=== PATIENT | female | born 2000 | race African-American/Black ===

== ENCOUNTER 2020-12-23 20:34 | Emergency (ER) | payer SELFPAY ==
--- OUTSIDE RECORDS SUMMARY | 2020-12-23 20:38 | XMS REPORT | Continuity of Care Document ---
:2000 Author Organization [facility] t Address [address] [place] [address] Care Team Providers Name Role Phone Paula Eastman PA-C Attending Clinician Mona Jett MD Attending Clinician Doctor Unassigned, Name Attending Clinician Unavailable Pineda Richardson MD Attending Clinician Susy DUNN Attending Clinician Ultrasound, [facility] Attending Clinician Unavailable 2, Lab Attending Clinician Unavailable Pineda Mathew MA Attending Clinician Unavailable Carmen Philip MD Attending Clinician Geo Jett MD Admitting Clinician Pineda Richardson MD Admitting Clinician Problems This patient has no known problems. Allergies, Adverse Reactions, Alerts This patient has no known allergies or adverse reactions. Medications This patient has no known medications. Procedures This patient has no known procedures. Encounters Start End Encounter Admission Attending Care Care Encounter Source Date/Time Date/Time Type Type Clinicians Facility Department ID 2019-12-23 2019-12-23 TelemedicJACQUES Christian 1.2.840.114 [id number] 07:58:31 13:26:53 ne Visit Paula Luna [id number] [place] 4.2.7.2.686 Professio [phone] [address] 2019-12-21 2019-12-21 Refill Mona Jett [facility] [id number] 00:00:00 00:00:00 Cam Cheryl 350.1.13.10 [place] 4.2.7.2.686 Professio [phone] [address] 2019-12-20 2019-12-20 Refill Mona Jett [facility] [id number] 00:00:00 00:00:00 [place] [id number] [place] 4.2.7.2.686 Professio [phone] [address] 2019-11-29 2019-11-29 Orders Doctor NATHAN 1.2.840.114 [id number] 00:00:00 00:00:00 Only Unassigned, [facility] [id number] [facility] 4.2.7.2.686 [id number] [id number] 2019-11-25 2019-11-26 Hospital Mona Jett [facility] 1.2.840.114 [id number] 05:33:00 21:06:00 Encounter Geo Luna [id number] [place] 4.2.7.2.686 [place] [id number] 2019-11-25 2019-11-25 Orders Doctor NATHAN 1.2.840.114 [id number] 00:00:00 00:00:00 Only Unassigned, [place] 350.1.13.10 [place] [facility] 4.2.7.2.686 [id number] [id number] 2019-11-19 2019-11-19 [facility] [id number] 08:59:42 09:14:42 Paula Luna 350.1.13.10 Visit [place] 4.2.7.2.686 [facility] [phone] [address] 2019-11-18 2019-11-18 Telephone Mona Jett [facility] 1.2.840.114 [id number] 00:00:00 00:00:00 Cam [place] 350.1.13.10 [place] 4.2.7.2.686 [facility] [phone] [address] 2019-11-17 2019-11-17 [facility] Mona Jett [facility] 1.2.840.114 [id number] 13:08:00 16:20:00 Encounter Dylan Alyce Pineda Luna 350.1.13.10 [place] 4.2.7.2.686 [place] [id number] 2019-11-13 2019-11-13 Case Diclemente, [facility] 1.2.840.114 [id number] 00:00:00 00:00:00 Management Markell Luna 350.1.13.10 [place] 4.2.7.2.686 [facility] [phone] [address] 2019-11-12 2019-11-12 Routine Diclemente, [facility] 1.2.840.114 [id number] 08:54:42 10:03:14 Markell Cheryl 350.1.13.10 Visit [place] 4.2.7.2.686 [facility] [phone] [address] 2019-11-12 2019-11-12 Orders Doctor NATHAN 1.2.840.114 [id number] 00:00:00 00:00:00 Only Unassigned, [place] 350.1.13.10 [facility] 4.2.7.2.686 [id number] [id number] 2019-11-05 2019-11-05 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 Ultrasound, [facility] 1.2.840.114 [id number] 16:15:50 16:45:50 Visit Adc [place] 350.1.13.10 [place] 4.2.7.2.686 [facility] [phone] [address] 2019-11-05 2019-11-05 Letter Ultrasound, [facility] 1.2.840.114 [id number] 00:00:00 00:00:00 (Out) Adc [facility] [place] 350.1.13.10 [place] 4.2.7.2.686 [facility] [phone] [address] 2019-10-29 2019-10-29 Routine Mananarlennikos, [facility] [id number] 09:25:23 10:08:15 Paula Cheryl 350.1.13.10 Visit [place] 4.2.7.2.686 [facility] [phone] [address] 2019-10-28 2019-10-29 Hospital Mona Jett [facility] 1.2.840.114 [id number] 22:21:00 00:17:00 Encounter Geo Luna 350.1.13.10 [place] 4.2.7.2.686 [place] [id number] [id number] 2019-10-29 2019-10-29 Letter Jaren [facility] [id number] 00:00:00 00:00:00 (Out) Paula Luna 350.1.13.10 [place] 4.2.7.2.686 [facility] [phone] [address] 2019-10-22 2019-10-22 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 2, Adc Lab [facility] 1.2.840.114 [id number] 14:58:39 15:13:39 Visit Cheryl 350.1.13.10 [place] 4.2.7.2.686 [facility] [phone] [address] 2019-10-22 2019-10-22 [facility]ine [facility] 1.2.840.114 [id number] 13:33:50 14:54:53 Markell Luna 350.1.13.10 Visit [place] 4.2.7.2.686 [facility] [phone] [address] 2019-10-22 2019-10-22 Orders Doctor NATHAN 1.2.840.114 [id number] 00:00:00 00:00:00 Only Unassigned, [place] 350.1.13.10 [place] [facility] 4.2.7.2.686 [id number] 2019-10-20 2019-10-20 Telephone Dicmino, [facility] 1.2.840.114 [id number] 00:00:00 00:00:00 Markell Luna 350.1.13.10 [place] 4.2.7.2.686 [facility] [phone] [address] 2019-10-15 2019-10-15 Patient Priyanka, [facility] 1.2.840.114 [id number] 00:00:00 00:00:00 Secure Msg Nuvia Sung Cheryl 350.1.13.10 [place] 4.2.7.2.686 [facility] [phone] [address] 2019-10-13 2019-10-13 Patient Doctor [facility] 1.2.840.114 [id number] 00:00:00 00:00:00 Secure Msg UnassignedCheryl 350.1.13.10 [place] 4.2.7.2.686 Professio [phone] [address] 2019-10-08 2019-10-08 Routine Vansong, [facility] [id number] 08:26:34 09:18:04 Paula Luna 350.1.13.10 Visit [place] 4.2.7.2.686 [facility] [phone] [address] 2019-10-05 2019-10-05 Patient Doctor [facility] 1.2.840.114 [id number] 00:00:00 00:00:00 Secure Msg UnassCheryl lenz 350.1.13.10 [place] 4.2.7.2.686 [facility] [phone] [address] 2019-09-29 2019-09-29 Hospital Mona Jett [facility] 1.2.840.114 [id number] 18:12:00 20:54:00 Encounter Geo Luna 350.1.13.10 [place] 4.2.7.2.686 [place] [id number] 2019-09-24 2019-09-24 Routine Susy, [facility] 1.2.840.114 [id number] 09:33:48 10:12:13 Markell Luna 350.1.13.10 Visit [place] 4.2.7.2.686 [facility] [phone] [address] 2019-09-24 2019-09-24 Letter Susy, [facility] 1.2.840.114 [id number] 00:00:00 00:00:00 (Out) Markell Luna 350.1.13.10 [place] 4.2.7.2.686 [facility] [phone] [address] 2019-09-23 2019-09-23 Emergency Tamera [facility] [id number] 18:49:51 20:42:00 [facility] 350.1.13.10 [facility] 4.2.7.2.686 [facility] [phone] [address] ([facility]) 2019-08-16 2019-08-16 Patient Doctor [facility] 1.2.840.114 [id number] 00:00:00 00:00:00 Secure Msg Unassigned, Cheryl 350.1.13.10 [place] 4.2.7.2.686 [facility] [phone] [address] 2019-05-14 2019-05-14 [facility] 1.2.840.114 [id number] 10:21:14 23:59:00 Encounter Markell Luna 350.1.13.10 [place] 4.2.7.2.686 [place] [id number] 2019-05-14 2019-05-14 Routine [facility] 1.2.840.114 [id number] 13:04:47 13:54:42 Markell Luna 350.1.13.10 Visit [place] 4.2.7.2.686 [facility] [phone] [address] 2019-05-14 2019-05-14 Letter Susy [facility] 1.2.840.114 [id number] 00:00:00 00:00:00 (Out) Markell Luna 350.1.13.10 [place] 4.2.7.2.686 [facility] [phone] [address] 2019-05-14 2019-05-14 Letter Susy [facility] 1.2.840.114 [id number] 00:00:00 00:00:00 (Out) Markell Luna 350.1.13.10 [place] 4.2.7.2.686 [facility] [phone] [address] Results This patient has no known results.
[2020-12-24 02:26] LABS: Urine Blood Negative (Negative); Urine Glucose Negative (Negative); Urine Protein Negative (Negative); Urine Specific Gravity >=1.030 (1.005-1.030); Urine pH 5.5 (5.0-7.0)
[2020-12-24 02:29] LABS: Absolute Lymphocytes (CBC) 0.6 K/uL (0.7-4.9); Basophils % 0.2 % (0-1.3); Hematocrit 40.1 % (36.0-45.0); Lymphocytes % 5.4 % (15.3-44.8); MPV 8.6 fL (7.6-11.3); RBC Red Blood Cell Count 4.65 M/uL (3.86-4.86)
[2020-12-24] MEDS ORDERED: METOCLOPRAMIDE 10 MG/2mL INJ ONE (02:32)
[2020-12-24] MEDS ORDERED: DIPHENHYDRAMINE 50 MG/ML VIAL ONE (02:32)
[2020-12-24] MEDS ORDERED: FAMOTIDINE 20 MG/2 ML VIAL IV ONE (02:33)
[2020-12-24] MEDS ORDERED: NA CHLORIDE 0.9% 1,000 ML ONE (02:33)
[2020-12-24 02:35] LABS: Urine Specific Gravity/Preg >1.030 (1.005-1.030)
[2020-12-24 03:44] LABS: ALT/SGPT 42 U/L (12-78); AST/SGOT 45 U/L (15-37); Alkaline Phosphatase 83 U/L (45-117); BUN Blood Urea Nitrogen 12 mg/dL (7-18); Bicarbonate 25 mmol/L (21-32); Bilirubin Direct 0.2 mg/dL (0-0.2); Bilirubin Total 0.5 mg/dL (0.2-1.0); Glucose Level 104 mg/dL (74-106); Lipase 127 U/L (73-393); Potassium 3.6 mmol/L (3.5-5.1); Protein, Total 7.7 g/dL (6.4-8.2); Sodium Level 140 mmol/L (136-145); Troponin (Emerg Dept Use Only) < 0.02 ng/mL (0.0-0.045)
[2020-12-24 04:03] LABS: Blood Morphology Comment NOT SEEN (NOT SEEN); Platelet Estimate INCR; White Blood Cell Scan OK (OK)
--- NOTE | 2020-12-24 04:19 | ER ---
Nurse's Notes [facility] Name: Brooklynn Lorenzana Age: 20 yrs Sex: Female : 2000 Arrival Date: 12/23/2020 Time: 20:35 Bed 28 Private MD: Diagnosis: Headache;Gastritis, unspecified, without bleeding Presentation: 12/23 21:54 Chief complaint: Patient states: she has had a headache x 2 days and this evening bb started vomiting with chest tightness. Coronavirus screen: At this time, the client does not indicate any symptoms associated with coronavirus-19. Ebola Screen: No symptoms or risks identified at this time. Initial Sepsis Screen: Does the patient meet any 2 criteria? No. Patient's initial sepsis screen is negative. Does the patient have a suspected source of infection? No. Patient's initial sepsis screen is negative. Risk Assessment: Do you want to hurt yourself or someone else? Patient reports no desire to harm self or others. Onset of symptoms was December 21, 2020. 21:54 Method Of Arrival: Ambulatory bb 21:54 Acuity: KAREN 3 bb Triage Assessment: 21:56 General: Appears in no apparent distress. Behavior is calm, cooperative. Pain: Pain bb currently is 8 out of 10 on a pain scale. Neuro: Level of Consciousness is awake, alert, obeys commands, Oriented to person, place, time, situation. Cardiovascular: Capillary refill < 3 seconds Patient's skin is warm and dry. Respiratory: Respiratory effort is even, unlabored, Respiratory pattern is regular. GI: Reports vomiting. Derm: Skin is dry, Skin is normal, Skin temperature is warm. Musculoskeletal: Circulation, motion, and sensation intact. 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 - Social history:: Smoking status: Patient denies any tobacco usage or history of. Screenin/25 01:33 Abuse screen: Denies threats or abuse. Nutritional screening: No deficits noted. bb Tuberculosis screening: No symptoms or risk factors identified. Fall Risk None identified. Assessment: 01:33 General: Appears in no apparent distress. uncomfortable, Behavior is calm, cooperative. bb Pain: Complains of pain in chest. Neuro: Level of Consciousness is awake, alert, obeys commands, Oriented to person, place, time, situation. Cardiovascular: Capillary refill < 3 seconds Patient's skin is warm and dry. Respiratory: Respiratory effort is even, unlabored, Respiratory pattern is regular. GI: Bowel sounds present X 4 quads. Abd is soft X 4 quads Reports vomiting. Derm: Skin is dry, Skin is normal, Skin temperature is warm. Musculoskeletal: Circulation, motion, and sensation intact. 02:30 Reassessment: Patient and/or family updated on plan of care and expected duration. Pain bb level reassessed. 03:30 Reassessment: Patient and/or family updated on plan of care and expected duration. Pain bb level reassessed. Patient is alert, oriented x 3, equal unlabored respirations, skin warm/dry/pink. pt awaiting diagnostic results. 04:38 Reassessment: Patient is alert, oriented x 3, equal unlabored respirations, skin bb warm/dry/pink. pt verbalized understanding of and agrees to plan of care discharge instructions given pt ambulated with steady gait to exit Patient states feeling better. Vital Signs: 12/23 21:54 BP 119 / 83; Pulse 77; Resp 16 S; Temp 98.4(O); Pulse Ox 100% on R/A; Weight 72.57 kg bb (R); Height 5 ft. 4 in. (162.56 cm) (R); Pain 8/10; 12/24 01:21 BP 116 / 76; Pulse 76; Resp 18; Temp 98.1(O); Pulse Ox 100% on R/A; tt3 03:10 BP 127 / 84; Pulse 92; Resp 18; Pulse Ox 100% on R/A; tt3 04:39 BP 114 / 74; Pulse 93; Resp 16 S; Temp 98.5(O); Pulse Ox 100% on R/A; Pain 2/10; bb 12/23 21:54 Body Mass Index 27.46 (72.57 kg, 162.56 cm) bb ED Course: 12/23 20:35 Patient arrived in ED. bp1 21:55 Triage completed. bb 21:56 Arm band placed on Patient placed in waiting room, Patient notified of wait time. bb 12/24 01:33 Patient has correct armband on for positive identification. Bed in low position. Call bb light in reach. 01:50 Freddie Weller MD is Attending Physician. [facility] 02:00 Initial lab(s) drawn, by me, sent to lab. Missed attempt(s): 20 gauge in right bb antecubital area. Bleeding controlled, band aid applied, catheter tip intact. 02:28 Chest Single View XRAY In Process Unspecified. EDMS 02:53 Inserted saline lock: 22 gauge in left antecubital area, using aseptic technique. bb ,using aseptic technique. by Alexa GRAF. 04:38 No provider procedures requiring assistance completed. IV discontinued, intact, bb bleeding controlled, No redness/swelling at site. Pressure dressing applied. Administered Medications: 02:38 Drug: Benadryl (diphenhydrAMINE) 50 mg Route: IVP; Rate: 25 mg/min; Site: left mw antecubital; 03:40 Follow up: Response: No adverse reaction bb 02:39 Drug: Reglan (metoCLOPramide) 10 mg Route: IVP; Rate: 10 mg/min; Site: left antecubital; 03:40 Follow up: Response: No adverse reaction bb 02:39 Drug: Pepcid (famotidine) 20 mg Route: IVP; Rate: 20 mg/min; Site: left antecubital; 03:40 Follow up: Response: No adverse reaction bb 02:55 Drug: NS 0.9% 1000 ml Route: IV; Rate: 1000 ml; Site: left antecubital; 04:00 Follow up: IV Status: Completed infusion; IV Intake: 1000ml bb Intake: 04:00 IV: 1000ml; Total: 1000ml. bb Outcome: 04:18 Discharge ordered by . [facility] 04:40 Discharged to home ambulatory. bb 04:40 Condition: stable 04:40 Discharge instructions given to patient, Instructed on discharge instructions, follow up and referral plans. medication usage, Demonstrated understanding of instructions, follow-up care, medications, Prescriptions given X 3. 04:41 Patient left the ED. bb Signatures: Dispatcher [employer] EDCA Alexa Evans RN RN mw Ballard, Brenda, RN RN bb [place], Brittany bp1 Holmes, Maurice, MD MD 7 Trim, Neymar tt3
--- NOTE | 2020-12-24 04:19 | EDPHYS ---
Physician Documentation [facility] Name: Brooklynn Lorenzana Age: 20 yrs Sex: Female : 2000 Arrival Date: 12/23/2020 Time: 20:35 Bed 28 Private MD: ED Physician Freddie Weller HPI: 12/24 02:47 This 20 yrs old Female presents to ER via Ambulatory with complaints of Abdominal Pain, mh7 Vomiting, Chest Pain. 02:51 The patient presents to the emergency department with nausea, that is moderate, mh7 vomiting, that is intermittent, described as clear fluid, abdominal pain, of the epigastric area, described as burning, intermittent, and does not radiate. Onset: The symptoms/episode began/occurred yesterday. Possible causes: unknown. The symptoms are aggravated by nothing. The symptoms are alleviated by nothing. Associated signs and symptoms: Pertinent positives: abdominal pain, nausea, vomiting, Migraine headache started 2 days ago, Pertinent negatives: anorexia, belching, constipation, diarrhea, dysuria, fever, flatulence, GI bleeding, hematuria, vaginal discharge. Severity of symptoms: At their worst the symptoms were moderate yesterday, in the emergency department the symptoms have improved moderately. States that she started having migraine headache 2 days ago and took Tylenol and Advil which helped. She started to have nausea, vomiting, and epigastric pain yesterday.. 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 - Social history:: Smoking status: Patient denies any tobacco usage or history of. ROS: 12/24 02:51 Constitutional: Negative for fever, chills, and weight loss, Eyes: Negative for injury, mh7 pain, redness, and discharge, ENT: Negative for injury, pain, and discharge, Neck: Negative for injury, pain, and swelling, Respiratory: Negative for shortness of breath, cough, wheezing, and pleuritic chest pain, Back: Negative for injury and pain, : Negative for injury, bleeding, discharge, and swelling, MS/Extremity: Negative for injury and deformity, Skin: Negative for injury, rash, and discoloration, Psych: Negative for depression, anxiety, suicide ideation, homicidal ideation, and hallucinations, Allergy/Immunology: Negative for hives, rash, and allergies, Endocrine: Negative for neck swelling, polydipsia, polyuria, polyphagia, and marked weight changes, Hematologic/Lymphatic: Negative for swollen nodes, abnormal bleeding, and unusual bruising. Exam: 02:51 Constitutional: This is a well developed, well nourished patient who is awake, alert, mh7 and in no acute distress. Head/Face: Normocephalic, atraumatic. Eyes: Pupils equal round and reactive to light, extra-ocular motions intact. Lids and lashes normal. Conjunctiva and sclera are non-icteric and not injected. Cornea within normal limits. Periorbital areas with no swelling, redness, or edema. Neck: Trachea midline, no thyromegaly or masses palpated, and no cervical lymphadenopathy. Supple, full range of motion without nuchal rigidity, or vertebral point tenderness. No Meningismus. Chest/axilla: Normal chest wall appearance and motion. Nontender with no deformity. No lesions are appreciated. Cardiovascular: Regular rate and rhythm with a normal S1 and S2. No gallops, murmurs, or rubs. Normal PMI, no JVD. No pulse deficits. Respiratory: Lungs have equal breath sounds bilaterally, clear to auscultation and percussion. No rales, rhonchi or wheezes noted. No increased work of breathing, no retractions or nasal flaring. Abdomen/GI: Soft, non-tender, with normal bowel sounds. No distension or tympany. No guarding or rebound. No evidence of tenderness throughout. Back: No spinal tenderness. No costovertebral tenderness. Full range of motion. Skin: Warm, dry with normal turgor. Normal color with no rashes, no lesions, and no evidence of cellulitis. MS/ Extremity: Pulses equal, no cyanosis. Neurovascular intact. Full, normal range of motion. Neuro: Awake and alert, GCS 15, oriented to person, place, time, and situation. Cranial nerves II-XII grossly intact. Motor strength 5/5 in all extremities. Sensory grossly intact. Cerebellar exam normal. Normal gait. Psych: Awake, alert, with orientation to person, place and time. Behavior, mood, and affect are within normal limits. Vital Signs: 12/23 21:54 BP 119 / 83; Pulse 77; Resp 16 S; Temp 98.4(O); Pulse Ox 100% on R/A; Weight 72.57 kg bb (R); Height 5 ft. 4 in. (162.56 cm) (R); Pain 8/10; 12/24 01:21 BP 116 / 76; Pulse 76; Resp 18; Temp 98.1(O); Pulse Ox 100% on R/A; tt3 03:10 BP 127 / 84; Pulse 92; Resp 18; Pulse Ox 100% on R/A; tt3 04:39 BP 114 / 74; Pulse 93; Resp 16 S; Temp 98.5(O); Pulse Ox 100% on R/A; Pain 2/10; bb 12/23 21:54 Body Mass Index 27.46 (72.57 kg, 162.56 cm) MDM: 04:16 Differential diagnosis: Nonspecific abd pain, gastritis, pancreatitis. Differential [facility] diagnosis: Headache. Data reviewed: vital signs. Data reviewed: lab test result(s), CBC, electrolytes, urinalysis, UPT: negative EKG, radiologic studies, plain films. Data interpreted: Pulse oximetry: on room air is 100 %. Interpretation: normal. Counseling: I had a detailed discussion with the patient and/or guardian regarding: the historical points, exam findings, and any diagnostic results supporting the discharge/admit diagnosis, lab results, radiology results, the need for outpatient follow up, to return to the emergency department if symptoms worsen or persist or if there are any questions or concerns that arise at home. Response to treatment: the patient's symptoms have resolved after treatment, the patient's blood pressure is in an acceptable range, mental status has returned to baseline, the patient no longer shows bradycardia, the patient is not short of breath, the patient is not tachycardic, the patient's pain is gone, the patient's temperature has normalized, patient is well hydrated. 04:18 Patient medically screened. [facility] 12/24 02:05 Order name: Basic Metabolic Panel [facility] 12/24 02:05 Order name: CBC with Diff; Complete Time: 04:09 [facility] 12/24 02:05 Order name: Hepatic Function; Complete Time: 04:09 [facility] 12/24 02:05 Order name: Lipase; Complete Time: 04:09 [facility] 12/24 02:06 Order name: Basic Metabolic Panel; Complete Time: 04:09 MS 12/24 02:06 Order name: Troponin (emerg Dept Use Only) [facility] 12/24 02:05 Order name: Chest Single View XRAY [facility] 12/24 02:07 Order name: Troponin (Emerg Dept Use Only); Complete Time: 04:09 EDMS 12/24 02:26 Order name: Urine Dipstick-Ancillary; Complete Time: 03:25 EDMS 12/24 02:27 Order name: Urine --Ancillary (enter results) 3 12/24 02:28 Order name: Urine --Ancillary; Complete Time: 03:25 EDMS 12/24 04:03 Order name: CBC Smear Scan; Complete Time: 04:09 MS 12/24 02:05 Order name: IV Saline Lock; Complete Time: 03:57 [facility] 12/24 02:05 Order name: Labs collected and sent; Complete Time: 03:57 [facility] 12/24 02:05 Order name: Urine Dipstick-Ancillary (obtain specimen); Complete Time: 03:57 7 12/24 02:05 Order name: Urine Test (obtain specimen); Complete Time: 03:57 [facility] 12/24 02:05 Order name: EKG - Nurse/Tech; Complete Time: 03:57 mh7 Administered Medications: 02:38 Drug: Benadryl (diphenhydrAMINE) 50 mg Route: IVP; Rate: 25 mg/min; Site: left mw antecubital; 03:40 Follow up: Response: No adverse reaction bb 02:39 Drug: Reglan (metoCLOPramide) 10 mg Route: IVP; Rate: 10 mg/min; Site: left antecubital;mw 03:40 Follow up: Response: No adverse reaction bb 02:39 Drug: Pepcid (famotidine) 20 mg Route: IVP; Rate: 20 mg/min; Site: left antecubital; mw 03:40 Follow up: Response: No adverse reaction bb 02:55 Drug: NS 0.9% 1000 ml Route: IV; Rate: 1000 ml; Site: left antecubital; bb 04:00 Follow up: IV Status: Completed infusion; IV Intake: 1000ml bb Disposition: 12/24/20 04:18 Discharged to Home. Impression: Headache, Gastritis, unspecified, without bleeding. - Condition is Stable. - Discharge Instructions: Migraine Headache, Gastritis, Adult, [id number]. - Prescriptions for Zofran ODT 4 mg Oral tablet,disintegrating - place 1 tablet by TRANSLINGUAL route every 8 hours As needed; 6 tablet. Pepcid 20 mg Oral Tablet - take 1 tablet by ORAL route every 12 hours for 5 days; 10 tablet. Fioricet 50- 325-40 mg Oral tablet - take 1 tablet by ORAL route every 6 hours As needed; 12 tablet. - Medication Reconciliation Form, Thank You Letter, Antibiotic Education, Prescription Opioid Use form. - Follow up: Private Physician; When: 1 - 2 days; Reason: Worsening of condition, Recheck today's complaints, Continuance of care, Re-evaluation by your physician. - Problem is an acute exacerbation. - Symptoms have improved. Signatures: Dispatcher [employer] EDMS Alexa Evans RN RN mw Ballard, Brenda, RN RN bb Holmes, Maurice, MD MD mh7 Corrections: (The following items were deleted from the chart) 04:41 04:18 12/24/2020 04:18 Discharged to Home. Impression: Headache; Gastritis, bb unspecified, without bleeding. Condition is Stable. Forms are Medication Reconciliation Form, Thank You Letter, Antibiotic Education, Prescription Opioid Use. Follow up: Private Physician; When: 1 - 2 days; Reason: Worsening of condition, Recheck today's complaints, Continuance of care, Re-evaluation by your physician. Problem is an acute exacerbation. Symptoms have improved. mh7
[2020-12-24 04:59] VITALS: O2SAT 100
[2020-12-24 05:03] VITALS: BP 114/74; TEMP 98.5
--- NOTE | 2020-12-24 10:58 | RAD REPORT ---
EXAM DESCRIPTION: Dave Single View12/24/2020 2:28 am CLINICAL HISTORY: Chest pain COMPARISON: none FINDINGS: The lungs appear clear of acute infiltrate. The heart is normal size IMPRESSION: No acute abnormalities displayed
--- NOTE | 2020-12-25 10:51 | EKG ---
Test Date: 2020-12-24 Test Time: 02:18:25 [place] Fitting: TLT MEASUREMENT RESULTS: Intervals: Rate: 82 DE: 142 QRSD: 74 QT: 360 QTc: 420 [place]: P: 64 DE: 142 QRS: 65 T: 49 INTERPRETIVE STATEMENTS: Normal sinus rhythm with sinus arrhythmia Normal ECG No previous ECG available for comparison Electronically Signed On 12-25-20 10:47:02 CDT by Freddie Velasco
== END 2020-12-24 04:41 | disposition home or self-care (01) ==
LOC: ER 20:34
DX: K29.70 Gastritis, unspecified, without bleeding (principal); Z91.010 Allergy to peanuts
CPT/HCPCS: 36415; 71045; 80048; 80076; 81003; 81025; 83690; 84484; 85025; 93005; 96361; 96374; 96375; 99284; J1200; J2765; J7030

== ENCOUNTER 2022-05-20 22:06 | Emergency (ER) | payer OTHER, SELFPAY ==
--- OUTSIDE RECORDS SUMMARY | 2022-05-20 22:11 | XMS REPORT | Continuity of Care Document ---
:2000 Author Organization [facility] t Address [address] [place] [address] Care Team Providers Name Role Phone RITU SIMMONS Primary Care Physician Unavailable PAULA ENAMORADO Attending Clinician Unavailable ABNER NEVAREZ Attending Clinician Unavailable FIOR CYR Attending Clinician Unavailable Fior Cyr MD Attending Clinician Real PTAnastacia Attending Clinician Unavailable Abner Nevarez MD Attending Clinician Jing Britton PT Attending Clinician Unavailable 2, [facility] Attending Clinician Unavailable Doctor Unassigned, [place] Attending Clinician Unavailable Paula Enamorado PA-C Attending Clinician Alyce Richardson MD Attending Clinician Markell Jain MD Attending Clinician Ultrasound, Adc m Attending Clinician Unavailable Nuvia Mathew MA Attending Clinician Unavailable Luis Antonio Philip MD Attending Clinician Fior Cyr MD Admitting Clinician Alyce Richardson MD Admitting Clinician Payers Payer Name Policy Type Policy Number Effective Date Expiration Date Harrison cordova [facility] DALE WONG [id number] 2022 00:00:00 Problems Condition Condition Condition Status Onset Resolution Last Treating Co mments Source Name Details Category Date Date Treatment Clinician Date Supervisio Supervisio Disease Active U nivers n of other n of other 03-28 it y of normal normal 00:00: [place] 00 [facility] Branch Pelvic Pelvic Disease Active Univers cramping cramping 03-28 ity of in in 00:00: [place] antepartum antepartum 00 Me dical period period Branch Acute hip Acute hip Disease Active Uni vers pain, left pain, left 03-28 it y of 00:00: [place] 00 Medical Branch Nausea and Nausea and Disease Active U nivers vomiting vomiting - ity of during during 00:00: [place] 00 [facility] prior to prior to Branch 22 weeks 22 weeks gestation gestation Alpha Alpha Disease Active Overview: Univer s thalassemi thalassemi 9-28 Formattin ity of a silent a silent 00:00: g of this [place] as carrier carrier 00 note Medical might be Branch different from the original. 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 Negative for 13 out of 14 other diseases tested. FOB testing is negative. Migraine Migraine Disease Active Unive rs without without 9-13 ity of aura and aura and 00:00: [place] without without 00 Medical status status Branch migrainosu migrainosu s, not s, not intractabl intractabl e e Maternal Maternal Disease Active Overview: Un robyn varicella, varicella, 8-19 Formattin ity of non-immune non-immune 00:00: g of this [place] 00 note Medical might be Branch different from the original. VZV pp Allergies, Adverse Reactions, Alerts Allergy Allergy Status Severity Reaction(s) Onset Inactive Treating Comm ents Source Name Type Date Date Clinician Peanut Propensi Active Other - See Throat Uni vers ty to comments 12-28 swells up ity o f adverse 00:00: [place] reaction 00 Medical s Branch PEANUT DRUG Active Other-Cmnt Univer s INGREDI 4-29 ity of 00:00: [place] [address] Medical Branch Social History Social Habit Start Date Stop Date Quantity Comments Source ASSERTION 2022-02-07 University of 00:00:00 [place] [facility] History SDMO University o f Alcohol Std [place] Medical Drinks Branch History SDMO University o f Alcohol Binge [place] [facility] al Branch History [facility] University o f Alcohol Comment [place] Med ical Branch Exposure to 2022-04-15 2022-04-25 Not sure University of SARS-CoV-2 00:00:00 15:51:00 [facility] (event) Branch Alcohol intake 2022-03-28 2022-03-28 Lifetime University of 00:00:00 00:00:00 non-drinker [facility] (finding) Branch Tobacco use and 2022-03-28 2022-03-28 Smokeless tobacco Un iversity of exposure 00:00:00 00:00:00 non-user [place] [facility] History SDOH 2019-04-16 2019-04-16 1 University o f Alcohol Frequency 00:00:00 00:00:00 [facility] edical Hi Hat Sex Assigned At [birth year] Universit y of 00:00:00 00:00:00 [facility] Smoking Status Start Date Stop Date Source Never smoked tobacco [facility] Medications Ordered Filled Start Stop Current Ordering Indication Dosage Frequency Signature Comments Components Source Medication Medication Date Date Medication? Clinician (SIG) Name Name proMETHazin Yes [id number] 25mg Insert 1 Univers e 25 mg 8-25 Suppositor ity of suppository 00:00: y into [facility] 00 rectum Medical every 4 Branch (four) hours as needed for N/V unresponsi ve to oral antiemetic s. proMETHazin Yes [id number] 25mg Take 1 Univers e 25 mg 8-25 tablet by ity of tablet 00:00: mouth [place] [address] every 4 Medical (four) Branch hours as needed for Nausea and Vomiting (N/V). metroNIDAZO 2021- Yes [id number] 500mg Take 1 Univers LE (FLAGYL) 7-30 -07 tablet by it y of 500 mg 00:00: 04:59 mouth in [place] tablet 00 :00 the Medical morning Branch and 1 tablet in the evening. Do all this for 7 days. metroNIDAZO 2021-2021- Yes [id number] 500mg Take 1 Univers LE (FLAGYL) 7-30 08-07 tablet by it y of 500 mg 00:00: 04:59 mouth in [place] tablet 00 :00 the Medical morning Branch and 1 tablet in the evening. Do all this for 7 days. azithromyci 2021-0 Yes [id number] 500mg Take 1 Univers n 500 mg 7-29 tablet by ity of tablet 00:00: mouth in [place] 00 the Medical morning. Branch azithromyci 2021-0 Yes [id number] 500mg Take 1 Univers n 500 mg 7-29 tablet by ity of tablet 00:00: mouth in [place] 00 the Medical morning. Branch azithromyci 2021-0 Yes [id number] 500mg Take 1 Univers n 500 mg 7-29 tablet by ity of tablet 00:00: mouth in [place] 00 the Medical morning. Branch azithromyci 2021-0 Yes [id number] 500mg Take 1 Univers n 500 mg 7-29 tablet by ity of tablet 00:00: mouth in [place] 00 the Medical morning. Branch azithromyci 2021-0 Yes [id number] 500mg Take 1 Univers n 500 mg 7-29 tablet by ity of tablet 00:00: mouth in [place] 00 the Medical morning. Branch azithromyci 2021-0 Yes [id number] 500mg Take 1 Univers n 500 mg 7-29 tablet by ity of tablet 00:00: mouth in [place] 00 the Medical morning. Branch azithromyci 2021-0 Yes [id number] 500mg Take 1 Univers n 500 mg 7-29 tablet by ity of tablet 00:00: mouth in [place] 00 the Medical morning. Branch azithromyci 2021-0 Yes [id number] 500mg Take 1 Univers n 500 mg 7-29 tablet by ity of tablet 00:00: mouth in [place] 00 the Medical morning. Branch azithromyci 2021-0 2021- No [id number] 500mg Take 1 Univers n 500 mg 7-29 08-25 tablet by ity o f tablet 00:00: 00:00 mouth in [place] 00 :00 the Medical morning. Branch pyridoxine, 2021-0 Yes [id number] 25mg Take 1 Univers VITAMIN 7-28 tablet by ity of B-6, 00:00: mouth [place] (VITAMIN 00 every 6 Medical B-6) 25 mg (six) Branch tablet hours as needed for Nausea and Vomiting (N/V). doxylamine 2021-0 Yes [id number] 25mg Take 1 U nivers (UNISOM, 7-28 tablet by ity of DOXYLAMINE, [place] 25 mg 00 bedtime as Medica l tablet needed for Branch Nausea and Vomiting (N/V). metoclopram 2021-0 Yes [id number] 10mg Take 1 Univers to HCl 10 7-28 tablet by ity of mg tablet 00:00: mouth [place] 00 every 6 Medical (six) Branch hours as needed for Nausea and Vomiting (N/V). pyridoxine, 2021-0 Yes [id number] 25mg Take 1 Univers VITAMIN 7-28 tablet by ity of B-6, 00:00: mouth [place] (VITAMIN 00 every 6 Medical B-6) 25 mg (six) Branch tablet hours as needed for Nausea and Vomiting (N/V). doxylamine 2021-0 Yes [id number] 25mg Take 1 U nivers (UNISOM, 7-28 tablet by ity of DOXYLAMINE, [place] 25 mg 00 bedtime as Medica l tablet needed for Branch Nausea and Vomiting (N/V). metoclopram 2021-0 Yes [id number] 10mg Take 1 Univers to HCl 10 7-28 tablet by ity of mg tablet 00:00: mouth [place] 00 every 6 Medical (six) Branch hours as needed for Nausea and Vomiting (N/V). pyridoxine, 2021-0 Yes [id number] 25mg Take 1 Univers VITAMIN 7-28 tablet by ity of B-6, 00:00: mouth [place] (VITAMIN 00 every 6 Medical B-6) 25 mg (six) Branch tablet hours as needed for Nausea and Vomiting (N/V). doxylamine 2-0 Yes [id number] 25mg Take 1 U nivers (UNISOM, 7-28 tablet by ity of DOXYLAMINE, [place]: [place] 25 mg 00 bedtime as Medica l tablet needed for Branch Nausea and Vomiting (N/V). metoclopram 2022-0 Yes [id number] 10mg Take 1 Univers to HCl 10 7-28 tablet by ity of mg tablet 00:00: mouth [place] 00 every 6 Medical (six) Branch hours as needed for Nausea and Vomiting (N/V). pyridoxine, 2021-0 Yes [id number] 25mg Take 1 Univers VITAMIN 7-28 tablet by ity of B-6, 00:00: mouth [place] (VITAMIN 00 every 6 Medical B-6) 25 mg (six) Branch tablet hours as needed for Nausea and Vomiting (N/V). doxylamine 2-0 Yes [id number] 25mg Take 1 U nivers (UNISOM, 7-28 tablet by ity of DOXYLAMINE, [place] 25 mg 00 bedtime as Medica l tablet needed for Branch Nausea and Vomiting (N/V). metoclopram 2-0 Yes [id number] 10mg Take 1 Univers to HCl 10 7-28 tablet by ity of mg tablet 00:00: mouth [place] 00 every 6 Medical (six) Branch hours as needed for Nausea and Vomiting (N/V). pyridoxine, 2021-0 Yes [id number] 25mg Take 1 Univers VITAMIN 7-28 tablet by ity of B-6, 00:00: mouth [place] (VITAMIN 00 every 6 Medical B-6) 25 mg (six) Branch tablet hours as needed for Nausea and Vomiting (N/V). doxylamine 2021-0 Yes [id number] 25mg Take 1 U nivers (UNISOM, 7-28 tablet by ity of DOXYLAMINE, [place]: [place] 25 mg 00 bedtime as Medica l tablet needed for Branch Nausea and Vomiting (N/V). metoclopram 2-0 Yes [id number] 10mg Take 1 Univers to HCl 10 7-28 tablet by ity of mg tablet 00:00: mouth [place] 00 every 6 Medical (six) Branch hours as needed for Nausea and Vomiting (N/V). pyridoxine, 2-0 Yes [id number] 25mg Take 1 Univers VITAMIN 7-28 tablet by ity of B-6, 00:00: mouth [place] (VITAMIN 00 every 6 Medical B-6) 25 mg (six) Branch tablet hours as needed for Nausea and Vomiting (N/V). doxylamine 2022-0 Yes [id number] 25mg Take 1 U nivers (UNISOM, 7-28 tablet by ity of DOXYLAMINE, [place]: [place] 25 mg 00 bedtime as Medica l tablet needed for Branch Nausea and Vomiting (N/V). metoclopram 2022-0 Yes [id number] 10mg Take 1 Univers to HCl 10 7-28 tablet by ity of mg tablet 00:00: mouth [place] 00 every 6 Medical (six) Branch hours as needed for Nausea and Vomiting (N/V). pyridoxine, 2-0 Yes [id number] 25mg Take 1 Univers VITAMIN 7-28 tablet by ity of B-6, 00:00: mouth [place] (VITAMIN 00 every 6 Medical B-6) 25 mg (six) Branch tablet hours as needed for Nausea and Vomiting (N/V). doxylamine 2-0 Yes [id number] 25mg Take 1 U nivers (UNISOM, 7-28 tablet by ity of DOXYLAMINE, 00:[place]: [place] 25 mg 00 bedtime as Medica l tablet needed for Branch Nausea and Vomiting (N/V). metoclopram 2-0 Yes [id number] 10mg Take 1 Univers to HCl 10 7-28 tablet by ity of mg tablet 00:00: mouth [place] 00 every 6 Medical (six) Branch hours as needed for Nausea and Vomiting (N/V). pyridoxine, 2-0 Yes [id number] 25mg Take 1 Univers VITAMIN 7-28 tablet by ity of B-6, 00:00: mouth [place] (VITAMIN 00 every 6 Medical B-6) 25 mg (six) Branch tablet hours as needed for Nausea and Vomiting (N/V). doxylamine 2022-0 Yes [id number] 25mg Take 1 U nivers (UNISOM, 7-28 tablet by ity of DOXYLAMINE, 00:[place]: [place] 25 mg 00 bedtime as Medica l tablet needed for Branch Nausea and Vomiting (N/V). metoclopram 2022-0 Yes [id number] 10mg Take 1 Univers to HCl 10 7-28 tablet by ity of mg tablet 00:00: mouth [place] 00 every 6 Medical (six) Branch hours as needed for Nausea and Vomiting (N/V). pyridoxine, 2021-0 Yes [id number] 25mg Take 1 Univers VITAMIN 7-28 tablet by ity of B-6, 00:00: mouth [place] (VITAMIN 00 every 6 Medical B-6) 25 mg (six) Branch tablet hours as needed for Nausea and Vomiting (N/V). doxylamine 2-0 Yes [id number] 25mg Take 1 U nivers (UNISOM, 7-28 tablet by ity of DOXYLAMINE, 00:[place]: [place] 25 mg 00 bedtime as Medica l tablet needed for Branch Nausea and Vomiting (N/V). metoclopram 2-0 Yes [id number] 10mg Take 1 Univers to HCl 10 7-28 tablet by ity of mg tablet 00:00: mouth [place] 00 every 6 Medical (six) Branch hours as needed for Nausea and Vomiting (N/V). pyridoxine, 2021-0 Yes [id number] 25mg Take 1 Univers VITAMIN 7-28 tablet by ity of B-6, 00:00: mouth [place] (VITAMIN 00 every 6 Medical B-6) 25 mg (six) Branch tablet hours as needed for Nausea and Vomiting (N/V). doxylamine 2021-0 Yes [id number] 25mg Take 1 U nivers (UNISOM, 7-28 tablet by ity of DOXYLAMINE, [place]: [place] 25 mg 00 bedtime as Medica l tablet needed for Branch Nausea and Vomiting (N/V). metoclopram 2-0 Yes [id number] 10mg Take 1 Univers to HCl 10 7-28 tablet by ity of mg tablet 00:00: mouth [place] 00 every 6 Medical (six) Branch hours as needed for Nausea and Vomiting (N/V). pyridoxine, 2-0 Yes [id number] 25mg Take 1 Univers VITAMIN 7-28 tablet by ity of B-6, 00:00: mouth [place] (VITAMIN 00 every 6 Medical B-6) 25 mg (six) Branch tablet hours as needed for Nausea and Vomiting (N/V). doxylamine 2022-0 Yes [id number] 25mg Take 1 U nivers (UNISOM, 7-28 tablet by ity of DOXYLAMINE, [place]: [place] 25 mg 00 bedtime as Medica l tablet needed for Branch Nausea and Vomiting (N/V). metoclopram 0 Yes [id number] 10mg Take 1 Univers to HCl 10 7-28 tablet by ity of mg tablet 00:00: mouth [place] 00 every 6 Medical (six) Branch hours as needed for Nausea and Vomiting (N/V). pyridoxine, 0 Yes [id number] 25mg Take 1 Univers VITAMIN 7-28 tablet by ity of B-6, 00:00: mouth [place] (VITAMIN 00 every 6 Medical B-6) 25 mg (six) Branch tablet hours as needed for Nausea and Vomiting (N/V). doxylamine 0 Yes [id number] 25mg Take 1 U nivers (UNISOM, 7-28 tablet by ity of DOXYLAMINE, 00:[place]: [place] 25 mg 00 bedtime as Medica l tablet needed for Branch Nausea and Vomiting (N/V). pyridoxine, Yes [id number] 25mg Take 1 Univers VITAMIN 7-28 tablet by ity of B-6, 00:00: mouth [place] (VITAMIN 00 every 6 Medical B-6) 25 mg (six) Branch tablet hours as needed for Nausea and Vomiting (N/V). doxylamine Yes [id number] 25mg Take 1 U nivers (UNISOM, 7-28 tablet by ity of DOXYLAMINE, 00:[place]: [place] 25 mg 00 bedtime as Medica l tablet needed for Branch Nausea and Vomiting (N/V). metoclopram 2021- No [id number] 10mg Take 1 Univers to HCl 10 7-28 08-25 tablet by ity of mg tablet 00:00: 00:00 mouth [place] 00 :00 every 6 Medical (six) Branch hours as needed for Nausea and Vomiting (N/V). ibuprofen 2020-09- No [id number] 600mg Take 1 Univers 600 mg 2-10 07-28 tablet by ity of tablet 00:00: 00:00 mouth [place] 00 :00 every 6 Medical (six) Branch hours as needed for Pain (scale 4-6) or Temp > 38.5 C. Yes [id number] 1{tbl} Take 1 Univers vitamin 3-27 [id number] tablet by ity o f w/FA tablet 00:00: mouth [place] 00 daily. Medical Branch 2020-0 Yes [id number] 1{tbl} Take 1 Univers vitamin 3-27 [id number] tablet by ity o f w/FA tablet 00:00: mouth [place] 00 daily. Medical Branch 2020-0 Yes [id number] 1{tbl} Take 1 Univers vitamin 3-27 [id number] tablet by ity o f w/FA tablet 00:00: mouth [place] 00 daily. Medical Branch 2020-0 Yes [id number] 1{tbl} Take 1 Univers vitamin 3-27 [id number] tablet by ity o f w/FA tablet 00:00: mouth [place] 00 daily. Medical Hi Hat 2020-0 Yes [id number] 1{tbl} Take 1 Univers vitamin 3-27 [id number] tablet by ity o f w/FA tablet 00:00: mouth [place] 00 daily. Medical Hi Hat 2020-0 Yes [id number] 1{tbl} Take 1 Univers vitamin 3-27 [id number] tablet by ity o f w/FA tablet 00:00: mouth [place] 00 daily. Medical Branch 2020-0 Yes [id number] 1{tbl} Take 1 Univers vitamin 3-27 [id number] tablet by ity o f w/FA tablet 00:00: mouth [place] 00 daily. Medical Hi Hat 2020-0 Yes [id number] 1{tbl} Take 1 Univers vitamin 3-27 [id number] tablet by ity o f w/FA tablet 00:00: mouth [place] 00 daily. Medical Hi Hat 2020-0 Yes [id number] 1{tbl} Take 1 Univers vitamin 3-27 [id number] tablet by ity o f w/FA tablet 00:00: mouth [place] 00 daily. Medical Branch 2020-0 Yes [id number] 1{tbl} Take 1 Univers vitamin 3-27 [id number] tablet by ity o f w/FA tablet 00:00: mouth [place] 00 daily. Medical Hi Hat 2020-0 Yes [id number] 1{tbl} Take 1 Univers vitamin 3-27 [id number] tablet by ity o f w/FA tablet 00:00: mouth [place] 00 daily. Medical Hi Hat 2020-0 Yes [id number] 1{tbl} Take 1 Univers vitamin 3-27 [id number] tablet by ity o f w/FA tablet 00:00: mouth [place] 00 daily. Medical Branch 2019- Yes [id number] 1{tbl} Take 1 Univers vitamin 3-27 [id number] tablet by ity o f w/FA tablet 00:00: mouth [place] 00 daily. Medical Branch docusate 2021- No [id number] 240mg Take 1 Univers calcium 240 11-25 [id number] capsule by ity of mg capsule 00:00: 00:00 mouth once [place] 00 :00 daily as Medical needed for Branch Constipati on. ferrous 2021- No [id number] 325mg Take 1 Univers sulfate 325 11-25 [id number] tablet by ity of mg (65 mg 00:00: 00:00 [place] iron[place] 00 :00 (two) Medical tablet times Branch daily. ibuprofen 2021- No [id number] 600mg Take 1 Univers 600 mg 11-25 [id number] tablet by ity o f tablet 00:00: 00:00 mouth [place] 00 :00 every 6 Medical (six) Branch hours as needed (Pain). Take with food or milk. Immunizations Ordered Filled Immunization Date Status Comments [facility] e Immunization Name Name TDAP (ADACEL) 2019-09-02 Completed University of VACCINE 00:00:00 [facility] TDAP (ADACEL) 2019-09-02 Completed University of VACCINE 00:00:00 [facility] TDAP (ADACEL) 2019-09-02 Completed University of VACCINE 00:00:00 [facility] TDAP (ADACEL) 2019-09-02 Completed University of VACCINE 00:00:00 [facility] TDAP (ADACEL) 2019-09-02 Completed University of VACCINE 00:00:00 [facility] TDAP (ADACEL) 2019-09-02 Completed University of VACCINE 00:00:00 [facility] TDAP (ADACEL) 2019-09-02 Completed University of VACCINE 00:00:00 [facility] TDAP (ADACEL) 2019-09-02 Completed University of VACCINE 00:00:00 [facility] TDAP (ADACEL) 2019-09-02 Completed University of VACCINE 00:00:00 [facility] TDAP (ADACEL) 2019-09-02 Completed University of VACCINE 00:00:00 [facility] TDAP (ADACEL) 2019-09-02 Completed University of VACCINE 00:00:00 [facility] TDAP (ADACEL) 2019-09-02 Completed University of VACCINE 00:00:00 [facility] TDAP (ADACEL) 2019-09-02 Completed University of VACCINE 00:00:00 [facility] Influenza Virus 2019-06-08 Completed Universit y of Vaccine Quad .5 mL 00:00:00 [place] [facility] IM 6+ MO Branch Influenza Virus 2019-06-08 Completed Universit y of Vaccine Quad .5 mL 00:00:00 [facility] 6+ MO Branch Influenza Virus 2019-06-08 Completed Universit y of Vaccine Quad .5 mL 00:00:00 [facility] 6+ MO Branch Influenza Virus 2019-06-08 Completed Universit y of Vaccine Quad .5 mL 00:00:00 [facility] 6+ MO Branch Influenza Virus 2019-06-08 Completed Universit y of Vaccine Quad .5 mL 00:00:00 [facility] 6+ MO Branch Influenza Virus 2019-06-08 Completed Universit y of Vaccine Quad .5 mL 00:00:00 [facility] 6+ MO Branch Influenza Virus 2019-06-08 Completed Universit y of Vaccine Quad .5 mL 00:00:00 [facility] 6+ MO Branch Influenza Virus 2019-06-08 Completed Universit y of Vaccine Quad .5 mL 00:00:00 [facility] 6+ MO Branch Influenza Virus 2019-06-08 Completed Universit y of Vaccine Quad .5 mL 00:00:00 [facility] 6+ MO Branch Influenza Virus 2019-06-08 Completed Universit y of Vaccine Quad .5 mL 00:00:00 [facility] 6+ MO Branch Influenza Virus 2019-06-08 Completed Universit y of Vaccine Quad .5 mL 00:00:00 [place] [facility] 6+ MO Branch Influenza Virus 2019-06-08 Completed Universit y of Vaccine Quad .5 mL 00:00:00 [facility] 6+ MO Branch Influenza Virus 2019-06-08 Completed Universit y of Vaccine Quad .5 mL 00:00:00 [facility] 6+ MO Branch Vital Signs Vital Name Observation Time Observation Value Comments Source Systolic blood 2022-04-25 21:03:00 122 mm[Hg] Univer sity of pressure [facility] Diastolic blood 2022-04-25 21:03:00 86 mm[Hg] Unive rsity of pressure [facility] Heart rate 2022-04-25 21:03:00 92 /min Universi ty of [facility] Body temperature 2022-04-25 21:03:00 36.[address] [facility] Respiratory rate 2022-04-25 21:03:00 18 /min Univ ersity of [facility] Body height 2022-04-25 21:03:00 165.1 [address] [facility] Body weight 2022-04-25 21:03:[address] [facility] BMI 2022-04-25 21:03:00 23.63 kg/m2 Universi ty of [facility] Systolic blood 2022-03-28 19:28:00 106 mm[Hg] Univer sity of [facility] Diastolic blood 2022-03-28 19:28:00 68 mm[Hg] Unive rsity of [facility] Heart rate 2022-03-28 19:28:00 80 /min Universi ty of [facility] Body temperature 2022-03-28 19:28:00 37.39 Nathaly Univ ersity [facility] Respiratory rate 2022-03-28 19:28:00 16 /min Univ ersity of [facility] Body height 2022-03-28 19:28:00 162.[address] [facility] Body weight 2022-03-28 19:28:00 66[address] [facility] BMI 2022-03-28 19:28:00 24.99 kg/m2 Universi ty of [facility] Procedures Procedure Date / Time Performing Clinician Source Performed SCANNED LAB RESULTS 2022-04-05 05:01:00 Doctor Unassigned, No Un i[facility]ity of [place] Name [facility] <14 WEEKS US 2022-03-28 20:25:18 Fior Cyr [facility] URINE DRUG (IMMUNOASSAY) 2022-03-28 20:13:00 [facility] SCREEN PAP SMEAR-LIQUID 2022-03-28 20:13:00 Fior Cyr [facility] POCT TEST 2022-03-28 19:39:00 Fior Cyr [facility] POCT URINALYSIS W/O 2022-03-28 19:39:00 Fior Cyr [facility]TR[facility] 2022-03-28 05:01:00 Doctor Unassigned, No [facility] Encounters Start End Encounter Admission Attending Care Care Encounter Source Date/Time Date/Time Type Type Clinicians Facility Department ID 2022-06-11 2022-06-11 Outpatient R [facility] [id number] Univers 15:00:00 [facility]00[id number] 2022-06-11 Outpatient P [facility] [id number] Univers 15:00:00 15:00:00 [facility] 2022-05-23 2022-05-23 [facility] [id number] Univers 15:30:00 15:30:00 PAULA [id number] [facility] 2022-05-23 2022-05-23 Outpatient R KELSEA [facility] [id number] Univers 15:30:00 15:30:00 PAULA [facility] 2022-05-10 2022-05-10 Outpatient R [facility] [id number] Univers 16:00:00 16:00:00 [id number] [facility] 2022-05-10 2022-05-10 [facility] [id number] Univers 16:00:00 16:00:00 ABNER [facility] 2022-05-01 2022-05-01 Outpatient R ROQUE [facility] [id number] Univers 08:00:00 08:00:00 [facility] [id number] [facility]22-04-30 2022-04-30 Outpatient R ROQUE [facility] [id number] Univers 08:00:00 08:00:00 ABNER [id number] [facility] 2022-04-25 2022-04-25 Outpatient R FIOR CYR [facility] [id number] Univers 15:45:[facility]22-[facility]-25 2022-04-25 Routine Fior Cyr [facility] [id number] Univers 15:45:00 16:42:44 Geo RIVAS [id number] ity of [facility] [id number] [id number] Il dical NAL [address] [facility] 2022-04-25 2022-04-25 [facility] [id number] Univers 08:00:00 08:45:26 ABNER ity [facility] 2022-04-25 2022-04-25 Ancillary Anastacia Noble [facility] [id number] Univers 08:00:00 08:45:26 Visit Abner Nevarez 350.1.13.10 ity of [place] [phone] Il dical NAL 179 [facility] 2022-04-25 2022-04-25 Outpatient R FIOR CYR [facility] [id number] [id number] Univers 07:15:00 07:15:[id number] [facility] 2022-04-23 2022-04-23 Outpatient R [facility] [id number] -[id number] Univers 07:15:00 07:15:00 [id number] ity [facility] 2022-04-18 2022-04-18 Ancillary Anastacia Noble [facility] 1.2.84 0.114 [id number] Univers 08:00:00 13:21:20 Visit Abner Nevarez 350.1.13.10 it[place] of [place] [phone] Il dical NAL 179 [facility] 2022-04-18 2022-04-18 Outpatient R ROQUE [facility] [id number] 6N-[id number] Univers 08:00:00 08:00:00 ABNER [id number] ity [facility] 2022-04-17 2022-04-17 Telephone Fior Cyr [facility] 1.2.840.114 [id number] Univers 00:00:00 00:00:00 Cam ROB 350.1.13.10 i ty of [facility] [place] [phone] Il dical NAL 134 [facility] 2022-04-16 2022-04-16 Outpatient R [facility] [id number] Univers 08:15:00 08:15:[id number] [facility] 2022-04-09 2022-04-09 Ancillary Jing Britton [facility] 1 .2.840.114 [id number] Univers 13:00:00 15:21:44 Visit Abner Nevarez 350.1.13.10 it[place] of [place] [phone] Il dical NAL 179 [facility] 2022-04-05 2022-04-05 [employer] Officer 2, [facility] Lab [facility] 1.2.840.114 [id number] [facility] 09:00:00 09:15:00 Visit Fior Cyr 350.1.13.10 ity of [place] [phone] Il dical NAL 353 [facility] 2022-04-05 2022-04-05 Outpatient R FIOR CYR [facility] [id number] Univers 09:00:00 09:00:[address] [facility] 2022-04-05 2022-04-05 Orders Doctor EVANS 1.2.840.114 [id number] [facility] 00:00:00 00:00:00 Only Unassigned, FANTASMA 350.1.13.10 ity of [place] [facility] 4.2.7.2.686 Alfred[place] as [phone] [address] 2022-03-30 2022-03-30 Case Fior Cyr [facility] 1.2.130.581 [id number] Univers 00:00:00 00:00:00 Management Geo RIVAS 350.1.13.10 it[place] of [place] [phone] Il dical NAL 134 [facility] 2022-03-29 2022-03-29 [employer] Officer 2, [facility] Lab [facility] 1.2.840.114 [id number] Univers 09:15:00 09:30:00 Visit Fior Cyr YESSICATON 350.1.13.10 ity of [place] [phone] Il dical NAL 353 [facility] 2022-03-29 2022-03-29 Outpatient R FIOR CYR [facility] [id number] Univers 09:15:00 09:15:[address] [facility] 2022-03-29 2022-03-29 Case Fior Cyr [facility] 1.2.921.330 [id number] Univers 00:00:00 00:00:00 Management Cam [place] 350.1.13.10 ity of [place] [phone] Il dical NAL 134 [facility] 2022-03-29 2022-03-29 Telephone Fior Cyr [facility] 1.2.840.114 [id number] Univers 00:00:00 00:00:00 Cam [place] 350.1.13.10 i ty of [place] [phone] Il dical NAL 134 [facility] 2022-03-28 2022-03-28 Initial Fior Cyr [facility] 1.2.130.405 [id number] Univers 14:00:00 15:22:58 Cam [place] 350.1.13.10 ity of Visit [place] [phone] Il dical NAL 134 [facility] 2022-03-28 2022-03-28 Outpatient R FIOR CYR [facility] [id number] Univers 14:00:00 15:22:[address] [facility] 2022-03-28 2022-03-28 Orders Doctor EVANS 1.2.840.114 [id number] Univers 00:00:00 00:00:00 Only Unassigned, FANTASMA 350.1.13.10 ity of [place] [facility] 4.2.7.2.686 [place] as [phone] [address] 2019-12-23 2019-12-23 [facility]ici [facility] 1.2.840.114 [id number] 07:58:31 13:26:53 ne Visit Paula Rivas 350.1.13.10 [place] 4.2.7.2.686 [place] [phone] [address] 2019-12-21 2019-12-21 Refill Fior Cyr [facility] 1.2.758.760 [id number] 00:00:00 00:00:00 Cam Rob 350.1.13.10 [place] 4.2.7.2.686 [place] [phone] [address] 2019-12-20 2019-12-20 Refill Fior Cyr [facility] 1.2.396.689 [id number] 00:00:00 00:00:00 Cam Rob 350.1.13.10 [place] 4.2.7.2.686 [place] [phone] [address] 2019-11-29 2019-11-29 Orders Doctor NATHAN 1.2.840.114 [id number] 00:00:00 00:00:00 Only Unassigned, FANTASMA 350.1.13.10 [place] [facility] 4.2.7.2.686 [id number] 009 2019-11-25 2019-11-26 Hospital Fior Cyr [facility] 1.2.840.114 [id number] 05:33:00 21:06:00 Encounter Geo Rivas 350.1.13.10 [place] 4.2.7.2.686 [place] [id number] 083 2019-11-25 2019-11-25 Orders Doctor NATHAN 1.2.840.114 [id number] 00:00:00 00:00:00 Only Unassigned, FANTASMA 350.1.13.10 [place] [facility] 4.2.7.2.686 [id number] [facility] 2019-11-19 2019-11-19 [facility] 1.2.506.464 [id number] 08:59:42 09:14:42 Paula Rivas 350.1.13.10 Visit [place] 4.2.7.2.686 [place] [phone] [address] 2019-11-18 2019-11-18 Telephone Fior Cyr [facility] 1.2.840.114 [id number] 00:00:00 00:00:00 Cam Rob 350.1.13.10 [place] 4.2.7.2.686 [place] [id number] [address] 2019-11-17 2019-11-17 Hospital Fior Cyr [facility] 1.2.840.114 [id number] 13:08:00 16:20:00 Encounter AdAlyce elias Rob 350.1.13.10 [place] 4.2.7.2.686 [place] [id number] 083 2019-11-13 2019-11-13 Case Diclemente, [facility] 1.2.840.114 [id number] 00:00:00 00:00:00 Management Markell Rivas 350.1.13.10 [place] 4.2.7.2.686 [place] [id number] [address] 2019-11-12 2019-11-12 Routine Diclemente, [facility] 1.2.840.114 [id number] 08:54:42 10:03:14 Markell Rivas 350.1.13.10 Visit [place] 4.2.7.2.686 [place] [id number] [address] 2019-11-12 2019-11-12 Orders Doctor NATHAN 1.2.840.114 [id number] 00:00:00 00:00:00 Only Unassigned, [place] 350.1.13.10 [place] [facility] 4.2.7.2.686 [id number] 009 2019-11-05 2019-11-05 [employer] Officer Ultrasound, [facility] 1.2.840.114 [id number] 16:15:50 16:45:50 Visit Adc Mfm [place] 350.1.13.10 [place] 4.2.7.2.686 [place] [phone] [address] 2019-11-05 2019-11-05 Letter Ultrasound, [facility] 1.2.840.114 [id number] 00:00:00 00:00:00 (Out) Adc Mfm [place] 350.1.13.10 [place] 4.2.7.2.686 [place] [phone] [facility] 134 [facility] 2019-10-29 2019-10-29 Routine Kelsea [facility] 1.2.600.184 [id number] 09:25:23 10:08:15 Paula Rivas 350.1.13.10 Visit [place] 4.2.7.2.686 [place] [phone] [facility] 2019-10-28 2019-10-29 Hospital Fior Cyr [facility] 1.2.840.114 [id number] 22:21:00 00:17:00 Encounter Geo Rivas 350.1.13.10 [place] 4.2.7.2.686 [place] [id number] 083 2019-10-29 2019-10-29 Letter Kelsea [facility] 1.2.028.832 [id number] 00:00:00 00:00:00 (Out) Paula Rivas 350.1.13.10 [place] 4.2.7.2.686 [place] [phone] [address] 2019-10-22 2019-10-22 [employer] Officer 2, Adc Lab [facility] 1.2.840.114 [id number] 14:58:39 15:13:39 Visit Rob 350.1.13.10 [place] 4.2.7.2.686 [place] [phone] [address] 2019-10-22 2019-10-22 Routine Susy [facility] 1.2.840.114 [id number] 13:33:50 14:54:53 Markell Rivas 350.1.13.10 Visit [place] 4.2.7.2.686 [place] [id number] [address] 2019-10-22 2019-10-22 Orders Doctor NATHAN 1.2.840.114 [id number] 00:00:00 00:00:00 Only Unassigned, [place]MA 350.1.13.10 [place] [facility] 4.2.7.2.686 [id number] 009 2019-10-20 2019-10-20 Telephone Susy [facility] 1.2.840.114 [id number] 00:00:00 00:00:00 Markell Rivas 350.1.13.10 [place] 4.2.7.2.686 [place] [phone] [address] 2019-10-15 2019-10-15 Patient Priyanka, [facility] 1.2.840.114 [id number] 00:00:00 00:00:00 Secure Msg Nuvia Sung [place] 350.1.13.10 [place] 4.2.7.2.686 [place] [phone] [address] 2019-10-13 2019-10-13 Patient Doctor [facility] 1.2.840.114 [id number] 00:00:00 00:00:00 Secure Msg UnassignedRob 350.1.13.10 [place] 4.2.7.2.686 [place] [phone] [address] 2019-10-08 2019-10-08 Routine Kelsea, [facility] 1.2.012.046 [id number] 08:26:34 09:18:04 Paulalyubov Rivas 350.1.13.10 Visit Gr[place] 4.2.7.2.686 [place] [phone] [address] 2019-10-05 2019-10-05 Patient Doctor [facility] 1.2.840.114 [id number] 00:00:00 00:00:00 Secure Msg UnassignedRob 350.1.13.10 [place] 4.2.7.2.686 [place] [phone] [address] 2019-09-29 2019-09-29 [facility] 1.2.840.114 [id number] 18:12:00 20:54:00 Encounter Geo Rivas 350.1.13.10 [place] 4.2.7.2.686 [place] [id number] 083 2019-09-24 2019-09-24 Routine Susy, [facility] 1.2.840.114 [id number] 09:33:48 10:12:13 Markell Rivas 350.1.13.10 Visit [place] 4.2.7.2.686 [place] [phone] [address] 2019-09-24 2019-09-24 [facility] 1.2.840.114 [id number] 00:00:00 00:00:00 (Out) Markell Rivas 350.1.13.10 [place] 4.2.7.2.686 [place] [id number] [address] 2019-09-23 2019-09-23 Emergency Tamera, [facility] 1.2.389.351 [id number] 18:49:51 20:42:00 [facility] 350.1.13.10 [facility] 4.2.7.2.686 [facility] [phone] [address] ([facility]) 2019-08-16 2019-08-16 Patient Doctor [facility] 1.2.840.114 [id number] 00:00:00 00:00:00 Secure Msg UnassignedRob 350.1.13.10 [place] 4.2.7.2.686 [place] [phone] [address] 2019-05-14 2019-05-14 [facility] 1.2.840.114 [id number] 10:21:14 23:59:00 Encounter Markell Rivas 350.1.13.10 [place] 4.2.7.2.686 [place] [phone] 806 2019-05-14 2019-05-14 Routine [facility] 1.2.840.114 [id number] 13:04:47 13:54:42 Markell Rivas 350.1.13.10 Visit [place] 4.2.7.2.686 [place] [phone] [address] 2019-05-14 2019-05-14 [facility] 1.2.840.114 [id number] 00:00:00 00:00:00 (Out) Markell Rivas 350.1.13.10 [place] 4.2.7.2.686 [place] [phone] [address] 2019-05-14 2019-05-14 Letter [facility] 1.2.840.114 [id number] 00:00:00 00:00:00 (Out) Markell Rivas 350.1.13.10 [place] 4.2.7.2.686 [place] [phone] [facility] 134 Building Results Test Description Test Time Test Comments Results Result Comments Source POCT TEST 2022-03-28 19:39:00 Test Item Value Reference Range Interpretation Comme nts POCT PREG (test code = 1605) Positive On board controls acceptable with C Line (test code = 3574) Yes POCT PREG LOT # (test code = 3575) POCT PREG TEST DATE (test code = 3576) [facility] SPECIFIC [id number] 19:39:00 Test Item Value Reference Range Interpretation Comments POCT PH U (test code = 3254) n/a 5-8 POCT U LEUK EST (test code = 3263) n/a Negative - Negative POCT U NIT (test code = 3262) n/a Negative - Negative POCT U PROT (test code = 3259) trace Negative - Negative POCT U GLU (test code = 3256) normal Negative - Negative POCT U KETONE (test code = 3258) n/a Negative - Negative POCT U BLD (test code = 3257) n/a Negative - Negative [facility]
[2022-05-20 22:52] LABS: Urine Blood Negative (Negative); Urine Glucose Negative (Negative); Urine Protein Negative (Negative)
--- NOTE | 2022-05-20 23:55 | RAD REPORT ---
EXAM DESCRIPTION: US - OB Limited - 05/20/2022 11:25 pm CLINICAL HISTORY: with abdominal pain COMPARISON: None FINDINGS: Limited examination was performed. Single live intrauterine in cephalic presentation Cervix 3.9 centimeters. Amniotic fluid normal. Anterior placenta. No subchorionic/retroplacental bleed. Tip of the placenta lies 1 centimeter from t he cervix. Cardiac activity 155 beats per minute. The right and left adnexae are unremarkable BPD 3.6 centimeter 17 weeks 1 day HC 13.8 centimeter 17 weeks 1 day AC 11.5 centimeters 17 weeks 1 day FL 2.2 centimeter 16 weeks 5 days IMPRESSION: Single live intrauterine in cephalic presentation The estimated gestational age 17 weeks 0 days FRANCIE 10/28/2022 Low lying placenta
--- NOTE | 2022-05-20 23:59 | EDPHYS ---
Physician Documentation [facility] Name: Brooklynn Lorenzana Age: 21 yrs Sex: Female : 2000 Arrival Date: 05/20/2022 Time: 22:22 Bed DIS4 Private MD: ED Physician Jaquan Mckeon HPI: 05/20 23:44 This 21 yrs old Black Female presents to ER via Ambulatory with complaints of Abdominal kb Cramping. 23:44 The patient presents to the emergency department with abdominal pain. The estimated kb gestational age is 16 weeks. course: care: private OB physician, Dr. Jett, Leakage of Fluid: none appreciated, Ultrasound: the patient had an ultrasound, which was normal, Risk/complications: no obvious risks or complications are appreciated. Previous pregnancies: in previous pregnancies patient has had. Associated signs and symptoms: Pertinent positives: abdominal pain, Pertinent negatives: vaginal bleeding, vaginal discharge. The patient has not experienced similar symptoms in the past. The patient has not recently seen a physician. 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 - Social history:: Smoking status: Patient denies any tobacco usage or history of. ROS: 23:41 Constitutional: Negative for fever, chills, and weight loss. kb 23:41 Abdomen/GI: Positive for abdominal pain, abdominal cramps. 23:41 All other systems are negative. Exam: 23:41 Constitutional: This is a well developed, well nourished patient who is awake, alert, kb and in no acute distress. Head/Face: Normocephalic, atraumatic. ENT: Moist Mucous membranes Cardiovascular: Regular rate and rhythm with a normal S1 and S2. No gallops, murmurs, or rubs. No pulse deficits. Respiratory: Respirations even and unlabored. No increased work of breathing. Talking in full sentences Skin: Warm, dry with normal turgor. Normal color. MS/ Extremity: Pulses equal, no cyanosis. Neurovascular intact. Full, normal range of motion. Neuro: Awake and alert, GCS 15, oriented to person, place, time, and situation. Moves all extremities. Normal gait. Psych: Awake, alert, with orientation to person, place and time. Behavior, mood, and affect are within normal limits. 23:41 Abdomen/GI: Inspection: abdomen appears normal, Bowel sounds: normal, Palpation: soft, in all quadrants, mild abdominal tenderness, in the right lower quadrant and left lower quadrant. Vital Signs: 23:10 BP 97 / 60; Pulse 80; Resp 18 S; Temp 98.3(O); Pulse Ox 98% on R/A; Weight 64.41 kg as6 (R); Height 5 ft. 4 in. (162.56 cm); 05/21 00:14 BP 104 / 67; Pulse 76; Resp 16 S; Pulse Ox 97% on R/A; as6 05/20 23:10 Body Mass Index 24.37 (64.41 kg, 162.56 cm) as6 MDM: 05/20 22:34 Patient medically screened. kb 23:44 Data reviewed: vital signs, nurses notes. Data interpreted: Pulse oximetry: on room air kb is 98 %. Interpretation: normal. Counseling: I had a detailed discussion with the patient and/or guardian regarding: the historical points, exam findings, and any diagnostic results supporting the discharge/admit diagnosis, radiology results, the need for outpatient follow up, an OB/Gyne specialist, to return to the emergency department if symptoms worsen or persist or if there are any questions or concerns that arise at home. 05/20 22:51 Order name: Urine --Ancillary (enter results) kb 05/20 22:52 Order name: Urine Dipstick-Ancillary; Complete Time: 22:52 EDMS 05/20 23:27 Order name: OB Limited; Complete Time: 23:58 EDMS Administered Medications: No medications were administered Disposition: 05/21 03:23 Co-signature as Attending Physician, Jaquan HENDRIX was immediately available onsite ms3 in the emergency department for consultation in the care of the patient. Disposition Summary: 05/20/22 23:58 Discharge Ordered Location: Home kb Condition: Stable kb Diagnosis - Lower abdominal pain, unspecified kb - 17 weeks gestation of kb Followup: kb - With: Emergency Department - When: As needed - Reason: Worsening of condition Followup: kb - With: Private Physician - When: 2 - 3 days - Reason: Recheck today's complaints, Continuance of care, Re-evaluation by your physician Discharge Instructions: - Discharge Summary Sheet kb - Abdominal Pain During , Uwvw-ti-Lgxj kb - Second Trimester of , Gykb-xv-Wbjm kb Forms: - Medication Reconciliation Form kb - Thank You Letter kb - Antibiotic Education kb - Prescription Opioid Use kb Signatures: Dispatcher [employer] EDSonia Chavez, JAYDEN-C JAYDEN-Jaquan Pitts DO DO ms3 Blake Bearden, RN RN as6 Corrections: (The following items were deleted from the chart) 05/20 23:27 22:46 OB Complete+US.TRI ordered. [facility]
--- NOTE | 2022-05-20 23:59 | ER ---
Nurse's Notes [facility] Name: Brooklynn Lorenzana Age: 21 yrs Sex: Female : 2000 Arrival Date: 05/20/2022 Time: 22:22 Bed DIS4 Private MD: Diagnosis: Lower abdominal pain, unspecified;17 weeks gestation of Presentation: 05/20 23:10 Chief complaint: Patient states: suprapubic pain that started yesterday. Coronavirus as6 screen: At this time, the client does not indicate any symptoms associated with coronavirus-19. Ebola Screen: No symptoms or risks identified at this time. Initial Sepsis Screen: Does the patient meet any 2 criteria? No. Patient's initial sepsis screen is negative. Does the patient have a suspected source of infection? No. Patient's initial sepsis screen is negative. Risk Assessment: Do you want to hurt yourself or someone else? Patient reports no desire to harm self or others. Onset of symptoms was May 19, 2022. 23:10 Method Of Arrival: Ambulatory as6 23:10 Acuity: KAREN 4 as6 Triage Assessment: 05/21 00:13 General: Appears in no apparent distress. Behavior is calm, cooperative. Pain: as6 Complains of pain in left lower quadrant and right lower quadrant. Neuro: Level of Consciousness is awake, alert. Respiratory: Respiratory effort is even, unlabored. 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 - Social history:: Smoking status: Patient denies any tobacco usage or history of. Screenin/20 00:13 Abuse screen: Denies threats or abuse. Denies injuries from another. Nutritional as6 screening: No deficits noted. Tuberculosis screening: No symptoms or risk factors identified. Fall Risk None identified. Vital Signs: 05/20 23:10 BP 97 / 60; Pulse 80; Resp 18 S; Temp 98.3(O); Pulse Ox 98% on R/A; Weight 64.41 kg as6 (R); Height 5 ft. 4 in. (162.56 cm); 05/21 00:14 BP 104 / 67; Pulse 76; Resp 16 S; Pulse Ox 97% on R/A; as6 05/20 23:10 Body Mass Index 24.37 (64.41 kg, 162.56 cm) as6 ED Course: 05/20 22:22 Patient arrived in ED. ja2 22:24 Jaquan Mckeon DO is Attending Physician. ms3 22:24 Sonia Eastman FNP-C is [facility]. kb 22:53 Blake Bearden, LESIA is Primary Nurse. as6 23:13 Triage completed. as6 23:14 Arm band placed on. as6 23:27 OB Limited In Process Unspecified. EDMS 05/21 00:14 Patient has correct armband on for positive identification. as6 00:14 No provider procedures requiring assistance completed. Patient did not have IV access as6 during this emergency room visit. Administered Medications: No medications were administered Medication: 00:14 VIS not applicable for this client. as6 Outcome: 05/20 23:58 Discharge ordered by . kb 05/21 00:14 Discharged to home ambulatory. as6 Condition: stable Discharge instructions given to patient, Instructed on discharge instructions, follow up and referral plans. Demonstrated understanding of instructions, follow-up care. 00:15 Patient left the ED. as6 Signatures: Dispatcher [employer] EDWA Sonia Eastman FNP-C FNP-Jaquan Pitts DO DO ms3 Nuvia Palmer ja2 Blake Bearden, LESIA RN as6
[2022-05-22 08:57] VITALS: TEMP 98.3
[2022-05-22 08:59] VITALS: BP 104/67; O2SAT 97
== END 2022-05-21 00:15 | disposition home or self-care (01) ==
LOC: ER 22:06
DX: O26.892 Other specified pregnancy related conditions, second trimester (principal); Z3A.17 17 weeks gestation of pregnancy
CPT/HCPCS: 76815; 81003; 81025; 99283

== ENCOUNTER 2023-04-14 17:54 | Emergency (ER) | payer OTHER ==
--- OUTSIDE RECORDS SUMMARY | 2023-04-14 18:11 | XMS REPORT | Continuity of Care Document ---
:2000 Author Organization [facility] t Address [address] [facility] [address] [place] [address] Care Team Providers Name Role Phone RITU SIMMONS Primary Care Physician Unavailable FIOR CYR Attending Clinician Unavailable SABRINA ARRINGTON Attending Clinician Unavailable Sabrina Arrington DO Attending Clinician Firo Cyr MD Attending Clinician Doctor Unassigned, [place] Attending Clinician Unavailable Karmen Enamorado PA-C Attending Clinician 2, [facility] Attending Clinician Unavailable KARMEN ENAMORADO Attending Clinician Unavailable ROSELINE QUIÑONEZ Attending Clinician Unavailable ROSELINE QUIÑONEZ Attending Clinician Unavailable Margarita Flores Attending Clinician CARLY ESTRADA Attending Clinician Unavailable Carly Estrada MD Attending Clinician JASMIN WILD Attending Clinician Unavailable Ultrasound, [facility] Attending Clinician Unavailable Jasmin Wild MD Attending Clinician [phone] Nurse, [facility] Attending Clinician Unavailable Roslyn Burciaga RN Attending Clinician Unavailable ABNER NEVAREZ Attending Clinician Unavailable Real PT, Anastacia Delgado Attending Clinician Unavailable Abner Nevarez MD Attending Clinician Driss Zuniga PT, Jing Attending Clinician Unavailable UYEN FOSS Attending Clinician Unavailable Uyen Schmitz Attending Clinician JOSHUA REY Attending Clinician Unavailable Joshua Rey DO Attending Clinician CEE MACARIO Attending Clinician Unavailable Cee Macario NP Attending Clinician Dylan DUNN, Alyce Sung Attending Clinician Susy DUNN, Giovanni Attending Clinician GIOVANNI JAIN Attending Clinician Unavailable GIOVANNI JAIN Attending Clinician Unavailable Enoch DUNN, Vikas Velasquez Attending Clinician Nuvia Mathew MA Attending Clinician Unavailable Luis Antonio Philip MD Attending Clinician DIANE ALICIA Attending Clinician Unavailable Aicha GRAF, Claire Carpenter Attending Clinician Unavailable FIOR CYR Admitting Clinician Unavailable ALYCE RICHARDSON Admitting Clinician Unavailable Fior Cyr MD Admitting Clinician ROSELINE QUIÑONEZ Admitting Clinician Unavailable CARLY ESTRADA Admitting Clinician Unavailable UYEN FOSS Admitting Clinician Unavailable Alyce Richardson MD Admitting Clinician CEE MACARIO Admitting Clinician Unavailable Payers Payer Name Policy Type Policy Number Effective Date Expiration Date S tasha [facility] [id number] 2022 00:00:00 [facility] [id number] 2018 00:00:00 [facility] Problems Condition Condition Condition Status Onset Resolution Last Treating Co mments Source Name Details Category Date Date Treatment Clinician Date Oligohydra Oligohydra Disease Active U nivers mnios in mnios in 2-14 ity of third third 00:00: [place] trimester, trimester, 00 Me dical single or single or Bran ch unspecifie unspecifie d fetus d fetus Encounter Encounter Disease Active Uni vers for tubal for tubal 1-17 ity of ligation ligation 00:00: [place] 00 Medical Branch Back pain Back pain Disease Active 2021-09 Uni vers affecting affecting 1-25 [place] [address] [facility] trimester trimester Bran ch COVID-19 COVID-19 Disease Active 2021-09 Unive rs affecting affecting 1-25 [place] second [place] second [address] [facility] trimester trimester Bran ch 16 weeks 16 weeks Disease Active Unive rs gestation gestation 9-21 ity of of of 00:00: [place] [facility] Normal Normal Disease Active Univers 7-28 ity of in third in third 00:00: [place] trimester trimester [facility] Pelvic Pelvic Disease Active Univers cramping cramping 7-28 ity of in in 00:00: [place] antepartum antepartum 00 Me dical period period Branch Acute hip Acute hip Disease Active Uni vers pain, left pain, left 7-28 it y of 00:00: [place] 00 [facility] Branch Nausea and Nausea and Disease Active U nivers vomiting vomiting 7-28 ity of during during 00:00: [place] 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 Horizon testing - [...] PEANUT DRUG Active Other-Cmnt Univer s INGREDI 12-28 ity of 00:00: [place] 00 Medical Branch Social History Social Habit Start Date Stop Date Quantity Comments Source ASSERTION 2022-02-07 University of 00:00:00 [place] [facility] History [facility] University o f Alcohol Std [place] [facility] Drinks Branch History [facility] University o f Alcohol Binge [place] [facility] al Branch History [facility] University o f Alcohol Comment [place] Med ical Branch Exposure to 2023-01-12 2023-01-22 Not sure [facility] SARS-CoV-2 00:00:00 00:02:00 [place] Medical (event) Branch Alcohol intake 2023-01-21 2023-01-21 Lifetime University of 00:00:00 00:00:00 non-drinker [place] Medical (finding) Branch Tobacco use and 2022-03-28 2022-03-28 Smokeless tobacco Un iversity of exposure 00:00:00 00:00:00 non-user [place] [facility] Branch History SDOH 2019-04-16 2019-04-16 1 University o f Alcohol Frequency 00:00:00 00:00:00 [facility] edical Branch Sex Assigned At [birth year] Universit y of 00:00:00 00:00:00 [place] [facility] [place] Smoking Status Start Date Stop Date Source Never smoked tobacco [facility] Medications Ordered Filled Start Stop Current Ordering Indication Dosage Frequency Signature Comments Components Source Medication Medication Date Date Medication? Clinician (SIG) Name Name ketorolac 2022- No 30mg 30 mg, Unive rs (TORADOL) 01-22 Slow IV ity of injection 04:45: 03:39 Push, [place] 30 mg 00 :00 ONCE, 1 Medical dose, On Branch Fri01/21/23 at 2345, Routine NaCl 0.9% 2022- No 1000mL at 999 Uni vers (NS) bolus 01-22 mL/hr, ity of infusion 04:45: 05:12 1,000 mL, [place] as 1,000 mL 00 :00 IV Medical Infusion, Branch ONCE, 1 dose, On Fri01/21/23 at 2345, HAM[place] diphenhydrA 2022- No 25mg 25 mg, Uni vers MINE 01-22 Slow IV ity of (BENADRYL) 04:00: 03:41 Push, [place] injection 00 :00 ONCE, 1 Medical 25 mg dose, On Branch Fri01/21/23 at 2300, STAT metoclopram 2022- No 10mg 10 mg, Uni vers to HCl 01-22 Slow IV ity of (REGLAN) 04:00: 03:39 Push, [place] injection 00 :00 ONCE, 1 Medical 10 mg dose, On Branch Fri01/21/23 at 2300, HAMIDA 0 Yes [id number] 1{tbl} Take 1 U nivers vitamin 2-16 tablet by ity of w/FA tablet 00:00: mouth in [place] 00 the Medical morning. Branch docusate 0 Yes [id number] 200mg Take 2 Un robyn 100 mg 2-16 capsules ity of capsule 00:00: by mouth [place] 00 once daily Medical as needed Branch for Constipati on. ferrous 2022-0 Yes [id number] 325mg Take 1 Uni vers sulfate 325 2-16 tablet by ity of mg (65 mg 00:00: mouth in [place] iron) 00 the Medical tablet morning Branch and 1 tablet in the evening. ibuprofen 0 Yes [id number] 600mg Take 1 U nivers 600 mg 2-16 tablet by ity of tablet 00:00: mouth [place] 00 every 6 Medical (six) Branch hours as needed (Pain). Take with food or milk. 2022-0 Yes [id number] 1{tbl} Take 1 U nivers vitamin 2-16 tablet by ity of w/FA tablet 00:00: mouth in [place] 00 the Medical morning. Branch docusate 2022-0 Yes [id number] 200mg Take 2 Un robyn 100 mg 2-16 capsules ity of capsule 00:00: by mouth [place] 00 once daily Medical as needed Branch for Constipati on. ferrous 2022-0 Yes [id number] 325mg Take 1 Uni vers sulfate 325 2-16 tablet by ity of mg (65 mg 00:00: mouth [place] iron) 00 the Medical tablet morning Branch and 1 tablet in the evening. ibuprofen 2022-0 Yes [id number] 600mg Take 1 U nivers 600 mg 2-16 tablet by ity of tablet 00:00: mouth [place] 00 every 6 Medical (six) Branch hours as needed (Pain). Take with food or milk. 2022-0 Yes [id number] 1{tbl} Take 1 U nivers vitamin 2-16 tablet by ity of w/FA tablet 00:00: mouth in [place] 00 the Medical morning. Branch docusate 2022-0 Yes [id number] 200mg Take 2 Un robyn 100 mg 2-16 capsules ity of capsule 00:00: by mouth [place] 00 once daily Medical as needed Branch for Constipati on. ferrous 2022-0 Yes [id number] 325mg Take 1 Uni vers sulfate 325 2-16 tablet by ity of mg (65 mg 00:00: mouth [place] iron) 00 the Medical tablet morning Branch and 1 tablet in the evening. ibuprofen 2022-0 Yes [id number] 600mg Take 1 U nivers 600 mg 2-16 tablet by ity of tablet 00:00: mouth [place] 00 every 6 Medical (six) Branch hours as needed (Pain). Take with food or milk. 2022-0 Yes [id number] 1{tbl} Take 1 U nivers vitamin 2-16 tablet by ity of w/FA tablet 00:00: mouth in [place] 00 the Medical morning. Branch docusate 2022-0 Yes [id number] 200mg Take 2 Un robyn 100 mg 2-16 capsules ity of capsule 00:00: by mouth [place] 00 once daily Medical as needed Branch for Constipati on. ferrous 2022-0 Yes [id number] 325mg Take 1 Uni vers sulfate 325 2-16 tablet by ity of mg (65 mg 00:00: mouth [place] iron) 00 the Medical tablet morning Branch and 1 tablet in the evening. ibuprofen 2022-0 Yes [id number] 600mg Take 1 U nivers 600 mg 2-16 tablet by ity of tablet 00:00: mouth [place] 00 every 6 Medical (six) Branch hours as needed (Pain). Take with food or milk. 2022-0 Yes [id number] 1{tbl} Take 1 U nivers vitamin 2-16 tablet by ity of w/FA tablet 00:00: mouth in [place] 00 the Medical morning. Branch docusate 2022-0 Yes [id number] 200mg Take 2 Un robyn 100 mg 2-16 capsules ity of capsule 00:00: by mouth [place] 00 once daily Medical as needed Branch for Constipati on. ferrous 2022-0 Yes [id number] 325mg Take 1 Uni vers sulfate 325 2-16 tablet by ity of mg (65 mg 00:00: mouth [place] iron) 00 the Medical tablet morning Branch and 1 tablet in the evening. ibuprofen 2022-0 Yes [id number] 600mg Take 1 U nivers 600 mg 2-16 tablet by ity of tablet 00:00: mouth [place] 00 every 6 Medical (six) Branch hours as needed (Pain). Take with food or milk. 2022-0 Yes [id number] 1{tbl} Take 1 U nivers vitamin 2-16 tablet by ity of w/FA tablet 00:00: mouth in [place] 00 the Medical morning. Branch docusate 2022-0 Yes [id number] 200mg Take 2 Un robyn 100 mg 2-16 capsules ity of capsule 00:00: by mouth [place] 00 once daily Medical as needed Branch for Constipati on. ferrous 2022-0 Yes [id number] 325mg Take 1 Uni vers sulfate 325 2-16 tablet by ity of mg (65 mg 00:00: mouth [place] iron) 00 the Medical tablet morning Branch and 1 tablet in the evening. ibuprofen 2022-0 Yes [id number] 600mg Take 1 U nivers 600 mg 2-16 tablet by ity of tablet 00:00: mouth [place] 00 every 6 Medical (six) Branch hours as needed (Pain). Take with food or milk. rho(D) 2022-0 Yes 300ug 300 mcg, Univer s immune 2-15 Intramuscu ity of globulin 11:56: lar, ONCE, [place] as (RHOGAM) 53 For 1 Medical syringe 300 dose, Branch mcg Conditiona l, Routine witch Cecilia 2022-0 Yes Topical, Un robyn (TUCKS) 50 2-15 Q4HPRN, ity of % topical 11:56: [place] pad 44 on Fri Medical 10/16/22 at Branch 0556, Until Discontinu ed, Routine, rectal/hem orrhoidal pain HYDROcodone 2022-0 Yes 1{tbl} 1 tablet, Univers -acetaminop 2-15 Oral, ity of hen (NORCO 11:56: Q6HPRN, [place] 5) 5-325 mg 44 Starting Medi deep tablet 1 on Fri Branch tablet 10/16/22 at 0556, Until Discontinu ed, Routine, Pain (scale 7-10) ibuprofen 0 Yes 600mg 600 mg, Univ ers (IBU) 2-15 Oral, ity of tablet 600 11:56: Q6HPRN, [place] mg 44 Starting Medical on Fri Branch 10/16/22 at 0556, Until Discontinu ed, Routine, Pain (scale 4-6) acetaminoph 2022-0 Yes 650mg 650 mg, Un robyn en 2-15 Oral, ity of (TYLENOL) 11:56: Q6HPRN, [place] tablet 650 44 Starting Medic al mg on Fri Branch 10/16/22 at 0556, Until Discontinu ed, Routine, Pain (scale 1-3) diphenhydrA 0 Yes 25mg 25 mg, Univ ers MINE 2-15 Oral, ity of (BENADRYL) 11:56: Q6HPRN, [place] tablet 25 43 Starting Medica l mg on Fri Branch 10/16/22 at 0556, Until Discontinu ed, Routine, Sleep, Itching ondansetron 2022-0 Yes 4mg 4 mg, Slow Univers (ZOFRAN 2-15 IV Push, ity of (PF)) 11:56: Q8HPRN, [place] injection 4 43 Starting Medi deep mg on Wed Branch 10/16/22 at 0556, Until Discontinu ed, Routine, Nausea and Vomiting (N/V) simethicone Yes 160mg 160 mg, Un robyn (GAS RELIEF 2-15 Oral, ity of (SIMETHICON 11:56: PC+HSPRN, [place] E)) 43 Starting Medical chewable on Fri Branch tablet 160 10/16/22 at mg 0556, Until Discontinu ed, Routine, Gas docusate Yes 200mg 200 mg, Unive rs (COLACE) 2-15 Oral, ity of capsule 200 11:56: QDAILYPRN, [place] mg 43 Starting Medical on Fri Branch 10/16/22 at 0556, Until Discontinu ed, Routine, Constipati on magnesium Yes 30mL 30 mL, Univer s hydroxide 2-15 Oral, ity of (MILK OF 11:56: QDAILYPRN, [place] as MAGNESIA) 43 Starting Medica l 400 mg/5 mL on Fri Branch suspension 10/16/22 at 30 mL 0556, Until Discontinu ed, Routine, Constipati on benzocaine- Yes Topical, Un robyn menthol 2-15 PRN, ity of (DERMOPLAST 11:56: Starting [place] ) 20-0.5 % 43 on Fri Medical topical 10/16/22 at Branch spray 0556, Until Discontinu ed, Routine, Perineum discomfort oxytocin 2022- No 300mL/h 300 mL/hr, Univers (PITOCIN) 10-16-15 IV ity of 30 units in 11:46: 11:56 Infusion, [place] NS 500 mL 59 :51 SEE-INSTRU Medi deep IV infusion CTIONS, Branc h Starting on Fri10/16/[address] at 300 mL/hr for 1 hr then 150 mL/hr for 1 hr. & nbsp; For post delivery uterotonic
oxytocin 2022- No 2mU/min at 2-40 Un robyn (PITOCIN) 10-16 02-15 mL/hr, IV ity of 30 units in 01:35: 11:56 Infusion, [place] NS 500 mL 53 :51 TITRATE, Medica l IV infusion Starting Bran ch on Fri10/15/22 at 1935, Until Fri10/16/22 at 0556, HAMIDA FENTanyl PF 2022- No 50ug 50 mcg, Un robyn (SUBLIMAZE 10-16 02-15 Slow IV ity o f (PF)) 00:36: 11:56 Push, [place] injection 49 :51 Q1HPRN, Medical 50 mcg Starting Branch on Fri10/15/22 at 1836, Until Fri10/16/22 at 0556, Routine, contractio n pain without an epidural and SVE < 8 cm and Cat I strip lactated 2022- No 500mL at 999 Unive rs ringers IV 10-16 02-15 mL/hr, 500 it y of infusion 00:34: 11:56 mL, IV [place] 500 mL 19 :51 Infusion, Medical PRN - SEE Branch INSTRUCTIO NS, Starting on Fri10/15/22 at 1834, Until Fri10/16/22 at 0556, Routine D5W-LR IV 2022- No 1000mL at 1-125 U nivers infusion 10-16 02-15 mL/hr, IV ity o f 1,000 mL 00:34: 11:56 Infusion, [place] as 19 :51 TITRATE, Medical Starting Branch on Fri10/15/22 at 1834, Until Fri10/16/22 at 0556, Routine Nitrofurant 2022-0 Yes [id number] 100mg Take 1 Univers oin&Nit. 1-11 capsule by ity o f Macrocryst 00:00: mouth in [place] as 100 mg 00 the Medical capsule morning Branch and 1 capsule in the evening. Nitrofurant 2022-0 Yes [id number] 100mg Take 1 Univers oin&Nit. 1-11 capsule by ity o f Macrocryst 00:00: mouth in [place] as 100 mg 00 the Medical capsule morning Branch and 1 capsule in the evening. Nitrofurant 3-0 Yes [id number] 100mg Take 1 Univers oin&Nit. 1-11 capsule by ity o f Macrocryst 00:00: mouth in [place] as 100 mg 00 the Medical capsule morning Branch and 1 capsule in the evening. Nitrofurant 2022-0 Yes [id number] 100mg Take 1 Univers oin&Nit. 1-11 capsule by ity o f Macrocryst 00:00: mouth in [place] as 100 mg 00 the Medical capsule morning Branch and 1 capsule in the evening. Nitrofurant 2022-0 Yes [id number] 100mg Take 1 Univers oin&Nit. 1-11 capsule by ity o f Macrocryst 00:00: mouth in [place] as 100 mg 00 the Medical capsule morning Branch and 1 capsule in the evening. Nitrofurant 2022-0 Yes [id number] 100mg Take 1 Univers oin&Nit. 1-11 capsule by ity o f Macrocryst 00:00: mouth in [place] as 100 mg 00 the Medical capsule morning Branch and 1 capsule in the evening. Nitrofurant 2022-0 Yes [id number] 100mg Take 1 Univers oin&Nit. 1-11 capsule by ity o f Macrocryst 00:00: mouth in [place] as 100 mg 00 the Medical capsule morning Branch and 1 capsule in the evening. Nitrofurant 2022-0 Yes [id number] 100mg Take 1 Univers oin&Nit. 1-11 capsule by ity o f Macrocryst 00:00: mouth in [place] as 100 mg 00 the Medical capsule morning Branch and 1 capsule in the evening. Nitrofurant 2022-0 Yes [id number] 100mg Take 1 Univers oin&Nit. 1-11 capsule by ity o f Macrocryst 00:00: mouth in [place] as 100 mg 00 the Medical capsule morning Branch and 1 capsule in the evening. Nitrofurant 2022-0 2022- No [id number] 100mg Take 1 Univers oin&Nit. 1-11 02-16 capsule by ity of Macrocryst 00:00: 00:00 mouth in [place] 100 mg 00 :00 the Medical capsule morning Branch and 1 capsule in the evening. ferrous 2021-09 Yes [id number] 325mg Take 1 Un robyn sulfate 2-08 tablet by ity of (IRON, 00:00: mouth in [place] FERROUS 00 the Medical SULFATE,) morning. Branch 325 mg (65 mg iron) tablet ferrous 2021-09 Yes [id number] 325mg Take 1 Un robyn sulfate 2-08 tablet by ity of (IRON, 00:00: mouth in [place] FERROUS 00 the Medical SULFATE,) morning. Branch 325 mg (65 mg iron) tablet ferrous 2021-09 Yes [id number] 325mg Take 1 Un robyn sulfate 2-08 tablet by ity of (IRON, 00:00: mouth in [place] FERROUS 00 the Medical SULFATE,) morning. Branch 325 mg (65 mg iron) tablet ferrous 2021-09 Yes [id number] 325mg Take 1 Un robyn sulfate 2-08 tablet by ity of (IRON, 00:00: mouth in [place] FERROUS 00 the Medical SULFATE,) morning. Branch 325 mg (65 mg iron) tablet ferrous 2021-09 Yes [id number] 325mg Take 1 Un robyn sulfate 2-08 tablet by ity of (IRON, 00:00: mouth in [place] FERROUS 00 the Medical SULFATE,) morning. Branch 325 mg (65 mg iron) tablet ferrous 2021-09 Yes [id number] 325mg Take 1 Un robyn sulfate 2-08 tablet by ity of (IRON, 00:00: mouth in [place] FERROUS 00 the Medical SULFATE,) morning. Branch 325 mg (65 mg iron) tablet ferrous 2021-09 Yes [id number] 325mg Take 1 Un robyn sulfate 2-08 tablet by ity of (IRON, 00:00: mouth in [place] FERROUS 00 the Medical SULFATE,) morning. Branch 325 mg (65 mg iron) tablet ferrous 2021-09 Yes [id number] 325mg Take 1 Un robyn sulfate 2-08 tablet by ity of (IRON, 00:00: mouth in [place] FERROUS 00 the Medical SULFATE,) morning. Branch 325 mg (65 mg iron) tablet ferrous 2021-09 Yes [id number] 325mg Take 1 Un robyn sulfate 2-08 tablet by ity of (IRON, 00:00: mouth in [place] FERROUS 00 the Medical SULFATE,) morning. Branch 325 mg (65 mg iron) tablet ferrous 2021-09 Yes [id number] 325mg Take 1 Un robyn sulfate 2-08 tablet by ity of (IRON, 00:00: mouth in [place] FERROUS 00 the Medical SULFATE,) morning. Branch 325 mg (65 mg iron) tablet ferrous 2021-09 Yes [id number] 325mg Take 1 Un robyn sulfate 2-08 tablet by ity of (IRON, 00:00: mouth in [place] FERROUS 00 the Medical SULFATE,) morning. Branch 325 mg (65 mg iron) tablet ferrous 2021-09 Yes [id number] 325mg Take 1 Un robyn sulfate 2-08 tablet by ity of (IRON, 00:00: mouth in [place] FERROUS 00 the Medical SULFATE,) morning. Branch 325 mg (65 mg iron) tablet ferrous 2021-09 Yes [id number] 325mg Take 1 Un robyn sulfate 2-08 tablet by ity of (IRON, 00:00: mouth in [place] FERROUS 00 the Medical SULFATE,) morning. Branch 325 mg (65 mg iron) tablet ferrous 2021-09 Yes [id number] 325mg Take 1 Un robyn sulfate 2-08 tablet by ity of (IRON, 00:00: mouth in [place] FERROUS 00 the Medical SULFATE,) morning. Branch 325 mg (65 mg iron) tablet ferrous 2021-09 Yes [id number] 325mg Take 1 Un robyn sulfate 2-08 tablet by ity of (IRON, 00:00: mouth in [place] FERROUS 00 the Medical SULFATE,) morning. Branch 325 mg (65 mg iron) tablet ferrous 2021-09 Yes [id number] 325mg Take 1 Un robyn sulfate 2-08 tablet by ity of (IRON, 00:00: mouth in [place] FERROUS 00 the Medical SULFATE,) morning. Branch 325 mg (65 mg iron) tablet ferrous 2021-09 Yes [id number] 325mg Take 1 Un robyn sulfate 2-08 tablet by ity of (IRON, 00:00: mouth in [place] FERROUS 00 the Medical SULFATE,) morning. Branch 325 mg (65 mg iron) tablet ferrous 2021-09 Yes [id number] 325mg Take 1 Un robyn sulfate 2-08 tablet by ity of (IRON, 00:00: mouth in [place] FERROUS 00 the Medical SULFATE,) morning. Branch 325 mg (65 mg iron) tablet ferrous 2021-09- No [id number] 325mg Take 1 U nivers sulfate 2-08 -16 tablet by ity of (IRON, 00:00: 00:00 mouth in [place] FERROUS 00 :00 the Medical SULFATE,) morning. Branch 325 mg (65 mg iron) tablet acetaminoph 2021-09 No 975mg 975 mg, U nivers en 09-18 Oral, ity of (TYLENOL) 00:00: 23:05 ONCE, 1 [place] tablet 975 00 :00 dose, On Medic al mg Luz Branch 07/18/22 at 1800, HAMIDA iopamidol 2021-09- No [id number] 75mL 75 mL, U nivers (ISOVUE 09-17 Intravenou ity o f 370-500 mL) 22:31: 22:45 s, ONCE, 1 [place] injection 00 :00 dose, On Medica l 75 mL Luz Branch 07/18/22 at 1645, Routine metroNIDAZO 2021- No 500mg 500 mg, U nivers LE (FLAGYL) 05-22 Oral, ity of tablet 500 14:15: 12:59 Q12H, 14 [place] mg 00 :00 doses, Medical First dose Branch (after last reorder) on Fri05/22/22 at 0915, Last dose on Fri05/28/22 at 2000, Routine
Reason for Anti-Infec tive: Documented Infection< br>Documen ismael Infection Site: Other
O ther site: Vaginal
Duration of Therapy: 7 days metroNIDAZO 2021- No 500mg 500 mg, U nivers LE (FLAGYL) 05-22 Oral, ity of tablet 500 02:30: 02:07 ONCE, 1 [place] mg 00 :00 dose, On Medical Tue Branch 05/21/22 at 2130, Routine
Reason for Anti-Infec tive: Documented Infection< br>Documen ismael Infection Site: Other
O ther site: Vaginal
Duration of Therapy: Other (see Comments) clotrimazol Yes 1{appli 1 Uni vers e 05-22 cator} Applicator ity of (CLOTRIMAZO 02:00: , Vaginal, [place] LE-7) 1 % 00 QHS, First Medi deep vaginal dose on Branch cream 1 Tue Applicator 05/21/22 at 2100, Until Discontinu ed, Routine acetaminoph 2021- No 650mg 650 mg, U nivers en 05-22 Oral, ity of (TYLENOL) 01:15: 00:43 ONCE, 1 [place] tablet 650 00 :00 dose, On Medic al mg Tue Branch 05/21/22 at 2015, Routine clotrimazol 2021- No [id number] 1{appli Insert 1 Univers e 1 % 05-22 cator} Applicator ity o f vaginal 00:00: 04:59 into [place] cream 00 :00 vagina at Medical bedtime Branch for 6 days. metroNIDAZO 2021- No [id number] 500mg Take 1 Univers LE 500 mg 05-22 tablet by ity of tablet 00:00: 04:59 mouth [place] 00 :00 every 12 Medical (twelve) Branch hours for 6 days. clotrimazol 2021- No [id number] 1{appli Insert 1 Univers e 1 % 05-22 cator} Applicator ity o f vaginal 00:00: 04:59 into [place] cream 00 :00 vagina at Medical bedtime Branch for 6 days. metroNIDAZO 2021- No [id number] 500mg Take 1 Univers LE 500 mg 05-22 tablet by ity of tablet 00:00: 04:59 mouth [place] 00 :00 every 12 Medical (twelve) Branch hours for 6 days. clotrimazol 2021- No [id number] 1{appli Insert 1 Univers e 1 % 05-22 cator} Applicator ity o f vaginal 00:00: 04:59 into [place] cream 00 :00 vagina at [facility] bedtime Branch for 6 days. metroNIDAZO 2021- No [id number] 500mg Take 1 Univers LE 500 mg 05-22 tablet by ity of tablet 00:00: 04:59 mouth [place] 00 :00 every 12 Medical (twelve) Branch hours for 6 days. proMETHazin Yes [id number] 25mg Insert 1 Univers e 25 mg 8-25 Suppositor ity of suppository 00:00: y into [place] 00 rectum Medical every 4 Branch (four) hours as needed for N/V unresponsi ve to oral antiemetic s. proMETHazin Yes [id number] 25mg Take 1 Univers e 25 mg 8-25 tablet by ity of tablet 00:00: mouth [place] 00 every 4 Medical (four) Branch hours as needed for Nausea and Vomiting (N/V). proMETHazin Yes [id number] 25mg Insert 1 Univers e 25 mg 8-25 Suppositor ity of suppository 00:00: y [place] 00 rectum Medical every 4 Branch (four) hours as needed for N/V unresponsi ve to oral antiemetic s. proMETHazin 2021-0 Yes [id number] 25mg Take 1 Univers e 25 mg 8-25 tablet by ity of tablet 00:00: mouth every 4 Medical (four) Branch hours as needed for Nausea and Vomiting (N/V). proMETHazin 2021-0 Yes [id number] 25mg Insert 1 Univers e 25 mg 8-25 Suppositor ity of suppository 00:00: [facility] Medical every 4 Branch (four) hours as needed for N/V unresponsi ve to oral antiemetic s. proMETHazin 2021-0 Yes [id number] 25mg Take 1 [facility] 25 mg 8-25 tablet by ity of tablet 00:00: mouth every 4 Medical (four) Branch hours as needed for Nausea and Vomiting (N/V). proMETHazin 2021-0 Yes [id number] 25mg Insert 1 [facility] 25 mg 8-25 Suppositor ity of suppository 00:00: y into [facility] rectum Medical every 4 Branch (four) hours as needed for N/V unresponsi ve to oral antiemetic s. proMETHazin 2021-0 Yes [id number] 25mg Take 1 [facility] 25 mg 8-25 tablet by ity of tablet 00:00: mouth every 4 Medical (four) Branch hours as needed for Nausea and Vomiting (N/V). proMETHazin 2021-0 Yes [id number] 25mg Insert 1 [facility] 25 mg 8-25 Suppositor ity of suppository 00:00: y into [facility] rectum Medical every 4 Branch (four) hours as needed for N/V unresponsi ve to oral antiemetic s. proMETHazin 2021-0 Yes [id number] 25mg Take 1 [facility] 25 mg 8-25 tablet by ity of tablet 00:00: mouth every 4 Medical (four) Branch hours as needed for Nausea and Vomiting (N/V). proMETHazin 2021-0 Yes [id number] 25mg Insert 1 [facility] 25 mg 8-25 Suppositor ity of suppository 00:00: y into [facility] 00 rectum Medical every 4 Branch (four) hours as needed for N/V unresponsi ve to oral antiemetic s. proMETHazin 2021-0 Yes [id number] 25mg Take 1 [facility] 25 mg 8-25 tablet by ity of tablet 00:00: mouth [place] 00 every 4 Medical (four) Branch hours as needed for Nausea and Vomiting (N/V). proMETHazin 2021-0 Yes [id number] 25mg Insert 1 [facility] 25 mg 8-25 Suppositor [facility]y of suppository 00:00: [place] rectum Medical every 4 Branch (four) hours as needed for N/V unresponsi ve to oral antiemetic s. proMETHazin 2021-0 Yes [id number] 25mg Take 1 [facility] 25 mg 8-25 tablet by ity of tablet 00:00: mouth [place] 00 every 4 Medical (four) Branch hours as needed for Nausea and Vomiting (N/V). proMETHazin 2021-0 Yes [id number] 25mg Insert 1 [facility] 25 mg 8-25 Suppositor ity of suppository 00:00: y into [facility] s 00 rectum Medical every 4 Branch (four) hours as needed for N/V unresponsi ve to oral antiemetic s. proMETHazin 2021-0 Yes [id number] 25mg Take 1 [facility] 25 mg 8-25 tablet by ity of tablet 00:00: mouth [place] 00 every 4 Medical (four) Branch hours as needed for Nausea and Vomiting (N/V). proMETHazin 2021-0 Yes [id number] 25mg Insert 1 [facility] 25 mg 8-25 Suppositor [facility]y of suppository 00:00: [place] 00 rectum Medical every 4 Branch (four) hours as needed for N/V unresponsi ve to oral antiemetic s. proMETHazin 2021-0 Yes [id number] 25mg Take 1 [facility] 25 mg 8-25 tablet by ity of tablet 00:00: mouth [place] 00 every 4 Medical (four) Branch hours as needed for Nausea and Vomiting (N/V). proMETHazin 2021-0 Yes [id number] 25mg Insert 1 [facility] 25 mg 8-25 Suppositor [facility]y of suppository 00:00: [place] 00 rectum Medical every 4 Branch (four) hours as needed for N/V unresponsi ve to oral antiemetic s. proMETHazin 2021-0 Yes [id number] 25mg Take 1 [facility] 25 mg 8-25 tablet by ity of tablet 00:00: mouth [place] 00 every 4 Medical (four) Branch hours as needed for Nausea and Vomiting (N/V). proMETHazin 2021-0 Yes [id number] 25mg Insert 1 [facility] 25 mg 8-25 Suppositor ity of suppository 00:00: y into [facility] 00 rectum Medical every 4 Branch (four) hours as needed for N/V unresponsi ve to oral antiemetic s. proMETHazin 2021-0 Yes [id number] 25mg Take 1 [facility] 25 mg 8-25 tablet by ity of tablet 00:00: mouth [place] 00 every 4 Medical (four) Branch hours as needed for Nausea and Vomiting (N/V). proMETHazin 2021-0 Yes [id number] 25mg Insert 1 [facility] 25 mg 8-25 Suppositor ity of suppository 00:00: y into [facility] s 00 rectum Medical every 4 Branch (four) hours as needed for N/V unresponsi ve to oral antiemetic s. proMETHazin 2021-0 Yes [id number] 25mg Take 1 [facility] e 25 mg 8-25 tablet by ity of tablet 00:00: mouth [place] 00 every 4 Medical (four) Branch hours as needed for Nausea and Vomiting (N/V). proMETHazin 2021-0 Yes [id number] 25mg Insert 1 [facility] 25 mg 8-25 Suppositor ity of suppository 00:00: y into [facility] 00 rectum Medical every 4 Branch (four) hours as needed for N/V unresponsi ve to oral antiemetic s. proMETHazin 2021-0 Yes [id number] 25mg Take 1 [facility] 25 mg 8-25 tablet by ity of tablet 00:00: mouth [place] 00 every 4 Medical (four) Branch hours as needed for Nausea and Vomiting (N/V). proMETHazin 2021-0 Yes [id number] 25mg Insert 1 [facility] 25 mg 8-25 Suppositor ity of suppository 00:00: y into [facility] 00 rectum Medical every 4 Branch (four) hours as needed for N/V unresponsi ve to oral antiemetic s. proMETHazin Yes [id number] 25mg Take 1 [facility] 25 mg 8-25 tablet by ity of tablet 00:00: mouth [place] every 4 Medical (four) Branch hours as needed for Nausea and Vomiting (N/V). proMETHazin Yes [id number] 25mg Insert 1 [facility] 25 mg 8-25 Suppositor ity of suppository 00:00: y into [facility] 00 rectum Medical every 4 Branch (four) hours as needed for N/V unresponsi ve to oral antiemetic s. proMETHazin Yes [id number] 25mg Take 1 [facility] 25 mg 8-25 tablet by ity of tablet 00:00: mouth [place] every 4 Medical (four) Branch hours as needed for Nausea and Vomiting (N/V). proMETHazin Yes [id number] 25mg Insert 1 [facility] 25 mg 8-25 Suppositor ity of suppository 00:00: y into [place] [address] rectum Medical every 4 Branch (four) hours as needed for N/V unresponsi ve to oral antiemetic s. proMETHazin Yes [id number] 25mg Take 1 [facility] 25 mg 8-25 tablet by ity of tablet 00:00: mouth [place] every 4 Medical (four) Branch hours as needed for Nausea and Vomiting (N/V). proMETHazin Yes [id number] 25mg Insert 1 [facility] 25 mg 8-25 Suppositor ity of suppository 00:00: y into [facility] rectum Medical every 4 Branch (four) hours as needed for N/V unresponsi ve to oral antiemetic s. proMETHazin 0 Yes [id number] 25mg Take 1 [facility] 25 mg 8-25 tablet by ity of tablet 00:00: mouth [place] every 4 Medical (four) Branch hours as needed for Nausea and Vomiting (N/V). proMETHazin 0 Yes [id number] 25mg Insert 1 [facility] 25 mg 8-25 Suppositor ity of suppository 00:00: y into [facility] 00 rectum Medical every 4 Branch (four) hours as needed for N/V unresponsi ve to oral antiemetic s. proMETHazin Yes [id number] 25mg Take 1 [facility] e 25 mg 8-25 tablet by ity of tablet 00:00: mouth [place] 00 every 4 Medical (four) Branch hours as needed for Nausea and Vomiting (N/V). proMETHazin 0 Yes [id number] 25mg Insert 1 [facility] 25 mg 8-25 Suppositor ity of suppository 00:00: y into [facility] 00 rectum Medical every 4 Branch (four) hours as needed for N/V unresponsi ve to oral antiemetic s. proMETHazin 0 Yes [id number] 25mg Take 1 [facility] 25 mg 8-25 tablet by ity of tablet 00:00: mouth [place] 00 every 4 Medical (four) Branch hours as needed for Nausea and Vomiting (N/V). proMETHazin 0 Yes [id number] 25mg Insert 1 [facility] 25 mg 8-25 Suppositor ity of suppository 00:00: y into [facility] s 00 rectum Medical every 4 Branch (four) hours as needed for N/V unresponsi ve to oral antiemetic s. proMETHazin 0 Yes [id number] 25mg Take 1 [facility] 25 mg 8-25 tablet by ity of tablet 00:00: mouth [place] 00 every 4 Medical (four) Branch hours as needed for Nausea and Vomiting (N/V). proMETHazin 0 Yes [id number] 25mg Insert 1 [facility] 25 mg 8-25 Suppositor ity of suppository 00:00: y into [facility] 00 rectum Medical every 4 Branch (four) hours as needed for N/V unresponsi ve to oral antiemetic s. proMETHazin 0 Yes [id number] 25mg Take 1 [facility] 25 mg 8-25 tablet by ity of tablet 00:00: mouth [place] 00 every 4 Medical (four) Branch hours as needed for Nausea and Vomiting (N/V). proMETHazin 2021-0 Yes [id number] 25mg Insert 1 [facility] 25 mg 8-25 Suppositor ity of suppository 00:00: y [place] 00 rectum Medical every 4 Branch (four) hours as needed for N/V unresponsi ve to oral antiemetic s. proMETHazin 2021-0 Yes [id number] 25mg Take 1 [facility] 25 mg 8-25 tablet by ity of tablet 00:00: mouth [place] 00 every 4 Medical (four) Branch hours as needed for Nausea and Vomiting (N/V). proMETHazin 2021-0 Yes [id number] 25mg Insert 1 [facility] 25 mg 8-25 Suppositor ity of suppository 00:00: y [place] 00 rectum Medical every 4 Branch (four) hours as needed for N/V unresponsi ve to oral antiemetic s. proMETHazin 2021-0 Yes [id number] 25mg Take 1 [facility] 25 mg 8-25 tablet by ity of tablet 00:00: mouth [place] 00 every 4 Medical (four) Branch hours as needed for Nausea and Vomiting (N/V). proMETHazin 2021-0 Yes [id number] 25mg Insert 1 [facility] 25 mg 8-25 Suppositor ity of suppository 00:00: y into [facility] 00 rectum Medical every 4 Branch (four) hours as needed for N/V unresponsi ve to oral antiemetic s. proMETHazin 2021-0 Yes [id number] 25mg Take 1 [facility] 25 mg 8-25 tablet by ity of tablet 00:00: mouth [place] 00 every 4 Medical (four) Branch hours as needed for Nausea and Vomiting (N/V). proMETHazin 2021-0 Yes [id number] 25mg Insert 1 [facility] 25 mg 8-25 Suppositor ity of suppository 00:00: y into [facility] 00 rectum Medical every 4 Branch (four) hours as needed for N/V unresponsi ve to oral antiemetic s. proMETHazin 2021-0 Yes [id number] 25mg Take 1 [facility] 25 mg 8-25 tablet by ity of tablet 00:00: mouth [place] 00 every 4 Medical (four) Branch hours as needed for Nausea and Vomiting (N/V). proMETHazin 2021-0 Yes [id number] 25mg Insert 1 [facility] 25 mg 8-25 Suppositor ity of suppository 00:00: y into [place] 00 rectum Medical every 4 Branch (four) hours as needed for N/V unresponsi ve to oral antiemetic s. proMETHazin 2021-0 Yes [id number] 25mg Take 1 [facility] 25 mg 8-25 tablet by ity of tablet 00:00: mouth [place] 00 every 4 Medical (four) Branch hours as needed for Nausea and Vomiting (N/V). proMETHazin 2021-0 Yes [id number] 25mg Insert 1 [facility] 25 mg 8-25 Suppositor ity of suppository 00:00: y into [place] 00 rectum Medical every 4 Branch (four) hours as needed for N/V unresponsi ve to oral antiemetic s. proMETHazin 2021-0 Yes [id number] 25mg Take 1 [facility] 25 mg 8-25 tablet by ity of tablet 00:00: mouth [place] 00 every 4 Medical (four) Branch hours as needed for Nausea and Vomiting (N/V). proMETHazin 2021-0 Yes [id number] 25mg Insert 1 [facility] 25 mg 8-25 Suppositor ity of suppository 00:00: y into [place] 00 rectum Medical every 4 Branch (four) hours as needed for N/V unresponsi ve to oral antiemetic s. proMETHazin 2021-0 Yes [id number] 25mg Take 1 [facility] 25 mg 8-25 tablet by ity of tablet 00:00: mouth [place] 00 every 4 Medical (four) Branch hours as needed for Nausea and Vomiting (N/V). proMETHazin 2021-0 Yes [id number] 25mg Insert 1 [facility] 25 mg 8-25 Suppositor ity of suppository 00:00: y into [place] 00 rectum Medical every 4 Branch (four) hours as needed for N/V unresponsi ve to oral antiemetic s. proMETHazin 2021-0 Yes [id number] 25mg Take 1 [facility] 25 mg 8-25 tablet by ity of tablet 00:00: mouth [place] 00 every 4 Medical (four) Branch hours as needed for Nausea and Vomiting (N/V). proMETHazin 2021-0 Yes [id number] 25mg Insert 1 [facility] 25 mg 8-25 Suppositor ity of suppository 00:00: y into [place] 00 rectum Medical every 4 Branch (four) hours as needed for N/V unresponsi ve to oral antiemetic s. proMETHazin 2021-0 Yes [id number] 25mg Take 1 [facility] 25 mg 8-25 tablet by ity of tablet 00:00: mouth [place] 00 every 4 Medical (four) Branch hours as needed for Nausea and Vomiting (N/V). proMETHazin 2021-0 Yes [id number] 25mg Insert 1 [facility] 25 mg 8-25 Suppositor ity of suppository 00:00: y into [place] 00 rectum Medical every 4 Branch (four) hours as needed for N/V unresponsi ve to oral antiemetic s. proMETHazin 2021-0 Yes [id number] 25mg Take 1 [facility] 25 mg 8-25 tablet by ity of tablet 00:00: mouth [place] 00 every 4 Medical (four) Branch hours as needed for Nausea and Vomiting (N/V). proMETHazin 2021-0 Yes [id number] 25mg Insert 1 [facility] 25 mg 8-25 Suppositor ity of suppository 00:00: y into [facility] 00 rectum Medical every 4 Branch (four) hours as needed for N/V unresponsi ve to oral antiemetic s. proMETHazin 2021-0 Yes [id number] 25mg Take 1 [facility] e 25 mg 8-25 tablet by ity of tablet 00:00: mouth [place] 00 every 4 Medical (four) Branch hours as needed for Nausea and Vomiting (N/V). proMETHazin 2021-0 Yes [id number] 25mg Insert 1 [facility] 25 mg 8-25 Suppositor ity of suppository 00:00: y into [facility] 00 rectum Medical every 4 Branch (four) hours as needed for N/V unresponsi ve to oral antiemetic s. proMETHazin 2021-0 Yes [id number] 25mg Take 1 [facility] e 25 mg 8-25 tablet by ity of tablet 00:00: mouth [place] 00 every 4 Medical (four) Branch hours as needed for Nausea and Vomiting (N/V). proMETHazin 2021-0 Yes [id number] 25mg Insert 1 [facility] 25 mg 8-25 Suppositor ity of suppository 00:00: y into [place] 00 rectum Medical every 4 Branch (four) hours as needed for N/V unresponsi ve to oral antiemetic s. proMETHazin 2021-0 Yes [id number] 25mg Take 1 [facility] 25 mg 8-25 tablet by ity of tablet 00:00: mouth [place] 00 every 4 Medical (four) Branch hours as needed for Nausea and Vomiting (N/V). proMETHazin Yes [id number] 25mg Insert 1 [facility] e 25 mg 8-25 Suppositor ity of suppository 00:00: y into [place] 00 rectum Medical every 4 Branch (four) hours as needed for N/V unresponsi ve to oral antiemetic s. proMETHazin Yes [id number] 25mg Take 1 [facility] e 25 mg 8-25 tablet by ity of tablet 00:00: mouth [place] 00 every 4 Medical (four) Branch hours as needed for Nausea and Vomiting (N/V). proMETHazin Yes [id number] 25mg Insert 1 [facility] 25 mg 8-25 Suppositor ity of suppository 00:00: y into [place] 00 rectum Medical every 4 Branch (four) hours as needed for N/V unresponsi ve to oral antiemetic s. proMETHazin Yes [id number] 25mg Take 1 [facility] e 25 mg 8-25 tablet by ity of tablet 00:00: mouth [place] 00 every 4 Medical (four) Branch hours as needed for Nausea and Vomiting (N/V). proMETHazin 2022- No [id number] 25mg Insert 1 [facility] e 25 mg 8-25 02-16 Suppositor ity o f suppository 00:00: 00:00 y into [place] as 00 :00 rectum Medical every 4 Branch (four) hours as needed for N/V unresponsi ve to oral antiemetic s. proMETHazin 2022- No [id number] 25mg Take 1 [facility] e 25 mg 8-25 02-16 tablet by ity of tablet 00:00: 00:00 mouth [place] 00 :00 every 4 Medical (four) Branch hours as needed for Nausea and Vomiting (N/V). metroNIDAZO 2021- No [id number] 500mg Take 1 Univers LE (FLAGYL) 7-30 04-07 tablet by it y of 500 mg 00:00: 04:59 mouth in [place] tablet 00 :00 the Medical morning Branch and 1 tablet in the evening. Do all this for 7 days. metroNIDAZO 2021- No [id number] 500mg Take 1 [facility] LE (FLAGYL) 7-30 08-07 tablet by it y of 500 mg 00:00: 04:59 mouth in [place] tablet 00 :00 the Medical morning Branch and 1 tablet in the evening. Do all this for 7 days. azithromyci 2-0 Yes [id number] 500mg Take 1 [facility] n 500 mg 7-29 tablet by ity of tablet 00:00: mouth in [place] 00 the Medical morning. Branch azithromyci 2-0 Yes [id number] 500mg Take 1 [facility] n 500 mg 7-29 tablet by ity of tablet 00:00: mouth in [place] 00 the Medical morning. Branch azithromyci 2-0 Yes [id number] 500mg Take 1 [facility] n 500 mg 7-29 tablet by ity of tablet 00:00: mouth in [place] 00 the Medical morning. Branch azithromyci 2-0 Yes [id number] 500mg Take 1 [facility] n 500 mg 7-29 tablet by ity of tablet 00:00: mouth in [place] 00 the Medical morning. Branch azithromyci 2021-0 Yes [id number] 500mg Take 1 [facility] n 500 mg 7-29 tablet by ity of tablet 00:00: mouth in [place] 00 the Medical morning. Branch azithromyci 2021-0 Yes [id number] 500mg Take 1 [facility] n 500 mg 7-29 tablet by ity of tablet 00:00: mouth in [place] 00 the Medical morning. Branch azithromyci 2-0 Yes [id number] 500mg Take 1 [facility] n 500 mg 7-29 tablet by ity of tablet 00:00: mouth in [place] 00 the Medical morning. Branch azithromyci 2021-0 Yes [id number] 500mg Take 1 [facility] n 500 mg 7-29 tablet by ity of tablet 00:00: mouth in [place] 00 the Medical morning. Branch azithromyci 2021-0 2022- No [id number] 500mg Take 1 Univers n 500 mg 7-29 08-25 tablet by ity o f tablet 00:00: 00:00 mouth in [place] 00 :00 the Medical morning. Branch pyridoxine, 2021-0 Yes [id number] 25mg Take 1 Univers VITAMIN 7-28 tablet by ity of B-6, 00:00: mouth [place] (VITAMIN 00 every 6 Medical B-6) 25 mg (six) Branch tablet hours as needed for Nausea and Vomiting (N/V). doxylamine 2-0 Yes [id number] 25mg Take 1 U nivers (UNISOM, 7-28 tablet by ity of DOXYLAMINE, 00:00: mouth at [place] ) 25 mg 00 bedtime as Medica l tablet needed for Branch Nausea and Vomiting (N/V). pyridoxine, 2021-0 Yes [id number] 25mg Take 1 Univers VITAMIN 7-28 tablet by ity of B-6, 00:00: mouth [place] (VITAMIN 00 every 6 Medical B-6) 25 mg (six) Branch tablet hours as needed for Nausea and Vomiting (N/V). doxylamine 2021-0 Yes [id number] 25mg Take 1 U nivers (UNISOM, 7-28 tablet by ity of DOXYLAMINE, 00:00: mouth [place] ) 25 mg 00 bedtime as Medica l tablet needed for Branch Nausea and Vomiting (N/V). pyridoxine, 2021-0 Yes [id number] 25mg Take 1 Univers VITAMIN 7-28 tablet by ity of B-6, 00:00: mouth [place] (VITAMIN 00 every 6 Medical B-6) 25 mg (six) Branch tablet hours as needed for Nausea and Vomiting (N/V). doxylamine 2021-0 Yes [id number] 25mg Take 1 U nivers (UNISOM, 7-28 tablet by ity of DOXYLAMINE, 00:00: mouth at [place] ) 25 mg 00 bedtime as Medica l tablet needed for Branch Nausea and Vomiting (N/V). pyridoxine, 2021-0 Yes [id number] 25mg Take 1 Univers VITAMIN 7-28 tablet by ity of B-6, 00:00: mouth [place] (VITAMIN 00 every 6 Medical B-6) 25 mg (six) Branch tablet hours as needed for Nausea and Vomiting (N/V). doxylamine 2022-0 Yes [id number] 25mg Take 1 U nivers (UNISOM, 7-28 tablet by ity of DOXYLAMINE, 00:00: mouth at [place] ) 25 mg 00 bedtime as Medica l tablet needed for Branch Nausea and Vomiting (N/V). pyridoxine, 2021-0 Yes [id number] 25mg Take 1 Univers VITAMIN 7-28 tablet by ity of B-6, 00:00: mouth [place] (VITAMIN 00 every 6 Medical B-6) 25 mg (six) Branch tablet hours as needed for Nausea and Vomiting (N/V). doxylamine 2021-0 Yes [id number] 25mg Take 1 U nivers (UNISOM, 7-28 tablet by ity of DOXYLAMINE, 00:00: mouth at [place] ) 25 mg 00 bedtime as Medica l tablet needed for Branch Nausea and Vomiting (N/V). pyridoxine, 2021-0 Yes [id number] 25mg Take 1 Univers VITAMIN 7-28 tablet by ity of B-6, 00:00: mouth [place] (VITAMIN 00 every 6 Medical B-6) 25 mg (six) Branch tablet hours as needed for Nausea and Vomiting (N/V). doxylamine 2021-0 Yes [id number] 25mg Take 1 U nivers (UNISOM, 7-28 tablet by ity of DOXYLAMINE, 00:00: mouth [place] ) 25 mg 00 bedtime as Medica l tablet needed for Branch Nausea and Vomiting (N/V). pyridoxine, 2021-0 Yes [id number] 25mg Take 1 Univers VITAMIN 7-28 tablet by ity of B-6, 00:00: mouth [place] (VITAMIN 00 every 6 Medical B-6) 25 mg (six) Branch tablet hours as needed for Nausea and Vomiting (N/V). doxylamine 2021-0 Yes [id number] 25mg Take 1 U nivers (UNISOM, 7-28 tablet by ity of DOXYLAMINE, 00:00: mouth at [place] ) 25 mg 00 bedtime as Medica l tablet needed for Branch Nausea and Vomiting (N/V). pyridoxine, 2021-0 Yes [id number] 25mg Take 1 Univers VITAMIN 7-28 tablet by ity of B-6, 00:00: mouth [place] (VITAMIN 00 every 6 Medical B-6) 25 mg (six) Branch tablet hours as needed for Nausea and Vomiting (N/V). doxylamine 2021-0 Yes [id number] 25mg Take 1 U nivers (UNISOM, 7-28 tablet by ity of DOXYLAMINE, 00:00: mouth at [place] ) 25 mg 00 bedtime as Medica l tablet needed for Branch Nausea and Vomiting (N/V). pyridoxine, 0 Yes [id number] 25mg Take 1 Univers VITAMIN 7-28 tablet by ity of B-6, 00:00: mouth [place] (VITAMIN 00 every 6 Medical B-6) 25 mg (six) Branch tablet hours as needed for Nausea and Vomiting (N/V). doxylamine 0 Yes [id number] 25mg Take 1 U nivers (UNISOM, 7-28 tablet by ity of DOXYLAMINE, 00:00: mouth at [place] ) 25 mg 00 bedtime as Medica l tablet needed for Branch Nausea and Vomiting (N/V). pyridoxine, 0 Yes [id number] 25mg Take 1 Univers VITAMIN 7-28 tablet by ity of B-6, 00:00: mouth [place] (VITAMIN 00 every 6 Medical B-6) 25 mg (six) Branch tablet hours as needed for Nausea and Vomiting (N/V). doxylamine 0 Yes [id number] 25mg Take 1 U nivers (UNISOM, 7-28 tablet by ity of DOXYLAMINE, 00:00: mouth at [place] ) 25 mg 00 bedtime as Medica l tablet needed for Branch Nausea and Vomiting (N/V). pyridoxine, 0 Yes [id number] 25mg Take 1 Univers VITAMIN 7-28 tablet by ity of B-6, 00:00: mouth [place] (VITAMIN 00 every 6 Medical B-6) 25 mg (six) Branch tablet hours as needed for Nausea and Vomiting (N/V). doxylamine 0 Yes [id number] 25mg Take 1 U nivers (UNISOM, 7-28 tablet by ity of DOXYLAMINE, 00:00: mouth [place] ) 25 mg 00 bedtime as Medica l tablet needed for Branch Nausea and Vomiting (N/V). pyridoxine, 0 Yes [id number] 25mg Take 1 Univers VITAMIN 7-28 tablet by ity of B-6, 00:00: mouth [place] (VITAMIN 00 every 6 Medical B-6) 25 mg (six) Branch tablet hours as needed for Nausea and Vomiting (N/V). doxylamine 2022-0 Yes [id number] 25mg Take 1 U nivers (UNISOM, 7-28 tablet by ity of DOXYLAMINE, 00:00: mouth [place] ) 25 mg 00 bedtime as Medica l tablet needed for Branch Nausea and Vomiting (N/V). pyridoxine, 2021-0 Yes [id number] 25mg Take 1 Univers VITAMIN 7-28 tablet by ity of B-6, 00:00: mouth [place] (VITAMIN 00 every 6 Medical B-6) 25 mg (six) Branch tablet hours as needed for Nausea and Vomiting (N/V). doxylamine 2021-0 Yes [id number] 25mg Take 1 U nivers (UNISOM, 7-28 tablet by ity of DOXYLAMINE, 00:00: mouth [place] ) 25 mg 00 bedtime as Medica l tablet needed for Branch Nausea and Vomiting (N/V). pyridoxine, 2021-0 Yes [id number] 25mg Take 1 Univers VITAMIN 7-28 tablet by ity of B-6, 00:00: mouth [place] (VITAMIN 00 every 6 Medical B-6) 25 mg (six) Branch tablet hours as needed for Nausea and Vomiting (N/V). doxylamine 2021-0 Yes [id number] 25mg Take 1 U nivers (UNISOM, 7-28 tablet by ity of DOXYLAMINE, 00:00: mouth [place] ) 25 mg 00 bedtime as Medica l tablet needed for Branch Nausea and Vomiting (N/V). pyridoxine, 2021-0 Yes [id number] 25mg Take 1 Univers VITAMIN 7-28 tablet by ity of B-6, 00:00: mouth [place] (VITAMIN 00 every 6 Medical B-6) 25 mg (six) Branch tablet hours as needed for Nausea and Vomiting (N/V). doxylamine 2-0 Yes [id number] 25mg Take 1 U nivers (UNISOM, 7-28 tablet by ity of DOXYLAMINE, 00:00: mouth at [place] ) 25 mg 00 bedtime as Medica l tablet needed for Branch Nausea and Vomiting (N/V). pyridoxine, 2-0 Yes [id number] 25mg Take 1 Univers VITAMIN 7-28 tablet by ity of B-6, 00:00: mouth [place] (VITAMIN 00 every 6 Medical B-6) 25 mg (six) Branch tablet hours as needed for Nausea and Vomiting (N/V). doxylamine 2021-0 Yes [id number] 25mg Take 1 U nivers (UNISOM, 7-28 tablet by ity of DOXYLAMINE, 00:00: mouth at [place] ) 25 mg 00 bedtime as Medica l tablet needed for Branch Nausea and Vomiting (N/V). pyridoxine, 2021-0 Yes [id number] 25mg Take 1 Univers VITAMIN 7-28 tablet by ity of B-6, 00:00: mouth [place] (VITAMIN 00 every 6 Medical B-6) 25 mg (six) Branch tablet hours as needed for Nausea and Vomiting (N/V). doxylamine 2021-0 Yes [id number] 25mg Take 1 U nivers (UNISOM, 7-28 tablet by ity of DOXYLAMINE, 00:00: mouth [place] ) 25 mg 00 bedtime as Medica l tablet needed for Branch Nausea and Vomiting (N/V). pyridoxine, 2021-0 Yes [id number] 25mg Take 1 Univers VITAMIN 7-28 tablet by ity of B-6, 00:00: mouth [place] (VITAMIN 00 every 6 Medical B-6) 25 mg (six) Branch tablet hours as needed for Nausea and Vomiting (N/V). doxylamine 2021-0 Yes [id number] 25mg Take 1 U nivers (UNISOM, 7-28 tablet by ity of DOXYLAMINE, 00:00: mouth [place] ) 25 mg 00 bedtime as Medica l tablet needed for Branch Nausea and Vomiting (N/V). pyridoxine, 2021-0 Yes [id number] 25mg Take 1 Univers VITAMIN 7-28 tablet by ity of B-6, 00:00: mouth [place] (VITAMIN 00 every 6 Medical B-6) 25 mg (six) Branch tablet hours as needed for Nausea and Vomiting (N/V). doxylamine 2021-0 Yes [id number] 25mg Take 1 [facility] (UNISOM, 7-28 tablet by [facility] DOXYLAMINE, 00:00: [facility] [place] 25 mg 00 bedtime as Medica l tablet needed for Branch Nausea and Vomiting (N/V). pyridoxine, 2021-0 Yes [id number] 25mg Take 1 [facility] VITAMIN 7-28 tablet by [facility] of B-6, 00:00: mouth [place] (VITAMIN 00 every 6 Medical B-6) 25 mg (six) Branch tablet hours as needed for Nausea and Vomiting (N/V). doxylamine 2021-0 Yes [id number] 25mg Take 1 [facility] (UNISOM, 7-28 tablet by [facility] of DOXYLAMINE, 00:00: [facility] [place] ) 25 mg 00 bedtime as Medica [facility] tablet needed for Branch Nausea and Vomiting (N/V). pyridoxine, 2021-0 Yes [id number] 25mg Take 1 [facility] VITAMIN 7-28 tablet by [facility] of B-6, 00:00: mouth [place] (VITAMIN 00 every 6 Medical B-6) 25 mg (six) Branch tablet hours as needed for Nausea and Vomiting (N/V). doxylamine 2021-0 Yes [id number] 25mg Take 1 [facility] (UNISOM, 7-28 tablet by [facility] of DOXYLAMINE, 00:00: [facility] [place] ) 25 mg 00 bedtime as Medica l tablet needed for Branch Nausea and Vomiting (N/V). pyridoxine, 2021-0 Yes [id number] 25mg Take 1 [facility] VITAMIN 7-28 tablet by [facility] of B-6, 00:00: mouth [place] (VITAMIN 00 every 6 Medical B-6) 25 mg (six) Branch tablet hours as needed for Nausea and Vomiting (N/V). doxylamine 2021-0 Yes [id number] 25mg Take 1 [facility] (UNISOM, 7-28 tablet by [facility] of DOXYLAMINE, 00:00: [facility] [place] ) 25 mg 00 bedtime as Medica l tablet needed for Branch Nausea and Vomiting (N/V). pyridoxine, 2021-0 Yes [id number] 25mg Take 1 [facility] VITAMIN 7-28 tablet by [facility] of B-6, 00:00: mouth [place] (VITAMIN 00 every 6 Medical B-6) 25 mg (six) Branch tablet hours as needed for Nausea and Vomiting (N/V). doxylamine 2021-0 Yes [id number] 25mg Take 1 [facility] (UNISOM, 7-28 tablet by [facility] of DOXYLAMINE, 00:00: [facility] [place] ) 25 mg 00 bedtime as Medica l tablet needed for Branch Nausea and Vomiting (N/V). pyridoxine, 2021-0 Yes [id number] 25mg Take 1 [facility] VITAMIN 7-28 tablet by [facility] of B-6, 00:00: mouth [place] (VITAMIN 00 every 6 Medical B-6) 25 mg (six) Branch tablet hours as needed for Nausea and Vomiting (N/V). doxylamine 2021-0 Yes [id number] 25mg Take 1 [facility] (UNISOM, 7-28 tablet by [facility] of DOXYLAMINE, 00:00: [facility] [place] ) 25 mg 00 bedtime as Medica l tablet needed for Branch Nausea and Vomiting (N/V). pyridoxine, 2021-0 Yes [id number] 25mg Take 1 [facility] VITAMIN 7-28 tablet by [facility] of B-6, 00:00: mouth [place] (VITAMIN 00 every 6 Medical B-6) 25 mg (six) Branch tablet hours as needed for Nausea and Vomiting (N/V). doxylamine 2021-0 Yes [id number] 25mg Take 1 [facility] (UNISOM, 7-28 tablet by [facility] of DOXYLAMINE, 00:00: [facility] [place] ) 25 mg 00 bedtime as Medica l tablet needed for Branch Nausea and Vomiting (N/V). pyridoxine, 2021-0 Yes [id number] 25mg Take 1 [facility] VITAMIN 7-28 tablet by [facility] of B-6, 00:00: mouth [place] (VITAMIN 00 every 6 Medical B-6) 25 mg (six) Branch tablet hours as needed for Nausea and Vomiting (N/V). doxylamine 2021-0 Yes [id number] 25mg Take 1 [facility] (UNISOM, 7-28 tablet by [facility] of DOXYLAMINE, 00:00: mouth [place] ) 25 mg 00 bedtime as Medica l tablet needed for Branch Nausea and Vomiting (N/V). pyridoxine, 2021-0 Yes [id number] 25mg Take 1 [facility] VITAMIN 7-28 tablet by [facility] of B-6, 00:00: mouth [place] (VITAMIN 00 every 6 Medical B-6) 25 mg (six) Branch tablet hours as needed for Nausea and Vomiting (N/V). doxylamine 2021-0 Yes [id number] 25mg Take 1 [facility] (UNISOM, 7-28 tablet by [facility] of DOXYLAMINE, 00:00: mouth [place] ) 25 mg 00 bedtime as Medica l tablet needed for Branch Nausea and Vomiting (N/V). pyridoxine, 2021-0 Yes [id number] 25mg Take 1 [facility] VITAMIN 7-28 tablet by [facility] of B-6, 00:00: mouth [place] (VITAMIN 00 every 6 Medical B-6) 25 mg (six) Branch tablet hours as needed for Nausea and Vomiting (N/V). doxylamine 2021-0 Yes [id number] 25mg Take 1 [facility] (UNISOM, 7-28 tablet by [facility] of DOXYLAMINE, 00:00: mouth [place] ) 25 mg 00 bedtime as Medica l tablet needed for Branch Nausea and Vomiting (N/V). pyridoxine, 2021-0 Yes [id number] 25mg Take 1 [facility] VITAMIN 7-28 tablet by [facility] of B-6, 00:00: mouth [place] (VITAMIN 00 every 6 Medical B-6) 25 mg (six) Branch tablet hours as needed for Nausea and Vomiting (N/V). doxylamine 2021-0 Yes [id number] 25mg Take 1 [facility] (UNISOM, 7-28 tablet by [facility] of DOXYLAMINE, 00:00: mouth [place] ) 25 mg 00 bedtime as Medica l tablet needed for Branch Nausea and Vomiting (N/V). pyridoxine, 2021-0 Yes [id number] 25mg Take 1 [facility] VITAMIN 7-28 tablet by [facility] of B-6, 00:00: mouth [place] (VITAMIN 00 every 6 Medical B-6) 25 mg (six) Branch tablet hours as needed for Nausea and Vomiting (N/V). doxylamine 2021-0 Yes [id number] 25mg Take 1 [facility] (UNISOM, 7-28 tablet by [facility] of DOXYLAMINE, 00:00: [facility] [place] ) 25 mg 00 bedtime as Medica l tablet needed for Branch Nausea and Vomiting (N/V). pyridoxine, 2021-0 Yes [id number] 25mg Take 1 [facility] VITAMIN 7-28 tablet by [facility] of B-6, 00:00: mouth [place] (VITAMIN 00 every 6 Medical B-6) 25 mg (six) Branch tablet hours as needed for Nausea and Vomiting (N/V). doxylamine 2021-0 Yes [id number] 25mg Take 1 [facility] (UNISOM, 7-28 tablet by [facility] of DOXYLAMINE, 00:00: [facility] [place] ) 25 mg 00 bedtime as Medica l tablet needed for Branch Nausea and Vomiting (N/V). pyridoxine, 2021-0 Yes [id number] 25mg Take 1 [facility] VITAMIN 7-28 tablet by [facility] of B-6, 00:00: mouth [place] (VITAMIN 00 every 6 Medical B-6) 25 mg (six) Branch tablet hours as needed for Nausea and Vomiting (N/V). doxylamine 2021-0 Yes [id number] 25mg Take 1 [facility] (UNISOM, 7-28 tablet by [facility] of DOXYLAMINE, 00:00: [facility] [place] ) 25 mg 00 bedtime as Medica l tablet needed for Branch Nausea and Vomiting (N/V). pyridoxine, 2021-0 Yes [id number] 25mg Take 1 [facility] VITAMIN 7-28 tablet by [facility] of B-6, 00:00: mouth [place] (VITAMIN 00 every 6 Medical B-6) 25 mg (six) Branch tablet hours as needed for Nausea and Vomiting (N/V). doxylamine 2021-0 Yes [id number] 25mg Take 1 [facility] (UNISOM, 7-28 tablet by [facility] of DOXYLAMINE, 00:00: [facility] [place] ) 25 mg 00 bedtime as Medica l tablet needed for Branch Nausea and Vomiting (N/V). pyridoxine, 2-0 Yes [id number] 25mg Take 1 [facility] VITAMIN 7-28 tablet by [facility] of B-6, 00:00: mouth [place] (VITAMIN 00 every 6 Medical B-6) 25 mg (six) Branch tablet hours as needed for Nausea and Vomiting (N/V). doxylamine 2-0 Yes [id number] 25mg Take 1 [facility] (UNISOM, 7-28 tablet by [facility] of DOXYLAMINE, 00:00: mouth [place] ) 25 mg 00 bedtime as Medica l tablet needed for Branch Nausea and Vomiting (N/V). pyridoxine, 2021-0 Yes [id number] 25mg Take 1 [facility] VITAMIN 7-28 tablet by [facility] of B-6, 00:00: mouth [place] (VITAMIN 00 every 6 Medical B-6) 25 mg (six) Branch tablet hours as needed for Nausea and Vomiting (N/V). doxylamine 2021-0 Yes [id number] 25mg Take 1 [facility] (UNISOM, 7-28 tablet by [facility] of DOXYLAMINE, 00:00: mouth [place] ) 25 mg 00 bedtime as Medica l tablet needed for Branch Nausea and Vomiting (N/V). pyridoxine, 2021-0 Yes [id number] 25mg Take 1 [facility] VITAMIN 7-28 tablet by [facility] of B-6, 00:00: mouth [place] (VITAMIN 00 every 6 Medical B-6) 25 mg (six) Branch tablet hours as needed for Nausea and Vomiting (N/V). doxylamine 2021-0 Yes [id number] 25mg Take 1 [facility] (UNISOM, 7-28 tablet by [facility] of DOXYLAMINE, 00:00: mouth [place] ) 25 mg 00 bedtime as Medica l tablet needed for Branch Nausea and Vomiting (N/V). metoclopram 2021-0 Yes [id number] 10mg Take 1 [facility] to HCl 10 7-28 tablet by [facility] of mg tablet 00:00: mouth [place] 00 every 6 Medical (six) Branch hours as needed for Nausea and Vomiting (N/V). pyridoxine, 2021-0 Yes [id number] 25mg Take 1 [facility] VITAMIN 7-28 tablet by [facility] of B-6, 00:00: mouth [place] (VITAMIN 00 every 6 Medical B-6) 25 mg (six) Branch tablet hours as needed for Nausea and Vomiting (N/V). doxylamine 2-0 Yes [id number] 25mg Take 1 [facility] (UNISOM, 7-28 tablet by [facility] of DOXYLAMINE, 00:00: mouth [place] ) 25 mg 00 bedtime as Medica l tablet needed for Branch Nausea and Vomiting (N/V). metoclopram 2022-0 Yes [id number] 10mg Take 1 [facility] to HCl 10 7-28 tablet by [facility] of mg tablet 00:00: mouth [place] 00 every 6 Medical (six) Branch hours as needed for Nausea and Vomiting (N/V). pyridoxine, 2-0 Yes [id number] 25mg Take 1 [facility] VITAMIN 7-28 tablet by [facility] of B-6, 00:00: mouth [place] (VITAMIN 00 every 6 Medical B-6) 25 mg (six) Branch tablet hours as needed for Nausea and Vomiting (N/V). doxylamine 2022-0 Yes [id number] 25mg Take 1 [facility] (UNISOM, 7-28 tablet by [facility] of DOXYLAMINE, 00:00: [facility] [place] ) 25 mg 00 bedtime as Medica l tablet needed for Branch Nausea and Vomiting (N/V). metoclopram 2-0 Yes [id number] 10mg Take 1 [facility] to HCl 10 7-28 tablet by [facility] of mg tablet 00:00: mouth [place] 00 every 6 Medical (six) Branch hours as needed for Nausea and Vomiting (N/V). pyridoxine, 2021-0 Yes [id number] 25mg Take 1 [facility] VITAMIN 7-28 tablet by [facility] of B-6, 00:00: mouth [place] (VITAMIN 00 every 6 Medical B-6) 25 mg (six) Branch tablet hours as needed for Nausea and Vomiting (N/V). doxylamine 2-0 Yes [id number] 25mg Take 1 [facility] (UNISOM, 7-28 tablet by [facility] of DOXYLAMINE, 00:00: mouth [place] ) 25 mg 00 bedtime as Medica l tablet needed for Branch Nausea and Vomiting (N/V). metoclopram 2-0 Yes [id number] 10mg Take 1 [facility] to HCl 10 7-28 tablet by [facility] of mg tablet 00:00: mouth [place] 00 every 6 Medical (six) Branch hours as needed for Nausea and Vomiting (N/V). pyridoxine, 2022-0 Yes [id number] 25mg Take 1 [facility] VITAMIN 7-28 tablet by [facility] of B-6, 00:00: mouth [place] (VITAMIN 00 every 6 Medical B-6) 25 mg (six) Branch tablet hours as needed for Nausea and Vomiting (N/V). doxylamine 2022-0 Yes [id number] 25mg Take 1 [facility] (UNISOM, 7-28 tablet by [facility] of DOXYLAMINE, 00:00: mouth [place] ) 25 mg 00 bedtime as Medica l tablet needed for Branch Nausea and Vomiting (N/V). metoclopram 2022-0 Yes [id number] 10mg Take 1 [facility] to HCl 10 7-28 tablet by [facility] of mg tablet 00:00: mouth [place] 00 every 6 Medical (six) Branch hours as needed for Nausea and Vomiting (N/V). pyridoxine, 2-0 Yes [id number] 25mg Take 1 [facility] VITAMIN 7-28 tablet by [facility] of B-6, 00:00: mouth [place] (VITAMIN 00 every 6 Medical B-6) 25 mg (six) Branch tablet hours as needed for Nausea and Vomiting (N/V). doxylamine 2022-0 Yes [id number] 25mg Take 1 [facility] (UNISOM, 7-28 tablet by [facility] of DOXYLAMINE, 00:00: mouth [place] ) 25 mg 00 bedtime as Medica l tablet needed for Branch Nausea and Vomiting (N/V). metoclopram 2022-0 Yes [id number] 10mg Take 1 [facility] to HCl 10 7-28 tablet by [facility] of mg tablet 00:00: mouth [place] 00 every 6 Medical (six) Branch hours as needed for Nausea and Vomiting (N/V). pyridoxine, 2022-0 Yes [id number] 25mg Take 1 [facility] VITAMIN 7-28 tablet by [facility] of B-6, 00:00: mouth [place] (VITAMIN 00 every 6 Medical B-6) 25 mg (six) Branch tablet hours as needed for Nausea and Vomiting (N/V). doxylamine 2022-0 Yes [id number] 25mg Take 1 [facility] (UNISOM, 7-28 tablet by [facility] of DOXYLAMINE, 00:00: mouth [place] ) 25 mg 00 bedtime as Medica l tablet needed for Branch Nausea and Vomiting (N/V). metoclopram 2022-0 Yes [id number] 10mg Take 1 [facility] to HCl 10 7-28 tablet by [facility] of mg tablet 00:00: mouth [place] 00 every 6 Medical (six) Branch hours as needed for Nausea and Vomiting (N/V). pyridoxine, 2021-0 Yes [id number] 25mg Take 1 [facility] VITAMIN 7-28 tablet by [facility] of B-6, 00:00: mouth [place] (VITAMIN 00 every 6 Medical B-6) 25 mg (six) Branch tablet hours as needed for Nausea and Vomiting (N/V). doxylamine 2021-0 Yes [id number] 25mg Take 1 [facility] (UNISOM, 7-28 tablet by [facility] of DOXYLAMINE, 00:00: mouth [place] ) 25 mg 00 bedtime as Medica l tablet needed for Branch Nausea and Vomiting (N/V). metoclopram 2-0 Yes [id number] 10mg Take 1 [facility] to HCl 10 7-28 tablet by [facility] of mg tablet 00:00: mouth [place] 00 every 6 Medical (six) Branch hours as needed for Nausea and Vomiting (N/V). pyridoxine, 2021-0 Yes [id number] 25mg Take 1 [facility] VITAMIN 7-28 tablet by [facility] of B-6, 00:00: mouth [place] (VITAMIN 00 every 6 Medical B-6) 25 mg (six) Branch tablet hours as needed for Nausea and Vomiting (N/V). doxylamine 2021-0 Yes [id number] 25mg Take 1 [facility] (UNISOM, 7-28 tablet by [facility] of DOXYLAMINE, 00:00: mouth [place] ) 25 mg 00 bedtime as Medica l tablet needed for Branch Nausea and Vomiting (N/V). metoclopram 2-0 Yes [id number] 10mg Take 1 [facility] to HCl 10 7-28 tablet by [facility] of mg tablet 00:00: mouth [place] 00 every 6 Medical (six) Branch hours as needed for Nausea and Vomiting (N/V). pyridoxine, 2-0 Yes [id number] 25mg Take 1 [facility] VITAMIN 7-28 tablet by [facility] of B-6, 00:00: mouth [place] (VITAMIN 00 every 6 Medical B-6) 25 mg (six) Branch tablet hours as needed for Nausea and Vomiting (N/V). doxylamine 2022-0 Yes [id number] 25mg Take 1 [facility] (UNISOM, 7-28 tablet by [facility] of DOXYLAMINE, 00:00: mouth [place] ) 25 mg 00 bedtime as Medica l tablet needed for Branch Nausea and Vomiting (N/V). metoclopram 2021-0 Yes [id number] 10mg Take 1 [facility] to HCl 10 7-28 tablet by [facility] of mg tablet 00:00: mouth [place] 00 every 6 Medical (six) Branch hours as needed for Nausea and Vomiting (N/V). pyridoxine, 0 Yes [id number] 25mg Take 1 [facility] VITAMIN 7-28 tablet by [facility] of B-6, 00:00: mouth [place] (VITAMIN 00 every 6 Medical B-6) 25 mg (six) Branch tablet hours as needed for Nausea and Vomiting (N/V). doxylamine 2021-0 Yes [id number] 25mg Take 1 [facility] (UNISOM, 7-28 tablet by [facility] of DOXYLAMINE, 00:00: mouth [place] ) 25 mg 00 bedtime as Medica l tablet needed for Branch Nausea and Vomiting (N/V). metoclopram 0 Yes [id number] 10mg Take 1 [facility] to HCl 10 7-28 tablet by [facility] of mg tablet 00:00: mouth [place] 00 every 6 Medical (six) Branch hours as needed for Nausea and Vomiting (N/V). pyridoxine, 2021-0 Yes [id number] 25mg Take 1 [facility] VITAMIN 7-28 tablet by [facility] of B-6, 00:00: mouth [place] (VITAMIN 00 every 6 Medical B-6) 25 mg (six) Branch tablet hours as needed for Nausea and Vomiting (N/V). doxylamine 2021-0 Yes [id number] 25mg Take 1 [facility] (UNISOM, 7-28 tablet by [facility] of DOXYLAMINE, 00:00: mouth [place] ) 25 mg 00 bedtime as Medica l tablet needed for Branch Nausea and Vomiting (N/V). pyridoxine, 2021-0 Yes [id number] 25mg Take 1 [facility] VITAMIN 7-28 tablet by [facility] of B-6, 00:00: mouth [place] (VITAMIN 00 every 6 Medical B-6) 25 mg (six) Branch tablet hours as needed for Nausea and Vomiting (N/V). doxylamine Yes [id number] 25mg Take 1 [facility] (UNISOM, - tablet by [facility] of DOXYLAMINE, 00:00: mouth [place] ) 25 mg 00 bedtime as Medica l tablet needed for Branch Nausea and Vomiting (N/V). pyridoxine, 2022- No [id number] 25mg Take 1 [facility] VITAMIN 03-28 02-16 tablet by [facility] of B-6, 00:00: 00:00 mouth [place] (VITAMIN 00 :00 every 6 Medical B-6) 25 mg (six) Branch tablet hours as needed for Nausea and Vomiting (N/V). doxylamine 2022- No [id number] 25mg Take 1 [facility] (UNISOM, 03-28- tablet by ity o f DOXYLAMINE, 00:00: 00:00 [facility] [place] ) 25 mg 00 :00 bedtime as Medica l tablet needed for Branch Nausea and Vomiting (N/V). metoclopram 2021- No [id number] 10mg Take 1 [facility] to HCl 10 03-28 08-25 tablet by [facility] of mg tablet 00:00: 00:00 mouth [place] 00 :00 every 6 Medical (six) Branch hours as needed for Nausea and Vomiting (N/V). ibuprofen 2020-09- No [id number] 600mg Take 1 [facility] 600 mg 2-10 - tablet by [facility] of tablet 00:00: 00:00 mouth [place] 00 :00 every 6 Medical (six) Branch hours as needed for Pain (scale 4-6) or Temp > 38.5 C. Yes [id number] 1{tbl} Take 1 [facility] vitamin 3-27 [id number] tablet by it[facility] o f w/FA tablet 00:00: mouth [place] 00 daily. Medical Branch Yes [id number] 1{tbl} Take 1 [facility] vitamin 3-27 [id number] tablet by [facility] o f w/FA tablet 00:00: mouth [place] 00 daily. Medical Branch Yes [id number] 1{tbl} Take 1 [facility] vitamin 3-27 [id number] tablet by [facility] o f w/FA tablet 00:00: mouth [place] 00 daily. Medical Branch 2020-0 Yes [id number] 1{tbl} Take 1 [facility] vitamin 3-27 [id number] tablet by [facility] o f w/FA tablet 00:00: mouth [place] 00 daily. Medical Branch 2020-0 Yes [id number] 1{tbl} Take 1 [facility] vitamin 3-27 [id number] tablet by [facility] o f w/FA tablet 00:00: mouth [place] 00 daily. Medical Branch 2020-0 Yes [id number] 1{tbl} Take 1 [facility] vitamin 3-27 [id number] tablet by [facility]y o f w/FA tablet 00:00: mouth [place] 00 daily. Medical Branch 2020-0 Yes [id number] 1{tbl} Take 1 [facility] vitamin 3-27 [id number] tablet by ity o f w/FA tablet 00:00: mouth [place] 00 daily. Medical [place] 2020-0 Yes [id number] 1{tbl} Take 1 [facility] vitamin 3-27 [id number] tablet by ity o f w/FA tablet 00:00: mouth [place] 00 daily. Medical [place] 2020-0 Yes [id number] 1{tbl} Take 1 [facility] vitamin 3-27 [id number] tablet by ity o f w/FA tablet 00:00: mouth [place] 00 daily. Medical Branch 2020-0 Yes [id number] 1{tbl} Take 1 [facility] vitamin 3-27 [id number] tablet by ity o f w/FA tablet 00:00: mouth [place] 00 daily. Medical [place] 2020-0 Yes [id number] 1{tbl} Take 1 [facility] vitamin 3-27 [id number] tablet by [facility]y o f w/FA tablet 00:00: mouth [place] 00 daily. Medical Branch 2020-0 Yes [id number] 1{tbl} Take 1 [facility] vitamin 3-27 [id number] tablet by ity o f w/FA tablet 00:00: mouth [place] 00 daily. Medical Branch 2020-0 Yes [id number] 1{tbl} Take 1 [facility] vitamin 3-27 [id number] tablet by ity o f w/FA tablet 00:00: mouth [place] 00 daily. [facility] 2020-0 Yes [id number] 1{tbl} Take 1 [facility] vitamin 3-27 [id number] tablet by ity o f w/FA tablet 00:00: mouth [place] 00 daily. Medical [place] 2020-0 Yes [id number] 1{tbl} Take 1 [facility] vitamin 3-27 [id number] tablet by ity o f w/FA tablet 00:00: mouth [place] 00 daily. Medical [place] 2020-0 Yes [id number] 1{tbl} Take 1 [facility] vitamin 3-27 [id number] tablet by ity o f w/FA tablet 00:00: mouth [place] 00 daily. Medical Branch 2020-0 Yes [id number] 1{tbl} Take 1 [facility] vitamin 3-27 [id number] tablet by ity o f w/FA tablet 00:00: mouth [place] 00 daily. Medical Branch 2020-0 Yes [id number] 1{tbl} Take 1 [facility] vitamin 3-27 [id number] tablet by [facility]y o f w/FA tablet 00:00: mouth [place] 00 daily. Medical Branch 2020-0 Yes [id number] 1{tbl} Take 1 [facility] vitamin 3-27 [id number] tablet by ity o f w/FA tablet 00:00: mouth [place] 00 daily. Medical [place] 2020-0 Yes [id number] 1{tbl} Take 1 [facility] vitamin 3-27 [id number] tablet by ity o f w/FA tablet 00:00: mouth [place] 00 daily. Medical Branch 2020-0 Yes [id number] 1{tbl} Take 1 [facility] vitamin 3-27 [id number] tablet by [facility]y o f w/FA tablet 00:00: mouth [place] 00 daily. Medical [place] 2020-0 Yes [id number] 1{tbl} Take 1 [facility] vitamin 3-27 [id number] tablet by ity o f w/FA tablet 00:00: mouth [place] 00 daily. Medical [place] 2020-0 Yes [id number] 1{tbl} Take 1 [facility] vitamin 3-27 [id number] tablet by ity o f w/FA tablet 00:00: mouth [place] 00 daily. Medical Branch 2020-0 Yes [id number] 1{tbl} Take 1 [facility] vitamin 3-27 [id number] tablet by [facility]y o f w/FA tablet 00:00: mouth [place] 00 daily. Medical [facility] 2020-0 Yes [id number] 1{tbl} Take 1 [facility] vitamin 3-27 [id number] tablet by ity o f w/FA tablet 00:00: mouth [place] 00 daily. [facility] 2020-0 Yes [id number] 1{tbl} Take 1 [facility] vitamin 3-27 [id number] tablet by ity o f w/FA tablet 00:00: mouth [place] 00 daily. Medical Branch 2020-0 Yes [id number] 1{tbl} Take 1 [facility] vitamin 3-27 [id number] tablet by ity o f w/FA tablet 00:00: mouth [place] 00 daily. Medical [facility] 2020-0 Yes [id number] 1{tbl} Take 1 [facility] vitamin 3-27 [id number] tablet by ity o f w/FA tablet 00:00: mouth [place] 00 daily. Medical [facility] 2020-0 Yes [id number] 1{tbl} Take 1 [facility] vitamin 3-27 [id number] tablet by ity o f w/FA tablet 00:00: mouth [place] 00 daily. Medical [facility] 2020-0 Yes [id number] 1{tbl} Take 1 [facility] vitamin 3-27 [id number] tablet by ity o f w/FA tablet 00:00: mouth [place] 00 daily. Medical Branch 2020-0 Yes [id number] 1{tbl} Take 1 [facility] vitamin 3-27 [id number] tablet by ity o f w/FA tablet 00:00: mouth [place] 00 daily. Medical Branch 2020-0 Yes [id number] 1{tbl} Take 1 [facility] vitamin 3-27 [id number] tablet by [facility]y o f w/FA tablet 00:00: mouth [place] 00 daily. Medical Branch 2020-0 Yes [id number] 1{tbl} Take 1 [facility] vitamin 3-27 [id number] tablet by ity o f w/FA tablet 00:00: mouth [place] 00 daily. Medical [place] 2020-0 Yes [id number] 1{tbl} Take 1 [facility] vitamin 3-27 [id number] tablet by ity o f w/FA tablet 00:00: mouth [place] 00 daily. Medical Branch 2020-0 Yes [id number] 1{tbl} Take 1 [facility] vitamin 3-27 [id number] tablet by ity o f w/FA tablet 00:00: mouth [place] 00 daily. Medical [facility] 2020-0 Yes [id number] 1{tbl} Take 1 [facility] vitamin 3-27 [id number] tablet by ity o f w/FA tablet 00:00: mouth [place] 00 daily. [facility] 2020-0 Yes [id number] 1{tbl} Take 1 [facility] vitamin 3-27 [id number] tablet by ity o f w/FA tablet 00:00: mouth [place] 00 daily. Medical [facility] 2020-0 Yes [id number] 1{tbl} Take 1 [facility] vitamin 3-27 [id number] tablet by ity o f w/FA tablet 00:00: mouth [place] 00 daily. Medical [place] 2020-0 Yes [id number] 1{tbl} Take 1 [facility] vitamin 3-27 [id number] tablet by ity o f w/FA tablet 00:00: mouth [place] 00 daily. Medical [place] 2020-0 Yes [id number] 1{tbl} Take 1 [facility] vitamin 3-27 [id number] tablet by ity o f w/FA tablet 00:00: mouth [place] 00 daily. Medical [facility] 2020-0 Yes [id number] 1{tbl} Take 1 [facility] vitamin 3-27 [id number] tablet by ity o f w/FA tablet 00:00: mouth [place] 00 daily. [facility] 2020-0 Yes [id number] 1{tbl} Take 1 [facility] vitamin 3-27 [id number] tablet by ity o f w/FA tablet 00:00: mouth [place] 00 daily. [facility] 2020-0 Yes [id number] 1{tbl} Take 1 [facility] vitamin 3-27 [id number] tablet by ity o f w/FA tablet 00:00: mouth [place] 00 daily. Medical [place] 2020-0 Yes [id number] 1{tbl} Take 1 [facility] vitamin 3-27 [id number] tablet by ity o f w/FA tablet 00:00: mouth [place] 00 daily. [facility] 2020-0 Yes [id number] 1{tbl} Take 1 [facility] vitamin 3-27 [id number] tablet by ity o f w/FA tablet 00:00: mouth [place] 00 daily. Medical [place] 2020-0 Yes [id number] 1{tbl} Take 1 [facility] vitamin 3-27 [id number] tablet by ity o f w/FA tablet 00:00: mouth [place] 00 daily. Medical [place] 2020-0 Yes [id number] 1{tbl} Take 1 [facility] vitamin 3-27 [id number] tablet by ity o f w/FA tablet 00:00: mouth [place] 00 daily. [facility] 2020-0 Yes [id number] 1{tbl} Take 1 [facility] vitamin 3-27 [id number] tablet by ity o f w/FA tablet 00:00: mouth [place] 00 daily. [facility] 2020-0 2023- No [id number] 1{tbl} Take 1 [facility] vitamin 3-27 02-16 [id number] tablet by [facility] of w/FA tablet 00:00: 00:[place] :[place] daily. [facility] docusate 2021- No [id number] 240mg Take 1 [facility] calcium 240 11-25 [id number] capsule by [facility]y of mg capsule 00:00: 00:00 mouth once [place] 00 :00 daily as Medical needed for Branch Constipati on. ferrous 2021- No [id number] 325mg Take 1 [facility] sulfate 325 11-25 [id number] tablet by [facility]y of mg (65 mg 00:00: 00:00 [place] iron[place] 00 :00 (two) Medical tablet times Branch daily. ibuprofen 2021- No [id number] 600mg Take 1 [facility] 600 mg 11-25 [id number] tablet by ity o f tablet 00:00: 00:00 mouth [place] 00 :00 every 6 Medical (six) Branch hours as needed (Pain). Take with food or milk. Immunizations Ordered Filled Immunization Date Status Comments [facility] e Immunization Name Name TDAP (ADACEL) 2019-09-02 Completed [facility] VACCINE 00:00:00 [facility] TDAP (ADACEL) 2019-09-02 Completed [facility] VACCINE 00:00:00 [facility] TDAP (ADACEL) 2019-09-02 Completed [facility] VACCINE 00:00:00 [facility] TDAP (ADACEL) 2019-09-02 Completed [facility] VACCINE 00:00:00 [facility] TDAP (ADACEL) 2019-09-02 Completed [facility] VACCINE 00:00:00 [facility] TDAP (ADACEL) 2019-09-02 Completed [facility] VACCINE 00:00:00 [facility] TDAP (ADACEL) 2019-09-02 Completed [facility] VACCINE 00:00:00 [facility] TDAP (ADACEL) 2019-09-02 Completed [facility] VACCINE 00:00:00 [facility] TDAP (ADACEL) 2019-09-02 Completed [facility] VACCINE 00:00:00 [facility] TDAP (ADACEL) 2019-09-02 Completed [facility] VACCINE 00:00:00 [facility] TDAP (ADACEL) 2019-09-02 Completed [facility] VACCINE 00:00:00 [facility] TDAP (ADACEL) 2019-09-02 Completed [facility] VACCINE 00:00:00 [place] [facility] TDAP (ADACEL) 2019-09-02 Completed [facility] VACCINE 00:00:00 [facility] TDAP (ADACEL) 2019-09-02 Completed [facility] VACCINE 00:00:00 [facility] TDAP (ADACEL) 2019-09-02 Completed [facility] VACCINE 00:00:00 [facility] TDAP (ADACEL) 2019-09-02 Completed [facility] VACCINE 00:00:00 [facility] TDAP (ADACEL) 2019-09-02 Completed [facility] VACCINE 00:00:00 [facility] TDAP (ADACEL) 2019-09-02 Completed [facility] VACCINE 00:00:00 [facility] TDAP (ADACEL) 2019-09-02 Completed [facility] VACCINE 00:00:00 [facility] TDAP (ADACEL) 2019-09-02 Completed [facility] of VACCINE 00:00:00 [facility] TDAP (ADACEL) 2019-09-02 Completed [facility] of VACCINE 00:00:00 [facility] TDAP (ADACEL) 2019-09-02 Completed [facility] of VACCINE 00:00:00 [facility] TDAP (ADACEL) 2019-09-02 Completed [facility] of VACCINE 00:00:00 [facility] TDAP (ADACEL) 2019-09-02 Completed [facility] VACCINE 00:00:00 [facility] TDAP (ADACEL) 2019-09-02 Completed [facility] VACCINE 00:00:00 [facility] TDAP (ADACEL) 2019-09-02 Completed [facility] VACCINE 00:00:00 [facility] TDAP (ADACEL) 2019-09-02 Completed [facility] VACCINE 00:00:00 [facility] TDAP (ADACEL) 2019-09-02 Completed [facility] VACCINE 00:00:00 [facility] TDAP (ADACEL) 2019-09-02 Completed [facility] VACCINE 00:00:00 [facility] TDAP (ADACEL) 2019-09-02 Completed [facility] VACCINE 00:00:00 [facility] TDAP (ADACEL) 2019-09-02 Completed [facility] VACCINE 00:00:00 [facility] TDAP (ADACEL) 2019-09-02 Completed [facility] VACCINE 00:00:00 [facility] TDAP (ADACEL) 2019-09-02 Completed [facility] VACCINE 00:00:00 [facility] TDAP (ADACEL) 2019-09-02 Completed [facility] VACCINE 00:00:00 [facility] TDAP (ADACEL) 2019-09-02 Completed [facility] of VACCINE 00:00:00 [facility] TDAP (ADACEL) 2019-09-02 Completed [facility] of VACCINE 00:00:00 [facility] TDAP (ADACEL) 2019-09-02 Completed [facility] of VACCINE 00:00:00 [facility] TDAP (ADACEL) 2019-09-02 Completed [facility] VACCINE 00:00:00 [facility] TDAP (ADACEL) 2019-09-02 Completed [facility] of VACCINE 00:00:00 [facility] TDAP (ADACEL) 2019-09-02 Completed [facility] of VACCINE 00:00:00 [facility] TDAP (ADACEL) 2019-09-02 Completed [facility] VACCINE 00:00:00 [facility] TDAP (ADACEL) 2019-09-02 Completed [facility] of VACCINE 00:00:00 [facility] TDAP (ADACEL) 2019-09-02 Completed [facility] of VACCINE 00:00:00 [facility] TDAP (ADACEL) 2019-09-02 Completed [facility] of VACCINE 00:00:00 [facility] TDAP (ADACEL) 2019-09-02 Completed [facility] of VACCINE 00:00:00 [facility] TDAP (ADACEL) 2019-09-02 Completed [facility] of VACCINE 00:00:00 [facility] TDAP (ADACEL) 2019-09-02 Completed [facility] VACCINE 00:00:00 [facility] TDAP (ADACEL) 2019-09-02 Completed [facility] VACCINE 00:00:00 [facility] TDAP (ADACEL) 2019-09-02 Completed [facility] VACCINE 00:00:00 [facility] TDAP (ADACEL) 2019-09-02 Completed [facility] VACCINE 00:00:00 [facility] TDAP (ADACEL) 2019-09-02 Completed [facility] VACCINE 00:00:00 [facility] TDAP (ADACEL) 2019-09-02 Completed [facility] VACCINE 00:00:00 [facility] TDAP (ADACEL) 2019-09-02 Completed [facility] of VACCINE 00:00:00 [facility] TDAP (ADACEL) 2019-09-02 Completed [facility] VACCINE 00:00:00 [facility] Influenza Virus 2019-06-08 Completed [facility]it [facility] .5 mL 00:00:00 [facility] Influenza Virus 2019-06-08 Completed [facility] .5 mL 00:00:00 [facility] Influenza Virus 2019-06-08 Completed [facility] .5 mL 00:00:00 [facility] Influenza Virus 2019-06-08 Completed [facility] .5 mL 00:00:00 [facility] Influenza Virus 2019-06-08 Completed [facility] .5 mL 00:00:00 [facility] Influenza Virus 2019-06-08 Completed [facility] .5 mL 00:00:00 [facility] Influenza Virus 2019-06-08 Completed [facility] .5 mL 00:00:00 [facility] Influenza Virus 2019-06-08 Completed [facility] .5 mL 00:00:00 [facility] Influenza Virus 2019-06-08 Completed [facility] .5 mL 00:00:00 [facility] Influenza Virus 2019-06-08 Completed [facility] .5 mL 00:00:00 [facility] Influenza Virus 2019-06-08 Completed [facility] .5 mL 00:00:00 [facility] Influenza Virus 2019-06-08 Completed [facility] .5 mL 00:00:00 [facility] Influenza Virus 2019-06-08 Completed [facility] .5 mL 00:00:00 [facility] Influenza Virus 2019-06-08 Completed [facility] .5 mL 00:00:00 [facility] Influenza Virus 2019-06-08 Completed [facility] .5 mL 00:00:00 [facility] Influenza Virus 2019-06-08 Completed [facility] .5 mL 00:00:00 [facility] Influenza Virus 2019-06-08 Completed [facility] .5 mL 00:00:00 [facility] Influenza Virus 2019-06-08 Completed [facility] .5 mL 00:00:00 [facility] Influenza Virus 2019-06-08 Completed [facility] .5 mL 00:00:00 [facility] Influenza Virus 2019-06-08 Completed [facility] .5 mL 00:00:00 [facility] Influenza Virus 2019-06-08 Completed [facility] .5 mL 00:00:00 [facility] Influenza Virus 2019-06-08 Completed [facility] .5 mL 00:00:00 [facility] Influenza Virus 2019-06-08 Completed [facility] .5 mL 00:00:00 [facility] Influenza Virus 2019-06-08 Completed [facility] .5 mL 00:00:00 [facility] Influenza Virus 2019-06-08 Completed [facility] .5 mL 00:00:00 [facility] Influenza Virus 2019-06-08 Completed [facility] .5 mL 00:00:00 [facility] Influenza Virus 2019-06-08 Completed [facility] .5 mL 00:00:00 [facility] Influenza Virus 2019-06-08 Completed [facility] .5 mL 00:00:00 [facility] Influenza Virus 2019-06-08 Completed [facility] .5 mL 00:00:00 [facility] Influenza Virus 2019-06-08 Completed [facility] .5 mL 00:00:00 [facility] Influenza Virus 2019-06-08 Completed [facility] .5 mL 00:00:00 [facility] Influenza Virus 2019-06-08 Completed [facility] .5 mL 00:00:00 [facility] Influenza Virus 2019-06-08 Completed [facility] .5 mL 00:00:00 [facility] Influenza Virus 2019-06-08 Completed [facility] .5 mL 00:00:00 [facility] Influenza Virus 2019-06-08 Completed [facility] .5 mL 00:00:00 [facility] Influenza Virus 2019-06-08 Completed [facility] .5 mL 00:00:00 [facility] Influenza Virus 2019-06-08 Completed [facility] .5 mL 00:00:00 [facility] Influenza Virus 2019-06-08 Completed [facility] .5 mL 00:00:00 [facility] Influenza Virus 2019-06-08 Completed [facility] .5 mL 00:00:00 [facility] Influenza Virus 2019-06-08 Completed [facility] .5 mL 00:00:00 [facility] Influenza Virus 2019-06-08 Completed [facility] .5 mL 00:00:00 [facility] Influenza Virus 2019-06-08 Completed [facility] .5 mL 00:00:00 [facility] Influenza Virus 2019-06-08 Completed [facility] .5 mL 00:00:00 [facility] Influenza Virus 2019-06-08 Completed [facility] .5 mL 00:00:00 [facility] Influenza Virus 2019-06-08 Completed [facility] .5 mL 00:00:00 [facility] Influenza Virus 2019-06-08 Completed [facility] .5 mL 00:00:00 [facility] Influenza Virus 2019-06-08 Completed [facility] .5 mL 00:00:00 [facility] Influenza Virus 2019-06-08 Completed [facility] .5 mL 00:00:00 [facility] Influenza Virus 2019-06-08 Completed [facility] .5 mL 00:00:00 [facility] Influenza Virus 2019-06-08 Completed [facility] .5 mL 00:00:00 [facility] Influenza Virus 2019-06-08 Completed [facility] .5 mL 00:00:00 [facility] Influenza Virus 2019-06-08 Completed [facility] .5 mL 00:00:00 [facility] Influenza Virus 2019-06-08 Completed [facility] y of [facility] .5 mL 00:00:00 [facility] Influenza Virus 2019-06-08 Completed [facility]it y of [facility] .5 mL 00:00:00 [facility] Vital Signs Vital Name Observation Time Observation Value Comments Source Systolic blood 2023-01-22 05:16:00 106 mm[Hg] Univer sity of pressure [facility] Diastolic blood 2023-01-22 05:16:00 64 mm[Hg] Unive rsity of pressure [facility] Heart rate 2023-01-22 05:16:00 90 /min Universi ty of [facility] Respiratory rate 2023-01-22 05:16:00 15 /min Univ ersity of [facility] Oxygen saturation in 2023-01-22 05:16:00 98 /min [facility] Arterial blood by [facility] Pulse oximetry [place] Body temperature 2023-01-22 02:45:00 37.72 Nathaly [facility] ersity of [facility] Systolic blood 2022-11-18 21:34:00 108 mm[Hg] Univer sity of pressure [facility] Diastolic blood 2022-11-18 21:34:00 73 mm[Hg] Unive rsity of pressure [facility] Heart rate 2022-11-18 21:34:00 68 /min [facility]i ty of [facility] Body temperature 2022-11-18 21:34:00 36.67 Nathaly [facility] ersity of [facility] Respiratory rate 2022-11-18 21:34:00 18 /min Univ ersity of [facility] Body height 2022-11-18 21:34:00 162.6 cm Universi ty of [facility] Body weight 2022-11-18 21:34:00 65.953 kg [facility] [place] BMI 2022-11-18 21:34:00 24.96 kg/m2 [facility] ty of [facility] Systolic blood 2022-10-17 14:30:00 111 mm[Hg] Univer sity of pressure [facility] Diastolic blood 2022-10-17 14:30:00 68 mm[Hg] Unive rsity of pressure [facility] Heart rate 2022-10-17 14:30:00 71 /min [facility]i ty of [facility] Body temperature 2022-10-17 14:30:00 36.67 Nathaly Univ ersity of [facility] Respiratory rate 2022-10-17 14:30:00 17 /min Univ ersity of [facility] Oxygen saturation in 2022-10-17 10:53:00 100 /min [facility] of Arterial blood by [facility] Pulse oximetry Branch Systolic blood 2022-10-15 22:10:00 104 mm[Hg] Univer sity of pressure [facility] Diastolic blood 2022-10-15 22:10:00 66 mm[Hg] Unive rsity of pressure [facility] Heart rate 2022-10-15 22:10:00 83 /min [facility]i ty [facility] Body temperature 2022-10-15 22:10:00 36.72 Nathaly Univ ersity of [facility] Respiratory rate 2022-10-15 22:10:00 18 /min Univ ersity of [facility] Body weight 2022-10-15 22:10:00 70.308 kg [facility]i ty of [facility] BMI 2022-10-15 22:10:00 26.61 kg/m2 [facility] Heart rate 2022-10-14 20:00:00 91 /min [facility]i ty of [facility] Oxygen saturation in 2022-10-14 20:00:00 98 /min [facility] of Arterial blood by [facility] Pulse oximetry Branch Systolic blood 2022-10-14 19:35:00 108 mm[Hg] Univer sity of pressure [facility] Diastolic blood 2022-10-14 19:35:00 73 mm[Hg] Unive rsity of pressure [facility] Body temperature 2022-10-14 19:35:00 37.06 Nathaly Univ ersity of [facility] Respiratory rate 2022-10-14 19:35:00 16 /min Univ ersity of [facility] Body weight 2022-10-14 19:18:00 69.673 kg [facility]i ty of [facility] BMI 2022-10-14 19:18:00 26.37 kg/m2 [facility] Systolic blood 2022-10-08 20:03:00 103 mm[Hg] Univer sity of pressure [facility] Diastolic blood 2022-10-08 20:03:00 67 mm[Hg] Unive rsity of pressure [facility] Heart rate 2022-10-08 20:03:00 66 /min [facility]i ty of [facility] Body temperature 2022-10-08 20:03:00 36.89 Nathaly Univ ersity of [facility] Body height 2022-10-08 20:03:00 162.6 cm [facility]i ty of [facility] Body weight 2022-10-08 20:03:00 68.584 kg [facility]i ty of [facility] BMI 2022-10-08 20:03:00 25.95 kg/m2 [facility] Body temperature 2022-10-01 17:53:00 36.83 Nathaly Univ ersity of [facility] Respiratory rate 2022-10-01 17:53:00 18 /min Univ ersity of [facility] Body height 2022-10-01 17:53:00 162.6 cm [facility] Body weight 2022-10-01 17:53:00 68.584 kg [facility] ty of [facility] BMI 2022-10-01 17:53:00 25.95 kg/m2 [facility] Systolic blood 2022-10-01 17:53:00 98 mm[Hg] Univer sity of pressure [facility] Diastolic blood 2022-10-01 17:53:00 68 mm[Hg] Unive rsity of pressure [facility] Heart rate 2022-10-01 17:53:00 94 /min [facility] ty [facility] Systolic blood 2022-09-17 22:09:00 96 mm[Hg] Univer sity of pressure [facility] Diastolic blood 2022-09-17 22:09:00 66 mm[Hg] Unive rsity of pressure [facility] Heart rate 2022-09-17 22:09:00 102 /min [facility] Body temperature 2022-09-17 22:09:00 36.83 Nathaly Univ ersity of [facility] Body height 2022-09-17 22:09:00 162.6 cm [facility] Body weight 2022-09-17 22:09:00 68.493 kg [facility] BMI 2022-09-17 22:09:00 25.92 kg/m2 [facility] Heart rate 2022-09-11 01:30:00 93 /min [facility] ty [facility] Oxygen saturation in 2022-09-11 01:30:00 100 /min University of Arterial blood by [facility] deep Pulse oximetry Branch Systolic blood 2022-09-10 22:16:00 102 mm[Hg] Univer sity of pressure [facility] Diastolic blood 2022-09-10 22:16:00 64 mm[Hg] Unive rsity of pressure [facility] Body temperature 2022-09-10 22:16:00 37 Nathaly Univ ersity of [facility] Respiratory rate 2022-09-10 22:16:00 18 /min Univ ersity of [facility] Body height 2022-09-10 22:16:00 162.6 cm [facility] ty [facility] Body weight 2022-09-10 22:16:00 67.586 kg [facility] BMI 2022-09-10 22:16:00 25.58 kg/m2 [facility] Systolic blood 2022-09-09 23:14:00 117 mm[Hg] Univer sity of pressure [facility] Diastolic blood 2022-09-09 23:14:00 74 mm[Hg] Unive rsity of pressure [facility] Heart rate 2022-09-09 23:14:00 89 /min [facility] ty [facility] Body temperature 2022-09-09 23:14:00 36.78 Nathaly Univ ersity of [facility] Respiratory rate 2022-09-09 23:14:00 18 /min Univ ersity of [facility] Body height 2022-09-09 23:14:00 165.1 cm [facility] ty [facility] Body weight 2022-09-09 23:14:00 67.586 kg [facility] ty of [facility] BMI 2022-09-09 23:14:00 24.79 kg/m2 [facility] ty of [facility] Oxygen saturation in 2022-09-09 23:14:00 100 /min University of Arterial blood by [facility] Pulse oximetry Branch Systolic blood 2022-09-02 22:10:00 83 mm[Hg] Univer sity of pressure [facility] Diastolic blood 2022-09-02 22:10:00 45 mm[Hg] Unive rsity of pressure [facility] Heart rate 2022-09-02 22:10:00 73 /min [facility] ty [facility] Body temperature 2022-09-02 22:10:00 36.78 Nathaly Univ ersity of [facility] Body height 2022-09-02 22:10:00 165.1 cm [facility] Body weight 2022-09-02 22:10:00 68.266 kg [facility] BMI 2022-09-02 22:10:00 25.04 kg/m2 [facility] Systolic blood 2022-08-19 21:12:00 109 mm[Hg] Univer sity of pressure [facility] Diastolic blood 2022-08-19 21:12:00 67 mm[Hg] Unive rsity of pressure [facility] Heart rate 2022-08-19 21:12:00 78 /min [facility] Body temperature 2022-08-19 21:12:00 36.67 Nathaly Univ ersity of [facility] Body height 2022-08-19 21:12:00 165.1 cm [facility] Body weight 2022-08-19 21:12:00 68.04 kg [facility] BMI 2022-08-19 21:12:00 24.96 kg/m2 [facility] Systolic blood 2022-08-08 20:44:00 95 mm[Hg] Univer sity of pressure [facility] Diastolic blood 2022-08-08 20:44:00 63 mm[Hg] Unive rsity of pressure [facility] Heart rate 2022-08-08 20:44:00 85 /min [facility]i ty of [facility] Body temperature 2022-08-08 20:44:00 36.78 Nathaly Univ ersity of [facility] Respiratory rate 2022-08-08 20:44:00 18 /min Univ ersity of [facility] Body height 2022-08-08 20:44:00 165.1 cm [facility] ty [facility] Body weight 2022-08-08 20:44:00 66.679 kg [facility] ty [facility] BMI 2022-08-08 20:44:00 24.46 kg/m2 [facility] ty [facility] Heart rate 2022-07-27 00:45:00 112 /min [facility] ty [facility] Oxygen saturation in 2022-07-27 00:45:00 99 /min [facility] Arterial blood by [facility] deep Pulse oximetry [facility] Systolic blood 2022-07-27 00:15:00 100 mm[Hg] Univer sity of pressure [facility] Diastolic blood 2022-07-27 00:15:00 63 mm[Hg] Unive rsity of pressure [facility] Body temperature 2022-07-27 00:15:00 37.28 Nathaly Univ ersity of [facility] Respiratory rate 2022-07-27 00:15:00 18 /min Univ ersity of [facility] Body height 2022-07-27 00:15:00 165.1 cm [facility] ty [facility] Body weight 2022-07-27 00:15:00 66.497 kg [facility] BMI 2022-07-27 00:15:00 24.40 kg/m2 [facility] Systolic blood 2022-07-22 16:59:00 111 mm[Hg] Univer sity of pressure [facility] Diastolic blood 2022-07-22 16:59:00 73 mm[Hg] Unive rsity of pressure [facility] Heart rate 2022-07-22 16:59:00 76 /min [facility] ty [facility] Body temperature 2022-07-22 16:59:00 36.78 Nathaly Univ [facility]ity of [facility] Body height 2022-07-22 16:59:00 165.1 cm [facility] Body weight 2022-07-22 16:59:00 66.134 kg [facility] BMI 2022-07-22 16:59:00 24.26 kg/m2 [facility] Systolic blood 2022-07-18 23:00:00 100 mm[Hg] Univer sity of pressure [facility] Diastolic blood 2022-07-18 23:00:00 70 mm[Hg] Unive rsity of pressure [facility] Heart rate 2022-07-18 23:00:00 82 /min [facility] ty [facility] Respiratory rate 2022-07-18 23:00:00 20 /min Univ ersity of [facility] Oxygen saturation in 2022-07-18 23:00:00 100 /min [facility] of Arterial blood by [facility] Pulse oximetry Branch Body temperature 2022-07-18 20:14:00 36.83 Nathaly Univ ersity of [facility] Body weight 2022-07-18 20:14:00 65.772 kg [facility] ty [facility] BMI 2022-07-18 20:14:00 24.13 kg/m2 [facility] ty of [facility] Systolic blood 2022-07-18 19:44:00 105 mm[Hg] Univer sity of pressure [facility] Diastolic blood 2022-07-18 19:44:00 69 mm[Hg] Unive rsity of pressure [facility] Heart rate 2022-07-18 19:44:00 96 /min [facility]i ty of [facility] Body temperature 2022-07-18 19:44:00 37 Nathaly Univ ersity of [facility] Body height 2022-07-18 19:44:00 165.1 cm [facility] ty of [facility] Body weight 2022-07-18 19:44:00 65.953 kg [facility] ty [facility] BMI 2022-07-18 19:44:00 24.20 kg/m2 [facility] Systolic blood 2022-07-10 20:47:00 106 mm[Hg] Univer sity of pressure [facility] Diastolic blood 2022-07-10 20:47:00 68 mm[Hg] Unive rsity of pressure [facility] Heart rate 2022-07-10 20:47:00 89 /min [facility]i ty of [facility] Body temperature 2022-07-10 20:47:00 36.83 Nathaly Univ ersity of [facility] Respiratory rate 2022-07-10 20:47:00 16 /min Univ ersity of [facility] Body height 2022-07-10 20:47:00 165.1 cm [facility] [place] Body weight 2022-07-10 20:47:00 67.132 kg Universi ty of [facility] BMI 2022-07-10 20:47:00 24.63 kg/m2 [facility] ty of [facility] Systolic blood 2022-06-20 20:55:00 105 mm[Hg] Univer sity of pressure [facility] Diastolic blood 2022-06-20 20:55:00 70 mm[Hg] Unive rsity of pressure [facility] Heart rate 2022-06-20 20:55:00 83 /min [facility] ty [facility] Body temperature 2022-06-20 20:55:00 36.78 Nathaly Univ [facility]ity [facility] Respiratory rate 2022-06-20 20:55:00 17 /min Univ ersity of [facility] Body height 2022-06-20 20:55:00 165.1 cm [facility] Body weight 2022-06-20 20:55:00 65.409 kg [facility] BMI 2022-06-20 20:55:00 24.00 kg/m2 [facility] Systolic blood 2022-05-23 20:37:00 109 mm[Hg] Univer sity of pressure [facility] Diastolic blood 2022-05-23 20:37:00 71 mm[Hg] Unive rsity of pressure [facility] Heart rate 2022-05-23 20:37:00 96 /min [facility] Body temperature 2022-05-23 20:37:00 36.94 Nathaly Univ [facility] Respiratory rate 2022-05-23 20:37:00 18 /min Univ ersity of [facility] Body height 2022-05-23 20:37:00 165.1 cm [facility] Body weight 2022-05-23 20:37:00 62.596 kg [facility] BMI 2022-05-23 20:37:00 22.96 kg/m2 [facility] Systolic blood 2022-05-22 12:32:00 99 mm[Hg] Univer sity of pressure [facility] Diastolic blood 2022-05-22 12:32:00 54 mm[Hg] Unive rsity of pressure [facility] Heart rate 2022-05-22 12:32:00 66 /min [facility] Body temperature 2022-05-22 12:32:00 36.89 Nathaly [facility] Branch Respiratory rate 2022-05-22 12:32:00 16 /min [facility] [place] [facility] [place] Oxygen saturation in 2022-05-22 12:32:00 100 /min University of Arterial blood by [facility] Pulse oximetry Branch Body weight 2022-05-21 23:11:00 64.184 kg [facility] [place] [facility] BMI 2022-05-21 23:11:00 23.55 kg/m2 [facility] [place] [facility] Systolic blood 2022-04-25 21:03:00 122 mm[Hg] [facility] [place] [facility] Diastolic blood 2022-04-25 21:03:00 86 mm[Hg] [facility] [place] [facility] Heart rate 2022-04-25 21:03:00 92 /min [facility] [place] [facility] Body temperature 2022-04-25 21:03:00 36.78 Nathaly [facility] [place] [facility] Respiratory rate 2022-04-25 21:03:00 18 /min [facility] [place] [facility] Body height 2022-04-25 21:03:00 165.1 cm [facility] [place] [facility] Body weight 2022-04-25 21:03:00 64.411 kg [facility] [place] [facility] BMI 2022-04-25 21:03:00 23.63 kg/m2 [facility] [place] [facility] Systolic blood 2022-03-28 19:28:00 106 mm[Hg] [facility] [place] [facility] Diastolic blood 2022-03-28 19:28:00 68 mm[Hg] [facility] [place] [facility] Heart rate 2022-03-28 19:28:00 80 /min [facility] [place] [facility] Body temperature 2022-03-28 19:28:00 37.39 Nathaly [facility] [place] [facility] Respiratory rate 2022-03-28 19:28:00 16 /min [facility] [place] [facility] Body height 2022-03-28 19:28:00 162.6 cm [facility] [place] [facility] Body weight 2022-03-28 19:28:00 66.044 kg [facility] [place] [facility] BMI 2022-03-28 19:28:00 24.99 kg/m2 [facility] [place] [facility] Procedures Procedure Date / Time Performing Clinician Source Performed NOTICE OF PRIVACY 2023-01-22 02:43:35 Doctor Unassigned, No [facility] PRACTICES Name Medical Branch CONSENT/REFUSAL FOR 2023-01-22 02:42:40 Doctor Unassigned, No [facility] Name Medical Branch [facility] PATIENT FINANCIAL 2022-11-18 21:01:15 Doctor Unassigned, No [facility] POLICY Name Medical [place] CBC WITH DIFF 2022-10-17 10:52:00 Fior Cyr [facility] CBC WITH DIFF 2022-10-16 02:10:00 [facility] 2022-10-16 02:10:00 Fior Cyr [facility] ANTIGEN Medical Branch HB ABO GROUPING 2022-10-16 02:10:00 [facility] IMMUNE GLOBULIN 2022-10-16 02:10:[address] [facility] ADC OR [place] ONLY - 2022-10-16 02:10:00 Fior Cyr [facility] RPR Medical Branch HIV 1/2 AG-AB WITH 2022-10-16 02:10:00 Fior Cyr [facility] REFLEX Medical Branch ASSIGNMENT OF BENEFITS 2022-10-16 00:33:04 Doctor Unassigned, No [facility] CONSENT/REFUSAL FOR 2022-10-16 00:28:53 Doctor Unassigned, No [facility] Medical Branch POCT URINALYSIS W/O 2022-10-15 00:00:00 Fior Cyr [facility] SPECIFIC GRAVITY Medical Branch ASSIGNMENT OF BENEFITS 2022-10-14 19:13:07 Doctor Unassigned, No [facility] CONSENT/REFUSAL FOR 2022-10-14 19:11:55 Doctor Unassigned, No [facility] Medical Branch POCT URINALYSIS W/O 2022-10-08 00:00:00 Fior Cyr [facility] SPECIFIC GRAVITY Medical Branch POCT URINALYSIS W/O 2022-10-01 17:54:00 Karmen Enamorado [facility] SPECIFIC GRAVITY Medical Branch DSU PRE-OP 2022-10-01 06:01:00 Doctor Unassigned, No [facility] STERILIZATION CONSENT 2022-09-18 06:01:00 Doctor Unassigned, No [facility] FORM Name [facility] POCT URINALYSIS W/O 2022-09-17 00:00:00 Fior Cyr [facility] SPECIFIC GRAVITY Medical [place] CONSENT/REFUSAL FOR 2022-09-10 21:47:45 Doctor Unassigned, No [facility] Name [facility] ADC CLC OR LCC ONLY - 2022-09-10 00:07:00 Fior Cyr [facility] WET PREP [facility] Branch URINALYSIS 2022-09-09 23:40:00 Fior Cyr [place] o [facility] EXTRA TUBE URINE CULTURE 2022-09-09 23:40:00 Fior Cyr [facility] ASSIGNMENT OF BENEFITS 2022-09-09 22:44:23 Doctor Unassigned, No [facility] CONSENT/REFUSAL FOR 2022-09-09 22:43:30 Doctor Unassigned, No [facility] POCT URINALYSIS W/O 2022-09-02 00:00:00 Karmen Enamorado [facility] SPECIFIC [facility] POCT URINALYSIS W/O 2022-08-19 00:00:00 Fior Cyr [facility] SPECIFIC [facility] Branch POCT URINALYSIS W/O 2022-08-08 00:00:00 Karmen Enamorado [facility] SPECIFIC [facility] RAPID INFLUENZA A/B 2022-07-26 22:22:00 Margarita Malone [facility] COVID-19 (ID NOW RAPID 2022-07-26 22:22:00 Margarita Malone [facility] TESTING) [facility] COMP. METABOLIC PANEL 2022-07-26 22:21:00 Margarita Malone [facility] ([id number]) [facility] Branch CBC WITH DIFF 2022-07-26 22:21:00 Margarita Malone [facility] URINALYSIS 2022-07-26 22:21:00 Margarita Malone [facility] CONSENT/REFUSAL FOR 2022-07-26 21:35:06 Doctor Unassigned, No [facility] Name Medical Branch POCT URINALYSIS W/O 2022-07-22 00:00:00 Karmen Enamorado [facility] SPECIFIC [facility] CT CHEST PULMONARY 2022-07-18 22:31:11 Carly Estrada [facility] ANGIOGRAM Medical Branch LIPASE 2022-07-18 20:43:00 Carly Estrada [facility] TROPONIN I 2022-07-18 20:43:00 Carly Estrada [facility] COMP. METABOLIC PANEL 2022-07-18 20:43:00 Carly Estrada [facility] ([id number]) Medical Branch CBC WITH DIFF 2022-07-18 20:43:00 Carly Estrada [facility] PROTHROMBIN TIME / INR 2022-07-18 20:43:00 [facility] ACTIVATED PARTIAL 2022-07-18 20:43:00 [facility] THRMPLAS MARIIA [facility] N-TERMINAL PRO-BNP 2022-07-18 20:43:00 Carly Estrada [facility] CONSENT/REFUSAL FOR 2022-07-18 20:02:59 Doctor Unassigned, No Un [facility] DIAGNOSIS AND TREATMENT Name Medical Branch POCT URINALYSIS W/O 2022-07-10 21:16:00 Fior Cyr [facility] Hospital POCT URINALYSIS W/O 2022-06-20 00:00:00 Fior Cyr [facility] SPECIFIC [facility] POCT URINALYSIS W/O 2022-05-23 00:00:00 Fior Cyr [facility] SPECIFIC [facility] Branch URINALYSIS 2022-05-22 00:56:00 Ger [facility] COMP. METABOLIC PANEL 2022-05-22 00:44:00 [id number] CBC WITH DIFF 2022-05-22 00:44:00 Cyr [facility] ADC CLC OR LCC ONLY - 2022-05-22 00:44:00 Fior Cyr [facility] WET [facility] CONSENT/REFUSAL FOR 2022-05-21 23:08:02 Doctor Unassigned, No [facility] [place] [facility] SCANNED LAB RESULTS 2022-04-05 05:01:00 Doctor Unassigned, No [facility] <14 WEEKS US 2022-03-28 20:25:18 Fior Cyr [facility] URINE DRUG (IMMUNOASSAY) 2022-03-28 20:13:00 Fior Cyr [facility] DRUG [facility] SCREEN PAP SMEAR-LIQUID 2022-03-28 20:13:00 Fior Cyr [facility] POCT TEST 2022-03-28 19:39:00 Fior Cyr [facility] POCT URINALYSIS W/O 2022-03-28 19:39:00 Fior Cyr [facility] SPECIFIC [facility] ULTRASOUND 2022-03-28 05:01:00 Doctor Unassigned, No [facility] Encounters Start End Encounter Admission Attending Care Care Encounter Source Date/Time Date/Time Type Type Clinicians Facility Department ID 2022-11-19 Outpatient R FIOR CYR [facility] FUNDRAISER [id number] Univers 16:45:[facility] 2022-09-09 Outpatient X [facility] [id number] Univers 19:21:37 [facility] 2022-07-18 Outpatient P [facility] [id number] Univers 14:01:30 [facility] 2022-05-22 Outpatient X [facility] [id number] Univers 09:36:40 [facility] 2021-06-28 Outpatient P [facility] [id number] Univers 15:03:31 [facility] 2021-06-28 Outpatient P [facility] [id number] Univers 11:34:55 [facility] 2021-06-28 Outpatient P [facility] [id number] Univers 11:34:32 [facility] 2023-01-21 2023-01-22 Emergency X JACQUES ARRINGTON ERT [id number] Univers 22:51:00 00:23:[address] [facility] 2023-01-21 2023-01-22 Emergency Saúl [facility] 1.2.840.114 [id number] Univers 22:51:00 00:23:00 Sabrina RIVAS 350.1.13.10 it[place] [id number] [facility] 084 [place] 2022-11-19 2022-11-19 Prep For Fior Cyr [facility] 1.2.840.114 [id number] Univers 00:00:00 00:00:00 Surgery Cam ROB 350.1.13.10 i [place] [id number] Nj dical NAL 134 [facility] 2022-11-19 2022-11-19 Prep For Fior Cyr [facility] 1.2.840.114 [id number] Univers 00:00:00 00:00:00 Surgery Geo RIVAS 350.1.13.10 i [place] [id number] Nj dical NAL 134 [facility] 2022-11-18 2022-11-18 Outpatient R FIOR CYR [facility] [id number] Univers 15:30:00 16:48:02 ity of [facility] 2022-11-18 2022-11-18 Routine Fior Cyr [facility] 1.2.915.384 [id number] Univers 15:30:00 16:48:02 Geo RIVAS 350.1.13.10 ity [place] [id number] Nj dical NAL [address] [place] [address] 2022-11-18 2022-11-18 Orders Doctor NATHAN 1.2.840.114 [id number] Univers 00:00:00 00:00:00 Only Unassigned, FANTASMA 350.1.13.10 ity of [place] [facility] 4.2.7.2.686 Alfredito as [id number] [facility] 009 Branch 2022-10-15 2022-10-17 Inpatient P FIOR CYR [facility] SANTO [id number] Univers 18:27:00 11:35:00 ity of [facility] 2022-10-15 2022-10-17 Hospital Fior Cyr [facility] 1.2.840.114 [id number] Univers 18:27:00 11:35:00 Encounter Cam [place] 350.1.13.10 ity of [place] [facility].2.7.2.686 [id number] [address] 2022-10-15 2022-10-15 Outpatient R FIOR CYR [facility] [id number] Univers 15:15:00 16:30:48 ity of [facility] 2022-10-15 2022-10-15 Routine Fior Cyr [facility] 1.2.625.584 [id number] Univers 15:15:00 16:30:48 Cam [place] 350.1.13.10 ity of Visit [place] 4.2.7.2.686 [place] PROF[place] [id number] Nj dical NAL [address] [place] [address] 2022-10-14 2022-10-14 Outpatient X FIOR CYR [facility] SANTO [id number] Univers 13:20:00 14:30:00 ity of [facility] 2022-10-14 2022-10-14 Emergency Fior Cyr [facility] 1.2.840.114 [id number] Univers 13:20:00 14:30:00 Cam [place] 350.1.13.10 i ty of [place] 4.2.7.2.686 [facility] [id number] [address] 2022-10-14 2022-10-14 Telephone Fior Cyr [facility] 1.2.840.114 [id number] Univers 00:00:00 00:00:00 Cam [place] 350.1.13.10 i ty of [facility] 4.2.7.2.[place] [id number] Nj dical NAL [address] [place] [address] 2022-10-08 2022-10-08 Routine Mikenikos Karmen [facility] 1.2.840.11 [id number] Univers 14:15:00 14:40:31 Fior Cyr Geo [place] 350.1.13.10 ity of Visit [place] [id number] Nj dical NAL 134 [facility] 2022-10-08 2022-10-08 Outpatient R FIOR CYR [facility] [id number] Univers 14:15:00 14:40:31 ity of [facility] 2022-10-08 2022-10-08 Cab Station Attendant 2, Adc Lab [facility] 1.2.840.114 [id number] Univers 13:45:00 14:00:00 Visit Fior Cyr 350.1.13.10 ity of [place] [id number] Nj dical [facility] 353 [facility] 2022-10-01 2022-10-01 Routine Kelsea [facility] 1.2.630.500 [id number] Univers 16:15:00 16:15:00 Karmen RIVAS 350.1.13.10 ity of Visit [place] [id number] Nj dical [facility] 134 [facility] 2022-10-01 2022-10-01 Outpatient R KELSEA [facility] [id number] Univers 16:15:00 12:08:41 KARMEN angulo [facility] 2022-10-01 2022-10-01 Orders Doctor EVANS 1.2.840.114 [id number] Univers 00:00:00 00:00:00 Only Unassigned, FANTASMA 350.1.13.10 ity of [place] [facility] 4.2.7.2.686 [place] as [id number] [address] 2022-09-18 2022-09-18 Orders Doctor NATHAN 1.2.840.114 [id number] Univers 00:00:00 00:00:00 Only Unassigned, FANTASMA 350.1.13.10 ity of [place] [facility] 4.2.7.2.686 [place] as [id number] [address] 2022-09-17 2022-09-17 Outpatient R FIOR CYR [facility] [id number] Univers 15:45:00 17:32:07 ity of [facility] 2022-09-17 2022-09-17 Routine Fior Cyr HIALEKSEY 1.2.765.035 [id number] Univers 15:45:00 17:32:07 Cam [place] 350.1.13.10 ity of [facility] 4.2.7.[place] [id number] [address] 2022-09-10 2022-09-10 Outpatient X FIOR CYR [facility] SANTO [id number] Univers 15:53:00 19:40:00 ity of [facility] 2022-09-10 2022-09-10 Emergency Fior Cyr [facility] 1.2.840.114 [id number] Univers 15:53:00 19:40:00 Cam [place] 350.1.13.10 i ty [place] [id number] [address] 2022-09-10 2022-09-10 Nurse Fior Cyr [facility] 1.2.470.644 [id number] Univers 00:00:00 00:00:00 Triage Cam [place] 350.1.13.10 i ty of [place] [id number] [address] 2022-09-10 2022-09-10 Telephone Fior Cyr HIALEKSEY 1.2.840.114 [id number] Univers 00:00:00 00:00:00 Cam [place] 350.1.13.10 i ty [place].2.[place] [id number] [address] 2022-09-09 2022-09-09 Outpatient X FIOR CYR [facility] SANTO [id number] Univers 17:06:00 19:11:00 ity of [facility] 2022-09-09 2022-09-09 Emergency Fior Cyr [facility] 1.2.840.114 [id number] Univers 17:06:00 19:11:00 Cam [place] 350.1.13.10 i ty [place] [id number] [address] 2022-09-09 2022-09-09 Orders Doctor NATHAN 1.2.840.114 [id number] Univers 00:00:00 00:00:00 Only Unassigned, FANTASMA 350.1.13.10 ity of [place] [facility] 4.2.7.2.686 [place] as [id number] [address] 2022-09-02 2022-09-02 [facility] [id number] Univers 15:30:00 16:30:10 KARMEN ity of [facility] 2022-09-02 2022-09-02 Routine [facility] 1.2.933.474 [id number] Univers 15:30:00 15:45:00 Karmen [place] 350.1.13.10 ity of [place] [id number] [address] 2022-08-19 2022-08-19 Outpatient R FIOR CYR [facility] [id number] Univers 15:30:00 15:37:46 ity of [facility] 2022-08-19 2022-08-19 Routine [facility] 1.2.051.799 [id number] Univers 15:30:00 15:37:46 Geo RIVAS 350.1.13.10 ity of [place] [id number] Nj dical NAL [address] [place] [address] 2022-08-12 2022-08-12 Telephone Mananformerly [facility] 1.2.840.114 [id number] Univers 00:00:00 00:00:00 Karmen [place] 350.1.13.10 i ty of [place] 4[place] [id number] Nj dical NAL [address] [place] [address] 2022-08-08 2022-08-[address] [facility] 1.2.496.693 [id number] Univers 14:15:00 14:30:00 Karmen [place] 350.1.13.10 ity of [place].2.[place] [id number] Nj dical NAL 134 [facility] 2022-08-08 2022-08-08 Outpatient R FIOR CYR [facility] [id number] Univers 10:00:00 11:36:40 ity of [facility] 2022-08-08 2022-08-08 Cab Station Attendant 2, Adc Lab [facility] 1.2.840.114 [id number] Univers 10:00:00 10:15:00 Visit Fior Cyr Geo [place]IV[place] 350.1.13.10 ity of [place] [id number] Nj dical NAL 353 [facility] 2022-07-26 2022-07-26 Outpatient X VALDES-ALLAN ROSELINE [facility] O BY [id number] Univers 15:40:00 20:00:00 VALDES-SUMMERS, ROSELINE ity [facility] 2022-07-26 2022-07-26 Emergency Margarita Malone [facility] 1.2.840.1 14 [id number] Univers 15:40:00 20:00:00 Valdes-Allan [facility] 350.1.1 3.10 ity of [place] 4.2.7.2.686 [facility] [id number] [address] 2022-07-22 2022-07-22 Outpatient R KELSEA [facility] [id number] Univers 09:30:00 11:38:10 KARMEN angulo [facility] 2022-07-22 2022-07-22 Routine Kelsea [facility] 1.2.589.292 [id number] Univers 09:30:00 11:38:10 Karmen RIVAS 350.1.13.10 ity of [facility] 4.2.7.2.[place] [id number] Nj dical NAL 134 [facility] 2022-07-18 2022-07-18 Emergency X SEAN [facility] ERT [id number] Univers 14:17:00 17:45:00 CARLY ity [facility] 2022-07-18 2022-07-[address] [facility] 1.2.504.627 [id number] Univers 14:17:00 17:45:00 Carly RIVAS 350.1.13.10 i ty of [facility] 4.2.7.2.[place] [id number] [address] 2022-07-18 2022-07-18 Outpatient R LARISSA CYREN [facility] [id number] Univers 13:00:00 16:58:53 ity of [facility] 2022-07-18 2022-07-18 Routine Fior Cyr [facility] 1.2.820.060 [id number] Univers 13:00:00 13:15:00 Geo RIVAS 350.1.13.10 ity of [place] [id number] Nj dicaz NAL [address] [place] [address] 2022-07-16 2022-07-16 Outpatient P CONROY [facility] [id number] Univers 15:30:00 16:37:18 CONY it y of HarrisonJASMIN [facility] 2022-07-16 2022-07-16 Cab Station Attendant Ultrasound, [facility] 1.2 .840.114 [id number] Univers 15:30:00 16:00:00 Visit Fior Cyr Geo RIVAS 350.1.13.10 ity of Marycarmen DiyaJasmin 4.2.7.2. 686 [facility] [id number] Nj dic[address] 2022-07-10 2022-07-10 Outpatient R FIOR CYR [facility] [id number] Univers 13:35:00 15:00:00 ity of [facility] 2022-07-10 2022-07-10 Nurse Nurse, [facility] 1.2.840.114 [id number] Univers 13:35:00 15:00:00 Visit Fior Cyr Geo [place]IV[place] 350.1.13.10 ity of [place] [id number] Nj dical NAL [address] [place] [address] 2022-07-10 2022-07-10 Telephone CyrLarissaen [facility] 1.2.840.114 [id number] Univers 00:00:00 00:00:00 Cam [place] 350.1.13.10 i ty of [place] [id number] Nj dical NAL 134 [facility] 2022-07-10 2022-07-10 Patient Patrica [facility] 1.2.840.114 [id number] Univers 00:00:00 00:00:00 Secure Msg Roslyn [place] 350.1.13.10 ity of [place] 4.2.7.2.[place] [id number] Nj dical NAL [address] [place] [address] 2022-06-20 2022-06-20 Outpatient R FIOR CYR [facility] [id number] Univers 15:30:00 16:08:19 ity of [facility] 2022-06-20 2022-06-20 Routine Fior Cyr [facility] 1.2.651.865 [id number] Univers 15:30:00 16:08:19 Geo [place]IV[place] 350.1.13.10 ity of Visit [facility] 4.2.7.2.[place] [id number] Nj dical NAL [address] [place] [address] 2022-06-19 2022-06-19 Letter Fior Cyr [facility] 1.2.716.102 [id number] Univers 00:00:00 00:00:00 (Out) Geo [place] 350.1.13.10 i ty of [place] 4[place]7.2.[place] [id number] Nj dical NAL [address] [place] [address] 2022-06-11 2022-06-11 Outpatient P MARYCARMEN [facility] [id number] Univers 15:00:00 16:03:23 CONY it y of JASMIN Terry [facility] 2022-06-11 2022-06-11 Cab Station Attendant Ultrasound, Adc [facility] 1.2 .840.114 [id number] Univers 15:00:00 16:00:00 Visit Conroy Jasmin [place] 350.1 .13.10 ity of [place] [id number] Nj dical NAL 134 [facility] 2022-05-23 2022-05-23 Routine Kelsea [facility] 1.2.317.750 [id number] Univers 15:30:00 16:21:43 Karmen ROB 350.1.13.10 ity of Visit [place] 4.2.7.2.[place] [facility] [id number] Nj dical NAL 134 [facility] 2022-05-23 2022-05-23 Outpatient R KELSEA [facility] [id number] Univers 15:30:00 16:21:43 KARMEN ity [facility] 2022-05-23 2022-05-23 [place] Attendant 2, Adc Lab [facility] [id number] Univers 15:00:00 15:15:00 Visit Fior Cyr [id number] [id number] [phone] N[place] dical [facility] 353 [facility] 2022-05-21 2022-05-22 Outpatient X FIOR CYR [facility] [place] [id number] Univers 18:15:00 09:35:00 ity of [facility] 2022-05-21 2022-05-22 Emergency Fior Cyr [facility] [id number] Univers 18:15:00 09:35:00 Cam ROB [id number] i [id number] [phone] [address] 2022-05-10 2022-05-10 Outpatient R ROQUE [facility] [id number] Univers 16:00:00 16:00:00 ABNER ity [facility] 2022-04-25 2022-04-25 Outpatient R FIOR CYR [facility] [id number] Univers 15:45:00 16:42:44 ity of [facility] 2022-04-25 2022-04-25 Routine Ger Fior [facility] [id number] Univers 15:45:00 16:42:44 Cam ROB [id number] [id number] [phone] [place] dical NAL 134 [facility] 2022-04-25 2022-04-25 [facility] [facility] [id number] Univers 08:00:00 08:45:26 ABNER ity [facility] 2022-04-25 2022-04-25 Ancillary Anastacia Noble [facility] 1.2.84 0.114 [id number] Univers 08:00:00 08:45:26 Visit Abner Nevarez ROB 350.1.13.10 ity of [facility] [place] [phone] Nj dical NAL 179 [facility] 2022-04-18 2022-04-18 Outpatient R ROQUE [facility] [id number] Univers 08:00:00 13:21:20 [facility] 2022-04-18 2022-04-18 Ancillary Anastacia Noble [facility] 1.2.84 0.114 [id number] Univers 08:00:00 13:21:20 Visit Abner Nevarez ROB 350.1.13.10 ity of [facility] 4.[place] [id number] Nj dical NAL 179 [facility] 2022-04-17 2022-04-17 Telephone Fior Cyr [facility] 1.2.840.114 [id number] Univers 00:00:00 00:00:00 Cam ROB 350.1.13.10 i ty of [facility] 4.[place].2.[place] [phone] Nj dical NAL 134 [facility] 2022-04-09 2022-04-09 Ancillary Jing Britton [facility] 1 .2.840.114 [id number] Univers 13:00:00 15:21:44 Visit Abner Nevarez ROB 350.1.13.10 ity of [facility] 4.2.[place].2.[place] [phone] Nj dical NAL 179 [facility] 2022-04-05 2022-04-05 Cab Station Attendant 2, Adc Lab [facility] 1.2.840.114 [id number] Univers 09:00:00 09:15:00 Visit Fior Cyr 350.1.13.10 ity of [place] [phone] Nj dical NAL 353 [facility] 2022-04-05 2022-04-05 Outpatient R FIOR CYR [facility] [id number] Univers 09:00:00 09:00:00 ity of [facility] 2022-04-05 2022-04-05 Orders Doctor NATHAN 1.2.840.114 [id number] Univers 00:00:00 00:00:00 Only Unassigned, FANTASMA 350.1.13.10 ity of [facility] 4.2.7.2.686 Alfredito as [phone] [address] 2022-03-30 2022-03-30 Case Fior Cyr [facility] 1.2.441.514 [id number] Univers 00:00:00 00:00:00 Management Cam [place] 350.1.13.10 ity of [place] [phone] Nj dic[address] 2022-03-29 2022-03-29 Cab Station Attendant 2, [facility] Lab [facility] 1.2.840.114 [id number] [facility] 09:15:00 09:30:00 Visit Fior CyrTON 350.1.13.10 ity of [facility] 4.2.7.2.[place] [phone] Nj dical NAL 353 [facility] 2022-03-29 2022-03-29 Outpatient R FIOR CYR [facility] [id number] Univers 09:15:00 09:15:00 ity of [facility] 2022-03-29 2022-03-29 Case Fior Cyr [facility] 1.2.662.142 [id number] Univers 00:00:00 00:00:00 Management Cam [place] 350.1.13.10 ity of [facility] 4.2.7.2.[place] [phone] [address] 2022-03-29 2022-03-29 [facility] 1.2.840.114 [id number] Univers 00:00:00 00:00:00 Cam [place] 350.1.13.10 i ty of [place] 4[place].2.[place] [phone] [address] 2022-03-28 2022-03-28 Outpatient R GER [facility] [id number] Univers 14:00:00 15:22:58 ity of [facility] 2022-03-28 2022-03-28 Initial [facility] 1.2.714.124 [id number] Univers 14:00:00 15:22:58 Cam ROB 350.1.13.10 ity of [place] 4.[place].7.2.[place] [phone] [address] 2022-03-28 2022-03-28 Outpatient R GER [facility] [id number] Univers 14:00:00 15:22:58 ity of [facility] 2022-03-28 2022-03-28 Orders Doctor NATHAN 1.2.840.114 [id number] Univers 00:00:00 00:00:00 Only Unassigned, FANTASMA 350.1.13.10 ity of [place] [facility] 4.2.7.2.686 Alfredito as [phone] [facility] 009 [place] 2022-03-19 2022-03-19 Emergency X FOSS, [facility] ERT [id number] Univers 16:47:00 18:40:00 UYEN ity of [facility] 2022-03-19 2022-03-19 Emergency [facility] 1.2.840.114 [id number] Univers 16:47:00 18:40:00 Uyenjusto RIVAS 350.1.13.10 i ty of [place]2.7.[place] [phone] [facility] 084 [place] 2022-03-19 2022-03-19 Orders Doctor NATHAN 1.2.840.114 [id number] Univers 00:00:00 00:00:00 Only Unassigned, FANTASMA 350.1.13.10 ity of [facility] 4.2.7.2.686 [facility] [phone] [facility] 009 [place] 2021-09-07 2021-09-[address] [facility] ERT [id number] Univers 17:08:00 18:27:00 JOSHUA angulo [facility] 2021-09-07 2021-09-07 Emergency [facility] 1.2.643.996 [id number] Univers 17:08:00 18:27:00 Joshua ROB 350.1.13.10 i ty of [place] 4.2.7.2.686 [facility] [phone] [address] 2021-08-10 2021-08-10 Emergency X [facility] ERT [id number] Univers 17:50:00 21:07:00 CEE angulo [facility] 2021-08-10 2021-08-10 Emergency [facility] 1.2.791.634 [id number] Univers 17:50:00 21:07:00 Cee RIVAS 350.1.13.10 ity of [place] 4.2.7.2.686 [facility] [id number] [address] 2020-06-26 2020-06-26 [facility] [id number] Univers 10:30:00 10:30:00 KARMEN angulo [facility] 2020-03-22 2020-03-22 Outpatient R [facility] [id number] Univers 10:30:00 10:30:[facility] 2019-12-31 2019-12-31 [facility] [id number] Univers 08:30:00 08:30:00 KARMEN jame [facility] 2019-12-23 2019-12-[address] [facility] 1.2.840.114 [id number] 07:58:31 13:26:53 ne Visit Karmen Rivas 350.1.13.10 [place] 4.2.7.2.686 Professio [phone] [address] 2019-12-23 2019-12-23 Telemedici Kelsea [facility] 1.2.840.114 [id number] Univers 07:58:31 13:26:53 ne Visit Karmen Rob 350.1.13.10 ity of [place] [phone] [address] 2019-12-23 2019-12-23 Outpatient R KELSEA [facility] [id number] Univers 13:00:00 13:00:00 KARMEN ity [facility] 2019-12-21 2019-12-21 Refill [facility] 1.2.642.836 [id number] Univers 00:00:00 00:00:00 Cam Downey 350.1.13.10 i ty of [place] [phone] [address] 2019-12-21 2019-12-21 [facility] 1.2.618.379 [id number] 00:00:00 00:00:00 Cam [place] 350.1.13.10 [place] 4.2.7.2.686 Professio [phone] [address] 2019-12-20 2019-12-20 Refill Fior Cyr [facility] 1.2.645.894 [id number] Univers 00:00:00 00:00:00 Cam Dow[place] 350.1.13.10 i ty of [place] [id number] [address] 2019-12-20 2019-12-20 Refill [facility] 1.2.146.432 [id number] 00:00:00 00:00:00 Cam [place] 350.1.13.10 [place] 4.2.7.2.686 Professio [id number] [address] 2019-11-29 2019-11-29 Orders Doctor NATHAN 1.2.840.114 [id number] Univers 00:00:00 00:00:00 Only Unassigned, FANTASMA 350.1.13.10 ity of [place] [facility] 4.2.7.2.686 [place] as [phone] [address] 2019-11-29 2019-11-29 Orders Doctor NATHAN 1.2.840.114 [id number] 00:00:00 00:00:00 Only Unassigned, FANTASMA 350.1.13.10 [place] [facility] 4.2.7.2.686 [id number] 009 2019-11-25 2019-11-26 [facility] 1.2.840.114 [id number] Univers 05:33:00 21:06:00 Encounter Cam [place] 350.1.13.10 ity of [place] [id number] [address] 2019-11-25 2019-11-26 [facility] 1.2.840.114 [id number] 05:33:00 21:06:00 Encounter Cam [place] 350.1.13.10 [place] 4.2.7.2.686 [place] [id number] [facility] 2019-11-25 2019-11-25 Outpatient P [facility] SANTO [id number] Univers 00:00:00 00:00:00 ity of [facility] 2019-11-25 2019-11-25 Orders Doctor EVANS 1.2.840.114 [id number] Univers 00:00:00 00:00:00 Only Unassigned, FANTASMA 350.1.13.10 ity of [place] [facility] 4.2.7.2.686 [place] as [id number] [address] 2019-11-25 2019-11-25 Orders Doctor EVANS 1.2.840.114 [id number] 00:00:00 00:00:00 Only Unassigned, FANTASMA 350.1.13.10 [place] [facility] 4.2.7.2.686 [id number] 2019-11-22 2019-11-22 Outpatient R GER FIOR [facility] [id number] Univers 08:45:00 08:45:00 ity [facility] 2019-11-19 2019-11-19 Routine Kelsea [facility] 1.2.363.566 [id number] Univers 08:59:42 09:14:42 Karmen Rivas 350.1.13.10 ity of [place] [phone] Nj dical [address] 2019-11-19 2019-11-19 Routine Kelsea [facility] 1.2.309.007 [id number] 08:59:42 09:14:42 Karmen Rivas 350.1.13.10 Visit [place] 4.2.7.2.686 Professio [phone] [address] 2019-11-19 2019-11-19 Outpatient R KELSEA [facility] [id number] [facility] 09:00:00 09:00:00 KARMEN itjame [facility] 2019-11-18 2019-11-18 Telephone Fior Cyr [facility] 1.2.840.114 [id number] [facility] 00:00:00 00:00:00 Geo Rivas 350.1.13.10 i ty of [place]2.[place] [phone] [address] 2019-11-18 2019-11-18 Telephone Fior Cyr [facility] 1.2.840.114 [id number] 00:00:00 00:00:00 Cam Rob 350.1.13.10 [place] 4.2.7.2.686 Professio [id number] [address] 2019-11-17 2019-11-17 [facility] Fior Cyr [facility] 1.2.840.114 [id number] 13:08:00 16:20:00 Encounter Alyce Richardson Pinead Rivas 350.1.13.10 [place] 4.2.7.2.686 [place] [id number] [facility] 2019-11-17 2019-11-17 [facility] Fior Cyr [facility] 1.2.840.114 [id number] [facility] 13:08:00 16:20:00 Encounter Alyce Richardson Pineda OzunaDowney 350.1.13.10 ity of [place].2.[place] [id number] [address] 2019-11-13 2019-11-13 Case Susy [facility] 1.2.840.114 [id number] 00:00:00 00:00:00 Management Giovanni Rivas 350.1.13.10 [place] 4.2.7.2.686 Professio [phone] [address] 2019-11-13 2019-11-13 Case [place] 1.2.840.114 74 [id number] Univers 00:00:00 00:00:00 Management Giovanni Rivas 350.1.13.10 ity of [place].2.[place] [phone] Nj dical [address] 2019-11-12 2019-11-12 Routine Dicmino, [facility] 1.2.840.114 [id number] 08:54:42 10:03:14 Giovanni Rivas 350.1.13.10 Visit [place] 4.2.7.2.686 Professio [phone] [address] 2019-11-12 2019-11-12 Routine Diclemente, [facility] 1.2.840.114 [id number] [facility] 08:54:42 10:03:14 Giovanni [place]unaton 350.1.13.10 ity of Visit [place] 4[place]2.[place].2.[place] [phone] Nj dic[address] 2019-11-12 2019-11-12 Outpatient R GIOVANNI JAIN [facility] B [id number] [facility] 08:45:00 08:45:00 GIOVANNI JAIN [facility] 2019-11-12 2019-11-12 Orders Doctor EVANS 1.2.840.114 [id number] 00:00:00 00:00:00 Only Unassigned, FANTASMA 350.1.13.10 [place] [facility] 4.2.7.2.686 [id number] [facility] 2019-11-12 2019-11-12 Orders Doctor EVANS 1.2.840.114 [id number] Univers 00:00:00 00:00:00 Only Unassigned, FANTASMA 350.1.13.10 ity of [place] [facility] 4.2.7.2.686 Alfrdeito as [phone] [address] 2019-11-05 2019-11-05 Cab Station Attendant Ultrasound, [facility] 1.2.840.114 [id number] 16:15:50 16:45:50 Visit Adc Mfm [place] 350.1.13.10 [place] 4.2.7.2.[address] Profess[place] [id number] [address] 2019-11-05 2019-11-05 Cab Station Attendant Ultrasound, Adc Mf [facility] 1.2 .840.114 [id number] [facility] 16:15:50 16:45:50 Visit Enoch Vikas Velasquez [place] 350.1.13.10 ity of [place] [phone] [address] 2019-11-05 2019-11-05 Outpatient P [facility] [id number] Univers 15:30:00 15:30:00 ity of [facility] 2019-11-05 2019-11-05 Letter Ultrasound, [facility] 1.2.840.114 [id number] 00:00:00 00:00:00 (Out) Adc Mfm [place] 350.1.13.10 [place] 4.2.7.2.686 Professio [phone] [address] 2019-11-05 2019-11-05 Letter Ultrasound, [facility] 1.2.840.114 [id number] [facility] 00:00:00 00:00:00 (Out) Adc Mfm [place] 350.1.13.10 i ty of [place]2.[place] [phone] Nj dic[address] 2019-10-29 2019-10-29 Routine Vanaphan, [facility] 1.2.181.904 [id number] 09:25:23 10:08:15 Karmen Downey 350.1.13.10 Visit [place] 4.2.7.2.686 Professio [phone] [address] 2019-10-29 2019-10-29 Routine Vanaphan, [facility] 1.2.036.218 [id number] [facility] 09:25:23 10:08:15 Karmen Downey 350.1.13.10 ity of Visit [place] [phone] [facility] [address] [facility] 2019-10-29 2019-10-29 Outpatient R KELSEA [facility] [id number] Univers 09:15:00 09:15:00 KARMEN itjame [facility] 2019-10-28 2019-10-29 [facility] Fior Cyr [facility] 1.2.840.114 [id number] 22:21:00 00:17:00 Encounter Geo Rivas 350.1.13.10 [place] 4.2.7.2.686 [place] [phone] [facility] 2019-10-28 2019-10-29 [facility] Fior Cyr [facility] 1.2.840.114 [id number] [facility] 22:21:00 00:17:00 Encounter Geo Rivas 350.1.13.10 ity [facility] [place].2.7.2.[place] [id number] [address] 2019-10-29 2019-10-[address] [facility] 1.2.225.480 [id number] [id number] 00:00:00 00:00:00 (Out) Karmen Rivas 350.1.13.10 [place] 4.2.7.2.686 Professio [phone] [address] 2019-10-29 2019-10-[address] [facility] 1.2.472.137 [id number] [facility] 00:00:00 00:00:00 (Out) Karmen Rivas 350.1.13.10 i ty of [place]7.2.[place] [phone] Nj dical [facility] [address] [facility] 2019-10-22 2019-10-22 Cab Station Attendant 2, Adc Lab [facility] 1.2.840.114 [id number] 14:58:39 15:13:39 Visit Rob 350.1.13.10 [place] 4.2.7.2.686 Professio [phone] [address] 2019-10-22 2019-10-22 Cab Station Attendant 2, Adc Lab [facility] 1.2.840.114 [id number] [facility] 14:58:39 15:13:39 Visit Giovanni Jain [place] 350.1.13. 10 ity of [place] 4[place]2.[place].2.[place] [phone] Nj dical [address] 2019-10-22 2019-10-22 Routine Diclemente, [facility] 1.2.840.114 [id number] 13:33:50 14:54:53 Giovanni Rivas 350.1.13.10 Visit [place] 4.2.7.2.686 Professio [phone] [address] 2019-10-22 2019-10-22 Routine Diclemente, [facility] 1.2.840.114 [id number] [facility] 13:33:50 14:54:53 Giovanni Rivas 350.1.13.10 ity of [place] 4[place].2.[place] [phone] Nj dic[address] 2019-10-22 2019-10-22 Orders Doctor EVANS 1.2.840.114 [id number] 00:00:00 00:00:00 Only Unassigned, FANTASMA 350.1.13.10 [place] [facility] 4.2.7.2.686 [id number] [facility] 2019-10-22 2019-10-22 Orders Doctor NATHAN 1.2.840.[id number] [place] [address] 00:00:00 00:00:00 Only Unassigned, FANTASMA 350.1.13.10 ity of [place] [facility] 4.2.7.2.686 Alfredito as [id number] [address] 2019-10-20 2019-10-20 Telephone Diclemente, [facility] 1.2.840.114 [id number] 00:00:00 00:00:00 Giovanni Rivas 350.1.13.10 [place] 4.2.7.2.686 Professio [phone] [address] 2019-10-20 2019-10-20 Telephone Diclemente, [facility] 1.2.840.114 [id number] [facility] 00:00:00 00:00:00 Giovanni Rivas 350.1.13.10 i ty of [place] [phone] Nj dical nal [address] [place] [address] 2019-10-15 2019-10-15 Patient Priyanka, [facility] 1.2.840.114 [id number] 00:00:00 00:00:00 Secure Msg Nuvia L Dow[place] 350.1.13.10 [place] 4.2.7.2.686 Professio [phone] [address] 2019-10-15 2019-10-15 Patient Priyanka, [facility] 1.2.840.114 [id number] Univers 00:00:00 00:00:00 Secure Msg Nuvia L [place] 350.1.13.10 ity of [place] 4[place]7.2.[place] 118.6815435 Nj dic[address] 2019-10-13 2019-10-13 Patient Doctor [facility] 1.2.840.114 [id number] Univers 00:00:00 00:00:00 Secure Msg Unassigned, [place] 350.1.13.10 ity of [place] 4[place]2.7.2.[place] [phone] Nj dical nal [address] [place] [address] 2019-10-13 2019-10-13 Patient Doctor [facility] 1.2.840.114 [id number] 00:00:00 00:00:00 Secure Msg Unassigned, [place] 350.1.13.10 [place] 4.2.7.2.686 Professio [phone] [address] 2019-10-08 2019-10-08 [facility] 1.2.692.472 [id number] 6201 [facility] 08:26:34 09:18:04 Karmen Downey 350.1.13.10 ity of [place] 4[place].2.[place] [phone] Nj dic[address] 2019-10-08 2019-10-08 Routine Vanaphan, [facility] 1.2.975.371 [id number] 6201 08:26:34 09:18:04 Karmen Downey 350.1.13.10 Visit [place] 4.2.7.2.686 Professio [id number] [address] 2019-10-05 2019-10-05 Patient Doctor [facility] 1.2.840.114 [id number] Univers 00:00:00 00:00:00 Secure Msg Unassigned, [place] 350.1.13.10 ity of [place]2.7.2.[place] [phone] Nj dical [address] 2019-10-05 2019-10-05 Patient Doctor [facility] 1.2.840.114 [id number] 00:00:00 00:00:00 Secure Msg Unassigned, [place] 350.1.13.10 [place] 4.2.7.2.686 Professio [phone] [address] 2019-09-29 2019-09-29 [facility] Fior Cyr [facility] 1.2.840.114 [id number] [facility] 18:12:00 20:54:00 Encounter Cam Dow[place] 350.1.13.10 ity of [place]2.[place] [phone] [address] 2019-09-29 2019-09-29 [facility] Fior Cyr [facility] 1.2.840.114 [id number] 18:12:00 20:54:00 Encounter Cam Downey 350.1.13.10 [place] 4.2.7.2.686 [place] [phone] [facility] 2019-09-24 2019-09-24 Routine Diclemente, [facility] 1.2.840.114 [id number] [facility] 09:33:48 10:12:13 Giovanni Downey 350.1.13.10 ity of [place] [phone] [address] 2019-09-24 2019-09-24 Routine Diclemente, [facility] 1.2.840.114 [id number] 09:33:48 10:12:13 Giovanni Downey 350.1.13.10 Visit [place] 4.2.7.2.686 Professio [phone] [address] 2019-09-24 2019-09-24 Letter Diclemente, [facility] 1.2.840.114 73 [id number] Univers 00:00:00 00:00:00 (Out) Giovanni Rob 350.1.13.10 i ty of [place] [phone] Nj dic[address] 2019-09-24 2019-09-24 Merissa Jain [facility] 1.2.840.114 [id number] 00:00:00 00:00:00 (Out) Giovanni Ozunaton 350.1.13.10 [place] 4.2.7.2.686 Professio [phone] [address] 2019-09-23 2019-09-23 Emergency Tamera [facility] 1.2.019.018 [id number] Univers 18:49:51 20:42:00 [facility] 350.1.13.10 it [place] [phone] [address] ([facility]) 2019-09-23 2019-09-[address] [facility] 1.2.575.291 [id number] 18:49:51 20:42:00 [facility] 350.1.13.10 [place] 4[place]2.7.2.[address] [place] [phone] [address] ([facility]) 2019-08-25 2019-08-[address] [facility] ERT [id number] Univers 20:52:37 23:46:00 DIANE angulo of [facility] 2019-08-16 2019-08-16 Patient Doctor [facility] 1.2.840.114 [id number] Univers 00:00:00 00:00:00 Secure Msg Unassigned, Dow[place] 350.1.13.10 ity of [place] [phone] Nj dic[address] 2019-08-16 2019-08-16 Patient Doctor [facility] 1.2.840.114 [id number] 00:00:00 00:00:00 Secure Msg Unassigned, [place] 350.1.13.10 [place] 4.2.7.2.686 Professio [phone] [address] 2019-05-14 2019-05-14 Hospital [facility] 1.2.840.114 [id number] [facility] 10:21:14 23:59:00 Encounter Giovanni Rivas 350.1.13.10 ity of [place] [phone] [address] 2019-05-14 2019-05-14 Hospital [facility] 1.2.840.114 [id number] 10:21:14 23:59:00 Encounter Giovanni Rivas 350.1.13.10 [place] 4.2.7.2.686 [place] [id number] [facility] 2019-05-14 2019-05-14 Routine [facility] 1.2.840.114 [id number] [facility] 13:04:47 13:54:42 Giovanni Rivas 350.1.13.10 ity [place] [phone] [address] 2019-05-14 2019-05-14 Routine [facility] 1.2.840.114 [id number] 13:04:47 13:54:42 Giovanni Rivas 350.1.13.10 Visit [place] 4.2.7.2.686 [place] [phone] [address] 2019-05-14 2019-05-14 Patient Aicha, [facility] 1.2.840.[id number] [place] [address] 00:00:00 00:00:00 Secure Msg Claire Rivas 350.1.13.10 [place] [phone] [address] 2019-05-14 2019-05-14 [facility] 1.2.840.114 [id number] [facility] 00:00:00 00:00:00 (Out) Giovanni Rivas 350.1.13.10 i [place] [id number] [address] 2019-05-14 2019-05-14 Merissa Jain [facility] 1.2.840.114 [id number] [facility] 00:00:00 00:00:00 (Out) Giovanni Rivas 350.1.13.10 i [place] [phone] [facility] [address] [facility] 2019-05-14 2019-05-14 Merissa Jain [facility] 1.2.840.114 [id number] 00:00:00 00:00:00 (Out) Giovanni Rivas 350.1.13.10 [place] 4.2.7.2.686 [place] [phone] [address] 2019-05-14 2019-05-14 Merissa Jain [facility] 1.2.840.114 [id number] 00:00:00 00:00:00 (Out) Giovanni Rivas 350.1.13.10 [place] 4.2.7.2.686 [place] [id number] [address] 2019-05-13 2019-05-13 Orders Doctor NATHAN 1.2.840.114 [id number] [facility] 00:00:00 00:00:00 Only Unassigned, FANTASMA 350.1.13.10 ity of [place] [facility] 4.2.7.2.686 [place] as [phone] [address] 2019-04-21 2019-04-21 Case Susy [facility] 1.2.840.114 [id number] [facility] 00:00:00 00:00:00 Management Giovanni Rivas 350.1.13.10 [place] [phone] [facility] [address] [facility] 2019-04-16 2019-04-16 [place] Attendant 2, Adc Lab [facility] 1.2.840.114 [id number] [facility] 14:40:31 14:55:31 Visit Giovanni Jain 350.1.13. 10 [place] [phone] [facility] [address] [facility] 2019-04-16 2019-04-16 Initial Diclemente, [facility] 1.2.840.114 [id number] [facility] 13:09:40 14:30:18 Giovanni Rivas 350.1.13.10 ity of [place] 4.2.7.2.686 Riana Talbert [phone] [place] [address] [facility] 2019-04-16 2019-04-16 Orders Doctor NATHAN 1.2.840.114 [id number] [facility] 00:00:00 00:00:00 Only Unassigned, FANTASMA [id number] ity of [place] [facility] [id number] Alfredito as [phone] [facility] deep [address] Results Test Description Test Time Test Comments Results Result Comments Source RHO (D) IMMUNE GLOBULIN 2022-10-16 14:28:50 Test Item Value Reference Range Interpretation Comme nts RHIG CANDIDATE? (test code = No- see comment Patient is not a candidate for RhIg- 5055) Patient is Rh P ositive.Performed at [facility] Laboratory Services - [facility] Blood [address] [place] [address] Free: [phone] A No. [id number] [facility] Screen - ONCE [id number] 03:14:57 Test Item Value Reference Range Interpretation Comments ABO & RH (test AB Positive Performed at [facility] code = 20) Laboratory Serv [facility] Blood [address] [place] [address] Free: [phone] A No. [id number] IAT (test code = Negative Performed a t [facility] 1185) Laboratory Serv [facility] Blood [address] [place], [place] [address]Toll Free: [phone] A No. [id number] [facility] W/O SPECIFIC [id number] 22:08:00 Test Item Value Reference Range Interpretation Comments POCT PH U (test code = 3254) n/a 5-8 POCT U LEUK EST (test code = n/a Negative - Negative 3263) POCT U NIT (test code = 3262) n/a Negative - Negative POCT U PROT (test code = 3259) negative Negative - Negative POCT U GLU (test code = 3256) negative Negative - Negative POCT U KETONE (test code = 3258) n/a Negative - Negative POCT U BLD (test code = 3257) n/a Negative - Negative [facility] URINALYSIS W/O SPECIFIC [id number] 20:02:00 Test Item Value Reference Range Interpretation Comments POCT PH U (test code = 3254) 7 mg/dl 5-8 POCT U LEUK EST (test code = Negative Negative - Negative 3263) POCT U NIT (test code = 3262) Negative Negative - Negative POCT U PROT (test code = 3259) Negative Negative - Negative POCT U GLU (test code = 3256) Negative Negative - Negative POCT U KETONE (test code = 3258) Negative Negative - Negative POCT U BLD (test code = 3257) Negative Negative - Negative [facility] URINALYSIS W/O SPECIFIC [id number] 17:54:00 Test Item Value Reference Range Interpretation Comments POCT PH U (test code = 3254) n/a 5-8 POCT U LEUK EST (test code = n/a Negative - Negative 3263) POCT U NIT (test code = 3262) n/a Negative - Negative POCT U PROT (test code = 3259) negative Negative - Negative POCT U GLU (test code = 3256) negative Negative - Negative POCT U KETONE (test code = 3258) n/a Negative - Negative POCT U BLD (test code = 3257) n/a Negative - Negative [facility] URINALYSIS W/O SPECIFIC [id number] 22:16:00 Test Item Value Reference Range Interpretation Comments POCT PH U (test code = 3254) n/a 5-8 POCT U LEUK EST (test code = n/a Negative - Negative 3263) POCT U NIT (test code = 3262) n/a Negative - Negative POCT U PROT (test code = 3259) negative Negative - Negative POCT U GLU (test code = 3256) negative Negative - Negative POCT U KETONE (test code = 3258) n/a Negative - Negative POCT U BLD (test code = 3257) n/a Negative - Negative [facility] URINALYSIS W/O SPECIFIC [id number] 22:10:00 Test Item Value Reference Range Interpretation Comments POCT PH U (test code = 3254) n/a 5-8 POCT U LEUK EST (test code = n/a Negative - Negative 3263) POCT U NIT (test code = 3262) n/a Negative - Negative POCT U PROT (test code = 3259) negative Negative - Negative POCT U GLU (test code = 3256) negative Negative - Negative POCT U KETONE (test code = 3258) n/a Negative - Negative POCT U BLD (test code = 3257) n/a Negative - Negative [facility] W/O SPECIFIC [id number] 21:11:00 Test Item Value Reference Range Interpretation Comments POCT PH U (test code = 3254) n/a 5-8 POCT U LEUK EST (test code = N/A Negative - Negative 3263) POCT U NIT (test code = 3262) n/a Negative - Negative POCT U PROT (test code = 3259) Negative Negative - Negative POCT U GLU (test code = 3256) Normal Negative - Negative POCT U KETONE (test code = 3258) n/a Negative - Negative POCT U BLD (test code = 3257) n/a Negative - Negative [facility] W/O SPECIFIC [id number] 20:53:00 Test Item Value Reference Range Interpretation Comments POCT PH U (test code = 3254) n/a 5-8 POCT U LEUK EST (test code = 3263) n/a Negative - Negative POCT U NIT (test code = 3262) n/a Negative - Negative POCT U PROT (test code = 3259) neg Negative - Negative POCT U GLU (test code = 3256) neg Negative - Negative POCT U KETONE (test code = 3258) n/a Negative - Negative POCT U BLD (test code = 3257) n/a Negative - Negative [facility]. METABOLIC PANEL ([id number])2022-07-26 22:45:45 Test Item Value Reference Range Interpretation Comments NA (test code = 134 mmol/L 135-145 L 9311216650) K (test code = 3.8 mmol/L 3.5-5.0 4019815972) CL (test code = 104 mmol/L 98-108 3150352270) CO2 TOTAL (test code = 22 mmol/L 23-31 L 8154251164) AGAP (test code = 2-16 8952694016) BUN (test code = 3 mg/dL 7-23 L 9051863691) GLUCOSE (test code = 88 mg/dL 70-110 9137608984) CREATININE (test code = 0.58 mg/dL 0.50-1.04 4616609129) TOTAL BILI (test code = 0.5 mg/dL 0.1-1.2 8167267461) CALCIUM (test code = 8.1 mg/dL 8.6-10.6 L 7169118952) T PROTEIN (test code = 6.4 g/dL 6.3-8.2 5760497789) ALBUMIN (test code = 3.7 g/dL 3.5-5.0 6544590328) ALK PHOS (test code = 75 U/L 34-122 1229187054) ALTv (test code = 18 U/L 5-35 1742-6) AST(SGOT) (test code = 39 U/L 13-40 7751291629) eGFR (test code = mL/min/1.73m2 2567380196) ANALY (test code = ANALY) Association of Glomerular Filtration Rate (GFR) and Staging of Kidney Disease* + --+ --+ ------+| GFR (mL/min/1.73 m2) ?| With Kidney Damage ?| ?Without Kidney Damage+ --------+ --------+ +| ?>90 ?| ?Stage one ?| ? Normal ?+ ---+ ---+ -------+| ?60-89 ?| ?Stage two ?| ? Decreased GFR ? + --+ --+ ------+| ?30-59 ?| ?Stage three ?| ? Stage three ? + --+ --+ ------+| ?15-29 ?| ?Stage four ? | ? Stage four ?+ ---+ ---+ -------+| ?<15 (or dialysis) ? ?| ?Stage five ? | ? Stage five ?+ ---+ ---+ -------+ *Each stage assumes the associated GFR level has been in effect for at least three months. ?Stages 1 to 5, with or without kidney disease, indicate chronic kidney disease. Notes: Determination of stages one and two (with eGFR >59mL/min/1.73 m2) requires estimation of kidney damage for at least three months as defined by structural or functional abnormalities of the kidney, manifested by either:Pathological abnormalities or Markers of kidney damage (including abnormalities in the composition of the blood or urine or abnormalities in imaging tests). Lab Interpretation Abnormal (test code = 98002-2) [facility] WITH [id number] 22:31:04 Test Item Value Reference Range Interpretation Comments WBC (test code = See_Comment [Automated 2590-2) message] The sy stem which generated this result transmitted reference range : 4.30 - 11.10 10*3/?L. The reference range was not used to interpret this result as normal/abnormal . RBC (test code = See_Comment L [Automated 789-8) message] The sy stem which generated this result transmitted reference range : 3.93 - 5.25 10*6/?L. The reference range was not used to interpret this result as normal/abnormal . HGB (test code = 9.2 g/dL 11.6-15.0 L 718-7) HCT (test code = 28.1 % 35.7-45.2 L 4544-3) MCV (test code = 87.3 fL 80.6-95.5 787-2) MCH (test code = 28.6 pg 25.9-32.8 785-6) MCHC (test code = 32.7 g/dL 31.6-35.1 786-4) RDW-SD (test code = 43.3 fL 39.0-49.9 56425-7) RDW-CV (test code = 13.5 % 12.0-15.5 788-0) PLT (test code = See_Comment [Automated 777-3) message] The sy stem which generated this result transmitted reference range : 166 - 358 10*3/ ?L. The reference r barbara was not used to interpret this result as normal/abnormal . MPV (test code = 10.2 fL 9.5-12.9 93782-7) NRBC/100 WBC (test See_Comment [Automat ed code = 8567656585) message] The system which generated this result transmitted reference range : 0.0 - 10.0 /100 WBCs. The refer ence range was not u sed to interpret th is result as normal/abnormal . NRBC x10^3 (test code See_Comment [Auto mated = 4984303979) message] The s ystem which generated this result transmitted reference range : 10*3/?L. The reference range was not used to interpret this result as normal/abnormal . GRAN MAT (NEUT) % 77.4 % (test code = 770-8) IMM GRAN % (test code 0.50 % = 6013858429) LYMPH % (test code = 10.7 % 736-9) MONO % (test code = 11.1 % 5905-5) EOS % (test code = 0.0 % 713-8) BASO % (test code = 0.3 % 706-2) GRAN MAT x10^3(ANC) 4.90 10*3/uL 1.88-7.09 (test code = 0444935471) IMM GRAN x10^3 (test 0.03 10*3/uL 0.00-0.06 code = 1678336735) LYMPH x10^3 (test code 0.68 10*3/uL 1.32-3.29 L = 731-0) MONO x10^3 (test code 0.70 10*3/uL 0.33-0.92 = 742-7) EOS x10^3 (test code = 0.03-0.39 L 711-2) BASO x10^3 (test code 0.01-0.07 = 704-7) Lab Interpretation Abnormal (test code = 22451-9) [facility] URINALYSIS W/O SPECIFIC [id number] 17:18:00 Test Item Value Reference Range Interpretation Comments POCT PH U (test code = 3254) 8 mg/dl 5-8 POCT U LEUK EST (test code = ++ Negative - Negative 3263) POCT U NIT (test code = 3262) negative Negative - Negative POCT U PROT (test code = 3259) trace Negative - Negative POCT U GLU (test code = 3256) negative Negative - Negative POCT U KETONE (test code = 3258) negative Negative - Negative POCT U BLD (test code = 3257) negative Negative - Negative [facility] SPECIFIC [id number] 17:18:00 Test Item Value Reference Range Interpretation Comments POCT PH U (test code = 3254) 8 mg/dl 5-8 POCT U LEUK EST (test code = ++ Negative - Negative 3263) POCT U NIT (test code = 3262) negative Negative - Negative POCT U PROT (test code = 3259) trace Negative - Negative POCT U GLU (test code = 3256) negative Negative - Negative POCT U KETONE (test code = 3258) negative Negative - Negative POCT U BLD (test code = 3257) negative Negative - Negative [facility] CenterTR[facility] [id number] 21:52:26 Test Item Value Reference Interpretation Comments Range TROPONIN I (test 0.002 ng/mL See_Comment [Automated code = 5302217850) message] The system which generated this result transmitted reference range : <=0.034. The reference range was not used to interpret this result as normal/abnormal . ANALY (test code = Reference (Normal) ANALY) Range (defined by the 99th percentile reference limit): <= 0.034 ng/mL Note: Cardiac troponin begins to rise 3-4 hours after the onset of ischemia. Repeat in 4-6 hours if the sample was drawn within 3-4 hours of the onset of the symptom and found normal. Diagnosis of myocardial injury is made with acute changes in cTn concentrations with at least one serial sample above the 99th percentile upper reference limit (URL), taken together with the patient's clinical presentation. Biotin has been reported to cause a negative bias, interpret results relative to patient's use of biotin. Lab Interpretation Normal (test code = 34398-6) [facility] Center[facility]MINAL [id number] 21:49:02 Test Item Value Reference Range Interpretation Comments NT-proBNP (test code 33 pg/mL See_Comment [Autom ated = 7169197316) message] The system which generated this result transmitted reference range : <=125. The reference range was not used to interpret this result as normal/abnormal . ANALY (test code = ANALY) Biotin has been reported to cause a negative bias, interpret results relative to patient's use of biotin. Lab Interpretation Normal (test code = 95959-7) [facility]. METABOLIC PANEL ([id number])2022-07-18 21:39:06 Test Item Value Reference Range Interpretation Comments NA (test code = 135 mmol/L 135-145 9149513652) K (test code = 3.9 mmol/L 3.5-5.0 5788785996) CL (test code = 104 mmol/L 98-108 0240543684) CO2 TOTAL (test code = 23 mmol/L 23-31 3088555330) AGAP (test code = 2-16 5678377089) BUN (test code = 5 mg/dL 7-23 L 5092987167) GLUCOSE (test code = 68 mg/dL 70-110 L 5698894762) CREATININE (test code = 0.61 mg/dL 0.50-1.04 4320288008) TOTAL BILI (test code = 0.8 mg/dL 0.1-1.5 5791407325) CALCIUM (test code = 9.1 mg/dL 8.6-10.6 7093724041) T PROTEIN (test code = 7.4 g/dL 6.3-8.2 3774953867) ALBUMIN (test code = 4.2 g/dL 3.5-5.0 5436757723) ALK PHOS (test code = 83 U/L 34-122 7664235659) ALTv (test code = 14 U/L 5-35 2-6) AST(SGOT) (test code = 26 U/L 13-40 5214324940) eGFR (test code = mL/min/1.73m2 1963450002) ANALY (test code = ANALY) Association of Glomerular Filtration Rate (GFR) and Staging of Kidney Disease* + --+ --+ ------+| GFR (mL/min/1.73 m2) ?| With Kidney Damage ?| ?Without Kidney Damage+ --------+ --------+ +| ?>90 ?| ?Stage one ?| ? Normal ?+ ---+ ---+ -------+| ?60-89 ?| ?Stage two ?| ? Decreased GFR ? + --+ --+ ------+| ?30-59 ?| ?Stage three ?| ? Stage three ? + --+ --+ ------+| ?15-29 ?| ?Stage four ? | ? Stage four ?+ ---+ ---+ -------+| ?<15 (or dialysis) ? ?| ?Stage five ? | ? Stage five ?+ ---+ ---+ -------+ *Each stage assumes the associated GFR level has been in effect for at least three months. ?Stages 1 to 5, with or without kidney disease, indicate chronic kidney disease. Notes: Determination of stages one and two (with eGFR >59mL/min/1.73 m2) requires estimation of kidney damage for at least three months as defined by structural or functional abnormalities of the kidney, manifested by either:Pathological abnormalities or Markers of kidney damage (including abnormalities in the composition of the blood or urine or abnormalities in imaging tests). Lab Interpretation Abnormal (test code = 98790-4) [facility] CenterLIPASE2022-[facility] 21:39:06 Test Item Value Reference Range Interpretation Comments LIPASE (test code = 2683274692) 48 U/L 0-220 Lab Interpretation (test code = Normal 24563-8) [facility] CenterACTIVATED PARTIAL THRMPLAS [id number] 21:34:26 Test Item Value Reference Range Interpretation Comments APTT Patient (test See_Comment [Automat ed code = 3173-2) message] The system which generated this result transmitted reference range : 23 - 38 Seconds . The reference range was not used to interpr et this result as normal/abnormal . ANALY (test code = ANALY) The [facility] patient population mean normal value for aPTT is 30 seconds. Lab Interpretation Normal (test code = 82047-9) [facility] CenterPROTHROMBIN TIME / [id number] 21:32:04 Test Item Value Reference Range Interpretation Comments PROTIME PATIENT (test See_Comment [Auto mated message] code = 5964-2) The system wh ich generated this result transmitted ref erence range: 12.0 - 1 4.7 Seconds. The re ference range was not u sed to interpret this result as normal/abnor mal. INR (test code = 6301-6) Nor mal INR <1.1; Warfarin Therap eutic range 2.0 to 3. 0 or 2.5 to 3.5, dep ending upon the indica tions. Lab Interpretation (test Normal code = 47121-0) [facility] WITH [id number] 21:24:03 Test Item Value Reference Range Interpretation Comments WBC (test code = See_Comment H [Automated 6690-2) message] The system which generated this result transmit ismael reference range : 4.30 - 11.10 10*3/?L. The reference range was not used to interpret this result as normal/abnormal . RBC (test code = See_Comment L [Automated 789-8) message] The system which generated this result transmit ismael reference range : 3.93 - 5.25 10*6/?L. The reference range was not used to interpret this result as normal/abnormal . HGB (test code = 10.9 g/dL 11.6-15.0 L 718-7) HCT (test code = 31.7 % 35.7-45.2 L 4544-3) MCV (test code = 85.2 fL 80.6-95.5 787-2) MCH (test code = 29.3 pg 25.9-32.8 785-6) MCHC (test code = 34.4 g/dL 31.6-35.1 786-4) RDW-SD (test code = 42.9 fL 39.0-49.9 28271-7) RDW-CV (test code = 13.6 % 12.0-15.5 788-0) PLT (test code = See_Comment [Automated 777-3) message] The system which generated this result transmit ismael reference range : 166 - 358 10*3/ ?L. The reference range was not u sed to interpret th is result as normal/abnormal . MPV (test code = 10.5 fL 9.5-12.9 74449-2) NRBC/100 WBC (test See_Comment [Automat ed code = 6004101897) message] The system which generated this result transmit ismael reference range : 0.0 - 10.0 /100 WBCs. The reference range was not used to interpret this result as normal/abnormal . NRBC x10^3 (test code See_Comment [Auto mated = 5429389873) message] The system which generated this result transmit ismael reference range : 10*3/?L. The reference range was not used to interpret this result as normal/abnormal . GRAN MAT (NEUT) % 80.6 % (test code = 770-8) IMM GRAN % (test code 0.50 % = 2193258598) LYMPH % (test code = 11.8 % 736-9) MONO % (test code = 5.7 % 5905-5) EOS % (test code = 1.1 % 713-8) BASO % (test code = 0.3 % 706-2) GRAN MAT x10^3(ANC) 10.92 10*3/uL 1.88-7.09 H (test code = 5076896613) IMM GRAN x10^3 (test 0.07 10*3/uL 0.00-0.06 H code = 5191586906) LYMPH x10^3 (test code 1.60 10*3/uL 1.32-3.29 = 731-0) MONO x10^3 (test code 0.77 10*3/uL 0.33-0.92 = 742-7) EOS x10^3 (test code = 0.15 10*3/uL 0.03-0.39 711-2) BASO x10^3 (test code 0.04 10*3/uL 0.01-0.07 = 704-7) Lab Interpretation Abnormal (test code = 60657-9) [facility] URINALYSIS W/O SPECIFIC [id number] 21:16:00 Test Item Value Reference Range Interpretation Comments POCT PH U (test code = 3254) N/A 5-8 POCT U LEUK EST (test code = 3263) N/A Negative - Negative POCT U NIT (test code = 3262) N/A Negative - Negative POCT U PROT (test code = 3259) Neg Negative - Negative POCT U GLU (test code = 3256) Neg Negative - Negative POCT U KETONE (test code = 3258) N/A Negative - Negative POCT U BLD (test code = 3257) N/A Negative - Negative [facility] URINALYSIS W/O SPECIFIC [id number] 22:40:00 Test Item Value Reference Range Interpretation Comments POCT PH U (test code = 3254) na 5-8 POCT U LEUK EST (test code = 3263) na Negative - Negative POCT U NIT (test code = 3262) na Negative - Negative POCT U PROT (test code = 3259) trace Negative - Negative POCT U GLU (test code = 3256) neg Negative - Negative POCT U KETONE (test code = 3258) na Negative - Negative POCT U BLD (test code = 3257) na Negative - Negative [facility] W/O SPECIFIC [id number] 21:23:00 Test Item Value Reference Range Interpretation Comments POCT PH U (test code = 3254) n/a 5-8 POCT U LEUK EST (test code = 3263) n/a Negative - Negative POCT U NIT (test code = 3262) n/a Negative - Negative POCT U PROT (test code = 3259) neg Negative - Negative POCT U GLU (test code = 3256) neg Negative - Negative POCT U KETONE (test code = 3258) n/a Negative - Negative POCT U BLD (test code = 3257) n/a Negative - Negative [facility] CenterCOMP. METABOLIC PANEL ([id number])2022-05-22 01:33:42 Test Item Value Reference Range Interpretation Comments NA (test code = 134 mmol/L 135-145 L 2624348306) K (test code = 4.2 mmol/L 3.5-5 2223878905) CL (test code = 103 mmol/L 98-108 5912470236) CO2 TOTAL (test code = 23 mmol/L 23-31 9010288664) AGAP (test code = 2-16 5516348751) BUN (test code = 3 mg/dL 7-23 L 8884582541) GLUCOSE (test code = 81 mg/dL 70-110 9796128019) CREATININE (test code = 0.54 mg/dL 0.5-1.04 1219626279) TOTAL BILI (test code = 0.5 mg/dL 0.1-1.6 5857781037) CALCIUM (test code = 8.8 mg/dL 8.6-10.6 0413948218) T PROTEIN (test code = 7.0 g/dL 6.3-8.2 0132241502) ALBUMIN (test code = 4.0 g/dL 3.5-5 3292106833) ALK PHOS (test code = 53 U/L 34-122 5123518162) ALTv (test code = 9 U/L 5-35 1742-6) AST(SGOT) (test code = 19 U/L 13-40 7024333594) eGFR (test code = mL/min/1.73m2 0987665022) ANALY (test code = ANALY) Association of Glomerular Filtration Rate (GFR) and Staging of Kidney Disease* + --+ --+ ------+| GFR (mL/min/1.73 m2) ?| With Kidney Damage ?| ?Without Kidney Damage+ --------+ --------+ +| ?>90 ?| ?Stage one ?| ? Normal ?+ ---+ ---+ -------+| ?60-89 ?| ?Stage two ?| ? Decreased GFR ? + --+ --+ ------+| ?30-59 ?| ?Stage three ?| ? Stage three ? + --+ --+ ------+| ?15-29 ?| ?Stage four ? | ? Stage four ?+ ---+ ---+ -------+| ?<15 (or dialysis) ? ?| ?Stage five ? | ? Stage five ?+ ---+ ---+ -------+ *Each stage assumes the associated GFR level has been in effect for at least three months. ?Stages 1 to 5, with or without kidney disease, indicate chronic kidney disease. Notes: Determination of stages one and two (with eGFR >59mL/min/1.73 m2) requires estimation of kidney damage for at least three months as defined by structural or functional abnormalities of the kidney, manifested by either:Pathological abnormalities or Markers of kidney damage (including abnormalities in the composition of the blood or urine or abnormalities in imaging tests). Lab Interpretation Abnormal (test code = 39231-5) [facility] WITH [id number] 01:15:38 Test Item Value Reference Range Interpretation Comments WBC (test code = See_Comment [Automated 2487-2) message] The sy stem which generated this result transmitted reference range : 4.30 - 11.10 10*3/?L. The reference range was not used to interpret this result as normal/abnormal . RBC (test code = See_Comment L [Automated 789-8) message] The sy stem which generated this result transmitted reference range : 3.93 - 5.25 10*6/?L. The reference range was not used to interpret this result as normal/abnormal . HGB (test code = 10.6 g/dL 11.6-15 L 718-7) HCT (test code = 31.9 % 35.7-45.2 L 4544-3) MCV (test code = 85.5 fL 80.6-95.5 787-2) MCH (test code = 28.4 pg 25.9-32.8 785-6) MCHC (test code = 33.2 g/dL 31.6-35.1 786-4) RDW-SD (test code = 43.8 fL 39-49.9 86665-3) RDW-CV (test code = 13.9 % 12-15.5 788-0) PLT (test code = See_Comment [Automated 777-3) message] The sy stem which generated this result transmitted reference range : 166 - 358 10*3/ ?L. The reference r barbara was not used to interpret this result as normal/abnormal . MPV (test code = 10.2 fL 9.5-12.9 96492-5) NRBC/100 WBC (test See_Comment [Automat ed code = 0130410091) message] The system which generated this result transmitted reference range : 0.0 - 10.0 /100 WBCs. The refer ence range was not u sed to interpret th is result as normal/abnormal . NRBC x10^3 (test code See_Comment [Auto mated = 3520169830) message] The s ystem which generated this result transmitted reference range : 10*3/?L. The reference range was not used to interpret this result as normal/abnormal . GRAN MAT (NEUT) % 71.1 % (test code = 770-8) IMM GRAN % (test code 0.50 % = 8990511624) LYMPH % (test code = 17.5 % 736-9) MONO % (test code = 6.0 % 5905-5) EOS % (test code = 4.5 % 713-8) BASO % (test code = 0.4 % 706-2) GRAN MAT x10^3(ANC) 7.67 10*3/uL 1.88-7.09 H (test code = 4583075152) IMM GRAN x10^3 (test 0.05 10*3/uL 0-0.06 code = 7197332948) LYMPH x10^3 (test code 1.89 10*3/uL 1.32-3.29 = 731-0) MONO x10^3 (test code 0.65 10*3/uL 0.33-0.92 = 742-7) EOS x10^3 (test code = 0.48 10*3/uL 0.03-0.39 H 711-2) BASO x10^3 (test code 0.04 10*3/uL 0.01-0.07 = 704-7) Lab Interpretation Abnormal (test code = 10494-2) [facility] [id number] 19:39:00 Test Item Value Reference Range Interpretation Comments POCT PREG (test code = 1605) Positive On board controls acceptable with C Yes Line (test code = 3574) POCT PREG LOT # (test code = 3575) POCT PREG TEST DATE (test code = 3576) [facility] URINALYSIS W/O SPECIFIC [id number] 19:39:00 Test Item Value Reference Range Interpretation [...] code = 3257) n/a Negative - Negative [facility]"
[2023-04-14] MEDS ORDERED: KETOROLAC 30 MG/ML INJ ONE (18:18)
--- NOTE | 2023-04-14 18:37 | RAD REPORT ---
EXAM DESCRIPTION: RAD - Knee Right 3 View - 04/14/2023 6:27 pm CLINICAL HISTORY: PAIN COMPARISON: <Comparisons> FINDINGS: No acute fracture or dislocation seen.
--- NOTE | 2023-04-14 18:42 | EDPHYS ---
Physician Documentation [facility] Name: Brooklynn Lorenzana Age: 22 yrs Sex: Female : 2000 Arrival Date: 04/14/2023 Time: 17:54 Bed 10 Private MD: ED Physician Ananth Kumar HPI: 04/14 22:40 This 22 yrs old Black Female presents to ER via Ambulatory with complaints of Knee kb Injury. 22:41 The patient presents with pain, tenderness. The complaints affect the right knee. kb Context: The problem was sustained outdoors, the patient can fully bear weight, the patient is able to ambulate. Onset: The symptoms/episode began/occurred 1 week(s) ago. Modifying factors: The symptoms are alleviated by nothing. the symptoms are aggravated by movement. Associated signs and symptoms: The patient has no apparent associated signs or symptoms. Treatment prior to arrival includes: no previous treatment. Severity of symptoms: At their worst the symptoms were moderate, in the emergency department the symptoms are unchanged. The patient has not experienced similar symptoms in the past. The patient has not recently seen a physician. Pt reports she felt a pop in right knee while running last week. States she ran again today and increased the pain. Denies fall or trauma. 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 - Social history:: Smoking status: Patient denies any tobacco usage or history of. ROS: 22:40 Constitutional: Negative for fever, chills, and weight loss. kb 22:40 MS/extremity: Positive for pain, of the right knee. 22:40 All other systems are negative. Exam: 22:40 Constitutional: This is a well developed, well nourished patient who is awake, alert, kb and in no acute distress. Head/Face: Normocephalic, atraumatic. ENT: Moist Mucous membranes Cardiovascular: Regular rate and rhythm with a normal S1 and S2. No gallops, murmurs, or rubs. No pulse deficits. Respiratory: Respirations even and unlabored. No increased work of breathing. Talking in full sentences Skin: Warm, dry with normal turgor. Normal color. Neuro: Awake and alert, GCS 15, oriented to person, place, time, and situation. Moves all extremities. Normal gait. 22:40 Musculoskeletal/extremity: Extremities: grossly normal except: noted in the right knee: pain, tenderness, ROM: intact in all extremities, Circulation is intact in all extremities. Sensation intact. Weight bearing: able to fully bear weight. Vital Signs: 18:00 BP 132 / 84; Pulse 88; Resp 18; Temp 98; Pulse Ox 100% on R/A; Weight 79.38 kg; Height mb9 5 ft. 6 in. ; 18:49 BP 119 / 69; Pulse 74; Resp 16; Pulse Ox 99% on R/A; mb9 18:00 Body Mass Index 28.25 (79.38 kg, 167.64 cm) mb9 MDM: 18:02 Patient medically screened. kb 22:40 Differential diagnosis: dislocation, closed fracture, contusion, strain, sprain. Data kb reviewed: vital signs, nurses notes. Counseling: I had a detailed discussion with the patient and/or guardian regarding: the historical points, exam findings, and any diagnostic results supporting the discharge/admit diagnosis, radiology results, the need for outpatient follow up, a orthopedic surgeon, to return to the emergency department if symptoms worsen or persist or if there are any questions or concerns that arise at home. 04/14 18:07 Order name: Knee Right 3 View XRAY; Complete Time: 18:39 kb Administered Medications: 18:10 Drug: Ketorolac IM 30 mg Route: IM; Site: right deltoid; mb9 18:44 Follow up: Response: No adverse reaction mb9 Disposition Summary: 04/14/23 18:41 Discharge Ordered Location: Home kb Condition: Stable kb Diagnosis - Pain in right knee kb Followup: kb - With: Emergency Department - When: As needed - Reason: Worsening of condition Followup: kb - With: Private Physician - When: 2 - 3 days - Reason: Recheck today's complaints, Continuance of care, Re-evaluation by your physician Discharge Instructions: - Discharge Summary Sheet kb - Knee Sprain, Adult, [id number] kb Forms: - Medication Reconciliation Form kb - Thank You Letter kb - Antibiotic Education kb - Prescription Opioid Use kb - Patient Portal Instructions kb - Leadership Thank You Letter kb Prescriptions: - Diclofenac Sodium 75 mg Oral tablet,delayed release (DR/EC) - take 1 tablet by ORAL route 2 times per day As needed; 30 tablet; Refills: 0, kb Product Selection Permitted Signatures: Dispatcher [employer] Sonia Mendoza, Shana Lu, RN RN mb9
--- NOTE | 2023-04-14 18:42 | ER ---
Nurse's Notes [facility] Name: Brooklynn Lorenzana Age: 22 yrs Sex: Female : 2000 Arrival Date: 04/14/2023 Time: 17:54 Bed 10 Private MD: Diagnosis: Pain in right knee Presentation: 04/14 18:00 Chief complaint: Patient states: "I was running last Friday and felt something tear. mb9 Picking up my baby or repositioning hurts". Onset of symptoms was 2022. 18:43 Coronavirus screen: At this time, the client does not indicate any symptoms associated mb9 with coronavirus-19. Ebola Screen: No symptoms or risks identified at this time. Initial Sepsis Screen: Does the patient meet any 2 criteria? No. Patient's initial sepsis screen is negative. Does the patient have a suspected source of infection? No. Patient's initial sepsis screen is negative. Risk Assessment: Do you want to hurt yourself or someone else? Patient reports no desire to harm self or others. 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 - Social history:: Smoking status: Patient denies any tobacco usage or history of. Screenin:10 [facility] ED Fall Risk Assessment (Adult) History of falling in the last 3 months, mb9 including since admission No falls in past 3 months (0 pts) Confusion or Disorientation No (0 pts) Intoxicated or Sedated No (0 pts) Impaired Gait No (0 pts) Mobility Assist Device Used No (0 pt) Altered Elimination No (0 pt) Score/Fall Risk Level 0 - 2 = Low Risk Oriented to surroundings, Maintained a safe environment, Educated pt \\T\\ family on fall prevention, incl call for assistance when getting out of bed. Abuse screen: Denies threats or abuse. Nutritional screening: No deficits noted. Tuberculosis screening: No symptoms or risk factors identified. Assessment: 18:10 General: Appears in no apparent distress. Behavior is calm, cooperative. Pain: mb9 Complains of pain in right knee Pain does not radiate. Pain currently is 7 out of 10 on a pain scale. Quality of pain is described as throbbing, Pain began 2-3 days ago. Is continuous, Aggravated by increased activity, weight bearing. Neuro: Whitfield Agitation-Sedation Scale (RASS): 0 - Alert and Calm Level of Consciousness is awake, alert, obeys commands, Oriented to person, place, time, situation, Appropriate for age. Cardiovascular: Patient's skin is warm and dry. Respiratory: Airway is patent Respiratory effort is even, unlabored, Respiratory pattern is regular, symmetrical. GI: No signs and/or symptoms were reported involving the gastrointestinal system. : No signs and/or symptoms were reported regarding the genitourinary system. EENT: No signs and/or symptoms were reported regarding the EENT system. Derm: Skin is pink, warm \\T\\ dry. Musculoskeletal: Range of motion: limited in right knee. Vital Signs: 18:00 BP 132 / 84; Pulse 88; Resp 18; Temp 98; Pulse Ox 100% on R/A; Weight 79.38 kg; Height mb9 5 ft. 6 in. ; 18:49 BP 119 / 69; Pulse 74; Resp 16; Pulse Ox 99% on R/A; mb9 18:00 Body Mass Index 28.25 (79.38 kg, 167.64 cm) mb9 ED Course: 17:59 Patient arrived in ED. im 17:59 Sonia Eastman FNP-C is [facility]. kb 17:59 Ananth Kumar MD is Attending Physician. kb 18:07 Shana Howard RN is Primary Nurse. mb9 18:10 Arm band placed on. mb9 18:10 Bed in low position. Call light in reach. Side rails up X 1. Client placed on mb9 continuous cardiac and pulse oximetry monitoring. NIBP monitoring applied. 18:29 Knee Right 3 View XRAY In Process Unspecified. EDMS 18:43 Triage completed. mb9 18:46 No provider procedures requiring assistance completed. Patient did not have IV access mb9 during this emergency room visit. Administered Medications: 18:10 Drug: Ketorolac IM 30 mg Route: IM; Site: right deltoid; mb9 18:44 Follow up: Response: No adverse reaction mb9 Medication: 18:12 VIS not applicable for this client. mb9 Outcome: 18:41 Discharge ordered by MD. mendez 18:49 Discharged to home ambulatory. mb9 18:49 Condition: stable 18:49 Discharge instructions given to patient, Instructed on discharge instructions, follow up and referral plans. Demonstrated understanding of instructions, follow-up care, medications, Prescriptions given X 1. 18:50 Patient left the ED. mb9 Signatures: Dispatcher [employer] EDSonia Chavez, JAYDEN-C JAYDEN-Shana Johns, RN RN mb9 Emily Mcgregor
[2023-04-14 19:26] VITALS: BP 119/69; TEMP 98; O2SAT 99
== END 2023-04-14 18:50 | disposition home or self-care (01) ==
LOC: ER 17:54
DX: M25.561 Pain in right knee (principal); Z91.010 Allergy to peanuts
CPT/HCPCS: 96372; 99284

== ENCOUNTER 2023-07-06 15:27 | Emergency (ER) | payer OTHER ==
--- OUTSIDE RECORDS SUMMARY | 2023-07-06 15:33 | XMS REPORT | Continuity of Care Document ---
:2000 Author Organization [facility] t Address [address] [facility]. [address] [place] [address] Care Team Providers Name Role Phone Sharpless Primary Care Physician FIOR CYR Attending Clinician Unavailable SABRINA ARRINGTON Attending Clinician Unavailable Sabrina Arrington DO Attending Clinician Fior Cyr MD Attending Clinician Doctor Unassigned, [place] Attending Clinician Unavailable Karmen Enamorado PA-C Attending Clinician 2, [facility] Attending Clinician Unavailable KARMEN ENAMORADO Attending Clinician Unavailable ROSELINE QUIÑONEZ Attending Clinician Unavailable ROSELINE QUIÑONEZ Attending Clinician Unavailable Margarita Flores Attending Clinician CARLY ESTRADA Attending Clinician Unavailable Carly Estrada MD Attending Clinician JASMIN WILD Attending Clinician Unavailable Ultrasound, [facility] Mf Attending Clinician Unavailable Marycarmen Keane MD, Jasmin Attending Clinician [phone] Nurse, [facility] Attending Clinician Unavailable Patrica GRAF, Roslyn Attending Clinician Unavailable Rosalie Kim RN Attending Clinician Unavailable ABNER NEVAREZ Attending Clinician Unavailable Real PT, Anastacia Delgado Attending Clinician Unavailable Abner Nevarez MD Attending Clinician Driss Zuniga PT, Jing Attending Clinician Unavailable UYEN FOSS Attending Clinician Unavailable Sinan MIKEPUyen Attending Clinician JOSHUA REY Attending Clinician Unavailable Joshua Rey DO Attending Clinician CEE MACARIO Attending Clinician Unavailable Amirah MOTOR COACH TOUR OPERATOR, Cee Barroso Attending Clinician Dylan DUNN, Alyce Sung Attending Clinician Giovanni Jain MD Attending Clinician GIOVANNI JAIN Attending Clinician Unavailable GIOVANNI JAIN Attending Clinician Unavailable Enoch DUNN, Vikas Velasquez Attending Clinician Nuvia Mathew MA Attending Clinician Unavailable Tamera DUNN, Luis Antonio Morales Attending Clinician DIANE ALICIA Attending Clinician Unavailable [...] Number Effective Date Expiration Date [facility] cordova [facility] DALE WONG [id number] 2022 00:00:00 [facility] [id number] 2018 00:00:00 [facility] Problems Condition Condition Condition [...] tubal 1-17 ity of ligation ligation 00:00: [place] 00 [facility] Back pain Back pain Disease Active 2021-09 Uni vers affecting affecting 1-25 [place] 00 [facility] trimester trimester Bran ch COVID-19 COVID-19 Disease Active 2021-09 Unive rs affecting affecting 1-25 [place] of [place] 00 [facility] trimester trimester Bran ch 16 weeks 16 weeks Disease Active Unive rs gestation gestation 9-21 ity of of of 00:00: [place] [address] [facility] Normal Normal Disease Active Univers 7-28 ity of in third in third 00:00: [place] trimester trimester [address] [facility] Pelvic Pelvic Disease Active Univers cramping cramping 7-28 ity of in in 00:00: [place] antepartum antepartum 00 Me dical period period [place] Acute hip Acute hip Disease Active Uni vers pain, left pain, left 7-28 it y of 00:00: [place] 00 [facility] Nausea and Nausea and Disease Active U nivers vomiting vomiting 7-28 ity of during during 00:00: [place] [facility] prior to prior to [place] 22 weeks 22 weeks gestation gestation Abdominal Abdominal Disease Active Uni vers pain pain 7-28 it[place] of affecting affecting 00:[place] , , 00 Me dical antepartum antepartum Br anch 37 weeks 37 weeks Disease Active Unive rs gestation gestation 3-26 ity of of of 00:00: [place] [address] [facility] Liveborn Liveborn Disease Active Unive rs infant, of infant, of 3-26 it y of valadez valadez 00:[place] , , 00 [place] dical born in born in [facility] hospital by vaginal by vaginal delivery delivery Alpha Alpha Disease Active Overview: Univer s thalassemi thalassemi 05-29 Formattin ity of a silent a silent [...] Disease Active Overview: Un robyn varicella, varicella, 8- Formattin ity of non-immune non-immune 00:00: g [...] Medical s Branch PEANUT DRUG [facility]I 12-28 ity of 00:00: [place] 00 Medical Branch NO KNOWN Allergy Active [facility] Social History Social Habit Start Date Stop Date Quantity Comments Source ASSERTION 2022-02-07 University of 00:00:00 [place] [facility] History SDOH University o f Alcohol Std Drinks [place] [facility] History SDWI University o f Alcohol Binge [place] [facility] Sexual orientation Univer sity of [place] [facility] History SDOH University o f Alcohol Comment [place] [facility] Exposure to 2023-01-12 2023-01-22 Not sure University of SARS-CoV-2 (event) 00:00:00 00:02:00 [place] [facility] Alcohol intake 2022-04-25 2022-04-25 Lifetime University of 00:00:00 00:00:00 non-drinker [place] [facility] (finding) Branch History of Social 2022-03-28 2022-03-28 Univers ity of function 00:00:00 00:00:00 [place] [facility] Tobacco use and 2022-03-28 2022-03-28 Smokeless Universit y of exposure 00:00:00 00:00:00 tobacco non-user [facility] [place] [facility] dical [place] History SDOH 2019-04-16 2019-04-16 1 University o f Alcohol Frequency 00:00:00 00:00:00 [facility] [place] Sex Assigned At [birth year] KYLIE Leggett 00:00:00 00:00:00 [facility] Smoking Status Start Date Stop Date Source Never smoked tobacco [facility] Medications Ordered Filled Start Stop Current Ordering [...] IV ity of (BENADRYL) 04:00: 03:41 Push, [place] injection 00 :00 ONCE, 1 Medical 25 mg dose, On Branch Fri01/21/23 at 2300, STAT metoclopram 2022- No 10mg 10 mg, Uni vers to HCl 01-22 Slow IV ity of (REGLAN) 04:00: 03:39 Push, [place] injection 00 :00 ONCE, 1 Medical 10 mg dose, On Branch Fri01/21/23 at 2300, HAMIDA Yes [id number] 1{tbl} Take 1 U nivers vitamin 2-16 tablet by ity of w/FA tablet 00:00: mouth in [place] 00 the Medical morning. Branch docusate Yes [id number] 200mg Take 2 Un robyn 100 mg 2-16 capsules ity of capsule 00:00: by mouth [place] 00 once daily Medical as needed Branch for Constipati on. ferrous 2022-0 Yes [id number] 325mg Take 1 Uni vers sulfate 325 2-16 tablet by ity of mg (65 mg 00:00: mouth [place] iron) 00 the Medical tablet morning Branch and 1 tablet in the evening. ibuprofen 2022-0 Yes [id number] 600mg Take 1 U nivers 600 mg 2-16 tablet by ity of tablet 00:00: mouth [place] 00 every 6 Medical (six) Branch hours as needed (Pain). Take with food or milk. 2022-0 Yes [id number] 1{tbl} Take 1 U nivers vitamin 2-16 tablet by ity of w/FA tablet 00:00: mouth in [place] 00 the Medical morning. Branch docusate 2022-0 Yes [id number] 200mg Take 2 Un robyn 100 mg 2-16 capsules ity of capsule 00:00: by mouth [place] 00 once daily Medical as needed Branch for Constipati on. ferrous 2022-0 Yes [id number] 325mg Take 1 Uni vers sulfate 325 2-16 tablet by ity of mg (65 mg 00:00: mouth [place] iron) 00 the Medical tablet morning Branch and 1 tablet in the evening. ibuprofen 2022-0 Yes [id number] 600mg Take 1 U nivers 600 mg 2-16 tablet by ity of tablet 00:00: mouth [place] 00 every 6 Medical (six) Branch hours as needed (Pain). Take with food or milk. 2022-0 Yes [id number] 1{tbl} Take 1 U nivers vitamin 2-16 tablet by ity of w/FA tablet 00:00: mouth in [place] 00 the Medical morning. Branch docusate 2022-0 Yes [id number] 200mg Take 2 Un robyn 100 mg 2-16 capsules ity of capsule 00:00: by mouth [place] 00 once daily Medical as needed Branch for Constipati on. ferrous 2022-0 Yes [id number] 325mg Take 1 Uni vers sulfate 325 2-16 tablet by ity of mg (65 mg 00:00: mouth [place] iron) 00 the Medical tablet morning Branch and 1 tablet in the evening. ibuprofen 2022-0 Yes [id number] 600mg Take 1 U nivers 600 mg 2-16 tablet by ity of tablet 00:00: mouth [place] 00 every 6 Medical (six) Branch hours as needed (Pain). Take with food or milk. 2022-0 Yes [id number] 1{tbl} Take 1 U nivers vitamin 2-16 tablet by ity of w/FA tablet 00:00: mouth in [place] 00 the Medical morning. Branch docusate 2022-0 Yes [id number] 200mg Take 2 Un robyn 100 mg 2-16 capsules ity of capsule 00:00: by mouth [place] 00 once daily Medical as needed Branch for Constipati on. ferrous 2022-0 Yes [id number] 325mg Take 1 Uni vers sulfate 325 2-16 tablet by ity of mg (65 mg 00:00: mouth [place] iron) 00 the Medical tablet morning Branch and 1 tablet in the evening. ibuprofen 2022-0 Yes [id number] 600mg Take 1 U nivers 600 mg 2-16 tablet by ity of tablet 00:00: mouth [place] 00 every 6 Medical (six) Branch hours as needed (Pain). Take with food or milk. 2022-0 Yes [id number] 1{tbl} Take 1 U nivers vitamin 2-16 tablet by ity of w/FA tablet 00:00: mouth in [place] 00 the Medical morning. Branch docusate 0 Yes [id number] 200mg Take 2 Un robyn 100 mg 2-16 capsules ity of capsule 00:00: by mouth [place] 00 once daily Medical as needed Branch for Constipati on. ferrous 2022-0 Yes [id number] 325mg Take 1 Uni vers sulfate 325 2-16 tablet by ity of mg (65 mg 00:00: mouth [place] iron) 00 the Medical tablet morning Branch and 1 tablet in the evening. ibuprofen 2022-0 Yes [id number] 600mg Take 1 U nivers 600 mg 2-16 tablet by ity of tablet 00:00: mouth [place] 00 every 6 Medical (six) Branch hours as needed (Pain). Take with food or milk. 2022-0 Yes [id number] 1{tbl} Take 1 U nivers vitamin 2-16 tablet by ity of w/FA tablet 00:00: mouth in [place] 00 the Medical morning. Branch docusate Yes [id number] 200mg Take 2 Un robyn 100 mg 2-16 capsules ity of capsule 00:00: by mouth [place] 00 once daily Medical as needed Branch for Constipati on. ferrous Yes [id number] 325mg Take 1 Uni vers sulfate 325 2-16 tablet by ity of mg (65 mg 00:00: mouth [place] iron) 00 the Medical tablet morning Branch and 1 tablet in the evening. ibuprofen Yes [id number] 600mg Take 1 U nivers 600 mg 2-16 tablet by ity of tablet 00:00: mouth [place] 00 every 6 Medical (six) Branch hours as needed (Pain). Take with food or milk. rho(D) Yes 300ug 300 mcg, Univer s immune 2-15 Intramuscu ity of globulin 11:56: lar, ONCE, [place] as (RHOGAM) 53 For 1 Medical syringe 300 dose, Branch mcg Conditiona l, Routine witch Cecilia Yes Topical, Un robyn (TUCKS) 50 2-15 Q4HPRN, ity of % topical 11:56: Starting [place] pad 44 on Fri Medical 10/16/22 at Branch 0556, Until Discontinu ed, Routine, rectal/hem orrhoidal pain HYDROcodone Yes 1{tbl} 1 tablet, Univers -acetaminop 2-15 Oral, ity of hen (NORCO 11:56: Q6HPRN, [place] 5) 5-325 mg 44 Starting Medi deep tablet 1 on Fri Branch tablet 10/16/22 at 0556, Until Discontinu ed, Routine, Pain (scale 7-10) ibuprofen Yes 600mg 600 mg, Univ ers (IBU) 2-15 Oral, ity of tablet 600 11:56: Q6HPRN, [place] mg 44 Starting Medical on Fri Branch 10/16/22 at 0556, Until Discontinu ed, Routine, Pain (scale 4-6) acetaminoph Yes 650mg 650 mg, Un robyn en [...] Until Discontinu ed, Routine, Sleep, Itching ondansetron 0 Yes 4mg 4 mg, Slow Univers (ZOFRAN 2-15 IV Push, ity of (PF)) 11:56: Q8HPRN, [place] injection 4 43 Starting Medi deep mg on Fri Branch 10/16/22 at 0556, Until Discontinu ed, Routine, Nausea and Vomiting (N/V) simethicone 0 Yes 160mg 160 mg, Un robyn (GAS RELIEF 2-15 Oral, ity of (SIMETHICON 11:56: PC+HSPRN, [place] E)) 43 Starting Medical chewable on Fri tablet 160 10/16/22 at mg 0556, Until Discontinu ed, Routine, Gas docusate 0 Yes 200mg 200 mg, Unive rs (COLACE) 2-15 Oral, ity of capsule 200 11:56: QDAILYPRN, [place] mg 43 Starting Medical on Fri Branch 10/16/22 at 0556, Until Discontinu ed, Routine, Constipati on magnesium 0 Yes 30mL 30 mL, Univer s hydroxide 2-15 Oral, ity of (MILK OF 11:56: QDAILYPRN, [place] MAGNESIA) 43 Starting Medica l 400 mg/5 mL on Fri Branch suspension 10/16/22 at 30 mL 0556, Until Discontinu ed, Routine, Constipati on benzocaine- 0 Yes Topical, Un robyn menthol 2-15 PRN, ity of (DERMOPLAST 11:56: Starting [place] ) 20-0.5 % 43 on Fri Medical topical 10/16/22 at Branch spray 0556, Until Discontinu ed, Routine, Perineum discomfort oxytocin 2022-0 2023- No 300mL/h 300 mL/hr, Univers (PITOCIN) 2-15 02-15 IV ity of 30 units in 11:46: 11:56 Infusion, [place] NS 500 mL 59 :51 SEE-INSTRU Medi [...] No 50ug 50 mcg, Un robyn (SUBLIMAZE 10-16-15 Slow IV ity o f (PF)) 00:36: [...] 1834, Until Fri10/16/22 at 0556, Routine Nitrofurant Yes [id number] 100mg Take 1 Univers oin&Nit. 1-11 capsule by ity o f Macrocryst 00:00: mouth in [place] 100 mg 00 the Medical capsule morning Branch and 1 capsule in the evening. Nitrofurant 2023-0 Yes [id number] 100mg Take 1 Univers oin&Nit. 1-11 capsule by ity o f Macrocryst 00:00: mouth in [place] 100 mg 00 the Medical capsule morning Branch and 1 capsule in the evening. Nitrofurant 2022-0 Yes [id number] 100mg Take 1 Univers oin&Nit. 1-11 capsule by ity o f Macrocryst 00:00: mouth in [place] 100 mg 00 the Medical capsule morning Branch and 1 capsule in the evening. Nitrofurant 2022-0 Yes [id number] 100mg Take 1 Univers oin&Nit. 1-11 capsule by ity o f Macrocryst 00:00: mouth in [place] 100 mg 00 the Medical capsule morning Branch and 1 capsule in the evening. Nitrofurant 2022-0 Yes [id number] 100mg Take 1 Univers oin&Nit. 1-11 capsule by ity o f Macrocryst 00:00: mouth in [place] 100 mg 00 the Medical capsule morning Branch and 1 capsule in the evening. Nitrofurant 2022-0 Yes [id number] 100mg Take 1 Univers oin&Nit. 1-11 capsule by ity o f Macrocryst 00:00: mouth in [place] 100 mg 00 the Medical capsule morning Branch and 1 capsule in the evening. Nitrofurant 2022-0 Yes [id number] 100mg Take 1 Univers oin&Nit. 1-11 capsule by ity o f Macrocryst 00:00: mouth in [place] 100 mg 00 the Medical capsule morning Branch and 1 capsule in the evening. Nitrofurant 2022-0 Yes [id number] 100mg Take 1 Univers oin&Nit. 1-11 capsule by ity o f Macrocryst 00:00: mouth in [place] 100 mg 00 the Medical capsule morning Branch and 1 capsule in the evening. Nitrofurant 2022-0 Yes [id number] 100mg Take 1 Univers oin&Nit. 1-11 capsule by ity o f Macrocryst 00:00: mouth in [place] 100 mg 00 the Medical capsule morning Branch and 1 capsule in the evening. Nitrofurant 2022-0 3- No [id number] 100mg Take 1 Univers oin&Nit. 1-11 02-16 capsule by ity of Macrocryst 00:00: 00:00 mouth in [place] 100 mg 00 :00 the Medical capsule morning Branch and 1 capsule in the evening. ferrous 2021-09 Yes [id number] 325mg Take 1 Un robyn sulfate 2-08 tablet by ity of (IRON, 00:00: mouth in [place] FERROUS 00 the Medical SULFATE,) morning. Branch 325 mg (65 mg iron) tablet ferrous 2021-09 Yes [id number] 325mg Take 1 Un robyn sulfate 2-08 tablet by ity of (IRON, 00:00: mouth in [place] FERROUS 00 the Medical SULFATE,) morning. Branch 325 mg (65 mg iron) tablet ferrous 2021-09 Yes [id number] 325mg Take 1 Un robyn sulfate 2-08 tablet by ity of (IRON, 00:00: mouth in [place] FERROUS 00 the Medical SULFATE,) morning. Branch 325 mg (65 mg iron) tablet ferrous 2021-09 Yes [id number] 325mg Take 1 Un robyn sulfate 2-08 tablet by ity of (IRON, 00:00: mouth in [place] FERROUS 00 the Medical SULFATE,) morning. Branch 325 mg (65 mg iron) tablet ferrous 2021-09 Yes [id number] 325mg Take 1 Un robyn sulfate 2-08 tablet by ity of (IRON, 00:00: mouth in [place] FERROUS 00 the Medical SULFATE,) morning. Branch 325 mg (65 mg iron) tablet ferrous 2021-09 Yes [id number] 325mg Take 1 Un robyn sulfate 2-08 tablet by ity of (IRON, 00:00: mouth in [place] FERROUS 00 the Medical SULFATE,) morning. Branch 325 mg (65 mg iron) tablet ferrous 2021-09 Yes [id number] 325mg Take 1 Un robyn sulfate 2-08 tablet by ity of (IRON, 00:00: mouth in [place] FERROUS 00 the Medical SULFATE,) morning. Branch 325 mg (65 mg iron) tablet ferrous 2021-09 Yes [id number] 325mg Take 1 Un robyn sulfate 2-08 tablet by ity of (IRON, 00:00: mouth in [place] FERROUS 00 the Medical SULFATE,) morning. Branch 325 mg (65 mg iron) tablet ferrous 2021-09 Yes [id number] 325mg Take 1 Un robyn sulfate 2-08 tablet by ity of (IRON, 00:00: mouth in [place] FERROUS 00 the Medical SULFATE,) morning. Branch 325 mg (65 mg iron) tablet ferrous 2021-09 Yes [id number] 325mg Take 1 Un robyn sulfate 2-08 tablet by ity of (IRON, 00:00: mouth in [place] FERROUS 00 the Medical SULFATE,) morning. Branch 325 mg (65 mg iron) tablet ferrous 2021-09 Yes [id number] 325mg Take 1 Un robyn sulfate 2-08 tablet by ity of (IRON, 00:00: mouth in [place] FERROUS 00 the Medical SULFATE,) morning. Branch 325 mg (65 mg iron) tablet ferrous 2021-09 Yes [id number] 325mg Take 1 Un robyn sulfate 2-08 tablet by ity of (IRON, 00:00: mouth in [place] FERROUS 00 the Medical SULFATE,) morning. Branch 325 mg (65 mg iron) tablet ferrous 2021-09 Yes [id number] 325mg Take 1 Un robyn sulfate 2-08 tablet by ity of (IRON, 00:00: mouth in [place] FERROUS 00 the Medical SULFATE,) morning. Branch 325 mg (65 mg iron) tablet ferrous 2021-09 Yes [id number] 325mg Take 1 Un robyn sulfate 2-08 tablet by ity of (IRON, 00:00: mouth in [place] FERROUS 00 the Medical SULFATE,) morning. Branch 325 mg (65 mg iron) tablet ferrous 2021-09 Yes [id number] 325mg Take 1 Un robyn sulfate 2-08 tablet by ity of (IRON, 00:00: mouth in [place] FERROUS 00 the Medical SULFATE,) morning. Branch 325 mg (65 mg iron) tablet ferrous 2021-09 Yes [id number] 325mg Take 1 Un robyn sulfate 2-08 tablet by ity of (IRON, 00:00: mouth in [place] FERROUS 00 the Medical SULFATE,) morning. Branch 325 mg (65 mg iron) tablet ferrous 2021-09 Yes [id number] 325mg Take 1 Un robyn sulfate 2-08 tablet by ity of (IRON, 00:00: mouth in [place] FERROUS 00 the Medical SULFATE,) morning. Branch 325 mg (65 mg iron) tablet ferrous 2021-09 Yes [id number] 325mg Take 1 Un robyn sulfate 2-08 tablet by ity of (IRON, 00:00: mouth in [place] FERROUS 00 the Medical SULFATE,) morning. Branch 325 mg (65 mg iron) tablet ferrous 2021-09 2023- No [id number] 325mg Take 1 U nivers sulfate 2-08 02-16 tablet by ity of (IRON, 00:00: 00:00 mouth in [place] FERROUS 00 :00 the Medical SULFATE,) morning. Branch 325 mg (65 mg iron) tablet acetaminoph 2021-09 No 975mg 975 mg, U nivers en 09-18 Oral, ity of (TYLENOL) 00:00: 23:05 ONCE, 1 [place] tablet 975 00 :00 dose, On Medic al mg Luz Branch 07/18/22 at 1800, HAMIDA iopamidol 2021-09 No [id number] 75mL 75 mL, U nivers (ISOVUE 09-17 Intravenou ity o f 370-500 mL) 22:31: 22:45 s, ONCE, 1 [place] injection 00 :00 dose, On Medica l 75 mL Luz Branch 07/18/22 at 1645, Routine metroNIDAZO No 500mg 500 mg, U nivers LE (FLAGYL) 05-22 Oral, ity of tablet 500 14:15: 12:59 Q12H, 14 [place] mg 00 :00 doses, Medical First dose Branch (after last reorder) on Fri05/22/22 at 0915, Last dose on Fri05/28/22 at 2000, Routine
Reason for Anti-Infec tive: Documented Infection< br>Documen ismael Infection Site: Other
O ther site: Vaginal
Duration of Therapy: 7 days metroNIDAZO No 500mg 500 mg, U nivers LE [...] Applicator ity of (CLOTRIMAZO 02:00: , Vaginal, [place] LE-7) 1 % 00 QHS, First Medi deep vaginal dose on Branch cream 1 Tue Applicator 05/21/22 at 2100, Until Discontinu ed, Routine acetaminoph 2021- No 650mg 650 mg, U nivers en 05-22 Oral, ity of (TYLENOL) 01:15: 00:43 ONCE, 1 [place] tablet 650 00 :00 dose, On Medic al mg Tue Branch 05/21/22 at 2015, Routine clotrimazol 2021- No [id number] 1{appli Insert 1 Univers e 1 % 05-22 cator} Applicator ity o f vaginal 00:00: 04:59 into [place] cream 00 :00 vagina at Medical bedtime Branch for 6 days. metroNIDAZO 2021- No [id number] 500mg Take 1 Univers LE 500 mg 05-22 tablet by ity of tablet 00:00: 04:59 mouth [place] 00 :00 every 12 Medical (twelve) Branch hours for 6 days. clotrimazol 2021- No [id number] 1{appli Insert 1 Univers e 1 % 05-22 cator} Applicator ity o f vaginal 00:00: 04:59 into [place] cream 00 :00 vagina at Medical bedtime Branch for 6 days. metroNIDAZO 2021- No [id number] 500mg Take 1 Univers LE 500 mg 05-22 tablet by ity of tablet 00:00: 04:59 mouth [place] 00 :00 every 12 Medical (twelve) Branch hours for 6 days. clotrimazol 2021- No [id number] 1{appli Insert 1 Univers e 1 % 05-22 cator} Applicator ity o f vaginal 00:00: 04:59 into [place] cream 00 :00 vagina at Medical bedtime Branch for 6 days. metroNIDAZO 2021- No [id number] 500mg Take 1 Univers LE 500 mg 05-22 tablet by ity of tablet 00:00: 04:59 mouth [place] 00 :00 every 12 Medical (twelve) Branch hours for 6 days. proMETHazin Yes [id number] 25mg Insert 1 Univers e 25 mg 8-25 Suppositor ity of suppository 00:00: y into [place] 00 rectum Medical every 4 Branch (four) hours as needed for N/V unresponsi ve to oral antiemetic s. proMETHazin 2021-0 Yes [id number] 25mg Take 1 Univers e 25 mg 8-25 tablet by ity of tablet 00:00: mouth [place] 00 every 4 Medical (four) Branch hours as needed for Nausea and Vomiting (N/V). proMETHazin 2021-0 Yes [id number] 25mg Insert 1 Univers e 25 mg 8-25 Suppositor ity of suppository 00:00: [place] into [place] rectum Medical every 4 Branch (four) hours as needed for N/V unresponsi ve to oral antiemetic s. proMETHazin 2021-0 Yes [id number] 25mg Take 1 Univers e 25 mg 8-25 tablet by ity of tablet 00:00: mouth [place] 00 every 4 Medical (four) Branch hours as needed for Nausea and Vomiting (N/V). proMETHazin 2021-0 Yes [id number] 25mg Insert 1 Univers e 25 mg 8-25 Suppositor ity of suppository 00:00: y into rectum Medical every 4 Branch (four) hours as needed for N/V unresponsi ve to oral antiemetic s. proMETHazin 2021-0 Yes [id number] 25mg Take 1 Univers e 25 mg 8-25 tablet by ity of tablet 00:00: mouth [place] 00 every 4 Medical (four) Branch hours as needed for Nausea and Vomiting (N/V). proMETHazin 2021-0 Yes [id number] 25mg Insert 1 Univers e 25 mg 8-25 Suppositor ity of suppository 00:00: y into rectum Medical every 4 Branch (four) hours as needed for N/V unresponsi ve to oral antiemetic s. proMETHazin 2021-0 Yes [id number] 25mg Take 1 Univers e 25 mg 8-25 tablet by ity of tablet 00:00: mouth [place] 00 every 4 Medical (four) Branch hours as needed for Nausea and Vomiting (N/V). proMETHazin 2021-0 Yes [id number] 25mg Insert 1 Univers e 25 mg 8-25 Suppositor ity of suppository 00:00: [place] into [place] 00 rectum Medical every 4 Branch (four) hours as needed for N/V unresponsi ve to oral antiemetic s. proMETHazin 2021-0 Yes [id number] 25mg Take 1 Univers e 25 mg 8-25 tablet by ity of tablet 00:00: mouth [place] 00 every 4 Medical (four) Branch hours as needed for Nausea and Vomiting (N/V). proMETHazin 2021-0 Yes [id number] 25mg Insert 1 Univers e 25 mg 8-25 Suppositor ity [facility] supp[facility] every 4 Branch (four) hours as needed for N/V unresponsi ve to oral antiemetic s. proMETHazin 2021-0 Yes [id number] 25mg Take 1 Univers e 25 mg 8-25 tablet by ity of tablet 00:00: mouth [place] 00 every 4 Medical (four) Branch hours as needed for Nausea and Vomiting (N/V). proMETHazin 2021-0 Yes [id number] 25mg Insert 1 Univers e 25 mg 8-25 Suppositor ity of suppository 00:00: y into [place] [address] rectum Medical every 4 Branch (four) hours as needed for N/V unresponsi ve to oral antiemetic s. proMETHazin 2021-0 Yes [id number] 25mg Take 1 Univers e 25 mg 8-25 tablet by ity of tablet 00:00: mouth [place] 00 every 4 Medical (four) Branch hours as needed for Nausea and Vomiting (N/V). proMETHazin 2021-0 Yes [id number] 25mg Insert 1 Univers e 25 mg 8-25 Suppositor ity of suppository 00:00: y into [place] [address] rectum Medical every 4 Branch (four) hours as needed for N/V unresponsi ve to oral antiemetic s. proMETHazin 2021-0 Yes [id number] 25mg Take 1 Univers e 25 mg 8-25 tablet by ity of tablet 00:00: mouth [place] 00 every 4 Medical (four) Branch hours as needed for Nausea and Vomiting (N/V). proMETHazin 2021-0 Yes [id number] 25mg Insert 1 Univers e 25 mg 8-25 Suppositor ity of suppository 00:00: [facility] Medical every 4 Branch (four) hours as needed for N/V unresponsi ve to oral antiemetic s. proMETHazin Yes [id number] 25mg Take 1 Univers e 25 mg 8-25 tablet by ity of tablet 00:00: mouth [place] 00 every 4 Medical (four) Branch hours as needed for Nausea and Vomiting (N/V). proMETHazin Yes [id number] 25mg Insert 1 Univers e 25 mg 8-25 Suppositor ity of suppository 00:00: y into [facility] 00 rectum Medical every 4 Branch (four) hours as needed for N/V unresponsi ve to oral antiemetic s. proMETHazin Yes [id number] 25mg Take 1 [facility] 25 mg 8-25 tablet by ity of tablet 00:00: mouth [place] every 4 Medical (four) Branch hours as needed for Nausea and Vomiting (N/V). proMETHazin Yes [id number] 25mg Insert 1 [facility] 25 mg 8-25 Suppositor ity of suppository 00:00: y into [place] [address] rectum Medical every 4 Branch (four) hours as needed for N/V unresponsi ve to oral antiemetic s. proMETHazin Yes [id number] 25mg Take 1 [facility] 25 mg 8-25 tablet by ity of tablet 00:00: mouth [place] every 4 Medical (four) Branch hours as needed for Nausea and Vomiting (N/V). proMETHazin Yes [id number] 25mg Insert 1 [facility] 25 mg 8-25 Suppositor ity of suppository 00:00: y into [place] [address] rectum Medical every 4 Branch (four) hours as needed for N/V unresponsi ve to oral antiemetic s. proMETHazin Yes [id number] 25mg Take 1 [facility] 25 mg 8-25 tablet by ity of tablet 00:00: mouth [place] every 4 Medical (four) Branch hours as needed for Nausea and Vomiting (N/V). proMETHazin 0 Yes [id number] 25mg Insert 1 [facility] 25 mg 8-25 Suppositor ity of suppository 00:00: [facility] Medical every 4 Branch (four) hours as needed for N/V unresponsi ve to oral antiemetic s. proMETHazin Yes [id number] 25mg Take 1 [facility] 25 mg 8-25 tablet by ity of tablet 00:00: mouth [place] 00 every 4 Medical (four) Branch hours as needed for Nausea and Vomiting (N/V). proMETHazin 0 Yes [id number] 25mg Insert 1 [facility] 25 mg 8-25 Suppositor ity of suppository 00:00: [facility] rect[facility] Medical every 4 Branch (four) hours as needed for N/V unresponsi ve to oral antiemetic s. proMETHazin 0 Yes [id number] 25mg Take 1 [facility] 25 mg 8-25 tablet by ity of tablet 00:00: mouth [place] 00 every 4 Medical (four) Branch hours as needed for Nausea and Vomiting (N/V). proMETHazin 0 Yes [id number] 25mg Insert 1 [facility] 25 mg 8-25 Suppositor ity of suppository 00:00: y into [facility] 00 rectum Medical every 4 Branch (four) hours as needed for N/V unresponsi ve to oral antiemetic s. proMETHazin 0 Yes [id number] 25mg Take 1 [facility] 25 mg 8-25 tablet by ity of tablet 00:00: mouth [place] 00 every 4 Medical (four) Branch hours as needed for Nausea and Vomiting (N/V). proMETHazin 0 Yes [id number] 25mg Insert 1 [facility] 25 mg 8-25 Suppositor ity of suppository 00:00: y into [facility] 00 rectum Medical every 4 Branch (four) hours as needed for N/V unresponsi ve to oral antiemetic s. proMETHazin 2021-0 Yes [id number] 25mg Take 1 [facility] 25 mg 8-25 tablet by ity of tablet 00:00: mouth [place] 00 every 4 Medical (four) Branch hours as needed for Nausea and Vomiting (N/V). proMETHazin 2021-0 Yes [id number] 25mg Insert 1 [facility] 25 mg 8-25 Suppositor ity of suppository 00:00: [place] 00 rectum Medical every 4 Branch (four) hours as needed for N/V unresponsi ve to oral antiemetic s. proMETHazin 2021-0 Yes [id number] 25mg Take 1 [facility] 25 mg 8-25 tablet by ity of tablet 00:00: mouth [place] 00 every 4 Medical (four) Branch hours as needed for Nausea and Vomiting (N/V). proMETHazin 2021-0 Yes [id number] 25mg Insert 1 [facility] 25 mg 8-25 Suppositor ity of suppository 00:00: y [place] 00 rectum Medical every 4 Branch (four) hours as needed for N/V unresponsi ve to oral antiemetic s. proMETHazin 2021-0 Yes [id number] 25mg Take 1 [facility] 25 mg 8-25 tablet by ity of tablet 00:00: mouth [place] 00 every 4 Medical (four) Branch hours as needed for Nausea and Vomiting (N/V). proMETHazin 2021-0 Yes [id number] 25mg Insert 1 [facility] 25 mg 8-25 Suppositor ity of suppository 00:00: y into [facility] 00 rectum Medical every 4 Branch (four) hours as needed for N/V unresponsi ve to oral antiemetic s. proMETHazin 2021-0 Yes [id number] 25mg Take 1 [facility] 25 mg 8-25 tablet by ity of tablet 00:00: mouth [place] 00 every 4 Medical (four) Branch hours as needed for Nausea and Vomiting (N/V). proMETHazin 2021-0 Yes [id number] 25mg Insert 1 [facility] 25 mg 8-25 Suppositor ity of suppository 00:00: [facility] rectum Medical every 4 Branch (four) hours as needed for N/V unresponsi ve to oral antiemetic s. proMETHazin 2021-0 Yes [id number] 25mg Take 1 [facility] 25 mg 8-25 tablet by ity of tablet 00:00: mouth [place] 00 every 4 Medical (four) Branch hours as needed for Nausea and Vomiting (N/V). proMETHazin 2-0 Yes [id number] 25mg Insert 1 [facility] 25 mg 8-25 Suppositor ity of suppository 00:00: y [place] 00 rectum Medical every 4 Branch (four) hours as needed for N/V unresponsi ve to oral antiemetic s. proMETHazin 2-0 Yes [id number] 25mg Take 1 [facility] 25 mg 8-25 tablet by ity of tablet 00:00: mouth [place] 00 every 4 Medical (four) Branch hours as needed for Nausea and Vomiting (N/V). proMETHazin 2021-0 Yes [id number] 25mg Insert 1 [facility] 25 mg 8-25 Suppositor ity of suppository 00:00: y [place] 00 rectum Medical every 4 Branch (four) hours as needed for N/V unresponsi ve to oral antiemetic s. proMETHazin 2021-0 Yes [id number] 25mg Take 1 [facility] 25 mg 8-25 tablet by ity of tablet 00:00: mouth [place] 00 every 4 Medical (four) Branch hours as needed for Nausea and Vomiting (N/V). proMETHazin 2021-0 Yes [id number] 25mg Insert 1 [facility] 25 mg 8-25 Suppositor ity of suppository 00:00: y [place] 00 rectum Medical every 4 Branch (four) hours as needed for N/V unresponsi ve to oral antiemetic s. proMETHazin 2021-0 Yes [id number] 25mg Take 1 [facility] 25 mg 8-25 tablet by ity of tablet 00:00: mouth [place] 00 every 4 Medical (four) Branch hours as needed for Nausea and Vomiting (N/V). proMETHazin 2021-0 Yes [id number] 25mg Insert 1 [facility] 25 mg 8-25 Suppositor ity of suppository 00:00: y [place] 00 rectum Medical every 4 Branch (four) hours as needed for N/V unresponsi ve to oral antiemetic s. proMETHazin 2021-0 Yes [id number] 25mg Take 1 [facility] 25 mg 8-25 tablet by ity of tablet 00:00: mouth [place] 00 every 4 Medical (four) Branch hours as needed for Nausea and Vomiting (N/V). proMETHazin 2021-0 Yes [id number] 25mg Insert 1 [facility] 25 mg 8-25 Suppositor ity of suppository 00:00: y [place] 00 rectum Medical every 4 Branch (four) hours as needed for N/V unresponsi ve to oral antiemetic s. proMETHazin 2021-0 Yes [id number] 25mg Take 1 [facility] 25 mg 8-25 tablet by ity of tablet 00:00: mouth [place] 00 every 4 Medical (four) Branch hours as needed for Nausea and Vomiting (N/V). proMETHazin 2021-0 Yes [id number] 25mg Insert 1 [facility] 25 mg 8-25 Suppositor ity of suppository 00:00: y [place] 00 rectum Medical every 4 Branch (four) hours as needed for N/V unresponsi ve to oral antiemetic s. proMETHazin 2021-0 Yes [id number] 25mg Take 1 [facility] 25 mg 8-25 tablet by ity of tablet 00:00: mouth [place] 00 every 4 Medical (four) Branch hours as needed for Nausea and Vomiting (N/V). proMETHazin 2021-0 Yes [id number] 25mg Insert 1 [facility] 25 mg 8-25 Suppositor ity of suppository 00:00: [facility] into [facility] rectum Medical every 4 Branch (four) hours as needed for N/V unresponsi ve to oral antiemetic s. proMETHazin 2021-0 Yes [id number] 25mg Take 1 [facility] e 25 mg 8-25 tablet by ity of tablet 00:00: mouth [place] 00 every 4 Medical (four) Branch hours as needed for Nausea and Vomiting (N/V). proMETHazin 2021-0 Yes [id number] 25mg Insert 1 [facility] 25 mg 8-25 Suppositor ity of suppository 00:00: [facility] into [facility] rectum Medical every 4 Branch (four) hours as needed for N/V unresponsi ve to oral antiemetic s. proMETHazin 2021-0 Yes [id number] 25mg Take 1 [facility] 25 mg 8-25 tablet by ity of tablet 00:00: mouth [place] 00 every 4 Medical (four) Branch hours as needed for Nausea and Vomiting (N/V). proMETHazin 2021-0 Yes [id number] 25mg Insert 1 [facility] 25 mg 8-25 Suppositor ity of suppository 00:00: y [place] 00 rectum Medical every 4 Branch (four) hours as needed for N/V unresponsi ve to oral antiemetic s. proMETHazin 2021-0 Yes [id number] 25mg Take 1 [facility] 25 mg 8-25 tablet by ity of tablet 00:00: mouth [place] 00 every 4 Medical (four) Branch hours as needed for Nausea and Vomiting (N/V). proMETHazin 2021-0 Yes [id number] 25mg Insert 1 [facility] 25 mg 8-25 Suppositor ity of suppository 00:00: y into [place] 00 rectum Medical every 4 Branch (four) hours as needed for N/V unresponsi ve to oral antiemetic s. proMETHazin 2021-0 Yes [id number] 25mg Take 1 [facility] 25 mg 8-25 tablet by ity of tablet 00:00: mouth [place] 00 every 4 Medical (four) Branch hours as needed for Nausea and Vomiting (N/V). proMETHazin 2021-0 Yes [id number] 25mg Insert 1 [facility] 25 mg 8-25 Suppositor ity of suppository 00:00: y into [place] 00 rectum Medical every 4 Branch (four) hours as needed for N/V unresponsi ve to oral antiemetic s. proMETHazin 2021-0 Yes [id number] 25mg Take 1 [facility] 25 mg 8-25 tablet by ity of tablet 00:00: mouth every 4 Medical (four) Branch hours as needed for Nausea and Vomiting (N/V). proMETHazin 2021-0 Yes [id number] 25mg Insert 1 [facility] 25 mg 8-25 Suppositor ity of suppository 00:00: y into [place] 00 rectum Medical every 4 Branch (four) hours as needed for N/V unresponsi ve to oral antiemetic s. proMETHazin 2021-0 Yes [id number] 25mg Take 1 [facility] 25 mg 8-25 tablet by ity of tablet 00:00: mouth [place] 00 every 4 Medical (four) Branch hours as needed for Nausea and Vomiting (N/V). proMETHazin 2021-0 Yes [id number] 25mg Insert 1 [facility] 25 mg 8-25 Suppositor ity of suppository 00:00: y into [place] 00 rectum Medical every 4 Branch (four) hours as needed for N/V unresponsi ve to oral antiemetic s. proMETHazin 2-0 Yes [id number] 25mg Take 1 [facility] 25 mg 8-25 tablet by ity of tablet 00:00: mouth [place] every 4 Medical (four) Branch hours as needed for Nausea and Vomiting (N/V). proMETHazin 2021-0 Yes [id number] 25mg Insert 1 [facility] 25 mg 8-25 Suppositor ity of suppository 00:00: [facility] into [facility] rectum Medical every 4 Branch (four) hours as needed for N/V unresponsi ve to oral antiemetic s. proMETHazin 2021-0 Yes [id number] 25mg Take 1 [facility] e 25 mg 8-25 tablet by ity of tablet 00:00: mouth [place] 00 every 4 Medical (four) Branch hours as needed for Nausea and Vomiting (N/V). proMETHazin 2021-0 Yes [id number] 25mg Insert 1 [facility] 25 mg 8-25 Suppositor ity of suppository 00:00: y into [facility] rectum Medical every 4 Branch (four) hours as needed for N/V unresponsi ve to oral antiemetic s. proMETHazin 2021-0 Yes [id number] 25mg Take 1 [facility] 25 mg 8-25 tablet by ity of tablet 00:00: mouth [place] 00 every 4 Medical (four) Branch hours as needed for Nausea and Vomiting (N/V). proMETHazin 2021-0 Yes [id number] 25mg Insert 1 [facility] e 25 mg 8-25 Suppositor ity of suppository 00:00: y into [facility] 00 rectum Medical every 4 Branch (four) hours as needed for N/V unresponsi ve to oral antiemetic s. proMETHazin 0 Yes [id number] 25mg Take 1 [facility] e 25 mg 8-25 tablet by ity of tablet 00:00: mouth [place] 00 every 4 Medical (four) Branch hours as needed for Nausea and Vomiting (N/V). proMETHazin 2022- No [id number] 25mg Insert 1 [facility] e 25 mg 8-25 02-16 Suppositor ity o f suppository 00:00: 00:00 y into [place] as 00 :00 rectum Medical every 4 Branch (four) hours as needed for N/V unresponsi ve to oral antiemetic s. proMETHazin 2022- No [id number] 25mg Take 1 [facility] e 25 mg 8-25 02-16 tablet by ity of tablet 00:00: 00:00 mouth [place] 00 :00 every 4 Medical (four) Branch hours as needed for Nausea and Vomiting (N/V). metroNIDAZO 2021-2021- No [id number] 500mg Take 1 Univers LE (FLAGYL) 7-04-07 tablet by it y of 500 mg 00:00: 04:59 mouth in [place] tablet 00 :00 the Medical morning Branch and 1 tablet in the evening. Do all this for 7 days. metroNIDAZO 2021-2021- No [id number] 500mg Take 1 [facility] LE (FLAGYL) 7-04-07 tablet by it y of 500 mg 00:00: 04:59 mouth in [place] tablet 00 :00 the Medical morning Branch and 1 tablet in the evening. Do all this for 7 days. azithromyci 2021-0 Yes [id number] 500mg Take 1 [facility] n 500 mg 7-29 tablet by ity of tablet 00:00: mouth in [place] 00 the Medical morning. Branch azithromyci 2021-0 Yes [id number] 500mg Take 1 [facility] n 500 mg 7-29 tablet by ity of tablet 00:00: mouth in [place] 00 the Medical morning. Branch azithromyci 2021-0 Yes [id number] 500mg Take 1 [facility] n 500 mg 7-29 tablet by ity of tablet 00:00: mouth in [place] 00 the Medical morning. Branch azithromyci 2021-0 Yes [id number] 500mg Take 1 [facility] n 500 mg 7-29 tablet by ity of tablet 00:00: mouth in [place] 00 the Medical morning. Branch azithromyci 2021-0 Yes [id number] 500mg Take 1 [facility] n 500 mg 7-29 tablet by ity of tablet 00:00: mouth in [place] 00 the Medical morning. Branch azithromyci 2021-0 Yes [id number] 500mg Take 1 [facility] n 500 mg 7-29 tablet by ity of tablet 00:00: mouth in [place] 00 the Medical morning. Branch azithromyci 2021-0 Yes [id number] 500mg Take 1 [facility] n 500 mg 7-29 tablet by ity of tablet 00:00: mouth in [place] 00 the Medical morning. Branch azithromyci 2021-0 Yes [id number] 500mg Take 1 [facility] n 500 mg 7-29 tablet by ity of tablet 00:00: mouth in [place] 00 the Medical morning. Branch azithromyci 2021- No [id number] 500mg Take 1 Univers n 500 mg 7-29 08-25 tablet by ity o f tablet 00:00: 00:00 mouth in [place] 00 :00 the Medical morning. Branch pyridoxine, 0 Yes [id number] 25mg Take 1 Univers VITAMIN 7-28 tablet by ity of B-6, 00:00: mouth [place] (VITAMIN 00 every 6 Medical B-6) 25 mg (six) Branch tablet hours as needed for Nausea and Vomiting (N/V). doxylamine 0 Yes [id number] 25mg Take 1 U nivers (UNISOM, 7-28 tablet by ity of DOXYLAMINE, 00:00: mouth at [place] ) 25 mg 00 bedtime as Medica l tablet needed for Branch Nausea and Vomiting (N/V). pyridoxine, 0 Yes [id number] 25mg Take 1 Univers VITAMIN 7-28 tablet by ity of B-6, 00:00: mouth [place] (VITAMIN 00 every 6 Medical B-6) 25 mg (six) Branch tablet hours as needed for Nausea and Vomiting (N/V). doxylamine 0 Yes [id number] 25mg Take 1 U nivers (UNISOM, 7-28 tablet by ity of DOXYLAMINE, 00:00: mouth at [place] ) 25 mg 00 bedtime as Medica l tablet needed for Branch Nausea and Vomiting (N/V). pyridoxine, 0 Yes [id number] 25mg Take 1 Univers VITAMIN 7-28 tablet by ity of B-6, 00:00: mouth [place] (VITAMIN 00 every 6 Medical B-6) 25 mg (six) Branch tablet hours as needed for Nausea and Vomiting (N/V). doxylamine 0 Yes [id number] 25mg Take 1 U nivers (UNISOM, 7-28 tablet by ity of DOXYLAMINE, 00:00: mouth at [place] ) 25 mg 00 bedtime as Medica l tablet needed for Branch Nausea and Vomiting (N/V). pyridoxine, 0 Yes [id number] 25mg Take 1 Univers VITAMIN 7-28 tablet by ity of B-6, 00:00: mouth [place] (VITAMIN 00 every 6 Medical B-6) 25 mg (six) Branch tablet hours as needed for Nausea and Vomiting (N/V). doxylamine 2-0 Yes [id number] 25mg Take 1 U nivers (UNISOM, 7-28 tablet by ity of DOXYLAMINE, 00:00: mouth at [place] ) 25 mg 00 bedtime as Medica l tablet needed for Branch Nausea and Vomiting (N/V). pyridoxine, 2021-0 Yes [id number] 25mg Take 1 Univers VITAMIN 7-28 tablet by ity of B-6, 00:00: mouth [place] (VITAMIN 00 every 6 Medical B-6) 25 mg (six) Branch tablet hours as needed for Nausea and Vomiting (N/V). doxylamine 2021-0 Yes [id number] 25mg Take 1 U nivers (UNISOM, 7-28 tablet by ity of DOXYLAMINE, 00:00: mouth at [place] ) 25 mg 00 bedtime as Medica l tablet needed for Branch Nausea and Vomiting (N/V). pyridoxine, 2021-0 Yes [id number] 25mg Take 1 Univers VITAMIN 7-28 tablet by ity of B-6, 00:00: mouth [place] (VITAMIN 00 every 6 Medical B-6) 25 mg (six) Branch tablet hours as needed for Nausea and Vomiting (N/V). doxylamine 2021-0 Yes [id number] 25mg Take 1 U nivers (UNISOM, 7-28 tablet by ity of DOXYLAMINE, 00:00: mouth at [place] ) 25 mg 00 bedtime as Medica l tablet needed for Branch Nausea and Vomiting (N/V). pyridoxine, 2021-0 Yes [id number] 25mg Take 1 Univers VITAMIN 7-28 tablet by ity of B-6, 00:00: mouth [place] (VITAMIN 00 every 6 Medical B-6) 25 mg (six) Branch tablet hours as needed for Nausea and Vomiting (N/V). doxylamine 2-0 Yes [id number] 25mg Take 1 U nivers (UNISOM, 7-28 tablet by ity of DOXYLAMINE, 00:00: mouth at [place] ) 25 mg 00 bedtime as Medica l tablet needed for Branch Nausea and Vomiting (N/V). pyridoxine, 2021-0 Yes [id number] 25mg Take 1 Univers VITAMIN 7-28 tablet by ity of B-6, 00:00: mouth [place] (VITAMIN 00 every 6 Medical B-6) 25 mg (six) Branch tablet hours as needed for Nausea and Vomiting (N/V). doxylamine 2021-0 Yes [id number] 25mg Take 1 U nivers (UNISOM, 7-28 tablet by ity of DOXYLAMINE, 00:00: mouth at [place] ) 25 mg 00 bedtime as Medica l tablet needed for Branch Nausea and Vomiting (N/V). pyridoxine, 2021-0 Yes [id number] 25mg Take 1 Univers VITAMIN 7-28 tablet by ity of B-6, 00:00: mouth [place] (VITAMIN 00 every 6 Medical B-6) 25 mg (six) Branch tablet hours as needed for Nausea and Vomiting (N/V). doxylamine 2021-0 Yes [id number] 25mg Take 1 U nivers (UNISOM, 7-28 tablet by ity of DOXYLAMINE, 00:00: mouth at [place] ) 25 mg 00 bedtime as Medica l tablet needed for Branch Nausea and Vomiting (N/V). pyridoxine, 2021-0 Yes [id number] 25mg Take 1 Univers VITAMIN 7-28 tablet by ity of B-6, 00:00: mouth [place] (VITAMIN 00 every 6 Medical B-6) 25 mg (six) Branch tablet hours as needed for Nausea and Vomiting (N/V). doxylamine 2021-0 Yes [id number] 25mg Take 1 U nivers (UNISOM, 7-28 tablet by ity of DOXYLAMINE, 00:00: mouth at [place] ) 25 mg 00 bedtime as Medica l tablet needed for Branch Nausea and Vomiting (N/V). pyridoxine, 2021-0 Yes [id number] 25mg Take 1 Univers VITAMIN 7-28 tablet by ity of B-6, 00:00: mouth [place] (VITAMIN 00 every 6 Medical B-6) 25 mg (six) Branch tablet hours as needed for Nausea and Vomiting (N/V). doxylamine 2021-0 Yes [id number] 25mg Take 1 U nivers (UNISOM, 7-28 tablet by ity of DOXYLAMINE, 00:00: mouth at [place] ) 25 mg 00 bedtime as Medica l tablet needed for Branch Nausea and Vomiting (N/V). pyridoxine, 0 Yes [id number] 25mg Take 1 Univers VITAMIN 7-28 tablet by ity of B-6, 00:00: mouth [place] (VITAMIN 00 every 6 Medical B-6) 25 mg (six) Branch tablet hours as needed for Nausea and Vomiting (N/V). doxylamine 0 Yes [id number] 25mg Take 1 U nivers (UNISOM, 7-28 tablet by ity of DOXYLAMINE, 00:00: mouth at [place] ) 25 mg 00 bedtime as Medica l tablet needed for Branch Nausea and Vomiting (N/V). pyridoxine, 0 Yes [id number] 25mg Take 1 Univers VITAMIN 7-28 tablet by ity of B-6, 00:00: mouth [place] (VITAMIN 00 every 6 Medical B-6) 25 mg (six) Branch tablet hours as needed for Nausea and Vomiting (N/V). doxylamine 0 Yes [id number] 25mg Take 1 U nivers (UNISOM, 7-28 tablet by ity of DOXYLAMINE, 00:00: mouth at [place] ) 25 mg 00 bedtime as Medica l tablet needed for Branch Nausea and Vomiting (N/V). pyridoxine, 0 Yes [id number] 25mg Take 1 Univers VITAMIN 7-28 tablet by ity of B-6, 00:00: mouth [place] (VITAMIN 00 every 6 Medical B-6) 25 mg (six) Branch tablet hours as needed for Nausea and Vomiting (N/V). doxylamine 0 Yes [id number] 25mg Take 1 U nivers (UNISOM, 7-28 tablet by ity of DOXYLAMINE, 00:00: mouth [place] ) 25 mg 00 bedtime as Medica l tablet needed for Branch Nausea and Vomiting (N/V). pyridoxine, 0 Yes [id number] 25mg Take 1 Univers VITAMIN 7-28 tablet by ity of B-6, 00:00: mouth [place] (VITAMIN 00 every 6 Medical B-6) 25 mg (six) Branch tablet hours as needed for Nausea and Vomiting (N/V). doxylamine 2022-0 Yes [id number] 25mg Take 1 U nivers (UNISOM, 7-28 tablet by ity of DOXYLAMINE, 00:00: mouth at [place] ) 25 mg 00 bedtime as Medica l tablet needed for Branch Nausea and Vomiting (N/V). pyridoxine, 2021-0 Yes [id number] 25mg Take 1 Univers VITAMIN 7-28 tablet by ity of B-6, 00:00: mouth [place] (VITAMIN 00 every 6 Medical B-6) 25 mg (six) Branch tablet hours as needed for Nausea and Vomiting (N/V). doxylamine 2021-0 Yes [id number] 25mg Take 1 U nivers (UNISOM, 7-28 tablet by ity of DOXYLAMINE, 00:00: mouth at [place] ) 25 mg 00 bedtime as Medica l tablet needed for Branch Nausea and Vomiting (N/V). pyridoxine, 2021-0 Yes [id number] 25mg Take 1 Univers VITAMIN 7-28 tablet by ity of B-6, 00:00: mouth [place] (VITAMIN 00 every 6 Medical B-6) 25 mg (six) Branch tablet hours as needed for Nausea and Vomiting (N/V). doxylamine 2021-0 Yes [id number] 25mg Take 1 U nivers (UNISOM, 7-28 tablet by ity of DOXYLAMINE, 00:00: mouth [place] ) 25 mg 00 bedtime as Medica l tablet needed for Branch Nausea and Vomiting (N/V). pyridoxine, 2021-0 Yes [id number] 25mg Take 1 Univers VITAMIN 7-28 tablet by ity of B-6, 00:00: mouth [place] (VITAMIN 00 every 6 Medical B-6) 25 mg (six) Branch tablet hours as needed for Nausea and Vomiting (N/V). doxylamine 2-0 Yes [id number] 25mg Take 1 U nivers (UNISOM, 7-28 tablet by ity of DOXYLAMINE, 00:00: mouth [place] ) 25 mg 00 bedtime as Medica l tablet needed for Branch Nausea and Vomiting (N/V). pyridoxine, 2021-0 Yes [id number] 25mg Take 1 Univers VITAMIN 7-28 tablet by ity of B-6, 00:00: mouth [place] (VITAMIN 00 every 6 Medical B-6) 25 mg (six) Branch tablet hours as needed for Nausea and Vomiting (N/V). doxylamine 2021-0 Yes [id number] 25mg Take 1 U nivers (UNISOM, 7-28 tablet by ity of DOXYLAMINE, 00:00: mouth at [place] ) 25 mg 00 bedtime as Medica l tablet needed for Branch Nausea and Vomiting (N/V). pyridoxine, 2021-0 Yes [id number] 25mg Take 1 Univers VITAMIN 7-28 tablet by ity of B-6, 00:00: mouth [place] (VITAMIN 00 every 6 Medical B-6) 25 mg (six) Branch tablet hours as needed for Nausea and Vomiting (N/V). doxylamine 2021-0 Yes [id number] 25mg Take 1 U nivers (UNISOM, 7-28 tablet by ity of DOXYLAMINE, 00:00: mouth at [place] ) 25 mg 00 bedtime as Medica l tablet needed for Branch Nausea and Vomiting (N/V). pyridoxine, 2021-0 Yes [id number] 25mg Take 1 Univers VITAMIN 7-28 tablet by ity of B-6, 00:00: mouth [place] (VITAMIN 00 every 6 Medical B-6) 25 mg (six) Branch tablet hours as needed for Nausea and Vomiting (N/V). doxylamine 2021-0 Yes [id number] 25mg Take 1 U nivers (UNISOM, 7-28 tablet by ity of DOXYLAMINE, 00:00: mouth at [place] ) 25 mg 00 bedtime as Medica l tablet needed for Branch Nausea and Vomiting (N/V). pyridoxine, 2021-0 Yes [id number] 25mg Take 1 Univers VITAMIN 7-28 tablet by ity of B-6, 00:00: mouth [place] (VITAMIN 00 every 6 Medical B-6) 25 mg (six) Branch tablet hours as needed for Nausea and Vomiting (N/V). doxylamine 2021-0 Yes [id number] 25mg Take 1 U nivers (UNISOM, 7-28 tablet by ity of DOXYLAMINE, 00:00: mouth at [place] ) 25 mg 00 bedtime as Medica l tablet needed for Branch Nausea and Vomiting (N/V). pyridoxine, 0 Yes [id number] 25mg Take 1 Univers VITAMIN 7-28 tablet by ity of B-6, 00:00: mouth [place] (VITAMIN 00 every 6 Medical B-6) 25 mg (six) Branch tablet hours as needed for Nausea and Vomiting (N/V). doxylamine 0 Yes [id number] 25mg Take 1 U nivers (UNISOM, 7-28 tablet by ity of DOXYLAMINE, 00:00: mouth at [place] ) 25 mg 00 bedtime as Medica l tablet needed for Branch Nausea and Vomiting (N/V). pyridoxine, 0 Yes [id number] 25mg Take 1 Univers VITAMIN 7-28 tablet by ity of B-6, 00:00: mouth [place] (VITAMIN 00 every 6 Medical B-6) 25 mg (six) Branch tablet hours as needed for Nausea and Vomiting (N/V). doxylamine 0 Yes [id number] 25mg Take 1 U nivers (UNISOM, 7-28 tablet by ity of DOXYLAMINE, 00:00: mouth at [place] ) 25 mg 00 bedtime as Medica l tablet needed for Branch Nausea and Vomiting (N/V). pyridoxine, 0 Yes [id number] 25mg Take 1 Univers VITAMIN 7-28 tablet by ity of B-6, 00:00: mouth [place] (VITAMIN 00 every 6 Medical B-6) 25 mg (six) Branch tablet hours as needed for Nausea and Vomiting (N/V). doxylamine 0 Yes [id number] 25mg Take 1 U nivers (UNISOM, 7-28 tablet by ity of DOXYLAMINE, 00:00: mouth at [place] ) 25 mg 00 bedtime as Medica l tablet needed for Branch Nausea and Vomiting (N/V). pyridoxine, 0 Yes [id number] 25mg Take 1 Univers VITAMIN 7-28 tablet by ity of B-6, 00:00: mouth [place] (VITAMIN 00 every 6 Medical B-6) 25 mg (six) Branch tablet hours as needed for Nausea and Vomiting (N/V). doxylamine 2-0 Yes [id number] 25mg Take 1 U nivers (UNISOM, 7-28 tablet by ity of DOXYLAMINE, 00:00: mouth at [place] ) 25 mg 00 bedtime as Medica l tablet needed for Branch Nausea and Vomiting (N/V). pyridoxine, 2021-0 Yes [id number] 25mg Take 1 Univers VITAMIN 7-28 tablet by ity of B-6, 00:00: mouth [place] (VITAMIN 00 every 6 Medical B-6) 25 mg (six) Branch tablet hours as needed for Nausea and Vomiting (N/V). doxylamine 2021-0 Yes [id number] 25mg Take 1 [facility] (UNISOM, 7-28 tablet by [facility] DOXYLAMINE, 00:00: [place] 25 mg 00 bedtime as Medica l tablet needed for Branch Nausea and Vomiting (N/V). pyridoxine, 2021-0 Yes [id number] 25mg Take 1 [facility] VITAMIN 7-28 tablet by [facility]y of B-6, 00:00: mouth [place] (VITAMIN 00 every 6 Medical B-6) 25 mg (six) Branch tablet hours as needed for Nausea and Vomiting (N/V). doxylamine 2021-0 Yes [id number] 25mg Take 1 [facility] (UNISOM, 7-28 tablet by [facility] DOXYLAMINE, 00:00: [facility] [place] 25 mg 00 bedtime as Medica [facility] tablet needed for Branch Nausea and Vomiting (N/V). pyridoxine, 2021-0 Yes [id number] 25mg Take 1 [facility] VITAMIN 7-28 tablet by [facility]y of B-6, 00:00: mouth [place] (VITAMIN 00 every 6 Medical B-6) 25 mg (six) Branch tablet hours as needed for Nausea and Vomiting (N/V). doxylamine 2-0 Yes [id number] 25mg Take 1 [facility] (UNISOM, 7-28 tablet by [facility] DOXYLAMINE, 00:00: [place] 25 mg 00 bedtime as Medica [facility] tablet needed for Branch Nausea and Vomiting (N/V). pyridoxine, 2022-0 Yes [id number] 25mg Take 1 [facility] VITAMIN 7-28 tablet by [facility]y of B-6, 00:00: mouth [place] (VITAMIN 00 every 6 Medical B-6) 25 mg (six) Branch tablet hours as needed for Nausea and Vomiting (N/V). doxylamine 2021-0 Yes [id number] 25mg Take 1 [facility] (UNISOM, 7-28 tablet by [facility] DOXYLAMINE, 00:00: [facility] [place] 25 mg 00 bedtime as Medica [facility] tablet needed for Branch Nausea and Vomiting (N/V). pyridoxine, 2021-0 Yes [id number] 25mg Take 1 [facility] VITAMIN 7-28 tablet by [facility] of B-6, 00:00: mouth [place] (VITAMIN 00 every 6 Medical B-6) 25 mg (six) Branch tablet hours as needed for Nausea and Vomiting (N/V). doxylamine 2021-0 Yes [id number] 25mg Take 1 [facility] (UNISOM, 7-28 tablet by [facility] of DOXYLAMINE, 00:00: [facility] [place] 25 mg 00 bedtime as Medica [facility] tablet needed for Branch Nausea and Vomiting (N/V). pyridoxine, 2021-0 Yes [id number] 25mg Take 1 [facility] VITAMIN 7-28 tablet by [facility] of B-6, 00:00: mouth [place] (VITAMIN 00 every 6 Medical B-6) 25 mg (six) Branch tablet hours as needed for Nausea and Vomiting (N/V). doxylamine 2021-0 Yes [id number] 25mg Take 1 [facility] (UNISOM, 7-28 tablet by [facility] DOXYLAMINE, 00:00: [facility] [place] 25 mg 00 bedtime as Medica [facility] tablet needed for Branch Nausea and Vomiting (N/V). pyridoxine, 2021-0 Yes [id number] 25mg Take 1 [facility] VITAMIN 7-28 tablet by [facility] of B-6, 00:00: mouth [place] (VITAMIN 00 every 6 Medical B-6) 25 mg (six) Branch tablet hours as needed for Nausea and Vomiting (N/V). doxylamine 2021-0 Yes [id number] 25mg Take 1 [facility] (UNISOM, 7-28 tablet by [facility] DOXYLAMINE, 00:00: [facility] [place] 25 mg 00 bedtime as Medica l tablet needed for Branch Nausea and Vomiting (N/V). pyridoxine, 2021-0 Yes [id number] 25mg Take 1 [facility] VITAMIN 7-28 tablet by [facility] of B-6, 00:00: mouth [place] (VITAMIN 00 every 6 Medical B-6) 25 mg (six) Branch tablet hours as needed for Nausea and Vomiting (N/V). doxylamine 2021-0 Yes [id number] 25mg Take 1 [facility] (UNISOM, 7-28 tablet by [facility] of DOXYLAMINE, 00:00: [facility] [place] 25 mg 00 bedtime as Medica l tablet needed for Branch Nausea and Vomiting (N/V). pyridoxine, 2021-0 Yes [id number] 25mg Take 1 [facility] VITAMIN 7-28 tablet by [facility] of B-6, 00:00: mouth [place] (VITAMIN 00 every 6 Medical B-6) 25 mg (six) Branch tablet hours as needed for Nausea and Vomiting (N/V). doxylamine 2021-0 Yes [id number] 25mg Take 1 [facility] (UNISOM, 7-28 tablet by [facility] of DOXYLAMINE, 00:00: [facility] [place] 25 mg 00 bedtime as Medica [facility] tablet needed for Branch Nausea and Vomiting (N/V). pyridoxine, 2021-0 Yes [id number] 25mg Take 1 [facility] VITAMIN 7-28 tablet by [facility] of B-6, 00:00: mouth [place] (VITAMIN 00 every 6 Medical B-6) 25 mg (six) Branch tablet hours as needed for Nausea and Vomiting (N/V). doxylamine 2021-0 Yes [id number] 25mg Take 1 [facility] (UNISOM, 7-28 tablet by [facility] of DOXYLAMINE, 00:00: [facility] [place] 25 mg 00 bedtime as Medica l tablet needed for Branch Nausea and Vomiting (N/V). metoclopram 2021-0 Yes [id number] 10mg Take 1 [facility] to HCl 10 7-28 tablet by ity of mg tablet 00:00: mouth [place] 00 every 6 Medical (six) Branch hours as needed for Nausea and Vomiting (N/V). pyridoxine, 2021-0 Yes [id number] 25mg Take 1 [facility] VITAMIN 7-28 tablet by [facility]y of B-6, 00:00: mouth [place] (VITAMIN 00 every 6 Medical B-6) 25 mg (six) Branch tablet hours as needed for Nausea and Vomiting (N/V). doxylamine 2021-0 Yes [id number] 25mg Take 1 [facility] (UNISOM, 7-28 tablet by [facility] DOXYLAMINE, 00:00: [facility] [place] 25 mg 00 bedtime as Medica [facility] tablet needed for Branch Nausea and Vomiting (N/V). metoclopram 2021-0 Yes [id number] 10mg Take 1 [facility] to HCl 10 7-28 tablet by [facility]y of mg tablet 00:00: mouth [place] 00 every 6 Medical (six) Branch hours as needed for Nausea and Vomiting (N/V). pyridoxine, 0 Yes [id number] 25mg Take 1 [facility] VITAMIN 7-28 tablet by ity of B-6, 00:00: mouth [place] (VITAMIN 00 every 6 Medical B-6) 25 mg (six) Branch tablet hours as needed for Nausea and Vomiting (N/V). doxylamine 2021-0 Yes [id number] 25mg Take 1 [facility] (UNISOM, 7-28 tablet by [facility] of DOXYLAMINE, 00:00: [facility] [place] 25 mg 00 bedtime as Medica [facility] tablet needed for Branch Nausea and Vomiting (N/V). metoclopram 2021-0 Yes [id number] 10mg Take 1 [facility] to HCl 10 7-28 tablet by [facility] of mg tablet 00:00: mouth [place] 00 every 6 Medical (six) Branch hours as needed for Nausea and Vomiting (N/V). pyridoxine, 2021-0 Yes [id number] 25mg Take 1 [facility] VITAMIN 7-28 tablet by [facility]y of B-6, 00:00: mouth [place] (VITAMIN 00 every 6 Medical B-6) 25 mg (six) Branch tablet hours as needed for Nausea and Vomiting (N/V). doxylamine 2021-0 Yes [id number] 25mg Take 1 [facility] (UNISOM, 7-28 tablet by [facility] of DOXYLAMINE, 00:00: [facility] [place] 25 mg 00 bedtime as Medica [facility] tablet needed for Branch Nausea and Vomiting (N/V). metoclopram 2022-0 Yes [id number] 10mg Take 1 [facility] to HCl 10 7-28 tablet by ity of mg tablet 00:00: mouth [place] 00 every 6 Medical (six) Branch hours as needed for Nausea and Vomiting (N/V). pyridoxine, 2-0 Yes [id number] 25mg Take 1 [facility] VITAMIN 7-28 tablet by [facility]y of B-6, 00:00: mouth [place] (VITAMIN 00 every 6 Medical B-6) 25 mg (six) Branch tablet hours as needed for Nausea and Vomiting (N/V). doxylamine 2-0 Yes [id number] 25mg Take 1 [facility] (UNISOM, 7-28 tablet by [facility] of DOXYLAMINE, 00:00: [facility] [place] 25 mg 00 bedtime as Medica l tablet needed for Branch Nausea and Vomiting (N/V). metoclopram 2021-0 Yes [id number] 10mg Take 1 [facility] to HCl 10 7-28 tablet by [facility]y of mg tablet 00:00: mouth [place] 00 every 6 Medical (six) Branch hours as needed for Nausea and Vomiting (N/V). pyridoxine, 2021-0 Yes [id number] 25mg Take 1 [facility] VITAMIN 7-28 tablet by [facility] of B-6, 00:00: mouth [place] (VITAMIN 00 every 6 Medical B-6) 25 mg (six) Branch tablet hours as needed for Nausea and Vomiting (N/V). doxylamine 2-0 Yes [id number] 25mg Take 1 [facility] (UNISOM, 7-28 tablet by [facility] of DOXYLAMINE, 00:00: [facility] [place] 25 mg 00 bedtime as Medica l tablet needed for Branch Nausea and Vomiting (N/V). metoclopram 2-0 Yes [id number] 10mg Take 1 [facility] to HCl 10 7-28 tablet by [facility]y of mg tablet 00:00: mouth [place] 00 every 6 Medical (six) Branch hours as needed for Nausea and Vomiting (N/V). pyridoxine, 2-0 Yes [id number] 25mg Take 1 [facility] VITAMIN 7-28 tablet by [facility]y of B-6, 00:00: mouth [place] (VITAMIN 00 every 6 Medical B-6) 25 mg (six) Branch tablet hours as needed for Nausea and Vomiting (N/V). doxylamine 2022-0 Yes [id number] 25mg Take 1 [facility] (UNISOM, 7-28 tablet by [facility] of DOXYLAMINE, 00:00: [facility] [place] 25 mg 00 bedtime as Medica l tablet needed for Branch Nausea and Vomiting (N/V). metoclopram 2022-0 Yes [id number] 10mg Take 1 [facility] to HCl 10 7-28 tablet by [facility]y of mg tablet 00:00: mouth [place] 00 every 6 Medical (six) Branch hours as needed for Nausea and Vomiting (N/V). pyridoxine, 2022-0 Yes [id number] 25mg Take 1 [facility] VITAMIN 7-28 tablet by [facility]y of B-6, 00:00: mouth [place] (VITAMIN 00 every 6 Medical B-6) 25 mg (six) Branch tablet hours as needed for Nausea and Vomiting (N/V). doxylamine 2022-0 Yes [id number] 25mg Take 1 [facility] (UNISOM, 7-28 tablet by [facility] of DOXYLAMINE, 00:00: [facility] [place] 25 mg 00 bedtime as Medica l tablet needed for Branch Nausea and Vomiting (N/V). metoclopram 2022-0 Yes [id number] 10mg Take 1 [facility] to HCl 10 7-28 tablet by [facility]y of mg tablet 00:00: mouth [place] 00 every 6 Medical (six) Branch hours as needed for Nausea and Vomiting (N/V). pyridoxine, 2022-0 Yes [id number] 25mg Take 1 [facility] VITAMIN 7-28 tablet by [facility]y of B-6, 00:00: mouth [place] (VITAMIN 00 every 6 Medical B-6) 25 mg (six) Branch tablet hours as needed for Nausea and Vomiting (N/V). doxylamine 2022-0 Yes [id number] 25mg Take 1 [facility] (UNISOM, 7-28 tablet by [facility] of DOXYLAMINE, 00:00: [facility] [place] 25 mg 00 bedtime as Medica [facility] tablet needed for Branch Nausea and Vomiting (N/V). metoclopram 2022-0 Yes [id number] 10mg Take 1 [facility] to HCl 10 7-28 tablet by [facility]y of mg tablet 00:00: mouth [place] 00 every 6 Medical (six) Branch hours as needed for Nausea and Vomiting (N/V). pyridoxine, 2021-0 Yes [id number] 25mg Take 1 [facility] VITAMIN 7-28 tablet by [facility]y of B-6, 00:00: mouth [place] (VITAMIN 00 every 6 Medical B-6) 25 mg (six) Branch tablet hours as needed for Nausea and Vomiting (N/V). doxylamine 2021-0 Yes [id number] 25mg Take 1 [facility] (UNISOM, 7-28 tablet by [facility] of DOXYLAMINE, 00:00: [facility] [place] 25 mg 00 bedtime as Medica l tablet needed for Branch Nausea and Vomiting (N/V). metoclopram 2-0 Yes [id number] 10mg Take 1 [facility] to HCl 10 7-28 tablet by ity of mg tablet 00:00: mouth [place] 00 every 6 Medical (six) Branch hours as needed for Nausea and Vomiting (N/V). pyridoxine, 2021-0 Yes [id number] 25mg Take 1 [facility] VITAMIN 7-28 tablet by [facility]y of B-6, 00:00: mouth [place] (VITAMIN 00 every 6 Medical B-6) 25 mg (six) Branch tablet hours as needed for Nausea and Vomiting (N/V). doxylamine 2021-0 Yes [id number] 25mg Take 1 [facility] (UNISOM, 7-28 tablet by [facility] of DOXYLAMINE, 00:00: [facility] [place] ) 25 mg 00 bedtime as Medica l tablet needed for Branch Nausea and Vomiting (N/V). metoclopram 2-0 Yes [id number] 10mg Take 1 [facility] to HCl 10 7-28 tablet by ity of mg tablet 00:00: mouth [place] 00 every 6 Medical (six) Branch hours as needed for Nausea and Vomiting (N/V). pyridoxine, 2-0 Yes [id number] 25mg Take 1 [facility] VITAMIN 7-28 tablet by ity of B-6, 00:00: mouth [place] (VITAMIN 00 every 6 Medical B-6) 25 mg (six) Branch tablet hours as needed for Nausea and Vomiting (N/V). doxylamine 2022-0 Yes [id number] 25mg Take 1 [facility] (UNISOM, 7-28 tablet by [facility] of DOXYLAMINE, 00:00: [facility] [place] ) 25 mg 00 bedtime as Medica l tablet needed for Branch Nausea and Vomiting (N/V). pyridoxine, Yes [id number] 25mg Take 1 [facility] VITAMIN 7-28 tablet by [facility]y of B-6, 00:00: mouth [place] (VITAMIN 00 every 6 Medical B-6) 25 mg (six) Branch tablet hours as needed for Nausea and Vomiting (N/V). doxylamine Yes [id number] 25mg Take 1 [facility] (UNISOM, 7-28 tablet by [facility] of DOXYLAMINE, 00:00: [facility] [place] 25 mg 00 bedtime as Medica l tablet needed for Branch Nausea and Vomiting (N/V). pyridoxine, 2022- No [id number] 25mg Take 1 [facility] VITAMIN 7- 02-16 tablet by [facility]y of B-6, 00:00: 00:00 mouth [place] (VITAMIN 00 :00 every 6 Medical B-6) 25 mg (six) Branch tablet hours as needed for Nausea and Vomiting (N/V). doxylamine 2022- No [id number] 25mg Take 1 [facility] (UNISOM, 03-28 02-16 tablet by ity o f DOXYLAMINE, 00:00: 00:00 [facility] [place] 25 mg 00 :00 bedtime as Medica l tablet needed for Branch Nausea and Vomiting (N/V). metoclopram 2021- No [id number] 10mg Take 1 [facility] to HCl 10 03-28 08-25 tablet by ity of mg tablet 00:00: 00:00 mouth [place] 00 :00 every 6 Medical (six) Branch hours as needed for Nausea and Vomiting (N/V). ibuprofen 2020-09- No [id number] 600mg Take 1 [facility] 600 mg 2-10 -28 tablet by [facility]y of tablet 00:00: 00:00 mouth [place] 00 :00 every 6 Medical (six) Branch hours as needed for Pain (scale 4-6) or Temp > 38.5 C. Yes [id number] 1{tbl} Take 1 [facility] vitamin 3-27 [id number] tablet by ity o f w/FA tablet 00:00: mouth [place] 00 daily. Medical Branch 2020-0 Yes [id number] 1{tbl} Take 1 [facility] vitamin 3-27 [id number] tablet by [facility]y o f w/FA tablet 00:00: mouth [place] 00 daily. Medical [facility] 2020-0 Yes [id number] 1{tbl} Take 1 [facility] vitamin 3-27 [id number] tablet by ity o f w/FA tablet 00:00: mouth [place] 00 daily. Medical Branch 2020-0 Yes [id number] 1{tbl} Take 1 [facility] vitamin 3-27 [id number] tablet by ity o f w/FA tablet 00:00: mouth [place] 00 daily. Medical Branch 2020-0 Yes [id number] 1{tbl} Take 1 [facility] vitamin 3-27 [id number] tablet by ity o f w/FA tablet 00:00: mouth [place] 00 daily. Medical [place] 2020-0 Yes [id number] 1{tbl} Take 1 [facility] vitamin 3-27 [id number] tablet by ity o f w/FA tablet 00:00: mouth [place] 00 daily. Medical Branch 2020-0 Yes [id number] 1{tbl} Take 1 [facility] vitamin 3-27 [id number] tablet by ity o f w/FA tablet 00:00: mouth [place] 00 daily. Medical [facility] 2020-0 Yes [id number] 1{tbl} Take 1 [facility] vitamin 3-27 [id number] tablet by ity o f w/FA tablet 00:00: mouth [place] 00 daily. Medical [place] 2020-0 Yes [id number] 1{tbl} Take 1 [facility] vitamin 3-27 [id number] tablet by ity o f w/FA tablet 00:00: mouth [place] 00 daily. Medical [facility] 2020-0 Yes [id number] 1{tbl} Take 1 [facility] vitamin 3-27 [id number] tablet by ity o f w/FA tablet 00:00: mouth [place] 00 daily. Medical [facility] 2020-0 Yes [id number] 1{tbl} Take 1 [facility] vitamin 3-27 [id number] tablet by ity o f w/FA tablet 00:00: mouth [place] 00 daily. Medical [place] 2020-0 Yes [id number] 1{tbl} Take 1 [facility] vitamin 3-27 [id number] tablet by ity o f w/FA tablet 00:00: mouth [place] 00 daily. Medical [place] 2020-0 Yes [id number] 1{tbl} Take 1 [facility] vitamin 3-27 [id number] tablet by ity o f w/FA tablet 00:00: mouth [place] 00 daily. Medical [facility] 2020-0 Yes [id number] 1{tbl} Take 1 [facility] vitamin 3-27 [id number] tablet by ity o f w/FA tablet 00:00: mouth [place] 00 daily. Medical [place] 2020-0 Yes [id number] 1{tbl} Take 1 [facility] vitamin 3-27 [id number] tablet by ity o f w/FA tablet 00:00: mouth [place] 00 daily. Medical [facility] 2020-0 Yes [id number] 1{tbl} Take 1 [facility] vitamin 3-27 [id number] tablet by ity o f w/FA tablet 00:00: mouth [place] 00 daily. [facility] 2020-0 Yes [id number] 1{tbl} Take 1 [facility] vitamin 3-27 [id number] tablet by ity o f w/FA tablet 00:00: mouth [place] 00 daily. Medical [place] 2020-0 Yes [id number] 1{tbl} Take 1 [facility] vitamin 3-27 [id number] tablet by ity o f w/FA tablet 00:00: mouth [place] 00 daily. Medical [facility] 2020-0 Yes [id number] 1{tbl} Take 1 [facility] vitamin 3-27 [id number] tablet by ity o f w/FA tablet 00:00: mouth [place] 00 daily. [facility] 2020-0 Yes [id number] 1{tbl} Take 1 [facility] vitamin 3-27 [id number] tablet by ity o f w/FA tablet 00:00: mouth [place] 00 daily. Medical [facility] 2020-0 Yes [id number] 1{tbl} Take 1 [facility] vitamin 3-27 [id number] tablet by ity o f w/FA tablet 00:00: mouth [place] 00 daily. Medical [place] 2020-0 Yes [id number] 1{tbl} Take 1 [facility] vitamin 3-27 [id number] tablet by ity o f w/FA tablet 00:00: mouth [place] 00 daily. [facility] 2020-0 Yes [id number] 1{tbl} Take 1 [facility] vitamin 3-27 [id number] tablet by ity o f w/FA tablet 00:00: mouth [place] 00 daily. Medical [facility] 2020-0 Yes [id number] 1{tbl} Take 1 [facility] vitamin 3-27 [id number] tablet by ity o f w/FA tablet 00:00: mouth [place] 00 daily. Medical [facility] 2020-0 Yes [id number] 1{tbl} Take 1 [facility] vitamin 3-27 [id number] tablet by ity o f w/FA tablet 00:00: mouth [place] 00 daily. Medical [facility] 2020-0 Yes [id number] 1{tbl} Take 1 [facility] vitamin 3-27 [id number] tablet by ity o f w/FA tablet 00:00: mouth [place] 00 daily. Medical [facility] 2020-0 Yes [id number] 1{tbl} Take 1 [facility] vitamin 3-27 [id number] tablet by ity o f w/FA tablet 00:00: mouth [place] 00 daily. Medical [facility] 2020-0 Yes [id number] 1{tbl} Take 1 [facility] vitamin 3-27 [id number] tablet by ity o f w/FA tablet 00:00: mouth [place] 00 daily. Medical [place] 2020-0 Yes [id number] 1{tbl} Take 1 [facility] vitamin 3-27 [id number] tablet by ity o f w/FA tablet 00:00: mouth [place] 00 daily. Medical [facility] 2020-0 Yes [id number] 1{tbl} Take 1 [facility] vitamin 3-27 [id number] tablet by ity o f w/FA tablet 00:00: mouth [place] 00 daily. Medical [place] 2020-0 Yes [id number] 1{tbl} Take 1 [facility] vitamin 3-27 [id number] tablet by ity o f w/FA tablet 00:00: mouth [place] 00 daily. Medical [place] 2020-0 Yes [id number] 1{tbl} Take 1 [facility] vitamin 3-27 [id number] tablet by ity o f w/FA tablet 00:00: mouth [place] 00 daily. Medical [facility] 2020-0 Yes [id number] 1{tbl} Take 1 [facility] vitamin 3-27 [id number] tablet by ity o f w/FA tablet 00:00: mouth [place] 00 daily. [facility] 2020-0 Yes [id number] 1{tbl} Take 1 [facility] vitamin 3-27 [id number] tablet by ity o f w/FA tablet 00:00: mouth [place] 00 daily. Medical [place] 2020-0 Yes [id number] 1{tbl} Take 1 [facility] vitamin 3-27 [id number] tablet by ity o f w/FA tablet 00:00: mouth [place] 00 daily. Medical Branch 2020-0 Yes [id number] 1{tbl} Take 1 [facility] vitamin 3-27 [id number] tablet by ity o f w/FA tablet 00:00: mouth [place] 00 daily. Medical [facility] 2020-0 Yes [id number] 1{tbl} Take 1 [facility] vitamin 3-27 [id number] tablet by ity o f w/FA tablet 00:00: mouth [place] 00 daily. Medical [facility] 2020-0 Yes [id number] 1{tbl} Take 1 [facility] vitamin 3-27 [id number] tablet by ity o f w/FA tablet 00:00: mouth [place] 00 daily. Medical [facility] 2020-0 Yes [id number] 1{tbl} Take 1 [facility] vitamin 3-27 [id number] tablet by ity o f w/FA tablet 00:00: mouth [place] 00 daily. Medical [facility] 2020-0 Yes [id number] 1{tbl} Take 1 [facility] vitamin 3-27 [id number] tablet by ity o f w/FA tablet 00:00: mouth [place] 00 daily. Medical [facility] 2020-0 Yes [id number] 1{tbl} Take 1 [facility] vitamin 3-27 [id number] tablet by ity o f w/FA tablet 00:00: mouth [place] 00 daily. Medical [facility] 2020-0 Yes [id number] 1{tbl} Take 1 [facility] vitamin 3-27 [id number] tablet by ity o f w/FA tablet 00:00: mouth [place] 00 daily. Medical [facility] 2020-0 Yes [id number] 1{tbl} Take 1 [facility] vitamin 3-27 [id number] tablet by ity o f w/FA tablet 00:00: mouth [place] 00 daily. Medical [facility] 2020-0 Yes [id number] 1{tbl} Take 1 [facility] vitamin 3-27 [id number] tablet by ity o f w/FA tablet 00:00: mouth [place] 00 daily. Medical [facility] 2020-0 Yes [id number] 1{tbl} Take 1 [facility] vitamin 3-27 [id number] tablet by ity o f w/FA tablet 00:00: mouth [place] 00 daily. Medical [facility] 2020-0 Yes [id number] 1{tbl} Take 1 [facility] vitamin 3-27 [id number] tablet by ity o f w/FA tablet 00:00: mouth [place] 00 daily. Medical [facility] 2020-0 Yes [id number] 1{tbl} Take 1 [facility] vitamin 3-27 [id number] tablet by ity o f w/FA tablet 00:00: mouth [place] 00 daily. Medical Branch Yes [id number] 1{tbl} Take 1 [facility] vitamin 3-27 [id number] tablet by ity o f w/FA tablet 00:00: mouth [place] 00 daily. Medical Branch 2022- No [id number] 1{tbl} Take 1 [facility] vitamin 3-27 02-16 [id number] tablet by [facility] of w/FA tablet 00:00: 00:[place] :00 daily. [facility] docusate 2021- No [id number] 240mg Take 1 [facility] calcium 240 11-25 [id number] capsule by ity of mg capsule 00:00: 00:00 mouth once [place] 00 :00 daily as Medical needed for Branch Constipati on. ferrous 2021- No [id number] 325mg Take 1 [facility] sulfate 325 11-25 [id number] tablet by ity of mg (65 mg 00:00: 00:00 [place] iron[place] 00 :00 (two) Medical tablet times Branch daily. ibuprofen 2021- No [id number] 600mg Take 1 [facility] 600 mg 11-25 [id number] tablet by ity o f tablet 00:00: 00:00 mouth [place] 00 :00 every 6 Medical (six) Branch hours as needed (Pain). Take with food or milk. ALBUTEROL 2013-09 Yes Inhale by [facility] 1-20 mouth [facility]: inhaler. [address] ALBUTEROL 2013-09 Yes Inhale by [facility] 1-20 [facility]: inhaler. [address] Immunizations Ordered Filled Date Status Comments Source Immunization Name Immunization Name TDAP (ADACEL) 2019-09-02 Completed [facility]:00 [facility] TDAP (ADACEL) 2019-09-02 Completed [facility] VACCINE 00:00:00 [facility] TDAP (ADACEL) 2019-09-02 Completed [facility] VACCINE 00:00:00 [facility] TDAP (ADACEL) 2019-09-02 Completed [facility] VACCINE 00:00:00 [place] [facility] TDAP (ADACEL) 2019-09-02 Completed [facility] VACCINE 00:00:00 [facility] TDAP (ADACEL) 2019-09-02 Completed [facility] VACCINE 00:00:00 [place] [facility] TDAP (ADACEL) 2019-09-02 Completed [facility] VACCINE 00:00:00 [facility] TDAP (ADACEL) 2019-09-02 Completed [facility] VACCINE 00:00:00 [facility] TDAP (ADACEL) 2019-09-02 Completed [facility] VACCINE 00:00:00 [facility] TDAP (ADACEL) 2019-09-02 Completed [facility] VACCINE 00:00:00 [facility] TDAP (ADACEL) 2019-09-02 Completed [facility] of VACCINE 00:00:00 [facility] TDAP (ADACEL) 2019-09-02 Completed [facility] VACCINE 00:00:00 [facility] TDAP (ADACEL) 2019-09-02 Completed [facility] of VACCINE 00:00:00 [facility] TDAP (ADACEL) 2019-09-02 Completed [facility] of VACCINE 00:00:00 [facility] TDAP (ADACEL) 2019-09-02 Completed [facility] of VACCINE 00:00:00 [facility] TDAP (ADACEL) 2019-09-02 Completed [facility] of VACCINE 00:00:00 [facility] TDAP (ADACEL) 2019-09-02 Completed [facility] of VACCINE 00:00:00 [facility] TDAP (ADACEL) 2019-09-02 Completed [facility] of VACCINE 00:00:00 [facility] TDAP (ADACEL) 2019-09-02 Completed [facility] of VACCINE 00:00:00 [facility] TDAP (ADACEL) 2019-09-02 Completed [facility] of VACCINE 00:00:00 [facility] TDAP (ADACEL) 2019-09-02 Completed [facility] of VACCINE 00:00:00 [facility] TDAP (ADACEL) 2019-09-02 Completed [facility] of VACCINE 00:00:00 [facility] TDAP (ADACEL) 2019-09-02 Completed [facility] of VACCINE 00:00:00 [facility] TDAP (ADACEL) 2019-09-02 Completed [facility] of VACCINE 00:00:00 [facility] TDAP (ADACEL) 2019-09-02 Completed [facility] of VACCINE 00:00:00 [facility] TDAP (ADACEL) 2019-09-02 Completed [facility] of VACCINE 00:00:00 [facility] TDAP (ADACEL) 2019-09-02 Completed [facility] of VACCINE 00:00:00 [facility] TDAP (ADACEL) 2019-09-02 Completed [facility] of VACCINE 00:00:00 [facility] TDAP (ADACEL) 2019-09-02 Completed [facility] of VACCINE 00:00:00 [facility] TDAP (ADACEL) 2019-09-02 Completed [facility] of VACCINE 00:00:00 [facility] TDAP (ADACEL) 2019-09-02 Completed [facility] of VACCINE 00:00:00 [facility] TDAP (ADACEL) 2019-09-02 Completed [facility] of VACCINE 00:00:00 [facility] TDAP (ADACEL) 2019-09-02 Completed [facility] of VACCINE 00:00:00 [facility] TDAP (ADACEL) 2019-09-02 Completed [facility] of VACCINE 00:00:00 [facility] TDAP (ADACEL) 2019-09-02 Completed [facility] of VACCINE 00:00:00 [facility] TDAP (ADACEL) 2019-09-02 Completed [facility] of VACCINE 00:00:00 [facility] TDAP (ADACEL) 2019-09-02 Completed [facility] of VACCINE 00:00:00 [facility] TDAP (ADACEL) 2019-09-02 Completed [facility] of VACCINE 00:00:00 [facility] TDAP (ADACEL) 2019-09-02 Completed [facility] of VACCINE 00:00:00 [facility] TDAP (ADACEL) 2019-09-02 Completed [facility] of VACCINE 00:00:00 [facility] TDAP (ADACEL) 2019-09-02 Completed [facility] of VACCINE 00:00:00 [facility] TDAP (ADACEL) 2019-09-02 Completed [facility] of VACCINE 00:00:00 [facility] TDAP (ADACEL) 2019-09-02 Completed [facility] VACCINE 00[facility]00:00 [facility] [place] [facility] [facility] TDAP (ADACEL) 2019-09-02 Completed [facility] of VACCINE 00:00:00 [facility] TDAP (ADACEL) 2019-09-02 Completed University of VACCINE 00:00:00 [facility] TDAP (ADACEL) 2019-09-02 Completed University of VACCINE 00:00:00 [facility] TDAP (ADACEL) 2019-09-02 Completed University of VACCINE 00:00:00 [facility] TDAP (ADACEL) 2019-09-02 Completed University of VACCINE 00:00:00 [facility] TDAP (ADACEL) 2019-09-02 Completed University of VACCINE 00:00:00 [facility] TDAP (ADACEL) 2019-09-02 Completed University of VACCINE 00:00:00 [facility] TDAP (ADACEL) 2019-09-02 Completed University of VACCINE 00:00:00 [facility] TDAP (ADACEL) 2019-09-02 Completed University of VACCINE 00:00:00 [facility] TDAP (ADACEL) 2019-09-02 Completed University of VACCINE 00:00:00 [facility] TDAP (ADACEL) 2019-09-02 Completed University of VACCINE 00:00:00 [facility] Influenza Virus 2019-06-08 Completed Universit y of Vaccine Quad .5 mL 00:00:00 [facility] 6[facility] Influenza Virus [...] y of Vaccine Quad .5 mL 00:00:00 [facility] 6+ MO Branch Influenza Virus 2019-06-08 Completed Universit y of [facility] .5 mL 00:00:00 [facility] 6+ [facility] Influenza Virus 2019-06-08 Completed Universit y of [facility] .5 mL 00:00:00 [facility] 6+ [facility] Influenza Virus 2019-06-08 Completed Universit y of [facility] .5 mL 00:00:00 [facility] 6+ [facility] Influenza Virus 2019-06-08 Completed Universit y of [facility] .5 mL 00:00:00 [facility] Influenza Virus 2019-06-08 Completed [facility]it y of [facility] .5 mL 00:00:00 [facility] 6[facility] Influenza Virus 2019-06-08 Completed [facility]it y of [facility] .5 mL 00:00:00 [facility] 6+ [facility] Branch Influenza Virus 2019-06-08 Completed Universit y of [facility] .5 mL 00:00:00 [facility] 6+ MO Branch Influenza Virus Unknown Completed Universit y of [facility]ine [facility] .5 mL [facility] 6+ MO Branch (FLUZONE/FLULAVAL/F LUARIX) TDAP (ADACEL) Unknown Completed [facility] Vital Signs Vital Name Observation Time Observation Value Comments Source Systolic blood 2023-01-22 05:16:00 106 mm[Hg] Univer sity of [facility] Diastolic blood 2023-01-22 05:16:00 64 mm[Hg] Unive rsity of [facility] Heart rate 2023-01-22 05:16:00 90 /min [facility] Respiratory rate 2023-01-22 05:16:00 15 /min Univ [facility] Oxygen saturation in 2023-01-22 05:16:00 98 /min [facility] Arterial blood by [facility] Pulse oximetry Branch Body temperature 2023-01-22 02:45:00 37.72 Nathaly [facility] Systolic blood 2022-11-18 21:34:00 108 mm[Hg] Univer sity of [facility] Diastolic blood 2022-11-18 21:34:00 73 mm[Hg] Unive rsity of pressure [facility] Heart rate 2022-11-18 21:34:00 68 /min [facility] Body temperature 2022-11-18 21:34:00 36.67 Nathaly Univ ersity of [facility] Respiratory rate 2022-11-18 21:34:00 18 /min Univ ersity of [facility] Body height 2022-11-18 21:34:00 162.6 cm [facility]i ty [facility] Body weight 2022-11-18 21:34:00 65.953 kg Universi ty [facility] BMI 2022-11-18 21:34:00 24.96 kg/m2 [facility] Systolic blood 2022-10-17 14:30:00 111 mm[Hg] Univer sity of pressure [facility] Diastolic blood 2022-10-17 14:30:00 68 mm[Hg] Unive rsity of pressure [facility] Heart rate 2022-10-17 14:30:00 71 /min Universi ty of [facility] Body temperature 2022-10-17 14:30:00 36.67 Nathaly Univ ersity [facility] Respiratory rate 2022-10-17 14:30:00 17 /min Univ ersity of [facility] Oxygen saturation in 2022-10-17 10:53:00 100 /min University of Arterial blood by [id number] Pulse oximetry Branch Systolic blood 2022-10-15 22:10:00 104 mm[Hg] Univer sity of pressure [facility] Diastolic blood 2022-10-15 22:10:00 66 mm[Hg] Unive rsity of pressure [facility] Heart rate 2022-10-15 22:10:00 83 /min Universi ty of [facility] Body temperature 2022-10-15 22:10:00 36.72 Nathaly Univ ersity [facility] Respiratory rate 2022-10-15 22:10:00 18 /min Univ ersity of [facility] Body weight 2022-10-15 22:10:00 70.308 kg [facility]i ty [facility] BMI 2022-10-15 22:10:00 26.61 kg/m2 [facility] Heart rate 2022-10-14 20:00:00 91 /min [facility]i ty [facility] Oxygen saturation in 2022-10-14 20:00:00 98 /min University of Arterial blood by myaNUMBER deep Pulse oximetry Branch Systolic blood 2022-10-14 19:35:00 108 mm[Hg] Univer sity of pressure [facility] Diastolic blood 2022-10-14 19:35:00 73 mm[Hg] Unive rsity of pressure [facility] Body temperature 2022-10-14 19:35:00 37.06 Nathaly Univ ersity of [facility] Respiratory rate 2022-10-14 19:35:00 16 /min Univ ersity of [facility] Body weight 2022-10-14 19:18:00 69.673 kg Universi ty [facility] BMI 2022-10-14 19:18:00 26.37 kg/m2 [facility] Body weight 2022-10-08 20:03:00 68.584 kg [facility] BMI 2022-10-08 20:03:00 25.95 kg/m2 Universi ty of [facility] Systolic blood 2022-10-08 20:03:00 103 mm[Hg] Univer sity of pressure [facility] Diastolic blood 2022-10-08 20:03:00 67 mm[Hg] Unive rsity of pressure [facility] Heart rate 2022-10-08 20:03:00 66 /min Universi ty of [facility] Body temperature 2022-10-08 20:03:00 36.89 Nathaly Univ [facility] Body height 2022-10-08 20:03:00 162.6 cm [facility]i [facility] Systolic blood 2022-10-01 17:53:00 98 mm[Hg] Univer sity of pressure [facility] Diastolic blood 2022-10-01 17:53:00 68 mm[Hg] Unive rsity of pressure [facility] Heart rate 2022-10-01 17:53:00 94 /min [facility]i ty [facility] Body temperature 2022-10-01 17:53:00 36.83 Nathaly Univ [facility] Respiratory rate 2022-10-01 17:53:00 18 /min Univ ersity [facility] Body height 2022-10-01 17:53:00 162.6 cm [facility] Body weight 2022-10-01 17:53:00 68.584 kg [facility] BMI 2022-10-01 17:53:00 25.95 kg/m2 [facility] Systolic blood 2022-09-17 22:09:00 96 mm[Hg] Univer sity of pressure [facility] Diastolic blood 2022-09-17 22:09:00 66 mm[Hg] Unive rsity of pressure [facility] Heart rate 2022-09-17 22:09:00 102 /min Universi ty of [facility] Body temperature 2022-09-17 22:09:00 36.83 Nathaly Univ ersity of [facility] Body height 2022-09-17 22:09:00 162.6 cm [facility]i ty [facility] Body weight 2022-09-17 22:09:00 68.493 kg [facility] BMI 2022-09-17 22:09:00 25.92 kg/m2 Universi ty of [facility] Heart rate 2022-09-11 01:30:00 93 /min Universi ty of [facility] Oxygen saturation in 2022-09-11 01:30:00 100 /min University of Arterial blood by [facility] Pulse oximetry Branch Systolic blood 2022-09-10 22:16:00 102 mm[Hg] Univer sity of pressure [facility] Diastolic blood 2022-09-10 22:16:00 64 mm[Hg] Unive rsity of pressure [facility] Body temperature 2022-09-10 22:16:00 37 Nathaly Univ ersity of [facility] Respiratory rate 2022-09-10 22:16:00 18 /min Univ ersity of [facility] Body height 2022-09-10 22:16:00 162.6 cm [facility]i [facility] Body weight 2022-09-10 22:16:00 67.586 kg [facility] BMI 2022-09-10 22:16:00 25.58 kg/m2 [facility] Systolic blood 2022-09-09 23:14:00 117 mm[Hg] Univer sity of pressure [facility] Diastolic blood 2022-09-09 23:14:00 74 mm[Hg] Unive rsity of pressure [facility] Heart rate 2022-09-09 23:14:00 89 /min [facility]i ty [facility] Body temperature 2022-09-09 23:14:00 36.78 Nathaly Univ ersity of [facility] Respiratory rate 2022-09-09 23:14:00 18 /min Univ ersity of [facility] Body height 2022-09-09 23:14:00 165.1 cm [facility]i ty of [facility] [place] Body weight 2022-09-09 23:14:00 67.586 kg [facility]i ty [facility] BMI 2022-09-09 23:14:00 24.79 kg/m2 [facility]i ty [facility] [place] Oxygen saturation in 2022-09-09 23:14:00 100 /min [facility] Arterial blood by [facility] Pulse oximetry Branch Systolic blood 2022-09-02 22:10:00 83 mm[Hg] Univer sity of pressure [facility] Diastolic blood 2022-09-02 22:10:00 45 mm[Hg] Unive rsity of pressure [facility] Heart rate 2022-09-02 22:10:00 73 /min Universi ty of [facility] [place] Body temperature 2022-09-02 22:10:00 36.78 Nathaly Univ ersity of [facility] Body height 2022-09-02 22:10:00 165.1 cm [facility] ty [facility] Body weight 2022-09-02 22:10:00 68.266 kg [facility]i ty of [facility] [place] BMI 2022-09-02 22:10:00 25.04 kg/m2 [facility] Systolic blood 2022-08-19 21:12:00 109 mm[Hg] Univer sity of pressure [facility] Diastolic blood 2022-08-19 21:12:00 67 mm[Hg] Unive rsity of pressure [facility] Heart rate 2022-08-19 21:12:00 78 /min Universi ty of [facility] Body temperature 2022-08-19 21:12:00 36.67 Nathaly Univ ersity of [facility] Body height 2022-08-19 21:12:00 165.1 cm [facility]i ty [facility] Body weight 2022-08-19 21:12:00 68.04 kg [facility]i [facility] BMI 2022-08-19 21:12:00 24.96 kg/m2 [facility] Systolic blood 2022-08-08 20:44:00 95 mm[Hg] Univer sity of pressure [facility] Diastolic blood 2022-08-08 20:44:00 63 mm[Hg] Unive rsity of pressure [facility] Heart rate 2022-08-08 20:44:00 85 /min [facility]i ty [facility] Body temperature 2022-08-08 20:44:00 36.78 Nathaly Univ ersity of [facility] Respiratory rate 2022-08-08 20:44:00 18 /min Univ ersity of [facility] Body height 2022-08-08 20:44:00 165.1 cm [facility] ty [facility] Body weight 2022-08-08 20:44:00 66.679 kg [facility] BMI 2022-08-08 20:44:00 24.46 kg/m2 [facility] ty [facility] [place] Heart rate 2022-07-27 00:45:00 112 /min Universi ty of [facility] Oxygen saturation in 2022-07-27 00:45:00 99 /min University of Arterial blood by [facility] Pulse oximetry Branch Systolic blood 2022-07-27 00:15:00 100 mm[Hg] Univer sity of pressure [facility] Diastolic blood 2022-07-27 00:15:00 63 mm[Hg] Unive rsity of pressure [facility] Body temperature 2022-07-27 00:15:00 37.28 Nathaly Univ ersity of [facility] Respiratory rate 2022-07-27 00:15:00 18 /min Univ ersity of [facility] Body height 2022-07-27 00:15:00 165.1 cm [facility] Body weight 2022-07-27 00:15:00 66.497 kg [facility] BMI 2022-07-27 00:15:00 24.40 kg/m2 [facility] Systolic blood 2022-07-22 16:59:00 111 mm[Hg] Univer sity of pressure [facility] Diastolic blood 2022-07-22 16:59:00 73 mm[Hg] Unive rsity of pressure [facility] Heart rate 2022-07-22 16:59:00 76 /min [facility]i ty [facility] Body temperature 2022-07-22 16:59:00 36.78 Nathaly Univ ersity of [facility] Body height 2022-07-22 16:59:00 165.1 cm [facility] Body weight 2022-07-22 16:59:00 66.134 kg [facility] ty [facility] BMI 2022-07-22 16:59:00 24.26 kg/m2 Universi ty of [facility] Systolic blood 2022-07-18 23:00:00 100 mm[Hg] Univer sity of pressure [facility] Diastolic blood 2022-07-18 23:00:00 70 mm[Hg] Unive rsity of pressure [facility] Heart rate 2022-07-18 23:00:00 82 /min Universi ty of [facility] Respiratory rate 2022-07-18 23:00:00 20 /min Univ ersity of [facility] Oxygen saturation in 2022-07-18 23:00:00 100 /min University Arterial blood by [facility] Pulse oximetry Branch Body temperature 2022-07-18 20:14:00 36.83 Nathaly Univ ersity of [facility] Body weight 2022-07-18 20:14:00 65.772 kg [facility]i ty [facility] BMI 2022-07-18 20:14:00 24.13 kg/m2 [facility] Systolic blood 2022-07-18 19:44:00 105 mm[Hg] Univer sity of pressure [facility] Diastolic blood 2022-07-18 19:44:00 69 mm[Hg] Unive rsity of pressure [facility] Heart rate 2022-07-18 19:44:00 96 /min Universi ty of [facility] Body temperature 2022-07-18 19:44:00 37 Nathaly Univ ersity of [facility] Body height 2022-07-18 19:44:00 165.1 cm [facility]i ty [facility] Body weight 2022-07-18 19:44:00 65.953 kg [facility]i ty [facility] BMI 2022-07-18 19:44:00 24.20 kg/m2 Universi ty of [facility] Systolic blood 2022-07-10 20:47:00 106 mm[Hg] Univer sity of pressure [facility] Diastolic blood 2022-07-10 20:47:00 68 mm[Hg] Unive rsity of pressure [facility] Heart rate 2022-07-10 20:47:00 89 /min Universi ty of [facility] Body temperature 2022-07-10 20:47:00 36.83 Nathaly Univ ersity of [facility] Respiratory rate 2022-07-10 20:47:00 16 /min Univ ersity of [facility] Body height 2022-07-10 20:47:00 165.1 cm [facility] ty [facility] Body weight 2022-07-10 20:47:00 67.132 kg [facility]i ty [facility] BMI 2022-07-10 20:47:00 24.63 kg/m2 [facility] ty [facility] Systolic blood 2022-06-20 20:55:00 105 mm[Hg] Univer sity of pressure [facility] Diastolic blood 2022-06-20 20:55:00 70 mm[Hg] Unive rsity of pressure [facility] Heart rate 2022-06-20 20:55:00 83 /min Universi ty of [facility] Body temperature 2022-06-20 20:55:00 36.78 Nathaly Univ [facility] Respiratory rate 2022-06-20 20:55:00 17 /min Univ ersity of [facility] Body height 2022-06-20 20:55:00 165.1 cm [facility] Body weight 2022-06-20 20:55:00 65.409 kg [facility] ty [facility] BMI 2022-06-20 20:55:00 24.00 kg/m2 [facility] Systolic blood 2022-05-23 20:37:00 109 mm[Hg] Univer sity of pressure [facility] Diastolic blood 2022-05-23 20:37:00 71 mm[Hg] Unive rsity of pressure [facility] Heart rate 2022-05-23 20:37:00 96 /min Universi ty of [facility] Body temperature 2022-05-23 20:37:00 36.94 Nathaly Univ [facility]ity of [facility] Respiratory rate 2022-05-23 20:37:00 18 /min Univ ersity of [facility] Body height 2022-05-23 20:37:00 165.1 cm [facility] Body weight 2022-05-23 20:37:00 62.596 kg [facility] ty [facility] BMI 2022-05-23 20:37:00 22.96 kg/m2 [facility] Systolic blood 2022-05-22 12:32:00 99 mm[Hg] Univer sity of pressure [facility] Diastolic blood 2022-05-22 12:32:00 54 mm[Hg] Unive rsity of pressure [facility] Heart rate 2022-05-22 12:32:00 66 /min [facility]i ty [facility] Body temperature 2022-05-22 12:32:00 36.89 Nathaly Univ ersity of [facility] Respiratory rate 2022-05-22 12:32:00 16 /min Univ ersity of [facility] Oxygen saturation in 2022-05-22 12:32:00 100 /min University of Arterial blood by [facility] Pulse oximetry Branch Body weight 2022-05-21 23:11:00 64.184 kg Universi ty of [facility] BMI 2022-05-21 23:11:00 23.55 kg/m2 [facility] ty [facility] Systolic blood 2022-04-25 21:03:00 122 mm[Hg] Univer sity of pressure [facility] Diastolic blood 2022-04-25 21:03:00 86 mm[Hg] Unive rsity of pressure [facility] Heart rate 2022-04-25 21:03:00 92 /min [facility]i ty [facility] Body temperature 2022-04-25 21:03:00 36.78 Nathaly Univ [facility] Respiratory rate 2022-04-25 21:03:00 18 /min Univ ersity of [facility] Body height 2022-04-25 21:03:00 165.1 cm [facility] Body weight 2022-04-25 21:03:00 64.411 kg [facility] ty [facility] BMI 2022-04-25 21:03:00 23.63 kg/m2 [facility] Systolic blood 2022-03-28 19:28:00 106 mm[Hg] Univer sity of pressure [facility] Diastolic blood 2022-03-28 19:28:00 68 mm[Hg] [facility] rsity of pressure [facility] Heart rate 2022-03-28 19:28:00 80 /min [facility] Body temperature 2022-03-28 19:28:00 37.39 Nathaly [facility] Respiratory rate 2022-03-28 19:28:00 16 /min [facility] Body height 2022-03-28 19:28:00 162.6 cm [facility] Body weight 2022-03-28 19:28:00 66.044 kg [facility] BMI 2022-03-28 19:28:00 24.99 kg/m2 [facility] Procedures Procedure Date / Time Performing Clinician Source Performed NOTICE OF PRIVACY 2023-01-22 02:43:35 Doctor Unassigned, No [facility] CONSENT/REFUSAL FOR 2023-01-22 02:42:40 [facility] PATIENT FINANCIAL 2022-11-18 21:01:15 Doctor Unassigned, No [facility] POLICY [facility] CBC WITH DIFF 2022-10-17 10:52:00 Fior Cyr [facility] CBC WITH DIFF 2022-10-16 02:10:00 Fior Cyr [facility] HEPATITIS B SURFACE 2022-10-16 02:10:00 Fior Cyr [facility] ANTIGEN [facility] HB ABO GROUPING 2022-10-16 02:10:00 Fior Cyr [facility] RHO (D) IMMUNE GLOBULIN 2022-10-16 02:10:00 Fior Cyr [facility] ADC OR CURRY ONLY - 2022-10-16 02:10:00 Fior Cyr [facility] RP Medical Branch HIV 1/2 AG-AB WITH 2022-10-16 02:10:00 Fior Cyr [facility] REFLEX [facility] ASSIGNMENT OF BENEFITS 2022-10-16 00:33:04 Doctor Unassigned, No [facility] CONSENT/REFUSAL FOR 2022-10-16 00:28:53 Doctor Unassigned, No [facility] [place] [facility] Name Medical Branch POCT URINALYSIS W/O 2022-10-15 00:00:00 Fior Cyr [facility] SPECIFIC GRAVITY Medical Branch ASSIGNMENT OF BENEFITS 2022-10-14 19:13:07 Doctor Unassigned, No [facility] CONSENT/REFUSAL FOR 2022-10-14 19:11:55 Doctor Unassigned, No [facility] [place] [facility] TREATMENT Name Medical Branch POCT URINALYSIS W/O 2022-10-08 00:00:00 Fior Cyr [facility] SPECIFIC GRAVITY Medical Branch POCT URINALYSIS W/O 2022-10-01 17:54:00 Karmen Enamorado [facility] SPECIFIC [facility] DSU PRE-OP 2022-10-01 06:01:00 Doctor Unassigned, No [facility] [place] STERILIZATION CONSENT 2022-09-18 06:01:00 Doctor Unassigned, No [facility] POCT URINALYSIS W/O 2022-09-17 00:00:00 Fior Cyr [facility] SPECIFIC [facility] CONSENT/REFUSAL FOR 2022-09-10 21:47:45 Doctor Unassigned, No [facility] [place] DIAGNOSIS AND TREATMENT [facility] Medical Branch ADC CLC OR LCC ONLY - 2022-09-10 00:07:00 Fior Cyr [facility] WET PREP [facility] URINALYSIS 2022-09-09 23:40:00 Fior Cyr [place] [facility] EXTRA TUBE URINE CULTURE 2022-09-09 23:40:00 Fior Cyr [facility] ASSIGNMENT OF BENEFITS 2022-09-09 22:44:23 Doctor Unassigned, No [facility] CONSENT/REFUSAL FOR 2022-09-09 22:43:30 Doctor Unassigned, No [facility] [place] DIAGNOSIS [facility] TREATMENT [facility] Medical Branch POCT URINALYSIS W/O 2022-09-02 00:00:00 Karmen Enamorado [facility] SPECIFIC GRAVITY Medical Branch POCT URINALYSIS W/O 2022-08-19 00:00:00 Fior Cyr [facility] SPECIFIC [facility] POCT URINALYSIS W/O 2022-08-08 00:00:00 Karmen Enamorado [place] [facility] RAPID INFLUENZA A/B 2022-07-26 22:22:00 Margarita Malone [facility] COVID-19 (ID NOW RAPID 2022-07-26 22:22:00 Margarita Malone [facility] TESTING) Medical Branch COMP. METABOLIC PANEL 2022-07-26 22:21:00 Margarita Malone [facility] ([id number]) Medical Branch CBC WITH DIFF 2022-07-26 22:21:00 Margarita Malone [facility] URINALYSIS 2022-07-26 22:21:00 [place] [facility] CONSENT/REFUSAL FOR 2022-07-26 21:35:06 Doctor [facility]igned, No [facility] POCT URINALYSIS W/O 2022-07-22 00:00:00 Karmen Enamorado [place] [facility] CT CHEST PULMONARY 2022-07-18 22:31:11 Carly Estrada [facility] ANGIOGRAM Medical Branch LIPASE 2022-07-18 20:43:00 Carly Estrada [facility] TROPONIN I 2022-07-18 20:43:00 Carly Estrada [facility] COMP. METABOLIC PANEL 2022-07-18 20:43:00 Carly Estrada [facility] ([id number]) [facility] CBC WITH DIFF 2022-07-18 20:43:00 Carly Estrada [facility] PROTHROMBIN TIME / INR 2022-07-18 20:43:00 Carly Estrada [facility] ACTIVATED PARTIAL 2022-07-18 20:43:00 Sean [facility] THRMPLAS MARIIA [facility] N-TERMINAL PRO-BNP 2022-07-18 20:43:00 Carly Estrada [facility] CONSENT/REFUSAL FOR 2022-07-18 20:02:59 Doctor Unassigned, No [facility] Name [facility] POCT URINALYSIS W/O 2022-07-10 21:16:00 Fior Cyr [facility] SPECIFIC GRAVITY [facility] POCT URINALYSIS W/O 2022-06-20 00:00:00 Fior Cyr [facility] SPECIFIC GRAVITY [facility] POCT URINALYSIS W/O 2022-05-23 00:00:00 Fior Cyr [facility] SPECIFIC GRAVITY [facility] URINALYSIS 2022-05-22 00:56:00 Fior Cyr [place] [facility] COMP. METABOLIC PANEL 2022-05-22 00:44:00 Fior Cyr [facility] ([id number]) [facility] CBC WITH DIFF 2022-05-22 00:44:00 Fior Cyr [place] [facility] ADC CLC OR LCC ONLY - 2022-05-22 00:44:00 Fior [facility] CONSENT/REFUSAL FOR 2022-05-21 23:08:02 Doctor Unassigned, No [facility] [place] DIAGNOSIS AND TREATMENT [facility] SCANNED LAB RESULTS 2022-04-05 05:01:00 Doctor Unassigned, No [facility] <14 WEEKS US 2022-03-28 20:25:18 Fior Cyr [facility] [place], operated [facility] URINE DRUG (IMMUNOASSAY) 2022-03-28 20:13:00 Fior Cyr [facility] DRUG Medical [facility] SCREEN PAP SMEAR-LIQUID 2022-03-28 20:13:00 Fior Cyr [facility]ED[facility] Medical Branch POCT TEST 2022-03-28 19:39:00 Fior Cyr [facility] POCT URINALYSIS W/O 2022-03-28 19:39:00 Fior Cyr [facility] SPECIFIC GRAVITY [facility] COMPUTER SECURITY MANAGER CLINIC ULTRASOUND 2022-03-28 05:01:00 Doctor Unassigned, No [facility] Encounters Start End Encounter Admission Attending Care Care Encounter Source Date/Time Date/Time Type Type Clinicians Facility Department ID 2022-11-19 Outpatient R FIOR CYR [facility] INTERNET ASSESSOR [id number] Univers 16:45:20 ity of [facility] 2022-09-09 Outpatient X [facility] [place] [id number] Univers 19:21:37 ity of [facility] 2022-07-18 Outpatient P [facility] [place] [id number] Univers 14:01:30 ity of [facility] 2022-05-22 Outpatient X [facility] [place] [id number] Univers 09:36:40 ity of [facility] 2021-06-28 Outpatient P [facility] [place] [id number] Univers 15:03:31 ity of [facility] 2021-06-28 Outpatient P [facility] [place] [id number] Univers 11:34:55 ity of [facility] 2021-06-28 Outpatient P [facility] [place] [id number] Univers 11:34:32 ity [facility] 2023-01-21 2023-01-22 Emergency [facility] [id number] Univers 22:51:00 00:23:00 SABRINA ity [facility] 2023-01-21 2023-01-22 Emergency [facility] 1.2.840.114 10 [id number] Univers 22:51:00 00:23:00 Sabrina RIVAS 350.1.13.10 [place] [id number] [address] 2022-11-19 2022-11-19 Prep For Fior Cyr [facility] 1.2.840.114 101 [id number] Univers 00:00:00 00:00:00 Surgery Cam [place] 350.1.13.10 i ty [place] [id number] Oh dical NAL [address] [place] [address] 2022-11-19 2022-11-19 Prep For Fior Cyr [facility] 1.2.840.114 101 [id number] Univers 00:00:00 00:00:00 Surgery Cam [place] 350.1.13.10 i [place] [id number] Oh dicnc NAL [address] [place] [address] 2022-11-18 2022-11-18 Outpatient R FIOR CYR [facility] [id number] Univers 15:30:00 16:48:02 ity of [facility] 2022-11-18 2022-11-18 Routine Fior Cyr [facility] 1.2.602.986 [id number] Univers 15:30:00 16:48:02 Cam [place] 350.1.13.10 ity of [place] [id number] Oh dic[address] 2022-11-18 2022-11-18 Orders Doctor NATHAN 1.2.840.114 [id number] Univers 00:00:00 00:00:00 Only Unassigned, FANTASMA 350.1.13.10 ity of [place] [facility] 4.2.7.2.686 Alfred[place] as [id number] [facility] [address] [place] 2022-10-15 2022-10-17 Inpatient P FIOR CYR [facility] [place] [id number] Univers 18:27:00 11:35:00 ity of [facility] 2022-10-15 2022-10-17 [facility] 1.2.840.114 [id number] Univers 18:27:00 11:35:00 Encounter Cam [place] 350.1.13.10 it[place] [id number] [facility] [address] [place] 2022-10-15 2022-10-15 Outpatient R FIOR CYR [facility] [id number] Univers 15:15:00 16:30:48 ity of [facility] 2022-10-15 2022-10-15 Routine Ger [facility] 1.2.396.070 [id number] Univers 15:15:00 16:30:48 Cam [place] 350.1.13.10 it[place] [id number] Oh dic[address] 2022-10-14 2022-10-14 Emergency Fior Cyr [facility] 1.2.840.114 10 [id number] Univers 13:20:00 14:30:00 Cam [place] 350.1.13.10 i ty [place] [id number] [facility] [address] [place] 2022-10-14 2022-10-14 Outpatient X FIOR CYR [facility] [place] [id number] Univers 13:20:00 14:30:00 ity of [facility] 2022-10-14 2022-10-14 Telephone Fior Cyr [facility] 1.2.840.114 10 [id number] Univers 00:00:00 00:00:00 Geo RIVAS 350.1.13.10 i [place] [id number] Oh dical NAL 134 [facility] 2022-10-08 2022-10-08 Outpatient R FIOR CYR [facility] [id number] Univers 14:15:00 14:40:31 ity of [facility] 2022-10-08 2022-10-08 Routine Karmen Enamorado [facility] 1.2.840.11 4 [id number] Univers 14:15:00 14:40:31 Fior Cyr Geo RIVAS 350.1.13.10 it[place] [id number] Oh dical NAL 134 [facility] 2022-10-08 2022-10-08 Receiving Worker 2, Adc Lab [facility] 1.2.840.114 [id number] Univers 13:45:00 14:00:00 Visit Fior Cyr Geo RIVAS 350.1.13.10 it[place] of [place] [id number] Oh dical NAL 353 [facility] 2022-10-01 2022-10-01 Routine Kelsea [facility] 1.2.080.001 [id number] Univers 16:15:00 16:15:00 Karmen RIVAS 350.1.13.10 it[place] [id number] Oh dical NAL 134 [facility] 2022-10-01 2022-10-01 Outpatient R KELSEA [facility] [id number] Univers 16:15:00 12:08:41 KARMEN coley of [facility] 2022-10-01 2022-10-01 Orders Doctor NATHAN 1.2.840.114 [id number] Univers 00:00:00 00:00:00 Only Unassigned, FANTASMA 350.1.13.10 ity of [place] [facility] 4.2.7.2.686 [place] as [id number] [address] 2022-09-18 2022-09-18 Orders Doctor NATHAN 1.2.840.114 [id number] Univers 00:00:00 00:00:00 Only Unassigned, FANTASMA 350.1.13.10 ity of [place] [facility] 4.2.7.2.686 [place] as [id number] [address] 2022-09-17 2022-09-17 Outpatient R FIOR CYR [facility] [id number] Univers 15:45:00 17:32:07 ity of [facility] 2022-09-17 2022-09-17 Routine Ger [facility] 1.2.180.213 [id number] Univers 15:45:00 17:32:07 Cam [place] 350.1.13.10 it[place] [id number] Oh dic[address] 2022-09-10 2022-09-10 Outpatient X FIOR CYR [facility] [place] [id number] Univers 15:53:00 19:40:00 ity of [facility] 2022-09-10 2022-09-10 Emergency Ger [facility] 1.2.840.114 99 [id number] Univers 15:53:00 19:40:00 Cam [place] 350.1.13.10 i ty [place] [id number] [place] [id number] [place] 2022-09-10 2022-09-10 Nurse Fior Cyr [facility] 1.2.128.093 [id number] Univers 00:00:00 00:00:00 Triage Cam [place] 350.1.13.10 i ty [place] [id number] Oh dical NAL 134 [facility] 2022-09-10 2022-09-10 Telephone Fior Cyr [facility] 1.2.840.114 99 [id number] Univers 00:00:00 00:00:00 Cam [place] 350.1.13.10 i [place] [id number] Oh dical NAL [address] [place] [address] 2022-09-09 2022-09-09 Outpatient X GER [facility] [place] [id number] Univers 17:06:00 19:11:00 ity of [facility] 2022-09-09 2022-09-09 Emergency Ger [facility] 1.2.840.114 99 [id number] Univers 17:06:00 19:11:00 Cam [place] 350.1.13.10 i [place] [id number] [facility] [address] [place] 2022-09-09 2022-09-09 Orders Doctor NATHAN 1.2.840.114 [id number] Univers 00:00:00 00:00:00 Only Unassigned, FANTASMA 350.1.13.10 ity of [place] [facility] 4.2.7.2.686 [place] as [id number] [facility] [address] [place] 2022-09-02 2022-09-02 Outpatient R KELSEA [facility] [id number] Univers 15:30:00 16:30:10 KARMEN ity [facility] 2022-09-02 2022-09-02 Routine [facility] 1.2.921.230 [id number] [id number] Univers 15:30:00 15:45:00 Karmen RIVAS 350.1.13.10 it[place] 246.9514490 Oh dic[address] 2022-08-19 2022-08-19 Outpatient R GER FIOR [facility] [id number] Univers 15:30:00 15:37:46 ity of [facility] 2022-08-19 2022-08-19 Routine Ger [facility] 1.2.003.967 3390 [id number] Univers 15:30:00 15:37:46 Geo [place] 350.1.13.10 ity of [place] [id number] Oh dical NAL 134 [facility] 2022-08-12 2022-08-12 Telephone [facility] 1.2.840.114 [id number] Univers 00:00:00 00:00:00 Karmen [place] 350.1.13.10 i ty [place] [id number] Me dical NAL 134 [facility] 2022-08-08 2022-08-08 Routine [facility] 1.2.542.152 [id number] 8310 Univers 14:15:00 14:30:00 Karmen OZUNALORNE 350.1.13.10 ity of [place] [id number] Oh dical NAL [address] [place] [address] 2022-08-08 2022-08-08 Outpatient R FIOR CYR [facility] [id number] Univers 10:00:00 11:36:40 ity of [facility] 2022-08-08 2022-08-08 Receiving Worker 2, Adc Lab [facility] 1.2.840.114 [id number] Univers 10:00:00 10:15:00 Visit Ger Fiornemesio RIVAS 350.1.13.10 it[place] 436.0549140 Oh dical NAL 353 [facility] 2022-07-26 2022-07-26 Outpatient X YAO-LEMUS, ROSELINE [facility] O BY [id number] Univers 15:40:00 20:00:00 MAXIMILIAN-LEMUS, ROSELINE ity of [facility] 2022-07-26 2022-07-26 Emergency Margarita Malone [facility] 1.2.840.1 14 [id number] Univers 15:40:00 20:00:00 Maximilian-Caro Lemussol [place] 350.1.1 3.10 ity of [place] 4.2.7.2.686 [facility] [id number] [address] 2022-07-22 2022-07-22 Outpatient R KELSEA [facility] [id number] Univers 09:30:00 11:38:10 KARMEN [facility] 2022-07-22 2022-07-22 [facility]ine [facility] 1.2.138.152 [id number] Univers 09:30:00 11:38:10 Karmen RIVAS 350.1.13.10 it[place] [id number] Oh dical NAL [address] [place] [address] 2022-07-18 2022-07-18 Emergency X SEAN [facility] ERT [id number] Univers 14:17:00 17:45:00 CARLY [facility] 2022-07-18 2022-07-18 Emergency [facility] 1..550.457 [id number] Univers 14:17:00 17:45:00 Carly RIVAS 350.1.13.10 i ty of [place] 4.2.7.2.686 [facility] [id number] [address] 2022-07-18 2022-07-18 Outpatient R FIOR CYR [facility] [id number] Univers 13:00:00 16:58:53 ity [facility] 2022-07-18 2022-07-18 Routine Fior Cyr [facility] 1.2.655.437 [id number] Univers 13:00:00 13:15:00 Geo RIV[place] 350.1.13.10 it[place] [id number] Oh dical NAL [address] [place] [address] 2022-07-16 2022-07-16 Outpatient P MARYCARMEN [facility] [id number] Univers 15:30:00 16:37:18 CONY it y of SJASMIN [facility] 2022-07-16 2022-07-16 Receiving Worker Ultrasound, Adc [facility] 1.2 .840.114 [id number] Univers 15:30:00 16:00:00 Visit Fior Cyr ROB 350.1.13.10 ity of Jasmin WildISRRAEL 4.2.7.2. 686 [place] PROFESSIO [id number] Oh dical NAL [address] [place] [address] 2022-07-10 2022-07-10 Outpatient R FIOR CYR [facility] [id number] Univers 13:35:00 15:00:00 ity of [facility] 2022-07-10 2022-07-10 Nurse Nurse, [facility] 1.2.840.114 [id number] Univers 13:35:00 15:00:00 Visit Fior Cyr ROB 350.1.13.10 ity of [facility] [place]2.7.2.[place] [id number] Oh dical NAL [address] [place] [address] 2022-07-10 2022-07-10 Telephone Fior Cyr [facility] 1.2.840.114 [id number] Univers 00:00:00 00:00:00 Geo RIVAS 350.1.13.10 i ty of [facility] [place] [id number] Oh dical NAL [address] [place] [address] 2022-07-10 2022-07-10 Patient Patrica [facility] 1.2.840.114 [id number] Univers 00:00:00 00:00:00 Secure Msg Roslyn ROB 350.1.13.10 ity of [facility] 4[place] [id number] Oh dical NAL [address] [place] [address] 2022-06-20 2022-06-20 Outpatient R FIOR CYR [facility] [id number] Univers 15:30:00 16:08:19 ity of [facility] 2022-06-20 2022-06-20 Routine Ger [facility] 1.2.880.320 3987 [id number] Univers 15:30:00 16:08:19 Geo RIVAS 350.1.13.10 ity of Visit [facility] 4[place]2.7.2.[place] [id number] Oh dical NAL [address] [place] [address] 2022-06-19 2022-06-19 Letter CyrLarissaen [facility] 1.2.637.578 [id number] Univers 00:00:00 00:00:00 (Out) Geo RIVAS 350.1.13.10 i ty of [facility] 4[place]2.7.2.[place] [id number] Oh dical NAL 134 [facility] 2022-06-11 2022-06-11 Outpatient P MARYCARMEN [facility] [id number] Univers 15:00:00 16:03:23 CONY it y of [place] [facility] 2022-06-11 2022-06-11 Receiving Worker Ultrasound, Adc [facility] 1.2 .840.114 [id number] Univers 15:00:00 16:00:00 Visit Marycarmen AustinzeJasmin ROB 350.1 .13.10 ity of [place] [id number] Oh dical NAL 134 [facility] 2022-05-23 2022-05-23 Routine Kelsea [facility] 1.2.220.742 [id number] Univers 15:30:00 16:21:43 Karmen RIV[place] 350.1.13.10 ity of [place] 532.3913310 Oh dical NAL [address] [place] [address] 2022-05-23 2022-05-23 Outpatient R KELSEA [facility] [id number] Univers 15:30:00 16:21:43 KARMEN ity of [facility] 2022-05-23 2022-05-23 Receiving Worker 2, Adc Lab [facility] 1.2.840.114 [id number] Univers 15:00:00 15:15:00 Visit CyrLarissanemesio RIVAS 350.1.13.10 ity of [facility] 4.2.7.2.[place] [id number] Oh dical NAL 353 [facility] 2022-05-21 2022-05-22 Outpatient X CYR FIOR [facility] [place] [id number] Univers 18:15:00 09:35:00 ity of [facility] 2022-05-21 2022-05-22 Emergency Fior Cyr [facility] 1.2.840.114 [id number] Univers 18:15:00 09:35:00 Cam ROB 350.1.13.10 i [place] [id number] [facility] [address] [place] 2022-05-20 2022-05-20 Patient Case, Rosalie [facility] THAD 1.2.840.114 [id number] Univers 00:00:00 00:00:00 Secure Msg Jayden WISDOM 350.1.13.10 it[place] of [place] [id number] [facility] [address] [place] 2022-05-10 2022-05-10 Outpatient France NEVAREZ [facility] [id number] Univers 16:00:00 16:00:00 [facility] 2022-04-25 2022-04-25 Outpatient R FIOR CYR [facility] [id number] Univers 15:45:00 16:42:44 ity of [facility] 2022-04-25 2022-04-25 Routine Ger [facility] 1.2.425.692 [id number] [id number] Univers 15:45:00 16:42:44 Geo RIVAS 350.1.13.10 ity of [place] [id number] Oh dical NAL 134 [facility] 2022-04-25 2022-04-25 Outpatient France NEVAREZ [facility] [id number] Univers 08:00:00 08:45:26 ABNER angulo [facility] 2022-04-25 2022-04-25 Ancillary Anastacia Noble [facility] 1.2.84 0.114 [id number] Univers 08:00:00 08:45:26 Visit Abner Nevarez 350.1.13.10 ity of [place] [id number] Oh dical NAL 179 [facility] 2022-04-18 2022-04-18 Outpatient France NEVAREZ [facility] [id number] Univers 08:00:00 13:21:20 ABNER ity of [facility] 2022-04-18 2022-04-18 Ancillary Anastacia Noble [facility] 1.2.84 0.114 [id number] Univers 08:00:00 13:21:20 Visit Abner Nevarez Pineda RIVAS 350.1.13.10 ity of [facility] 4.2.7.2.[place] 476.2564958 Oh dical NAL 179 [facility] 2022-04-17 2022-04-17 Telephone Fior Cyr [facility] 1.2.840.114 [id number] Univers 00:00:00 00:00:00 Geo RIVAS 350.1.13.10 i ty of [facility] 4.2.7.2.[place] 592.2348556 Oh dical NAL 134 [facility] 2022-04-09 2022-04-09 Ancillary Jing Britton [facility] 1 .2.840.114 [id number] Univers 13:00:00 15:21:44 Visit Ayana Abner Pineda RIVAS 350.1.13.10 ity of [facility] 4.2.7.2.[place] 346.8255191 Oh dical NAL 179 [facility] 2022-04-05 2022-04-05 Receiving Worker 2, Adc Lab [facility] 1.2.840.114 [id number] Univers 09:00:00 09:15:00 Visit Fior Cyr 350.1.13.10 ity of [facility] 4.2.7.2.[place] 155.4867148 Oh dical NAL 353 [facility] 2022-04-05 2022-04-05 Outpatient R FIOR CYR [facility] [id number] Univers 09:00:00 09:00:00 ity of [facility] 2022-04-05 2022-04-05 Orders Doctor NATHAN 1.2.840.114 [id number] Univers 00:00:00 00:00:00 Only Unassigned, FANTASMA 350.1.13.10 ity of [place] [facility] 4.2.7.2.686 [place] as [id number] [address] 2022-03-30 2022-03-30 Case Fior Cyr [facility] 1.2.872.708 [id number] Univers 00:00:00 00:00:00 Management Cam [place] 350.1.13.10 ity of [place] [id number] Oh dical NAL 134 [facility] 2022-03-29 2022-03-29 Receiving Worker 2, Adc Lab [facility] 1.2.840.114 [id number] Univers 09:15:00 09:30:00 Visit Fior Cyr [place] 350.1.13.10 ity of [place] [id number] [facility] 353 [facility] 2022-03-29 2022-03-29 Outpatient R FIOR CYR [facility] [id number] Univers 09:15:00 09:15:00 ity of [facility] 2022-03-29 2022-03-29 Case Fior Cyr [facility] 1.2.633.947 [id number] Univers 00:00:00 00:00:00 Management Cam [place] 350.1.13.10 ity of [place] [id number] Oh dic[address] 2022-03-29 2022-03-29 Telephone Fior Cyr [facility] 1.2.840.114 [id number] Univers 00:00:00 00:00:00 Cam [place] 350.1.13.10 i ty of [place] 411.7648995 Oh dical NAL 134 [facility] 2022-03-28 2022-03-28 Outpatient R FIOR CYR [facility] [id number] Univers 14:00:00 15:22:58 ity of [facility] 2022-03-28 2022-03-28 Initial Fior Cyr [facility] 1.2.803.617 [id number] [id number] Univers 14:00:00 15:22:58 Cam [place] 350.1.13.10 ity of [place] [id number] Oh dical [address] 2022-03-28 2022-03-28 Outpatient R GERLARISSAEN [facility] [id number] Univers 14:00:00 15:22:58 ity of [facility] 2022-03-28 2022-03-28 Orders Doctor NATHAN 1.2.840.114 [id number] Univers 00:00:00 00:00:00 Only Unassigned, FANTASMA 350.1.13.10 ity of [place] [facility] 4.2.7.2.686 [place] as [id number] [address] 2022-03-19 2022-03-19 Emergency X SINAN [facility] ERT [id number] Univers 16:47:00 18:40:00 UYEN angulo [facility] 2022-03-19 2022-03-19 [facility] 1.2.840.114 [id number] Univers 16:47:00 18:40:00 Uyen RIVAS 350.1.13.10 i [place] [id number] [address] 2022-03-19 2022-03-19 Orders Doctor NATHAN 1.2.840.114 [id number] Univers 00:00:00 00:00:00 Only Unassigned, FANTASMA 350.1.13.10 ity of [place] [facility] 4.2.7.2.686 Alfredito as [phone] [address] 2021-09-07 2021-09-07 Emergency X SINGER [facility] ERT [id number] Univers 17:08:00 18:27:00 JOSHUA angulo [facility] 2021-09-07 2021-09-07 Emergency [facility] [id number] [id number] Univers 17:08:00 18:27:00 Joshua YESSICALORNE 350.1.13.10 i [place] [id number] [address] 2021-08-10 2021-08-10 Emergency X AMIRAH [facility] ERT [id number] Univers 17:50:00 21:07:00 CEE itjame [facility] 2021-08-10 2021-08-10 Emergency [facility], [facility] [id number] Univers 17:50:00 21:07:00 Cee Barroso ROB 350.1.13.10 [place] [id number] [address] 2020-06-26 2020-06-26 Outpatient R KELSEA [facility] [id number] Univers 10:30:00 10:30:00 KARMEN [facility] 2020-03-22 2020-03-22 Outpatient R [facility] [id number] Univers 10:30:00 10:30:00 ity [facility] 2019-12-31 2019-12-31 Outpatient R KELSEA [facility] [id number] Univers 08:30:00 08:30:00 KARMEN [facility] 2019-12-23 2019-12-23 [facility]medici [facility] 1.2.840.114 [id number] Univers 07:58:31 13:26:53 ne Visit Karmen Rivas 350.1.13.10 [place] [phone] Oh dical [address] 2019-12-23 2019-12-23 [facility]medici [facility] 1.2.840.114 [id number] 07:58:31 13:26:53 ne Visit Karmen Rivas 350.1.13.10 [place] 4.2.7.2.686 Professio [id number] [address] 2019-12-23 2019-12-23 Outpatient R KELSEA [facility] [id number] Univers 13:00:00 [facility]:00[facility] 2019-12-21 2019-12-21 Refill Fior Cyr [facility] [id number] [id number] Univers 00:00:00 00:00:00 Geo Rivas 350.1.13.10 [place] [phone] Oh dical [address] 2019-12-21 2019-12-21 Refill Fior Cyr [facility] 1.2.553.242 [id number] 00:00:00 00:00:00 [place] 350.1.13.10 [place] 4.2.7.2.686 Professio [id number] [address] 2019-12-20 2019-12-20 Refill Fior Cry [facility] 1.2.672.251 [id number] Univers 00:00:00 00:00:00 [place] 350.1.13.10 i [place] Professio [phone] Oh dical [address] 2019-12-20 2019-12-20 Refill Fior Cyr [place] 1.2.296.885 [id number] 00:00:00 00:00:00 [place] 350.1.13.10 [place] 4.2.7.2.686 Professio [phone] [address] 2019-11-29 2019-11-29 Orders Doctor NATHAN 1.2.840.114 [id number] Univers 00:00:00 00:00:00 Only Unassigned, FANTASMA 350.1.13.10 ity of [place] [facility] 4.2.7.2.686 Alfredito as [phone] [facility] [address] [place] 2019-11-29 2019-11-29 Orders Doctor EVANS 1.2.840.114 [id number] 00:00:00 00:00:00 Only Unassigned, FANTASMA 350.1.13.10 [place] [facility] 4.2.7.2.[id number] [facility] 2019-11-25 2019-11-26 [facility] Fior Cyr [facility] 1.2.840.114 [id number] Univers 05:33:00 21:06:00 Encounter [place] 350.1.13.10 ity of [place]2.[place] [phone] [facility] [address] [place] 2019-11-25 2019-11-26 [facility] Fior Cyr [facility] 1.2.840.114 [id number] 05:33:00 21:06:00 Encounter [place] 350.1.13.10 [place] 4.2.7.2.686 Paden [id number] 083 2019-11-25 2019-11-25 Outpatient P [facility] SANTO [id number] Univers 00:00:00 00:00:00 ity [facility] 2019-11-25 2019-11-25 Orders Doctor EVANS 1.2.840.114 [id number] 00:00:00 00:00:00 Only Unassigned, [place]ANTASMA 350.1.13.10 [place] [facility] [id number] 009 2019-11-25 2019-11-25 Orders Doctor NATHAN 1.2.840.114 [id number] Univers 00:00:00 00:00:00 Only Unassigned, FANTASMA 350.1.13.10 ity of [place] [facility] 4.2.7.2.686 Alfredito as [phone] [address] 2019-11-22 2019-11-22 Outpatient R FIOR CYR [facility] [id number] Univers 08:45:00 08:45:00 [facility] 2019-11-19 2019-11-19 [facility] 1.2.241.504 [id number] 08:59:42 09:14:42 Karmen [place] 350.1.13.10 Visit [place] 4.2.7.2.686 Professio [phone] [address] 2019-11-19 2019-11-19 [facility] 1.2.992.336 1061 [id number] Univers 08:59:42 09:14:42 Karmen [place] 350.1.13.10 ity of Visit [place] [phone] Oh dical [address] 2019-11-19 2019-11-19 Outpatient R KELSEA [facility] [id number] Univers 09:00:00 09:00:00 KARMEN ity [facility] 2019-11-18 2019-11-18 Telephone Fior Cyr [facility] 1.2.840.114 [id number] 00:00:00 00:00:00 [place] 350.1.13.10 [place] 4.2.7.2.686 Professio [phone] [address] 2019-11-18 2019-11-18 Evening Shade Fior Cyr [facility] 1.2.840.114 74 [id number] [facility] 00:00:00 00:00:00 [place] 350.1.13.10 i ty of [place]7.2.[place] [phone] Oh dical [address] 2019-11-17 2019-11-17 [facility] Fior Cyr [facility] 1.2.840.114 [id number] 13:08:00 16:20:00 Encounter Alyce [place] 350.1.13.10 [place] 4.2.7.2.686 Paden [id number] [facility] 2019-11-17 2019-11-17 [facility] Fior [place] 1.2.840.114 [id number] [facility] 13:08:00 16:20:00 Encounter Alyce [place] 350.1.13.10 ity of [place]2.[place] [phone] [address] 2019-11-13 2019-11-13 Case Diclement[place] 1.2.840.114 74 [id number] 00:00:00 00:00:00 Management Giovanni Rivas 350.1.13.10 [place] 4.2.7.2.686 Professio [phone] [address] 2019-11-13 2019-11-13 Case Diclemente, [facility] 1.2.840.114 74 [id number] [facility] 00:00:00 00:00:00 Management Giovanni Rivas 350.1.13.10 ity of [place] 4[place]7.2.[place] [phone] Oh dic[address] 2019-11-12 2019-11-12 Routine Diclemente, [facility] 1.2.840.114 74 [id number] 08:54:42 10:03:14 Giovanni Rivas 350.1.13.10 Visit [place] 4.2.7.2.686 Professio [phone] [address] 2019-11-12 2019-11-12 Routine Chika [facility] 1.2.840.114 74 [id number] Univers 08:54:42 10:03:14 Giovanni Rivas 350.1.13.10 ity of Visit [place]7.2.[place] [phone] [address] 2019-11-12 2019-11-12 Outpatient R CARMENGIOVANNI Fuentes [facility] B [id number] Univers 08:45:00 08:45:00 CHIKA GIOVANNI ity [facility] 2019-11-12 2019-11-12 Orders Doctor EVANS 1.2.840.114 [id number] 00:00:00 00:00:00 Only Unassigned, FANTASMA 350.1.13.10 [place] [facility] 4.2.7.2.[id number] [facility] 2019-11-12 2019-11-12 Orders Doctor EVANS 1.2.840.114 [id number] Univers 00:00:00 00:00:00 Only Unassigned, FANTASMA 350.1.13.10 ity of [place] [facility] 4.2.7.2.686 Alfredito as [phone] [address] 2019-11-05 2019-11-05 Receiving Worker Ultrasound, [facility] 1.2.840.114 [id number] 16:15:50 16:45:50 Visit Dimas [facility] Rob 350.1.13.10 [place] 4.2.7.2.[phone] 2019-11-05 2019-11-05 Receiving Worker Ultrasound, [facility] 1.2 .840.114 [id number] Univers 16:15:50 16:45:50 Visit Vikas Kendall 350.1.13.10 ity of [place] 4[place]2.7.2.[place] [phone] Oh dical [address] 2019-11-05 2019-11-05 Outpatient P [facility] [id number] Univers 15:30:00 15:30:00 ity of [facility] 2019-11-05 2019-11-05 Letter Ultrasound, MAMB 1.2.840.114 [id number] 00:00:00 00:00:00 (Out) Adc Mfm [place] 350.1.13.10 [place] 4.2.7.2.686 Professio [phone] [address] 2019-11-05 2019-11-05 Letter Ultrasound, [facility] 1.2.840.114 74 [id number] Univers 00:00:00 00:00:00 (Out) Adc Mfm [place] 350.1.13.10 i ty of [place].7.2.[place] [phone] [address] 2019-10-29 2019-10-29 [facility]ine [facility] 1.2.058.324 [id number] 09:25:23 10:08:15 Karmen [place] 350.1.13.10 Visit [place] 4.2.7.2.686 Professio [phone] [address] 2019-10-29 2019-10-29 [facility] 1.2.094.674 [id number] Univers 09:25:23 10:08:15 Karmen [place] 350.1.13.10 ity of Visit [place]7.2.[place] [phone] [address] 2019-10-29 2019-10-29 Outpatient R KELSEA [facility] [id number] Univers 09:15:00 09:15:00 KARMEN ity of [facility] 2019-10-28 2019-10-29 [facility] Ger [facility] 1.2.840.114 [id number] 22:21:00 00:17:00 Encounter Cam [place] 350.1.13.10 [place] 4.2.7.2.686 Paden [phone] 3 2019-10-28 2019-10-29 [facility] 1.2.840.114 [id number] Univers 22:21:00 00:17:00 Encounter [place] 350.1.13.10 ity of [place]2.7.2.[place] [phone] [facility] [address] [place] 2019-10-29 2019-10-29 Letter Kelsea, [facility] 1.2.147.460 [id number] 00:00:00 00:00:00 (Out) Karmen Rivas 350.1.13.10 [place] 4.2.7.2.686 Professio [phone] [address] 2019-10-29 2019-10-29 Merissa Enamorado [facility] 1.2.557.258 [id number] [facility] 00:00:00 00:00:00 (Out) Karmen Rivas 350.1.13.10 i ty of [place] 4[place]2.7.2.[place] [phone] Oh dic[address] 2019-10-22 2019-10-22 Receiving Worker 2, Adc Lab [facility] 1.2.840.114 [id number] 14:58:39 15:13:39 Visit Rob 350.1.13.10 [place] 4.2.7.2.686 Professio [phone] [address] 2019-10-22 2019-10-22 Receiving Worker 2, Adc Lab [facility] 1.2.840.114 [id number] [facility] 14:58:39 15:13:39 Visit Giovanni Jain 350.1.13. 10 ity of [place] 4.2.7.2.[place] [phone] Oh dical [address] 2019-10-22 2019-10-22 Routine Diclemente, [facility] 1.2.840.114 74 [id number] 13:33:50 14:54:53 Giovanni Rivas 350.1.13.10 Visit [place] 4.2.7.2.686 Professio [phone] [address] 2019-10-22 2019-10-22 Routine Diclemente, [facility] 1.2.840.114 74 [id number] [facility] 13:33:50 14:54:53 Giovanni Rivas 350.1.13.10 ity of Visit [place] 4[place]2.7.2.[place] [phone] Oh dical [address] 2019-10-22 2019-10-22 Orders Doctor NATHAN 1.2.840.114 [id number] [facility] 00:00:00 00:00:00 Only Unassigned, FANTASMA 350.1.13.10 ity of [place] [facility] 4.2.7.2.686 Alfredito as [phone] [address] 2019-10-22 2019-10-22 Orders Doctor NATHAN 1.2.840.114 [id number] 00:00:00 00:00:00 Only Unassigned, FANTASMA 350.1.13.10 [place] [facility] 4.2.7.2.[phone] [facility] 2019-10-20 2019-10-20 [facility], [facility] 1.2.840.114 [id number] [facility] 00:00:00 00:00:00 Giovanni Rob 350.1.13.10 i ty of [place] 4.2.7.2.[place] Profess[place] [phone] Oh dic[address] 2019-10-20 2019-10-20 Telephone Diclemente, [facility] 1.2.840.114 [id number] 00:00:00 00:00:00 Giovanni Rivas 350.1.13.10 [place] 4.2.7.2.686 Professio [phone] [address] 2019-10-15 2019-10-15 Patient Priyanka, [facility] 1.2.840.114 [id number] [facility] 00:00:00 00:00:00 Secure Msg Nuvia Pineda [place] 350.1.13.10 ity of [place] 4.2.7.2.[place] [phone] Oh dical [address] 2019-10-15 2019-10-15 Patient Priyanka, [facility] 1.2.840.114 [id number] 00:00:00 00:00:00 Secure Msg Nuvia L [place] 350.1.13.10 [place] 4.2.7.2.686 Professio [phone] [address] 2019-10-13 2019-10-13 Patient Doctor [facility] 1.2.840.114 [id number] Univers 00:00:00 00:00:00 Secure Msg Unassigned, [place] 350.1.13.10 ity [place] 4.2.7.2.[place] [phone] Oh dic[address] 2019-10-13 2019-10-13 Patient Doctor [facility] 1.2.840.114 [id number] 00:00:00 00:00:00 Secure Msg Unassigned, [place] 350.1.13.10 [place] 4.2.7.2.686 Professio [phone] [address] 2019-10-08 2019-10-08 Routine [facility], [facility] 1.2.494.633 [id number] 6201 [facility] 08:26:34 09:18:04 Karmen [place] 350.1.13.10 ity of Visit [place] 4.2.7.2.[place] Profess[place] [phone] [address] 2019-10-08 2019-10-08 Routine Vanaphan, [facility] 1.2.643.148 [id number] 08:26:34 09:18:04 Karmen [place] 350.1.13.10 Visit [place] 4.2.7.2.686 Professio [phone] [address] 2019-10-05 2019-10-05 Patient Doctor [facility] 1.2.840.114 [id number] Univers 00:00:00 00:00:00 Secure Msg Unassigned, [place] 350.1.13.10 ity [place] 4.2.7.2.[place] [phone] Oh dic[address] 2019-10-05 2019-10-05 Patient Doctor [facility] 1.2.840.114 [id number] 00:00:00 00:00:00 Secure Msg Unassigned, [place] 350.1.13.10 [place] 4.2.7.2.686 Professio [phone] [address] 2019-09-29 2019-09-29 [facility] 1.2.840.114 [id number] Univers 18:12:00 20:54:00 Encounter Geo Rivas 350.1.13.10 ity of [place]7.2.[place] [phone] [address] 2019-09-29 2019-09-29 [facility] Fior Cyr [place] 1.2.840.114 [id number] 18:12:00 20:54:00 Encounter Geo Rivas 350.1.13.10 [place] 4.2.7.2.686 [place] [phone] [facility] 2019-09-24 2019-09-24 Routine Diclemente, [facility] 1.2.840.114 [id number] Univers 09:33:48 10:12:13 Giovanni Rivas 350.1.13.10 ity of Visit [place] 4.2.7.2.[place] [phone] [address] 2019-09-24 2019-09-24 Routine Diclemente, [facility] 1.2.840.114 73 [id number] 09:33:48 10:12:13 Giovanni Rivas 350.1.13.10 Visit [place] 4.2.7.2.686 Professio [phone] [address] 2019-09-24 2019-09-24 Letter Diclemente, [facility] 1.2.840.114 73 [id number] Univers 00:00:00 00:00:00 (Out) Giovanni Rivas 350.1.13.10 i ty of [place].7.2.[place] [phone] Oh dical [address] 2019-09-24 2019-09-24 Letter Diclemente, [facility] 1.2.840.114 [id number] 00:00:00 00:00:00 (Out) Giovanni Rivas 350.1.13.10 [place] 4.2.7.2.686 Professio [phone] [address] 2019-09-23 2019-09-23 Emergency Jayes, [facility] 1.2.668.454 [id number] [facility] 18:49:51 20:42:00 [facility] 350.1.13.10 [place]2.[place] [facility] [phone] [address] ([facility]) 2019-09-23 2019-09-23 Emergency Tamera [facility] 1.2.918.567 [id number] 18:49:51 20:42:00 [facility] 350.1.13.10 [place] 4.2.7.2.686 [facility] [phone] [address] ([facility]) 2019-08-25 2019-08-25 Emergency Gillian ALICIA [facility] ERT [id number] Univers 20:52:37 23:46:00 DIANE kev [facility] 2019-08-16 2019-08-16 Patient Doctor [facility] 1.2.840.114 [id number] Univers 00:00:00 00:00:00 Secure Msg UnassignedRob 350.1.13.10 ity of [place] 4.2.7.2.686 [phone] [facility] [address] 2019-08-16 2019-08-16 Patient Doctor [facility] 1.2.840.114 [id number] 00:00:00 00:00:00 Secure Msg UnassignedRob 350.1.13.10 [place] 4.2.7.2.686 [facility] [phone] [address] 2019-05-14 2019-05-14 [facility] 1.2.840.114 7 [id number] Univers 10:21:14 23:59:00 Encounter Giovanni Rivas 350.1.13.10 ity of [place] 4.2.7.2.686 [facility] [place] [phone] [place] 864796 [place] 2019-05-14 2019-05-14 [facility] 1.2.840.114 [id number] 10:21:14 23:59:00 Encounter Giovanni Rivas 350.1.13.10 [place] 4.2.7.2.686 [place] [phone] [facility] 2019-05-14 2019-05-14 Routine [facility] 1.2.840.114 [id number] Univers 13:04:47 13:54:42 Giovanni Rivas 350.1.13.10 ity of Visit [place] 4[place]7.2.[place] [phone] [address] 2019-05-14 2019-05-14 Routine Chika, [facility] 1.2.840.114 71 [id number] 13:04:47 13:54:42 Giovanni Rivas 350.1.13.10 Visit [place] 4.2.7.2.686 Professio [phone] [address] 2019-05-14 2019-05-14 Patient Aicha, [facility] 1.2.840.114 [id number] Univers 00:00:00 00:00:00 Secure Msg Claire Rivas 350.1.13.10 ity of [place] 4[place].7.2.[place] [phone] [address] 2019-05-14 2019-05-14 Letter Chika [facility] 1.2.840.114 [id number] Univers 00:00:00 00:00:00 (Out) Giovanni Rivas 350.1.13.10 i ty of [place] 4[place].7.2.[place] [phone] [address] 2019-05-14 2019-05-14 Merissa Jain [facility] 1.2.840.114 [id number] Univers 00:00:00 00:00:00 (Out) Giovanni Rivas 350.1.13.10 i ty of [place] 4[place]2.7.2.[place] [phone] [address] 2019-05-14 2019-05-14 Merissa Jain [facility] 1.2.840.114 71 [id number] 00:00:00 00:00:00 (Out) Giovanni Rivas 350.1.13.10 [place] 4.2.7.2.686 Professio [phone] [address] 2019-05-14 2019-05-14 Letter Chika MAALEKSEY 1.2.840.114 71 [id number] 00:00:00 00:00:00 (Out) Giovanni Rivas 350.1.13.10 [place] 4.2.7.2.686 Professio [phone] [address] 2019-05-13 2019-05-13 Orders Doctor NATHAN 1.2.840.114 [id number] Univers 00:00:00 00:00:00 Only Unassigned, FANTASMA 350.1.13.10 ity of [place] [facility] 4.2.7.2.686 Alfredito as [phone] [address] 2019-04-21 2019-04-21 Case Chika, [facility] 1.2.840.114 [id number] Univers 00:00:00 00:00:00 Management Giovanni [place] 350.1.13.10 ity of [place] 4[place].7.2.[place] [phone] [address] 2019-04-16 2019-04-16 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 10 ity of [place] 4.2.7.2.[place] Profess[place] [phone] [facility] 353 [facility] 2019-04-16 2019-04-16 Initial Chika [facility] 1.2.840.114 [id number] Univers 13:09:40 14:30:18 Giovanni [place] 350.1.13.10 ity of Visit [place] 4.2.7.2.[place] [phone] [address] 2019-04-16 2019-04-16 Orders Doctor NATHAN 1.2.840.114 [id number] Univers 00:00:00 00:00:00 Only Unassigned, [place]ASMA 350.1.13.10 ity of [place] [facility] 4.2.7.2.686 Alfredito as [phone] [address] Results Test Description Test Time Test Comments Results Result Comments Source RHO (D) IMMUNE GLOBULIN 2022-10-16 14:28:50 Test Item Value Reference Range Interpretation Comme nts RHIG CANDIDATE? (test code = No- see comment Patient is not a candidate for RhIg- 5055) Patient is Rh P ositive.Performed at [facility] Laboratory Services - [facility] Blood Zhus[address] Free: [phone] A No. [id number] [facility] and Screen - ONCE [id number] 03:14:57 Test Item Value Reference Range Interpretation Comments ABO & RH (test AB Positive Performed at [facility] code = 20) Laboratory Serv [facility] Blood [facility]1 [address] [place] [address] Free: [phone] A No. [id number] IAT (test code = Negative Performed a t [facility] 1185) Laboratory Serv [facility] [address] [place] [address] Free: [phone] A No. [id number] [facility] W/O SPECIFIC [id number] 22:08:00 Test Item Value Reference Range Interpretation [...] code = 3257) n/a Negative - Negative [facility] W/O SPECIFIC [id number] 20:02:00 Test Item Value Reference Range Interpretation [...] code = 3257) Negative Negative - Negative [facility] URINALYSIS W/O SPECIFIC [id number] 17:54:00 Test Item Value Reference Range Interpretation [...] code = 3257) n/a Negative - Negative [facility] URINALYSIS W/O SPECIFIC [id number] 22:16:00 Test Item Value Reference Range Interpretation [...] code = 3257) n/a Negative - [facility] [id number] 22:10:00 Test Item Value Reference Range Interpretation [...] code = 3257) n/a Negative - Negative [facility] W/O SPECIFIC [id number] 21:11:00 Test Item Value Reference Range Interpretation [...] code = 3257) n/a Negative - Negative [facility] W/O SPECIFIC [id number] 20:53:00 Test Item Value Reference Range Interpretation [...] code = 3257) n/a Negative - Negative [facility] HospitalCOM. METABOLIC PANEL (60200)2022-07-26 22:45:45 Test Item Value Reference Range Interpretation Comments NA (test code = 134 mmol/L 135-145 L 3201511973) K (test code = 3.8 mmol/L 3.5-5.0 2898128379) CL (test code = 104 mmol/L 98-108 3435338631) CO2 TOTAL (test code = 22 mmol/L 23-31 L 4529119058) AGAP (test code = 2-16 4358616309) BUN (test code = 3 mg/dL 7-23 L 6964618419) GLUCOSE (test code = 88 mg/dL 70-110 5193985204) CREATININE (test code = 0.58 mg/dL 0.50-1.04 2627451783) TOTAL BILI (test code = 0.5 mg/dL 0.1-1.4 9813330316) CALCIUM (test code = 8.1 mg/dL 8.6-10.6 L 0951756665) T PROTEIN (test code = 6.4 g/dL 6.3-8.2 7899064831) ALBUMIN (test code = 3.7 g/dL 3.5-5.0 7669679850) ALK PHOS (test code = 75 U/L 34-122 4814119222) ALTv (test code = 18 U/L 5-35 1742-6) AST(SGOT) (test code = 39 U/L 13-40 0861137279) eGFR (test code = mL/min/1.73m2 6773255932) ANALY (test code = ANALY) Association of [...] tests). Lab Interpretation Abnormal (test code = 11151-8) [facility] WITH [id number] 22:31:04 Test Item Value Reference Range Interpretation Comments WBC (test code = See_Comment [Automated 8256-2) message] The sy stem which generated this [...] RDW-SD (test code = 43.3 fL 39.0-49.9 56599-4) RDW-CV (test code = 13.5 % 12.0-15.5 788-0) PLT (test code = See_Comment [Automated 777-3) message] The sy stem which generated this result transmitted reference range : 166 - 358 10*3/ ?L. The reference r barbara was not used to interpret this result as normal/abnormal . MPV (test code = 10.2 fL 9.5-12.9 32279-2) NRBC/100 WBC (test See_Comment [Automat ed code = 1606307607) message] The system which generated this result transmitted reference range : 0.0 - 10.0 /100 WBCs. The refer ence range was not u sed to interpret th is result as normal/abnormal . NRBC x10^3 (test code See_Comment [Auto mated = 3456920221) message] The s ystem which generated this result transmitted reference range : 10*3/?L. The reference range was not used to interpret this result as normal/abnormal . GRAN MAT (NEUT) % 77.4 % (test code = 770-8) IMM GRAN % (test code 0.50 % = 4729583355) LYMPH % (test code = 10.7 % 736-9) MONO % (test code = 11.1 % 5905-5) EOS % (test code = 0.0 % 713-8) BASO % (test code = 0.3 % 706-2) GRAN MAT x10^3(ANC) 4.90 10*3/uL 1.88-7.09 (test code = 2566977718) IMM GRAN x10^3 (test 0.03 10*3/uL 0.00-0.06 code = 7093106495) LYMPH x10^3 (test code 0.68 10*3/uL 1.32-3.29 L = 731-0) MONO x10^3 (test code 0.70 10*3/uL 0.33-0.92 = 742-7) EOS x10^3 (test code = 0.03-0.39 L 711-2) BASO x10^3 (test code 0.01-0.07 = 704-7) Lab Interpretation Abnormal (test code = 14223-4) [facility] URINALYSIS W/O SPECIFIC [id number] 17:18:00 Test Item Value Reference Range Interpretation [...] code = 3257) negative Negative - Negative [facility]/O SPECIFIC [id number] 17:18:00 Test Item Value Reference Range Interpretation [...] code = 3257) negative Negative - Negative [facility] [id number] 21:52:26 Test Item Value Reference Interpretation Comments Range TROPONIN I (test 0.002 ng/mL See_Comment [Automated code = 7478325106) message] The system which generated this result [...] biotin. Lab Interpretation Normal (test code = 19897-0) [id number] 21:49:02 Test Item Value Reference Range Interpretation Comments NT-proBNP (test code 33 pg/mL See_Comment [Autom ated = [id number]) message] The system which generated this result transmitted reference range : <=125. The reference range was not used to interpret this result as normal/abnormal . ANALY (test code = ANALY) Biotin has been reported to cause a negative bias, interpret results relative to patient's use of biotin. Lab Interpretation Normal (test code = 47272-7) [facility]. METABOLIC PANEL ([id number])2022-07-18 21:39:06 Test Item Value Reference Range Interpretation Comments NA (test code = 135 mmol/L 135-145 [id number]) K (test code = 3.9 mmol/L 3.5-5.0 0235531424) CL (test code = 104 mmol/L 98-108 8232522046) CO2 TOTAL (test code = 23 mmol/L 23-31 7039844526) AGAP (test code = 2-16 0905568535) BUN (test code = 5 mg/dL 7-23 L 7783972953) GLUCOSE (test code = 68 mg/dL 70-110 L 5092036096) CREATININE (test code = 0.61 mg/dL 0.50-1.04 2951741650) TOTAL BILI (test code = 0.8 mg/dL 0.1-1.5 4947720571) CALCIUM (test code = 9.1 mg/dL 8.6-10.6 1786524845) T PROTEIN (test code = 7.4 g/dL 6.3-8.2 4689592561) ALBUMIN (test code = 4.2 g/dL 3.5-5.0 2020390523) ALK PHOS (test code = 83 U/L 34-122 4741244430) ALTv (test code = 14 U/L 5-35 1742-6) AST(SGOT) (test code = 26 U/L 13-40 0209335262) eGFR (test code = mL/min/1.73m2 0964463547) ANALY (test code = ANALY) Association of [...] tests). Lab Interpretation Abnormal (test code = 44541-1) [facility]39:06 Test Item Value Reference Range Interpretation Comments LIPASE (test code = [id number]) 48 U/L 0-220 Lab Interpretation (test code = Normal 00703-2) [id number] 21:34:26 Test Item Value Reference Range Interpretation Comments APTT Patient (test See_Comment [Automat ed code = 3173-2) message] The system which generated this result transmitted reference range : 23 - 38 Seconds . The reference range was not used to interpr et this result as normal/abnormal . ANALY (test code = ANALY) The [facility] patient population mean normal value for aPTT is 30 seconds. Lab Interpretation Normal (test code = 32154-8) [facility] [id number] 21:32:04 Test Item Value Reference Range Interpretation [...] tions. Lab Interpretation (test Normal code = 72003-1) [facility] [id number] 21:24:03 Test Item Value Reference Range Interpretation Comments WBC (test code = See_Comment H [Automated 4890-2) message] The system which generated this result transmit ismael reference range : 4.30 - 11.10 10*3/?L. The reference range was not used to interpret this result as normal/abnormal . RBC (test code = See_Comment L [Automated 049-8) message] The system which generated this result [...] RDW-SD (test code = 42.9 fL 39.0-49.9 00047-7) RDW-CV (test code = 13.6 % 12.0-15.5 788-0) PLT (test code = See_Comment [Automated 777-3) message] The system which generated this result transmit ismael reference range : 166 - 358 10*3/ ?L. The reference range was not u sed to interpret th is result as normal/abnormal . MPV (test code = 10.5 fL 9.5-12.9 52801-7) NRBC/100 WBC (test See_Comment [Automat ed code = 4668580801) message] The system which generated this result transmit ismael reference range : 0.0 - 10.0 /100 WBCs. The reference range was not used to interpret this result as normal/abnormal . NRBC x10^3 (test code See_Comment [Auto mated = 3410017893) message] The system which generated this result transmit ismael reference range : 10*3/?L. The reference range was not used to interpret this result as normal/abnormal . GRAN MAT (NEUT) % 80.6 % (test code = 770-8) IMM GRAN % (test code 0.50 % = 4119529424) LYMPH % (test code = 11.8 % 736-9) MONO % (test code = 5.7 % 5905-5) EOS % (test code = 1.1 % 713-8) BASO % (test code = 0.3 % 706-2) GRAN MAT x10^3(ANC) 10.92 10*3/uL 1.88-7.09 H (test code = 9319627377) IMM GRAN x10^3 (test 0.07 10*3/uL 0.00-0.06 H code = 0987236345) LYMPH x10^3 (test code 1.60 10*3/uL 1.32-3.29 = 731-0) MONO x10^3 (test code 0.77 10*3/uL 0.33-0.92 = 742-7) EOS x10^3 (test code = 0.15 10*3/uL 0.03-0.39 711-2) BASO x10^3 (test code 0.04 10*3/uL 0.01-0.07 = 704-7) Lab Interpretation Abnormal (test code = 03431-9) [facility] URINALYSIS W/O SPECIFIC [id number] 21:16:00 Test Item Value Reference Range Interpretation [...] code = 3257) N/A Negative - Negative [facility] URINALYSIS W/O SPECIFIC [id number] 22:40:00 Test Item Value Reference Range Interpretation [...] code = 3257) na Negative - Negative [facility] URINALYSIS W/O SPECIFIC [id number] 21:23:00 Test Item Value Reference Range Interpretation [...] code = 3257) n/a Negative - Negative [facility]. METABOLIC PANEL ([id number] 01:33:42 Test Item Value Reference Range Interpretation Comments NA (test code = 134 mmol/L 135-145 L 9491438806) K (test code = 4.2 mmol/L 3.5-5 1927131180) CL (test code = 103 mmol/L 98-108 6545349237) CO2 TOTAL (test code = 23 mmol/L 23-31 3954513431) AGAP (test code = 2-16 3567587443) BUN (test code = 3 mg/dL 7-23 L 3525251173) GLUCOSE (test code = 81 mg/dL 70-110 8252146493) CREATININE (test code = 0.54 mg/dL 0.5-1.04 6085486274) TOTAL BILI (test code = 0.5 mg/dL 0.1-1.3 1194301814) CALCIUM (test code = 8.8 mg/dL 8.6-10.6 9580515030) T PROTEIN (test code = 7.0 g/dL 6.3-8.2 3315239106) ALBUMIN (test code = 4.0 g/dL 3.5-5 7824818689) ALK PHOS (test code = 53 U/L 34-122 0901736615) ALTv (test code = 9 U/L 5-35 1742-6) AST(SGOT) (test code = 19 U/L 13-40 3611753040) eGFR (test code = mL/min/1.73m2 5162371149) ANALY (test code = ANALY) Association of [...] tests). Lab Interpretation Abnormal (test code = 28801-3) [facility] WITH [id number] 01:15:38 Test Item Value Reference Range Interpretation Comments WBC (test code = See_Comment [Automated 4040-2) message] The sy stem which generated this result transmitted reference range : 4.30 - 11.10 10*3/?L. The reference range was not used to interpret this result as normal/abnormal . RBC (test code = See_Comment L [Automated 129-8) message] The sy stem which generated this [...] RDW-SD (test code = 43.8 fL 39-49.9 76160-4) RDW-CV (test code = 13.9 % 12-15.5 788-0) PLT (test code = See_Comment [Automated 777-3) message] The sy stem which generated this result transmitted reference range : 166 - 358 10*3/ ?L. The reference r barbara was not used to interpret this result as normal/abnormal . MPV (test code = 10.2 fL 9.5-12.9 30966-8) NRBC/100 WBC (test See_Comment [Automat ed code = 2707140044) message] The system which generated this result transmitted reference range : 0.0 - 10.0 /100 WBCs. The refer ence range was not u sed to interpret th is result as normal/abnormal . NRBC x10^3 (test code See_Comment [Auto mated = 8117930914) message] The s ystem which generated this result transmitted reference range : 10*3/?L. The reference range was not used to interpret this result as normal/abnormal . GRAN MAT (NEUT) % 71.1 % (test code = 770-8) IMM GRAN % (test code 0.50 % = 0887974978) LYMPH % (test code = 17.5 % 736-9) MONO % (test code = 6.0 % 5905-5) EOS % (test code = 4.5 % 713-8) BASO % (test code = 0.4 % 706-2) GRAN MAT x10^3(ANC) 7.67 10*3/uL 1.88-7.09 H (test code = 5533968904) IMM GRAN x10^3 (test 0.05 10*3/uL 0-0.06 code = 4041367891) LYMPH x10^3 (test code 1.89 10*3/uL 1.32-3.29 = 731-0) MONO x10^3 (test code 0.65 10*3/uL 0.33-0.92 = 742-7) EOS x10^3 (test code = 0.48 10*3/uL 0.03-0.39 H 711-2) BASO x10^3 (test code 0.04 10*3/uL 0.01-0.07 = 704-7) Lab Interpretation Abnormal (test code = 37305-9) [id number] 19:39[facility] Test Item Value Reference Range Interpretation Comments POCT PREG (test code = 1605) Positive On board controls acceptable with C Yes Line (test code = 3574) POCT PREG LOT # (test code = 3575) POCT PREG TEST DATE (test code = 3576) [facility] URINALYSIS W/O SPECIFIC [id number] 19:39:00 Test Item Value Reference Range Interpretation [...] code = 3257) n/a Negative - Negative [facility]"
[2023-07-06] MEDS ORDERED: METOCLOPRAMIDE 10 MG/2mL INJ ONE (16:01)
[2023-07-06] MEDS ORDERED: DIPHENHYDRAMINE 50 MG/ML VIAL ONE (16:01)
[2023-07-06] MEDS ORDERED: ACETAMINOPHEN 500 MG TAB ONE (16:01)
[2023-07-06] MEDS ORDERED: NA CHLORIDE 0.9% 1,000 ML ONE (16:02)
[2023-07-06] MEDS ORDERED: dexAMETHasone 10 MG/ML VIAL ONE (16:02)
[2023-07-06 16:15] LABS: Specific Gravity 1.019 (1.005-1.030); Urine Bacteria None Seen /HPF (<20); Urine Bilirubin NEGATIVE (Negative); Urine Blood Negative (Negative); Urine Clarity Turbid (Clear); Urine Color Light-Yellow (Yellow); Urine Crystals Unidentified Few /HPF (None Seen); Urine Glucose NEGATIVE (Negative); Urine Mucus 1+ /HPF (None Seen); Urine Protein NEGATIVE (Negative); Urine RBC <5 /HPF (None Seen); Urine Urobilinogen Normal (Normal)
[2023-07-06 16:15] LABS: Absolute Lymphocytes (CBC) 0.8 K/uL (0.7-4.9); Hematocrit 38.9 % (36.0-45.0); Lymphocytes % 13.2 % (15.3-44.8); MCV 84.7 fL (80-100); Platelets 297 thou/uL (152-406); RBC Red Blood Cell Count 4.59 M/uL (3.86-4.86)
[2023-07-06 16:25] LABS: Potassium 3.6 mEq/L (3.5-5.1)
[2023-07-06] MEDS ORDERED: KETOROLAC 30 MG/ML INJ ONE (18:22)
--- NOTE | 2023-07-06 18:22 | EDPHYS ---
Physician Documentation [facility] Name: Brooklynn Lorenzana Age: 22 yrs Sex: Female : 2000 Arrival Date: 07/06/2023 Time: 15:27 Bed 14 Private MD: ED Physician Golden Bain HPI: 07/06 15:40 This 22 yrs old Black Female presents to ER via Unassigned with complaints of Migraine. cp 15:40 Onset: The symptoms/episode began/occurred 2 day(s) ago. cp 15:40 Associated signs and symptoms: Pertinent positives: eye pain. cp 15:40 The patient has experienced similar episodes in the past, multiple times, but today's cp symptoms are worse, more painful. 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 - Social history:: Smoking status: Patient denies any tobacco usage or history of. ROS: 15:45 Constitutional: Positive for fever, Negative for poor PO intake, cp 15:45 Eyes: Positive for pain, Negative for discharge, redness, cp 15:45 ENT: Negative for drainage from ear(s), ear pain, difficulty swallowing, difficulty handling secretions, 15:45 Cardiovascular: Negative for chest pain, 15:45 Respiratory: Negative for cough, shortness of breath, wheezing, 15:45 Abdomen/GI: Negative for abdominal pain, vomiting, diarrhea, constipation, 15:45 Skin: Negative for rash, 15:45 Neuro: Positive for headache, Negative for altered mental status, 15:45 All other systems are negative, Exam: 15:50 Constitutional: The patient appears in no acute distress, alert, awake, non-toxic, well cp developed, well nourished, uncomfortable, 15:50 Head/Face: Normocephalic, atraumatic. cp 15:50 Eyes: Periorbital structures: appear normal, Pupils: equal, round, and reactive to light and accomodation, Extraocular movements: intact throughout, Conjunctiva: normal, no exudate, no injection, Sclera: no appreciated abnormality, Lids and lashes: appear normal, bilaterally, 15:50 ENT: External ear(s): are unremarkable, Ear canal(s): are normal, clear, TM's: dullness, bilaterally, Nose: is normal, Mouth: Lips: moist, Oral mucosa: pink and intact, moist, Posterior pharynx: is normal, airway is patent, no erythema, no exudate, 15:50 Neck: ROM/movement: pain, that is mild, with any movement, limited range of motion, is not appreciated, nuchal rigidity, is not appreciated, 15:50 Chest/axilla: Inspection: normal, 15:50 Cardiovascular: Rate: tachycardic, Rhythm: regular, 15:50 Respiratory: the patient does not display signs of respiratory distress, Respirations: normal, no use of accessory muscles, no retractions, labored breathing, is not present, Breath sounds: are clear throughout, no decreased breath sounds, no stridor, no wheezing, 15:50 Abdomen/GI: Inspection: abdomen appears normal, Palpation: abdomen is soft and non-tender, in all quadrants, 15:50 Neuro: Orientation: to person, place \T\ time. Mentation: is normal, Cerebellar function: is grossly normal, Motor: moves all fours, strength is normal, Sensation: is normal, Vital Signs: 15:40 BP 117 / 86; Pulse 109; Resp 18; Temp 100.8(O); Pulse Ox 99% ; Weight 69.85 kg (R); cm10 Height 5 ft. 4 in. (R); Pain 10/10; 16:16 BP 134 / 91; Pulse 100; Resp 18 S; Temp 100.3(O); Pulse Ox 100% on R/A; kc6 16:58 BP 116 / 69; Pulse 103; Resp 18 S; Temp 100.4(O); kc6 18:16 BP 95 / 65; Pulse 93; Resp 18; Temp 98.4(O); Pulse Ox 100% on R/A; kc6 15:40 Body Mass Index 26.43 (69.85 kg, 162.56 cm) cm10 15:40 Pain Scale: Adult cm10 MDM: 15:47 Patient medically screened. cp 16:00 Differential diagnosis: viral Infection, bacterial infection, URI, UTI, meningitis. cp 17:59 Data reviewed: vital signs, nurses notes, lab test result(s). ED course: Discussed cp results of today's testing and patient reports she has not had a headache this painful before, low grade fever measured. Spinal tap offered but declined at this time by patient who understands risk of missed diagnosis of meningitis. Patient will return to ED worsening symptoms. 18:21 I considered the following discharge prescriptions or medication management in the emergency department Medications were administered in the Emergency Department. See MAR. 18:21 Counseling: I had a detailed discussion with the patient and/or guardian regarding the historical points, exam findings, and any diagnostic results supporting the discharge/admit diagnosis, lab results, to return to the emergency department if symptoms worsen or persist or if there are any questions or concerns that arise at home. Response to treatment: the patient's symptoms have markedly improved after treatment, and as a result, I will discharge patient. 07/06 15:42 Order name: COVID-19 SARS RT PCR; Complete Time: 17:04 07/06 17:04 Interpretation: Reviewed. 07/06 15:42 Order name: Influenza Screen (a \T\ B); Complete Time: 17:37 07/06 17:37 Interpretation: Reviewed. 07/06 15:42 Order name: Strep; Complete Time: 17:37 07/06 17:37 Interpretation: Reviewed. 07/06 15:42 Order name: Urinalysis W/Microscopic; Complete Time: 17:04 07/06 17:04 Interpretation: Normal except: [facility] Turbid; UESTR 75. 07/06 15:42 Order name: PREGU; Complete Time: 17:04 07/06 17:04 Interpretation: Reviewed. 07/06 15:42 Order name: CBC with Diff; Complete Time: 17:04 07/06 17:04 Interpretation: Normal except: MOLINA% 74.3; LYM% 13.2. 07/06 15:42 Order name: BMP; Complete Time: 17:04 07/06 17:04 Interpretation: Normal except: BUN 6; CA 8.1. 07/06 17:22 Order name: Throat Culture EDHI 07/06 15:42 Order name: IV; Complete Time: 15:58 cp Administered Medications: 16:05 Drug: NS 0.9% IV 1000 ml IV at 1 bolus Per protocol; 1000 mL bolus Route: IV; Rate: 1 kc6 bolus; Site: right antecubital; 16:57 Follow up: Response: No adverse reaction; IV Status: Completed infusion; IV Intake: kc6 1000ml 16:05 Drug: metoCLOPramide IVP 10 mg IVP once; over 1 to 2 minutes Route: IVP; Site: right kc6 antecubital; 16:58 Follow up: Response: No adverse reaction kc6 16:05 Drug: diphenhydrAMINE IVP 25 mg IVP once Route: IVP; Site: right antecubital; kc6 16:58 Follow up: Response: No adverse reaction kc6 16:05 Drug: Decadron - Dexamethasone IVP 10 mg IVP once Route: IVP; Site: right antecubital; kc6 16:58 Follow up: Response: No adverse reaction kc6 16:05 Drug: Acetaminophen PO 1000 mg PO once Route: PO; kc6 16:58 Follow up: Response: No adverse reaction; Temperature is unchanged; Pain is unchanged, 6 physician notified 18:15 Drug: Ketorolac IVP 15 mg IVP once Route: IVP; Site: right antecubital; 6 18:23 Follow up: Response: No adverse reaction [facility] Disposition: 07/07 09:40 Co-signature as Attending Physician, Golden Bain MD I reviewed the patient's care rn provided by the Advanced Practice Provider and agree with the diagnosis and treatment plan. Disposition Summary: 07/06/23 18:21 Discharge Ordered Notes: Location: Home cp Problem: new cp Symptoms: have improved cp Condition: Stable cp Diagnosis - Headache cp - Fever presenting with conditions classified elsewhere cp Followup: cp - With: Private Physician - When: 1 - 2 days - Reason: Recheck today's complaints Discharge Instructions: - Discharge Summary Sheet cp - Fever, Adult cp - Migraine Headache cp Forms: - Medication Reconciliation Form cp - Thank You Letter cp - Antibiotic Education cp - Prescription Opioid Use cp - Patient Portal Instructions cp - Leadership Thank You Letter cp Prescriptions: - Ibuprofen 800 mg Oral Tablet - take 1 tablet ORAL route every 8 hours As needed take with food; 30 tablet; cp Refills: 0, Product Selection Permitted - Reglan 10 mg Oral Tablet - take 1 tablet ORAL route every 6 hours take 30 minutes before meals and at cp bedtime; 20 tablet; Refills: 0, Product Selection Permitted Signatures: Dispatcher [facility] Golden Hernandez MD MD rn Ananth Cox PA PA cp Teresa Willingham RN RN kc6 Pat Schmidt RN RN cm10 Corrections: (The following items were deleted from the chart) 07/06 17:04 17:04 Normal except: BUN 6. cp cp
--- NOTE | 2023-07-06 18:22 | ER ---
Nurse's Notes [facility] Name: Brooklynn Lorenzana Age: 22 yrs Sex: Female : 2000 Arrival Date: 07/06/2023 Time: 15:27 Bed 14 Private MD: Diagnosis: Headache;Fever presenting with conditions classified elsewhere Presentation: 07/06 15:40 Chief complaint: Patient states: migraines since Friday. Pt states that her PCP cm10 prescribed 4 different medications with no relief. Coronavirus screen: Vaccine status: Patient reports being unvaccinated. Client denies travel out of the [place] in the last 14 days. Ebola Screen: Patient denies travel to an Ebola-affected area in the 21 days before illness onset. No symptoms or risks identified at this time. Initial Sepsis Screen: Does the patient meet any 2 criteria? No. Patient's initial sepsis screen is negative. Does the patient have a suspected source of infection? No. Patient's initial sepsis screen is negative. Risk Assessment: Do you want to hurt yourself or someone else? Patient reports no desire to harm self or others. Onset of symptoms was July 06, 2023. 15:40 Method Of Arrival: Ambulatory cm10 15:40 Acuity: KAREN 3 cm10 HOUSE DIRECTOR: 15:42 LMP 06/17/2023, unknown cm10 Historical: - Allergies: 15:40 peanuts; cm10 15:40 diclofenac sodium; cm10 - PMHx: 15:40 Asthma; cm10 - Immunization history:: Adult Immunizations unknown. - Social history:: Smoking status: Patient denies any tobacco usage or history of. Screenin:00 [facility] ED Fall Risk Assessment (Adult) History of falling in the last 3 months, kc6 including since admission No falls in past 3 months (0 pts) Confusion or Disorientation No (0 pts) Intoxicated or Sedated No (0 pts) Impaired Gait No (0 pts) Mobility Assist Device Used No (0 pt) Altered Elimination No (0 pt) Score/Fall Risk Level 0 - 2 = Low Risk. Abuse screen: Denies threats or abuse. Denies injuries from another. Nutritional screening: No deficits noted. Tuberculosis screening: No symptoms or risk factors identified. Assessment: 16:00 General: Appears in no apparent distress. comfortable, Behavior is calm, cooperative, kc6 appropriate for age. Pain: Complains of pain in head. Neuro: Level of Consciousness is awake, alert, obeys commands, Oriented to person, place, time, situation, Appropriate for age Reports headache. Cardiovascular: Capillary refill < 3 seconds. Respiratory: Airway is patent Trachea midline Respiratory effort is even, unlabored, Respiratory pattern is regular, symmetrical. GI: No signs and/or symptoms were reported involving the gastrointestinal system. : No signs and/or symptoms were reported regarding the genitourinary system. EENT: No signs and/or symptoms were reported regarding the EENT system. Derm: No signs and/or symptoms reported regarding the dermatologic system. Skin is intact, is healthy with good turgor, Skin is pink, warm \T\ dry. Musculoskeletal: No signs and/or symptoms reported regarding the musculoskeletal system. Circulation, motion, and sensation intact. Capillary refill < 3 seconds, Range of motion: intact in all extremities. 16:58 Reassessment: Patient appears in no apparent distress at this time. No changes from kc6 previously documented assessment. Patient and/or family updated on plan of care and expected duration. Pain level reassessed. Patient is alert, oriented x 3, equal unlabored respirations, skin warm/dry/pink. Patient states symptoms have not improved. 17:58 Reassessment: Patient appears in no apparent distress at this time. No changes from kc6 previously documented assessment. Patient and/or family updated on plan of care and expected duration. Pain level reassessed. Patient is alert, oriented x 3, equal unlabored respirations, skin warm/dry/pink. Patient states feeling better. Patient states symptoms have improved. Vital Signs: 15:40 BP 117 / 86; Pulse 109; Resp 18; Temp 100.8(O); Pulse Ox 99% ; Weight 69.85 kg (R); cm10 Height 5 ft. 4 in. (R); Pain 10/10; 16:16 BP 134 / 91; Pulse 100; Resp 18 S; Temp 100.3(O); Pulse Ox 100% on R/A; kc6 16:58 BP 116 / 69; Pulse 103; Resp 18 S; Temp 100.4(O); kc6 18:16 BP 95 / 65; Pulse 93; Resp 18; Temp 98.4(O); Pulse Ox 100% on R/A; kc6 15:40 Body Mass Index 26.43 (69.85 kg, 162.56 cm) cm10 15:40 Pain Scale: Adult cm10 ED Course: 15:29 Patient arrived in ED. rg4 15:29 Ananth Cox PA is PHCP. cp 15:29 Golden Bain MD is Attending Physician. cp 15:42 Triage completed. cm10 15:42 Arm band placed on Patient placed in an exam room, on a stretcher. cm10 15:44 Teresa Willingham, LESIA is Primary Nurse. kc6 15:58 BMP Sent. ds4 15:58 CBC with Diff Sent. ds4 15:58 PREGU Sent. ds4 15:58 Urinalysis W/Microscopic Sent. ds4 15:58 Inserted saline lock: 22 gauge in right antecubital area, using aseptic technique. ds4 Blood collected. 16:00 Patient has correct armband on for positive identification. Bed in low position. Call kc6 light in reach. Side rails up X 1. Client placed on continuous cardiac and pulse oximetry monitoring. NIBP monitoring applied. 18:31 No provider procedures requiring assistance completed. IV discontinued, intact, kc6 bleeding controlled, No redness/swelling at site. Pressure dressing applied. Administered Medications: 16:05 Drug: NS 0.9% IV 1000 ml IV at 1 bolus Per protocol; 1000 mL bolus Route: IV; Rate: 1 kc6 bolus; Site: right antecubital; 16:57 Follow up: Response: No adverse reaction; IV Status: Completed infusion; IV Intake: kc6 1000ml 16:05 Drug: metoCLOPramide IVP 10 mg IVP once; over 1 to 2 minutes Route: IVP; Site: right kc6 antecubital; 16:58 Follow up: Response: No adverse reaction kc6 16:05 Drug: diphenhydrAMINE IVP 25 mg IVP once Route: IVP; Site: right antecubital; kc6 16:58 Follow up: Response: No adverse reaction kc6 16:05 Drug: Decadron - Dexamethasone IVP 10 mg IVP once Route: IVP; Site: right antecubital; kc6 16:58 Follow up: Response: No adverse reaction kc6 16:05 Drug: Acetaminophen PO 1000 mg PO once Route: PO; kc6 16:58 Follow up: Response: No adverse reaction; Temperature is unchanged; Pain is unchanged, kc6 physician notified 18:15 Drug: Ketorolac IVP 15 mg IVP once Route: IVP; Site: right antecubital; kc6 18:23 Follow up: Response: No adverse reaction kc6 Medication: 18:31 VIS not applicable for this client. kc6 Intake: 16:57 IV: 1000ml; Total: 1000ml. kc6 Outcome: 18:21 Discharge ordered by MD. cp 18:31 Discharged to home ambulatory, kc6 18:31 Condition: improved 18:31 Discharge instructions given to patient, Instructed on discharge instructions, follow up and referral plans. medication usage, Demonstrated understanding of instructions, follow-up care, medications, Prescriptions given X 2, 18:31 Patient left the ED. kc6 Signatures: Jovi Solorio ds4 Ananth Cox PA PA cp Garcia, Rubi rg4 Teresa Willingham RN RN kc6 Pat Schmidt RN RN cm10 Corrections: (The following items were deleted from the chart) 16:23 16:16 BP 134 / 91; Pulse 100bpm; Resp 18bpm; Spontaneous; Pulse Ox 100% RA; kc6 kc6
[2023-07-06 18:57] VITALS: O2SAT 100
[2023-07-06 18:59] VITALS: BP 95/65; TEMP 98.4
== END 2023-07-06 18:31 | disposition home or self-care (01) ==
LOC: ER 15:27
DX: R51.9 Headache, unspecified (principal); R50.9 Fever, unspecified; Z11.52 Encounter for screening for COVID-19; Z88.8 Allergy status to other drugs, medicaments and biological substances; Z91.010 Allergy to peanuts
CPT/HCPCS: 96361; 87070; 85025; 81001; 80048; 36415; 81025; 87081; 87635; 87804 ×2; 96375; 96374; 99284; J2765; J1200; J1100; J7030

== ENCOUNTER → 2023-11-10 | Emergency (ER) | payer SELFPAY ==
--- NOTE | 2023-11-10 19:40 | ER ---
Nurse's Notes [facility] Name: Brooklynn Lorenzana Age: 23 yrs Sex: Female : 2000 Arrival Date: 11/10/2023 Time: 19:11 Bed IW7 Private MD: Diagnosis: Toenail Injury Presentation: 11/09 19:34 Chief complaint: Patient states: I got my right toe nail knocked off on Friday. There kd3 is gauze stuck to the toe area. The gauze hurts a lot. Ebola Screen: No symptoms or risks identified at this time. Initial Sepsis Screen: Does the patient meet any 2 criteria? No. Patient's initial sepsis screen is negative. Does the patient have a suspected source of infection? No. Patient's initial sepsis screen is negative. Risk Assessment: Do you want to hurt yourself or someone else? Patient reports no desire to harm self or others. Onset of symptoms was November 08, 2023. 19:34 Method Of Arrival: Ambulatory kd3 19:37 Acuity: KAREN 4 kd3 19:37 Coronavirus screen: Vaccine status: Patient reports being unvaccinated. kd3 Triage Assessment: 19:36 General: Appears uncomfortable, Behavior is calm, cooperative. Pain: Complains of pain kd3 in Right first toenail. Historical: - Allergies: 19:36 diclofenac sodium; kd3 19:36 peanuts; kd3 - PMHx: 19:36 Asthma; kd3 - Immunization history:: Adult Immunizations up to date. - Social history:: Smoking status: unknown. Screenin:40 [facility] ED Fall Risk Assessment (Adult) History of falling in the last 3 months, kd3 including since admission No falls in past 3 months (0 pts) Confusion or Disorientation No (0 pts) Intoxicated or Sedated No (0 pts) Impaired Gait No (0 pts) Mobility Assist Device Used No (0 pt) Altered Elimination No (0 pt) Score/Fall Risk Level 0 - 2 = Low Risk Oriented to surroundings. Abuse screen: Denies threats or abuse. Denies injuries from another. Nutritional screening: No deficits noted. Tuberculosis screening: No symptoms or risk factors identified. Vital Signs: 19:37 Resp 16; Temp 98.2; Pulse Ox 99% ; kd3 19:37 BP 113 / 75; Pulse 89; Temp 98.4; Weight 69.85 kg; kd3 ED Course: 19:16 Patient arrived in ED. gm2 19:17 Jack Matias MD is Attending Physician. ec2 19:36 Arm band placed on right wrist. kd3 19:37 Triage completed. kd3 19:41 Patient has correct armband on for positive identification. Provided Education on: kd3 wound care . 19:41 No provider procedures requiring assistance completed. Patient did not have IV access kd3 during this emergency room visit. Administered Medications: No medications were administered Medication: 19:41 VIS not applicable for this client. kd3 Outcome: 19:39 Discharge ordered by . ec2 19:41 Discharged to home ambulatory, kd3 19:41 Condition: stable 19:48 Discharge instructions given to patient, Instructed on discharge instructions, follow kd3 up and referral plans. Demonstrated understanding of instructions, follow-up care, 19:48 Patient left the ED. kd3 Signatures: Anne Hartley RN RN kd3 Jack Matias MD MD ec2 Taylor Munoz 2
--- NOTE | 2023-11-10 19:40 | EDPHYS ---
Physician Documentation [facility] Name: Brooklynn Lorenzana Age: 23 yrs Sex: Female : 2000 Arrival Date: 11/10/2023 Time: 19:11 Bed IW7 Private MD: ED Physician Jack Matias HPI: 11/09 19:40 This 23 yrs old Black Female presents to ER via Ambulatory with complaints of Toe ec2 Injury. 19:40 Patient arrives today for evaluation of her right toe injury. Patient reports that she ec2 injured her great right toe 2 days ago. States that the toenail completely came off. States she has been dressing it with antibiotic ointment and gauze, states that some gauze adhered to it and she wanted to have it evaluated. Reports no discharge or other concerns. Historical: - Allergies: 19:36 diclofenac sodium; kd3 19:36 peanuts; kd3 - PMHx: 19:36 Asthma; kd3 - Immunization history:: Adult Immunizations up to date. - Social history:: Smoking status: unknown. ROS: 19:40 Constitutional: as per hpi ec2 Exam: 19:40 Constitutional: GEN: NAD Head: atraumatic Eyes: EOMI Ears: External ears are ec2 normal. CV: regular rate LUNGS: no respiratory distress ABD: non-distended SKIN: Right great toe with no nail present, some adherent gauze present, no erythema, no warmth, no discharge appreciated., No bony tenderness. MSK: no evidence of trauma NEURO: moves all extremities equally Vital Signs: 19:37 Resp 16; Temp 98.2; Pulse Ox 99% ; kd3 19:37 BP 113 / 75; Pulse 89; Temp 98.4; Weight 69.85 kg; kd3 MDM: 19:39 Patient medically screened. ec2 19:40 Data reviewed: vital signs. ED course: Patient arrives today for evaluation of a right ec2 great toe injury. Examination remarkable for well-appearing nontoxic dividual is otherwise in no acute distress, pertinent for right great toe injury as detailed above. Instructed patient on proper wound care, dressed the wound and nonadherent gauze and will have her follow-up primary care doctor. Instructed her that she will not regrow toenail given the lack of nailbed preservation.. Administered Medications: No medications were administered Disposition Summary: 11/10/23 19:39 Discharge Ordered Notes: Location: Home ec2 Condition: Stable ec2 Diagnosis - Toenail Injury ec2 Followup: ec2 - With: Private Physician - When: - Reason: Re-evaluation by your physician Discharge Instructions: - Discharge Summary Sheet ec2 - Nail Bed Injury, [id number] ec2 Forms: - Medication Reconciliation Form ec2 - Thank You Letter ec2 - Antibiotic Education ec2 - Prescription Opioid Use ec2 - Patient Portal Instructions ec2 - Leadership Thank You Letter ec2 Signatures: Anne Hartley RN RN kd3 Jack Matias MD MD ec2
[2023-11-10 20:21] VITALS: BP 113/75; TEMP 98.4; O2SAT 99
== END ==
LOC: ER 19:11
DX: S99.921A Unspecified injury of right foot, initial encounter (principal)
CPT/HCPCS: 99282

== ENCOUNTER 2024-08-23 21:08 | Emergency (ER) | payer SELFPAY ==
[2024-08-23] MEDS ORDERED: KETOROLAC 30 MG/ML INJ ONE (22:08)
[2024-08-23] MEDS ORDERED: CYCLOBENZAPRINE 10 MG TAB ONE (22:08)
[2024-08-23 22:11] LABS: Absolute Eosinophils 0.3 K/uL (0-0.5); Absolute Lymphocytes (CBC) 2.9 K/uL (0.7-4.9); Absolute Monocytes 0.7 K/uL (0.1-1.3); Absolute Neutrophil 6.5 K/uL (1.8-8.0); Basophils % 0.4 % (0-1.3); Eosinophils % 2.6 % (0-4.4); Hematocrit 40.4 % (36.0-45.0); Hemoglobin 12.7 g/dL (12.0-15.0); Lymphocytes % 27.9 % (15.3-44.8); MCH 27.6 pg (27.0-35.0); MCHC 31.5 g/dL (32.0-36.0); MCV 87.4 fL (80-100); MPV 8.1 fL (7.6-11.3); Monocytes % 6.3 % (3.3-12.3); Neutrophils % 62.8 % (41.7-73.7); Platelets 421 thou/uL (152-406); RBC Red Blood Cell Count 4.62 M/uL (3.86-4.86); Red Cell Distribution Width 14.7 % (12.1-15.2); Urine Bacteria None Seen /HPF (<20); Urine Bilirubin NEGATIVE (Negative); Urine Blood Negative (Negative); Urine Clarity Extremely Turbid (Clear); Urine Color Light-Yellow (Yellow); Urine Crystals Unidentified Few /HPF (None Seen); Urine Culture Reflex Order NOT NEEDED; Urine Glucose NEGATIVE (Negative); Urine Ketones NEGATIVE (Negative); Urine Microscopic Reflex YN ORDER UMIC; Urine Mucus Slight /HPF (None Seen); Urine Nitrite NEGATIVE (Negative); Urine Protein NEGATIVE (Negative); Urine RBC <5 /HPF (None Seen); Urine Urobilinogen Normal (Normal); Urine WBC <5 /HPF (<5); Urine Yeast (Budding) Trace /HPF (None Seen); Urine pH 7.5 (5.0-7.0)
[2024-08-23 22:28] LABS: Albumin 3.8 g/dL (3.4-5.0); Albumin/Globulin Ratio 0.9 (1.1-1.8); Anion Gap 6.7 mEq/L (5.0-15.0); Bilirubin Total 0.6 mg/dL (0.2-1.0); Globulin 4.1 g/dL (2.3-3.5); Potassium 3.7 mEq/L (3.5-5.1); Protein, Total 7.9 g/dL (6.4-8.2)
[2024-08-24] MEDS ORDERED: TRAMADOL HCL 50 MG TAB ONE (00:52)
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
--- NOTE | 2024-08-24 01:01 | ER ---
Nurse's Notes [facility] Name: Brooklynn Lorenzana Age: 24 yrs Sex: Female : 2000 Arrival Date: 08/23/2024 Time: 21:08 Bed 13 Private MD: Diagnosis: Low back pain;Abdominal pain, unspecified Presentation: 08/23 21:31 Chief complaint: Severe back pain since 1300 today. Coronavirus screen: At this time, hb the client does not indicate any symptoms associated with coronavirus-19. Ebola Screen: No symptoms or risks identified at this time. Initial Sepsis Screen: Does the patient meet any 2 criteria? No. Patient's initial sepsis screen is negative. Does the patient have a suspected source of infection? No. Patient's initial sepsis screen is negative. Risk Assessment: Do you want to hurt yourself or someone else? Patient reports no desire to harm self or others. Onset of symptoms was August 23, 2024. 21:31 Method Of Arrival: Ambulatory hb 21:31 Acuity: KAREN 3 hb Triage Assessment: 21:30 General: Appears. General: Behavior is calm, cooperative, restless. Pain: Complains of br2 pain in back Pain does not radiate. EENT: No signs and/or symptoms were reported regarding the EENT system. Neuro: Whitfield Agitation-Sedation Scale (RASS): 0 - Alert and Calm Level of Consciousness is awake, alert, obeys commands, Oriented to person, place, time, situation. Cardiovascular: Capillary refill < 3 seconds. Respiratory: Airway is patent Respiratory effort is even, unlabored, Respiratory pattern is regular, symmetrical. Musculoskeletal: Circulation, motion, and sensation intact. Capillary refill < 3 seconds, Range of motion: intact in all extremities, Reports pain in back since 1 year. Historical: - Allergies: 21:31 diclofenac sodium; hb 21:31 peanuts; hb - Home Meds: 21:31 None [Active]; hb - PMHx: 21:31 Asthma; hb - PSHx: 21:31 None; hb - Immunization history:: Adult Immunizations up to date. - Infectious Disease History:: Denies. - Social history:: Smoking status: Patient denies any tobacco usage or history of. - Family history:: not pertinent. - Hospitalizations: : No recent hospitalization is reported. Screenin:30 [facility] ED Fall Risk Assessment (Adult) History of falling in the last 3 months, br2 including since admission No falls in past 3 months (0 pts) Confusion or Disorientation No (0 pts) Intoxicated or Sedated No (0 pts) Impaired Gait No (0 pts) Mobility Assist Device Used No (0 pt) Altered Elimination No (0 pt) Score/Fall Risk Level 0 - 2 = Low Risk Oriented to surroundings. Abuse screen: Denies threats or abuse. Denies injuries from another. Nutritional screening: No deficits noted. Tuberculosis screening: No symptoms or risk factors identified. Assessment: 00:45 Reassessment: Patient and/or family updated on plan of care and expected duration. Pain br2 level reassessed. Patient is alert, oriented x 3, equal unlabored respirations, skin warm/dry/pink. Pain: Complains of pain in back. 21:30 Neuro: Level of Consciousness is awake, alert, obeys commands, Oriented to person, br2 place, time, situation. 23:00 Reassessment: Patient and/or family updated on plan of care and expected duration. Pain br2 level reassessed. Patient is alert, oriented x 3, equal unlabored respirations, skin warm/dry/pink. Patient states feeling better. Patient states symptoms have improved. 08/24 01:15 Reassessment: Patient and/or family updated on plan of care and expected duration. Pain br2 level reassessed. Patient is alert, oriented x 3, equal unlabored respirations, skin warm/dry/pink. Patient states feeling better. Patient states symptoms have improved. Vital Signs: 08/23 21:32 BP 120 / 57; Pulse 89; Resp 16; Temp 98.2(O); Pulse Ox 99% on R/A; Weight 69.85 kg; hb Height 5 ft. 4 in. ; Pain 9/10; 22:45 BP 120 / 70; Pulse 70; Resp 18; Pulse Ox 99% ; br2 08/24 00:48 BP 127 / 77; Pulse 76; Resp 18; Pulse Ox 98% ; Pain 8/10; br2 01:30 BP 116 / 78; Pulse 89; Resp 18 S; Temp 97.2; Pulse Ox 99% on R/A; br2 08/23 21:32 Body Mass Index 26.43 (69.85 kg, 162.56 cm) hb 08/23 21:32 Pain Scale: Adult hb 08/24 00:48 Pain Scale: Adult br2 ED Course: 08/23 21:11 Patient arrived in ED. im 21:12 Golden Bain MD is Attending Physician. rn 21:30 Patient has correct armband on for positive identification. Bed in low position. Call br2 light in reach. Side rails up X 1. Provided Education on: plan of care. 21:30 Inserted saline lock: 20 gauge in right antecubital area, using aseptic technique. br2 Blood collected. Flushed with 10 mL NS. 21:31 Triage completed. hb 21:32 Arm band placed on. hb 21:40 Radiology exam delayed due to test not completed at this time. nm 22:01 Christina Traore, LESIA is Primary Nurse. br2 22:32 CT Chest, Abdomen, Pelvis - W/Contrast In Process Unspecified. EDMS 08/24 01:27 No provider procedures requiring assistance completed. IV discontinued, intact, br2 bleeding controlled, No redness/swelling at site. Pressure dressing applied. Administered Medications: 08/23 22:00 Drug: TORadol - Ketorolac IVP 15 mg IVP once Route: IVP; Site: right antecubital; br2 22:30 Follow up: Response: No adverse reaction br2 22:30 Drug: Cyclobenzaprine PO 10 mg PO once Route: PO; br2 23:00 Follow up: Response: No adverse reaction br2 08/24 00:54 Drug: traMADol PO 50 mg PO once Route: PO; br2 01:30 Follow up: Response: No adverse reaction br2 Medication: 08/23 21:30 VIS not applicable for this client. br2 Outcome: 08/24 01:00 Discharge ordered by . rn 01:27 Discharged to home ambulatory, br2 01:27 Condition: good 01:27 Discharge instructions given to patient, Instructed on discharge instructions, follow up and referral plans. Demonstrated understanding of instructions, follow-up care, medications, Prescriptions given X 2, 01:29 Patient left the ED. br2 Signatures: Dispatcher [employer] EDMS Golden Bain MD MD rn Baxter, Heather, RN RN hb Jordan, Nathan nj Mendoza, Itzel Christina Traore RN RN br2 Corrections: (The following items were deleted from the chart) 12/23 21:32 21:31 Social history: Smoking status: hb hb
--- NOTE | 2024-08-24 01:31 | RAD REPORT ---
EXAM: CT Chest, Abdomen and Pelvis With Intravenous Contrast CLINICAL HISTORY: The patient is 24 years old and is Female; abd pain, back pain, thoracic/lumbar perispinal pain TECHNIQUE: Axial computed tomography images of the chest, abdomen and pelvis with intravenous contrast. Sagi ttal and coronal reformatted images were created and reviewed. This CT exam was performed using one or more of the following dose reduction techniques: automated exposure control, adjustment of t he mA and/or kV according to patient size, and/or use of iterative reconstruction technique. COMPARISON: No relevant prior studies available. FINDINGS: CHEST: LUNGS: The lungs are clear of focal opacity, mass, or consolidation. PLEURAL SPACE: Unremarkable. No significant effusion. No pneumothorax. HEART: No cardiomegaly. No pericardial effusion. ABDOMEN: LIVER: Unremarkable. No mass. GALLBLADDER AND BILE DUCTS: The gallbladder is distended. No calcified gallstones or ductal dilat ation is seen. PANCREAS: No ductal dilation. No mass. SPLEEN: Unremarkable. ADRENALS: Unremarkable. No mass. KIDNEYS AND URETERS: Left renal cysts are present. No follow-up imaging is recommended. The kidne ys enhance symmetrically and are without hydronephrosis or hydroureter. No obstructing ureteral calculus is in. STOMACH AND BOWEL: The stomach is moderately distended with food contents. The small bowel is nor mal in caliber. A few of the distal small bowel loops are fluid-filled. A moderate amount of stool is present throughout the colon. There is no mucosal thickening or evidence of obstruction. PELVIS: APPENDIX: The appendix is normal in caliber without surrounding inflammation. BLADDER: The bladder is incompletely distended. REPRODUCTIVE: Unremarkable as visualized. CHEST, ABDOMEN and PELVIS: INTRAPERITONEAL SPACE: Unremarkable. No significant fluid collection. No free air. BONES/JOINTS: There is no acute fracture of the visualized axial and appendicular skeleton. The v ertebral body heights and alignment are maintained. SOFT TISSUES: The soft tissues are normal. VASCULATURE: Unremarkable. No aortic aneurysm. LYMPH NODES: Unremarkable. No enlarged lymph nodes. IMPRESSION: No acute findings on this contrasted CT of the chest, abdomen and pelvis to explain the patient's s ymptoms. 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 Transcribed Date/Time: 08/24/2024 1:31 AM
[2024-08-24 01:55] VITALS: TEMP 98.2
[2024-08-24 01:56] VITALS: BP 127/77; O2SAT 98
== END 2024-08-24 01:29 | disposition home or self-care (01) ==
LOC: ER 21:08
DX: M54.50 Low back pain, unspecified (principal); R10.9 Unspecified abdominal pain; J45.909 Unspecified asthma, uncomplicated; Z88.8 Allergy status to other drugs, medicaments and biological substances; Z91.010 Allergy to peanuts
CPT/HCPCS: 36415; 71260; 74177; 80053; 81001; 81025; 83690; 85025; 96374; 99284; Q9967